=== PATIENT | male | born 1965 | race Caucasian/White ===

== ENCOUNTER 2017-05-21 11:41 | Emergency (ER) | payer OTHER, SELFPAY ==
[2017-05-21 12:03] VITALS: BP 132/86; PULSE 105; RESP 18; TEMP 37.1; O2SAT 96; BMI 33.0
--- NOTE | 2017-05-21 12:18 | XR_ITS ---
XR chest 2V HISTORY: ITS.REASON: congestion ORDERING PHYSICIAN: Ester Vazquez PATIENT AGE: 52 years COMPARISON: 08/18/2015 FINDINGS: The cardiomediastinal silhouette and pulmonary vascularity are within normal limits. The lungs are clear without infiltrates, suspicious nodules, or pleural effusions. No acute bony abnormalities. IMPRESSION: Negative chest, no acute finding
--- NOTE | 2017-05-21 12:18 | HMH.EDUTC ---
[facility] [place]ression: Influenza Disposition: Home, Self-Care Condition on Discharge: Good Instructions: Influenza, Cough, DI for Cough -- Adult Additional Instructions: ? Start Tamiflu today if you are going to take it. Discussed risk and possible benefits. ? Lots of rest ? Increase Fluids water, Gatorade, powerade, pedialyte,if /toddler/child ? Alternate Tylenol and / or ibuprofen as discussed for fever, aches, chills x 24 hours without medication for symptoms ? Follow up IMMEDIATELY for new or worsening Symptoms OR no noticeable improvement over the next 48-72 hours, 911 for difficulty or breathing ? You or your child area contagious until no fever, aches, chills for 24 hours with medication for symptoms Prescriptions: Dextromethorphan Polistirex [Delsym] 10 mg PO Q12H PRN #250 dorothy.er.12h PRN Reason: Cough Oseltamivir Phosphate [Tamiflu 75mg Capsule] 75 mg PO BID #10 cap Referrals: Alexandro Handley MD [Primary Care Provider] - Forms: Work/School Release Medical Decision Making - Medical Records Medical records reviewed: Yes: I reviewed the patient's medical records. Vital Signs: 05/21/17 12:03 Temperature 98.8 F Temperature Source Temporal Artery Scan Pulse Rate [Right Brachial] 105 H Respiratory Rate 18 Blood Pressure [Right Arm] 132/86 Blood Pressure Mean [Right Arm] 101 Blood Pressure Source [Right Arm] Automatic Cuff Blood Pressure Position [Right Arm] Sitting 02 Sat by Pulse Oximetry 96 Oxygen Delivery Method Room Air - Lab Data Lab Results 05/21/17 12:05: Influenza Type A Ag Positive A, Influenza Type B Ag Negative - Radiology Data #1 Image(s): Chest Image Reviewed: Yes I reviewed the patient's radiology image Preliminary Findings: Normal/NAD - Min Inquiry Pt receiving controlled substance: No Min was queried for this patient: No [facility] [place] - General Stated complaint: fever,vomiting,cough Mode of Arrival: Ambulatory Source of Information: Patient Limitations: No Limitations Description of Symptoms (Recalled from Triage Doc. by RN): c/o flu-like symptoms HEENT Symptoms (Recalled from RN notes): No Resp Symptoms (Recalled from RN notes): Yes (Flu-like symptoms) Skin Symptoms (Recalled from RN notes): No MS Symptoms (Recalled from RN notes): No Functional Status (Recalled from RN notes): n/a - History of Present Illness Provider Complaint: Patient state that yesterday he began to have body aches and didn't feel well State that last night he began having bad cough, sore throat and flu like symptoms States that this morning he began to run a fever and feeling worse States that he coughed so hard this morning that it made him vomit - Related Data Previous Rx's Medication Instructions Recorded Dextromethorphan Polistirex 10 mg PO Q12H PRN #250 dorothy.er.12h 05/21/17 [Delsym] Oseltamivir Phosphate [Tamiflu 75 mg PO BID #10 cap 05/21/17 75mg Capsule] Allergies Allergy/AdvReac Type Severity Reaction Status Date / Time No Known Allergies Allergy Verified 05/21/17 12:07 - Worker's Comp Is this a Worker's Comp case?: No H History I have reviewed the patient's past medical history: Yes - *Social History Smoking Status: Current every day smoker Tobacco Type: cigarettes Alcohol Intake: never - Psychiatric History Expresses thoughts of harming self/others: None Suicide Plan Description: No Plan ROS Obtained: Yes All systems reviewed & no additional complaints - Constitutional Constitutional: Reports body ache, Reports chills, Reports fever(s) - ENT Ears, Nose, Mouth, and Throat: Reports nasal congestion, Reports sore throat Physical Exam - General General appearance: alert, in no apparent distress - Expanded ENT Exam Comment: Throat red, nares red, irritated - Respiratory Respiratory exam: Present: normal lung sounds bilaterally. Absent: respiratory distress - Cardiovascular Cardiovascular exam: Pre
--- NOTE | 2017-05-21 12:21 | ED_ITS ---
[facility] – [place] Clinical Impression: Influenza Disposition: Home, Self-Care Condition on Discharge: Good Instructions: Influenza, Cough, DI for Cough -- Adult Additional Instructions: ? Start Tamiflu today if you are going to take it. Discussed risk and possible benefits. ? Lots of rest ? Increase Fluids water, Gatorade, powerade, pedialyte,if /toddler/child ? Alternate Tylenol and / or ibuprofen as discussed for fever, aches, chills x 24 hours without medication for symptoms ? Follow up IMMEDIATELY for new or worsening Symptoms OR no noticeable improvement over the next 48-72 hours, 911 for difficulty or breathing ? You or your child area contagious until no fever, aches, chills for 24 hours with medication for symptoms Prescriptions: Dextromethorphan Polistirex [Delsym] 10 mg PO Q12H PRN #250 dorothy.er.12h PRN Reason: Cough Oseltamivir Phosphate [Tamiflu 75mg Capsule] 75 mg PO BID #10 cap Referrals: Alexandro Handley MD [Primary Care Provider] - Forms: Work/School Release Medical Decision Making - Medical Records Medical records reviewed: Yes: I reviewed the patient's medical records. Vital Signs: 05/21/17 12:03 Temperature 98.8 F Temperature Source Temporal Artery Scan Pulse Rate [Right Brachial] 105 H Respiratory Rate 18 Blood Pressure [Right Arm] 132/86 Blood Pressure Mean [Right Arm] 101 Blood Pressure Source [Right Arm] Automatic Cuff Blood Pressure Position [Right Arm] Sitting 02 Sat by Pulse Oximetry 96 Oxygen Delivery Method Room Air - Lab Data Lab Results 05/21/17 12:05: Influenza Type A Ag Positive A, Influenza Type B Ag Negative - Radiology Data #1 Image(s): Chest Image Reviewed: Yes I reviewed the patient's radiology image Preliminary Findings: Normal/NAD - Min Inquiry Pt receiving controlled substance: No Min was queried for this patient: No [facility] [place] HPI - General Stated complaint: fever,vomiting,cough Mode of Arrival: Ambulatory Source of Information: Patient Limitations: No Limitations Description of Symptoms (Recalled from Triage Doc. by RN): c/o flu-like symptoms HEENT Symptoms (Recalled from RN notes): No Resp Symptoms (Recalled from RN notes): Yes (Flu-like symptoms) Skin Symptoms (Recalled from RN notes): No MS Symptoms (Recalled from RN notes): No Functional Status (Recalled from RN notes): n/a - History of Present Illness Provider Complaint: Patient state that yesterday he began to have body aches and didn't feel well State that last night he began having bad cough, sore throat and flu like symptoms States that this morning he began to run a fever and feeling worse States that he coughed so hard this morning that it made him vomit - Related Data Previous Rx's Medication Instructions Recorded Dextromethorphan Polistirex 10 mg PO Q12H PRN #250 dorothy.er.12h 05/21/17 [Delsym] Oseltamivir Phosphate [Tamiflu 75 mg PO BID #10 cap 05/21/17 75mg Capsule] Allergies Allergy/AdvReac Type Severity Reaction Status Date / Time No Known Allergies Allergy Verified 05/21/17 12:07 - Worker's Comp Is this a Worker's Comp case?: No [facility] History I have reviewed the patient's past medical history: Yes - *Social History Smoking Status: Current every day smoker Tobacco Type: cigarettes Alcohol Intake: never - Psychiatric Hist
[2017-05-21 12:24] LABS: UTC Influenza A Antigen Positive (Negative); UTC Influenza B Antigen Negative (Negative)
[2017-05-21 12:52] VITALS: BP 132/86; PULSE 105; RESP 18; TEMP 37.1; O2SAT 96
== END 2017-05-21 12:52 | disposition home or self-care (01) ==
PROVIDERS: Emergency Provider Nurse Practitioner; Family Provider Emergency Medicine; PCP Emergency Medicine
DX: J10.1 Influenza due to other identified influenza virus with other respiratory manifestations (principal)
CPT/HCPCS: 71046; 87804; 99202

== ENCOUNTER → 2017-06-12 08:40 | Outpatient (CLI) | payer OTHER, SELFPAY ==
[2017-06-12 09:05] LABS: Alanine Aminotransferase 38 U/L (12-78); Albumin Level 3.7 gm/dL (3.4-5.0); Alkaline Phosphatase 110 U/L (46-116); Aspartate Amino Transferase 14 U/L (15-37); Bilirubin,Direct 0.2 mg/dL (0.0-0.2); Bilirubin,Total 0.5 mg/dL (0.2-1.0); Chol/HDL Ratio 3.2 (1-3.5); Cholesterol 90 mg/dL (140-200); HDL Cholesterol 28 mg/dL (27-67); LDL Cholesterol 41 mg/dL (0-130); Total Protein,Serum 6.9 gm/dL (6.4-8.2); Triglycerides 107 mg/dL (30-200); VLDL Cholesterol 21 mg/dL (0-40)
== END ==
PROVIDERS: Visit Provider Internal Medicine
DX: I73.9 Peripheral vascular disease, unspecified (principal); I25.10 Atherosclerotic heart disease of native coronary artery without angina pectoris; I10 Essential (primary) hypertension; R94.31 Abnormal electrocardiogram [ECG] [EKG]; G47.33 Obstructive sleep apnea (adult) (pediatric); G62.9 Polyneuropathy, unspecified
CPT/HCPCS: 36415; 80061; 80076

== ENCOUNTER → 2017-08-22 09:00 | Outpatient (CLI) | payer OTHER, SELFPAY ==
--- NOTE | 2017-08-22 09:02 | FL_ITS ---
EXAM: Barium swallow/esophagram. INDICATION: ITS.REASON: dysphagia ORDERING PHYSICIAN: Everette Raza MD PATIENT AGE: 52 years COMPARISON: None TECHNIQUE: In the upright position the patient was observed to swallow barium in both the AP and lateral view. The cervical esophagus was examined under fluoroscopy with images obtained. The patient was then placed prone in the right anterior oblique position and was observed to swallow barium with Valsalva technique . FLUOROSCOPY TIME: 45 seconds FINDINGS: There was no evidence of aspiration. There was normal peristalsis. No filling defects or mucosal abnormalities. No masses or strictures. No evidence of esophageal diverticulum. Esophagus is midline. No hernia is apparent IMPRESSION: Negative barium swallow.
--- NOTE | 2017-08-22 09:02 | US_ITS ---
US thyroid HISTORY: ITS.REASON: enlarged thyroid ORDERING PHYSICIAN: Everette Raza MD PATIENT AGE: 52 years COMPARISON: 02/27/2015 FINDINGS: The right lobe is 4.2 x 1.4 x 2.5 cm. There is a vague area of decreased echogenicity along the medial aspect of the right lobe at 8 x 6 mm. This is poorly demonstrated and may be due to an area of heterogeneous echogenicity. Overall not significant change. Left lobe is 4.3 x 1.1 x 1.8 cm and has some heterogeneous echogenicity as well. There is a 4 x 2 mm hypoechoic nodule along the anterior right aspect of the isthmus not significant change. IMPRESSION: Mild thyroid enlargement with vague nodular area of the right lobe and a small cyst of the isthmus unchanged
== END ==
PROVIDERS: Family Provider Emergency Medicine; PCP Nurse Practitioner Family; Visit Provider Otolaryngology
DX: R13.10 Dysphagia, unspecified (principal)
CPT/HCPCS: 74220; 76536

== ENCOUNTER → 2017-08-28 15:27 | Outpatient (CLI) | payer OTHER, SELFPAY ==
[2017-08-28 17:30] LABS: Free T4 (Free Thyroxine) 0.98 ng/dl (0.76-1.46); Thyroid Stimulating Hormone 3.38 uIU/ml (0.358-3.740)
[2017-08-30 07:43] LABS: Thyroid Peroxidase Antibodies 11 IU/mL (0-34)
[2017-08-31 21:14] LABS: Thyroid Stimulating Immunoglob <0.10 IU/L (0.00-0.55)
== END ==
PROVIDERS: Family Provider Emergency Medicine; PCP Nurse Practitioner Family; Visit Provider Otolaryngology
DX: E01.0 Iodine-deficiency related diffuse (endemic) goiter (principal); E04.9 Nontoxic goiter, unspecified
CPT/HCPCS: 36415; 83520; 84439; 84443; 86376

== ENCOUNTER → 2018-01-19 07:08 | Outpatient (CLI) | payer OTHER, SELFPAY ==
--- NOTE | 2018-01-19 07:10 | CA_ITS ---
PROCEDURE: 2-D M-mode and color Doppler study INDICATIONS FOR THE TEST: Chest pain COPDX Heart Murmur Tobacco SmokingX Palpitations Fatigue Syncope Edema HypertensionXDiabetes Mellitus Rheumatic Fever SOB PADRON Obesity HyperlipidemiaX Family History HD Additional History PRE-OP EVAL,ABN EKG PATIENT INFORMATION HEIGHT: 70 WEIGHT:242 GENDER: Male B/P:126/76 2-D/M-MODE INTERPRETATION: 2-D MEASUREMENTS OBSERVED VALUES IN CMS Right Ventricular Dimension (RVDd) 2.5 Interventricular Septum (Thickness)(IVsd) .9 Left Ventricular Internal Dimensions(LVIDd) 5.5 Left Ventricular Posterior Wall (Thickness)(LVPWd) .8 Aortic Root 3.1 Aortic Cusp Separation 2.4 Left Atrial Dimensions (LAD) 3.3 2D 1. Left atrium is qualitatively mildly enlarged, left ventricle is normal size, mild qualitative concentric left ventricular hypertrophy, visually estimated ejection fraction 55% with no regional wall motion abnormality. 2. The right atrium and ventricle are normal size and contractility. 3. The aortic valve is minimally thickened and calcified leaflet continue to display good mobility. 4. The mitral and tricuspid valvular grossly normal. 5. The pulmonic valve is poorly visualized. 6. No significant pericardial effusion noted. DOPPLER INTERROGATION: Doppler interrogation of the aortic, mitral and tricuspid valvular presence of mild mitral and tricuspid regurgitation, tricuspid regurgitation jet velocity insufficient for acquisition of the right ventricular systolic pressure, grade 1 diastolic dysfunction seen without tissue Doppler evidence of raised left atrial pressure. CONCLUSION: 1. Mildly enlarged left atrium, normal left ventricular size, mild qualitative concentric left ventricular hypertrophy, visually estimated ejection fraction 55% with no regional wall motion abnormality, grade 1 diastolic dysfunction seen without tissue Doppler evidence of raised left atrial pressure. 2. Mild mitral and tricuspid regurgitation 3. No significant pericardial effusion noted.
--- NOTE | 2018-01-19 07:10 | NM_ITS ---
History and Indications: Hypertension, hyperlipidemia, tobacco use, family history and preop Procedure: Patient received 0.4 mg of intravenous Lexiscan, resting heart rate was 69 bpm resting blood pressure 130/77, with Lexiscan maximum heart rate achieved was 109 bpm which is less than 85% of the maximum predicted heart rate and a blood pressure was 105/51. With Lexiscan patient complained of shortness of breath and lightheadedness. Electrocardiogram: Resting electrocardiogram showed sinus rhythm, with Lexiscan there is less than 1.5 ST segment depression noted from the baseline EKG. The EKG portion of the Lexiscan Myoview is nondiagnostic. Cardiac stress and resting SPECT images: Cardiac stress and rest SPECT images were obtained using technetium 99 Myoview 29.3 mCi stress and 10.6 mCi at rest, gated SPECT further analysis of segmental wall motion and calculation of ejection fraction also done. Cardiac stress and rest images show reversible ischemia involving the anteroapical and inferior wall, computer derived ejection fraction 56% with no regional wall motion abnormality, right ventricle is normal size and contractility. Conclusion: 1. The EKG portion of the Lexiscan Myoview is nondiagnostic. 2. Scintigraphic evidence of reversible ischemia involving the anteroapical and inferior wall, computer derived ejection fraction is 56% with no regional wall motion abnormality, right ventricle is normal size and contractility. 3. Abnormal Lexiscan Myoview study.
--- NOTE | 2018-01-19 08:31 | HMH.ITSHM ---
Current Home Medications as stated by this patient Alexa Pennington or appeals representative. []lisinopril atorvastatin plavix asa gabapentin
== END ==
PROVIDERS: Family Provider Emergency Medicine; PCP Nurse Practitioner Family; Visit Provider Internal Medicine
DX: Z01.818 Encounter for other preprocedural examination (principal); I73.9 Peripheral vascular disease, unspecified; I25.10 Atherosclerotic heart disease of native coronary artery without angina pectoris; E78.2 Mixed hyperlipidemia; F17.200 Nicotine dependence, unspecified, uncomplicated; G47.33 Obstructive sleep apnea (adult) (pediatric); G62.89 Other specified polyneuropathies; I10 Essential (primary) hypertension; J43.9 Emphysema, unspecified
CPT/HCPCS: 78452; 93017; 93306; A9502; J2785

== ENCOUNTER → 2018-05-15 13:26 | Outpatient (CLI) | payer OTHER, SELFPAY ==
--- NOTE | 2018-05-15 13:28 | CI_ITS ---
Cerebrovascular Exam Indications: 780.4 Dizziness and giddiness. IMPRESSIONS 1. The bilateral vertebral arteries are patent with normal antegrade flow. 2. Study suggests less than 20% stenosis involving the right internal carotid artery and the left internal carotid artery. History: Risk factors: Current tobacco use. Hypertension. Hyperlipidemia. Carotid duplex study. Complete study and Doppler flow study including spectral analysis, color and nguyen scale imaging. Height: Height: 180.3cm. Height: 71in. Weight: Weight: 108kg. Weight: 237.5lb. Body mass index: BMI: 33.2kg/m^2. Body surface area: BSA: 2.36m^2. Location: Vascular laboratory. Patient status: Outpatient. Tables: Arterial flow: + +--------+--------+ Location V sys V ed + +--------+--------+ Right CCA - proximal 107cm/s 30.6cm/s + +--------+--------+ Right CCA - distal 99cm/s 26.7cm/s + +--------+--------+ Right ECA 96.6cm/s -------- + +--------+--------+ Right ICA - proximal 55cm/s 22.8cm/s + +--------+--------+ Right ICA - mid 77cm/s 31.4cm/s + +--------+--------+ Right ICA - distal 96.6cm/s 42.4cm/s + +--------+--------+ Right vertebral 36.1cm/s -------- + +--------+--------+ Left CCA - proximal 112cm/s 23.6cm/s + +--------+--------+ Left CCA - distal 89.6cm/s 28.3cm/s + +--------+--------+ Left ECA 103cm/s -------- + +--------+--------+ Left ICA - proximal 76.2cm/s 29.1cm/s + +--------+--------+ Left ICA - mid 101cm/s 34.6cm/s + +--------+--------+ Left ICA - distal 102cm/s 37.7cm/s + +--------+--------+ Left vertebral 41.6cm/s -------- + +--------+--------+ Velocity ratios: + + + + + + Right, V sys Right, V ed Left, V sys Left, V ed + + + + + + Max ICA/dist CCA 0.98 1.59 1.14 1.33 + + + + + + (Report amended ) Electronically signed by: Cy Stubbs [id number]
--- NOTE | 2018-05-15 13:31 | XR_ITS ---
XR chest 2V HISTORY: Heart disease, coronary artery disease, smoker ITS.REASON: tobacco dependence ORDERING PHYSICIAN: Dillon Maldonado MD PATIENT AGE: 53 years COMPARISON: 05/21/2017 FINDINGS: The cardiomediastinal silhouette and pulmonary vascularity are within normal limits. The lungs are clear without infiltrates, suspicious nodules, or pleural effusions. No acute bony abnormalities. IMPRESSION: Negative chest, no acute finding
== END ==
PROVIDERS: PCP Emergency Medicine; Visit Provider Internal Medicine
DX: R42 Dizziness and giddiness (principal); I73.9 Peripheral vascular disease, unspecified; I25.10 Atherosclerotic heart disease of native coronary artery without angina pectoris; E78.2 Mixed hyperlipidemia; J43.9 Emphysema, unspecified; G47.31 Primary central sleep apnea; G47.33 Obstructive sleep apnea (adult) (pediatric); I10 Essential (primary) hypertension; F17.200 Nicotine dependence, unspecified, uncomplicated; R53.82 Chronic fatigue, unspecified
CPT/HCPCS: 71046; 93880

== ENCOUNTER → 2018-07-24 10:44 | Outpatient (CLI) | payer OTHER, SELFPAY ==
--- NOTE | 2018-07-24 10:52 | XR_ITS ---
XR foot wt bearing RT 3V HISTORY: ITS.REASON: pain ORDERING PHYSICIAN: Keshia Ash DPM PATIENT AGE: 53 years COMPARISON: None FINDINGS: No fracture or dislocation. No lytic or blastic change. There is normal mineralization.. The joint spaces are well-preserved. No significant degenerative/arthritic changes. No erosive changes evident. IMPRESSION: Negative, no acute finding
--- NOTE | 2018-07-24 10:52 | XR_ITS ---
XR foot wt bearing LT 3V HISTORY: ITS.REASON: pain ORDERING PHYSICIAN: Keshia Ash DPM PATIENT AGE: 53 years COMPARISON: 01/03/2017 FINDINGS: Postsurgical changes are present with 2 screw tips within the mid cuneiform. There is mixed lucencies and cortical sclerosis of the medial and mid cuneiform as well as the base of the second metatarsal with some bony fragmentation at the dorsal aspect of the navicular. These findings are similar when compared to the previous exam. No acute bony erosive process evident. IMPRESSION: Overall no change in the postsurgical changes of the midfoot
[2018-07-24 11:31] LABS: Basophils % 0.4 % (0.1-2.0); Eosinophils # 0.2 K/mm3 (0.0-0.4); Eosinophils % 2.2 % (0.1-12.0); Hematocrit 50.6 % (42.0-52.0); Hemoglobin 17.2 g/dL (14.1-18.0); Lymphocytes % 24.1 % (10-50); Mean Corpuscular Hemoglobin 32.7 pg (27.0-31.2); Mean Corpuscular Volume 96.2 fl (80-94); Mean Platelet Volume 8.2 fl (7.4-10.4); Monocytes # 0.3 K/mm3 (0.1-1.0); Monocytes % 3.9 % (1.7-9.3); Neutrophils # 5.6 K/mm3 (1.8-7.8); Neutrophils % 69.4 % (37.0-80.0); Platelet Count 144 K/mm3 (142-424); Red Blood Count 5.26 M/mm3 (4.60-6.20); Red Cell Distribution Width 13.5 % (11.5-17.5); White Blood Count 8.1 K/mm3 (4.8-10.8)
[2018-07-24 12:11] LABS: Erythrocyte Sedimentation Rate 3 mm/hr (0-20)
[2018-07-24 13:02] LABS: Alanine Aminotransferase 54 U/L (12-78); Albumin Level 3.9 gm/dL (3.4-5.0); Albumin/Globulin Ratio 1.3 (1.1-1.8); Alkaline Phosphatase 112 U/L (46-116); Anion Gap 14.6 mEq/L (5-15); Aspartate Amino Transferase 21 U/L (15-37); Bilirubin,Total 0.5 mg/dL (0.2-1.0); Blood Urea Nitrogen 13 mg/dL (7-18); Calcium 8.8 mg/dL (8.5-10.1); Carbon Dioxide 28 mmol/L (21.0-32.0); Chloride 102 mmol/L (98-107); Creatinine,Serum 1.08 mg/dL (0.70-1.30); Estimated Glomerular Filt Rate 72 ml/min (>60); GFR (African American) 87 ML/MIN (>60); Globulin 3.1 gm/dl (1.3-3.2); Glucose 130 mg/dL (74-106); Potassium 3.6 mmoL/L (3.5-5.1); Sodium 141 mmol/L (136-145); Uric Acid 5.3 mg/dL (2.6-7.2)
[2018-07-24 13:16] LABS: C-Reactive Protein < 0.2 mg/L (0.0-0.9)
== END ==
PROVIDERS: PCP Emergency Medicine; Visit Provider Podiatrist
DX: M79.671 Pain in right foot (principal); M79.672 Pain in left foot; Z51.89 Encounter for other specified aftercare
CPT/HCPCS: 36415; 73630; 80053; 84550; 85025; 85651; 86140; 87070; 87077; 87186; 87205

== ENCOUNTER → 2018-08-27 14:07 | Outpatient (CLI) | payer OTHER, SELFPAY ==
--- NOTE | 2018-08-27 14:19 | MR_ITS ---
MR foot LT wo/w con CLINICAL INDICATION: Redness and swelling of left great toe ITS.REASON: Cellulitis of left great toe, gout tophi ORDERING PHYSICIAN: Keshia Ash DPM PATIENT AGE: 53 years Comparison: 07/24/2018 TECHNIQUE: Routine multiplanar multiecho sequences are performed of the metatarsals and allergies without and with gadolinium enhancement FINDINGS: There is slight increased T2 signal involving the mid distal aspect of the distal phalanx of the great toe with some mild enhancement at this region with associated soft tissue swelling and increased signal of the soft tissues. No abscess. Artifact is present from orthopedic hardware in the midfoot. The interphalangeal joint of the great toe has an unremarkable appearance. There is approximate 12 mm distance from the area of enhancement and edema to the interphalangeal joint. IMPRESSION: 1. Cellulitis of the great toe. 2. Increased T2 signal involves the distal aspect of the distal phalanx of the great toe with some enhancement at this region suggestive of osteomyelitis.
[2018-08-27 14:50] LABS: Basophils % 0.3 % (0.1-2.0); Eosinophils # 0.2 K/mm3 (0.0-0.4); Eosinophils % 2.3 % (0.1-12.0); Hematocrit 49.3 % (42.0-52.0); Hemoglobin 16.6 g/dL (14.1-18.0); Lymphocytes % 19.6 % (10-50); Mean Corpuscular HGB Conc 33.6 g/dL (31.8-35.4); Mean Corpuscular Hemoglobin 32.8 pg (27.0-31.2); Mean Corpuscular Volume 97.6 fl (80-94); Mean Platelet Volume 7.9 fl (7.4-10.4); Monocytes # 0.4 K/mm3 (0.1-1.0); Monocytes % 4.1 % (1.7-9.3); Neutrophils # 7.4 K/mm3 (1.8-7.8); Neutrophils % 73.6 % (37.0-80.0); Platelet Count 162 K/mm3 (142-424); Red Blood Count 5.06 M/mm3 (4.60-6.20); Red Cell Distribution Width 13.6 % (11.5-17.5)
[2018-08-27 14:57] LABS: Alanine Aminotransferase 47 U/L (12-78); Albumin Level 3.5 gm/dL (3.4-5.0); Alkaline Phosphatase 117 U/L (46-116); Anion Gap 12.6 mEq/L (5-15); Aspartate Amino Transferase 17 U/L (15-37); Bilirubin,Total 0.5 mg/dL (0.2-1.0); Blood Urea Nitrogen 7 mg/dL (7-18); Calcium 8.1 mg/dL (8.5-10.1); Carbon Dioxide 29 mmol/L (21.0-32.0); Chloride 99 mmol/L (98-107); Creatinine,Serum 0.98 mg/dL (0.70-1.30); Estimated Glomerular Filt Rate 80 ml/min (>60); GFR (African American) 97 ML/MIN (>60); Globulin 3.5 gm/dl (1.3-3.2); Glucose 156 mg/dL (74-106); Potassium 3.6 mmoL/L (3.5-5.1); Sodium 137 mmol/L (136-145)
[2018-08-27 15:00] LABS: C-Reactive Protein < 0.2 mg/L (0.0-0.9)
--- NOTE | 2018-08-27 16:01 | HMH.ITSHM ---
Current Home Medications as stated by this patient Alexa Pennington or branch customer service representative. []ASPIRIN GABAPENTIN ATORVASTATIN
[2018-08-27 16:22] LABS: Erythrocyte Sedimentation Rate 3 mm/hr (0-20)
== END ==
PROVIDERS: Visit Provider Podiatrist
DX: M79.675 Pain in left toe(s) (principal); L03.032 Cellulitis of left toe; M1A.9XX1 Chronic gout, unspecified, with tophus (tophi)
CPT/HCPCS: 36415; 73720; 80053; 85025; 85651; 86140; A9576

== ENCOUNTER → 2018-09-01 08:27 | Outpatient (CLI) | payer OTHER, SELFPAY ==
[2018-09-01 00:13] VITALS: BP 119/64; PULSE 86; RESP 18; TEMP 37; O2SAT 96
[2018-09-01 08:50] VITALS: BP 128/80; PULSE 70; RESP 16; TEMP 36.9; O2SAT 96
[2018-09-01 10:13] VITALS: BP 146/67; PULSE 83; RESP 20; TEMP 36.8; O2SAT 94
[2018-09-01 12:36] VITALS: BP 122/66; PULSE 74; RESP 18; O2SAT 98
--- NOTE | 2018-09-01 21:55 | PC.NURSE ---
PT ARRIVED TO FLOOR PER AMBULATING INDEPENDENTLY, ACCOMPANIED BY . A&OX3. VS OBTAINED, WNL. INFUSION OF VANC BEGAN AT THIS TIME. IV WAS ASSESSED PRIOR TO ADMINISTRATION OF VANC, LFA IV SITE FREE FROM S/S OF INFECTION, AND PATENT. PT DENIED AND PAIN OR DISCOMFORT AT IV SITE. CALL LIGHT PROVIDED AND INSTRUCTED TO USE FOR ANY NEEDS, PT DEMONSTRATED APPROPRIATE USE. VANC COMPLETED AT 0013. VS OBTAINED AT 0013, WNL. INSTRUCTIONS WERE GIVEN TO ARRIVE BACK FOR ANOTHER VANC DOSE ADMINISTRATION AROUND 1000 ON 09/02, PT VERBALIZED UNDERSTANDING. AMBULATED INDEPENDENTLY AND TOLERATED WELL, ACCOMPANIED BY ON LEAVING MED SURG UNIT.
== END ==
PROVIDERS: PCP Nurse Practitioner Family; Visit Provider Podiatrist
DX: L03.032 Cellulitis of left toe (principal)
CPT/HCPCS: 96365; 96366; G0463; J3370

== ENCOUNTER 2018-09-02 09:52 | Outpatient (CLI) | payer OTHER, SELFPAY ==
[2018-09-02 10:05] VITALS: BP 130/75; PULSE 72; RESP 18; O2SAT 96
[2018-09-02 21:33] VITALS: BP 129/78; PULSE 84; RESP 17; TEMP 36.7; O2SAT 95
[2018-09-02 21:35] VITALS: BMI 34.9
[2018-09-02 23:44] VITALS: BP 131/77; PULSE 82; RESP 17; TEMP 36.8; O2SAT 95
[2018-09-02 23:45] VITALS: BP 131/77; PULSE 82; RESP 17; TEMP 36.8; O2SAT 95
== END 2018-09-02 23:44 | disposition home or self-care (01) ==
LOC: INF 09:53
PROVIDERS: PCP Nurse Practitioner Family; Visit Provider Podiatrist
DX: L03.032 Cellulitis of left toe (principal)
CPT/HCPCS: 96365; 96366; G0463; J3370

== ENCOUNTER 2018-09-03 09:34 | Outpatient (CLI) | payer OTHER, SELFPAY ==
[2018-09-03 10:12] VITALS: BP 135/73; PULSE 71; RESP 18; TEMP 36.6; O2SAT 98; BMI 34.9
[2018-09-03 10:42] LABS: Anion Gap 12.4 mEq/L (5-15); Blood Urea Nitrogen 12 mg/dL (7-18); Calcium 8.6 mg/dL (8.5-10.1); Carbon Dioxide 28 mmol/L (21.0-32.0); Chloride 102 mmol/L (98-107); Creatinine Clearance Estimated 130 mL/min (50-200); Creatinine,Serum 1.04 mg/dL (0.70-1.30); Estimated Glomerular Filt Rate 75 ml/min (>60); GFR (African American) 91 ML/MIN (>60); Glucose 121 mg/dL (74-106); Potassium 4.4 mmoL/L (3.5-5.1); Sodium 138 mmol/L (136-145); Vancomycin,Random 14.1 ug/mL
[2018-09-03 13:30] VITALS: BP 141/88; PULSE 66; RESP 16; TEMP 36.6; O2SAT 97
[2018-09-03 22:10] VITALS: BP 140/73; PULSE 87; RESP 18; TEMP 36.9; O2SAT 96; BMI 34.0
[2018-09-04 00:51] VITALS: BP 130/78; PULSE 78; RESP 18; TEMP 36.6; O2SAT 95
== END 2018-09-04 00:54 | disposition home or self-care (01) ==
PROVIDERS: PCP Nurse Practitioner Family; Visit Provider Podiatrist
DX: L03.032 Cellulitis of left toe (principal)
CPT/HCPCS: 80048; 80202; 96365; 96366; J3370

== ENCOUNTER → 2018-09-04 10:00 | Outpatient (CLI) | payer OTHER, SELFPAY ==
[2018-09-04 10:11] VITALS: BMI 34.0
[2018-09-04 10:15] VITALS: BP 123/78; PULSE 80; RESP 20; TEMP 36.4; O2SAT 97
[2018-09-04 10:45] VITALS: BP 130/80; PULSE 76; RESP 18; O2SAT 95
--- NOTE | 2018-09-04 11:40 | XR_ITS ---
XR chest portable HISTORY: Evaluate PICC line placement ITS.REASON: PICC ORDERING PHYSICIAN: Keshia Ash DPM PATIENT AGE: 53 years COMPARISON: 05/15/2018 FINDINGS: Left upper extremity PICC line has been placed. The tip is in good position in the region of the superior vena cava. Unremarkable cardiovascular structures with clear lungs. IMPRESSION: Good placement of PICC line. FINDINGS called to Monet on 09/04/2018 11:56 AM.
[2018-09-04 11:45] VITALS: BP 134/72; PULSE 68; RESP 18; O2SAT 97
[2018-09-04 12:15] VITALS: BP 135/76; PULSE 70; RESP 18; O2SAT 96
[2018-09-04 13:00] VITALS: BP 117/78; PULSE 69; RESP 18; O2SAT 96
[2018-09-04 22:15] VITALS: BP 107/50; PULSE 86; RESP 20; TEMP 37; O2SAT 96
[2018-09-05 00:20] VITALS: BP 106/68; PULSE 75; RESP 20; TEMP 37; O2SAT 97
--- NOTE | 2018-09-05 00:30 | PC.NURSE ---
PT ARRIVED FOR IV OUT PT ABX. PICC SECURE IN LEFT UPPER ARM. FLUSHED WELL. MED INFUSED OVER 2HRS ORDERED. V/S TAKE BEFORE AND AFTER MED GIVEN. PT TOLERATED MED WELL. PICC LINE FLUSHED AFTER MED FINISHED. NO COMPLAINTS, THEN PT AND HIS LEFT FOR HOME.
== END ==
PROVIDERS: PCP Nurse Practitioner Family; Visit Provider Podiatrist
DX: L03.032 Cellulitis of left toe (principal)
CPT/HCPCS: 36569; 71045; 96365; 96366; C1751; J3370

== ENCOUNTER → 2018-09-05 11:00 | Outpatient (CLI) | payer OTHER, SELFPAY ==
[2018-09-05 11:20] VITALS: BP 159/89; PULSE 72; RESP 18; TEMP 36.2; O2SAT 98
[2018-09-05 12:00] VITALS: BP 122/77; PULSE 76; RESP 18; O2SAT 96
[2018-09-05 12:30] VITALS: BP 120/69; PULSE 85; RESP 20; O2SAT 96
[2018-09-05 13:40] VITALS: BP 124/68; PULSE 71; RESP 20; O2SAT 96
[2018-09-05 21:15] VITALS: BP 135/75; PULSE 101; RESP 18; TEMP 36.8; O2SAT 97
[2018-09-05 23:30] VITALS: BP 110/69; PULSE 86; RESP 18; TEMP 36.8; O2SAT 95
--- NOTE | 2018-09-06 00:55 | PC.NURSE ---
VS OBTAINED ON ARRIVAL TO UNIT, WNL. IV VANC INFUSION BEGAN AT 2128. PICC WAS ASSESSED PRIOR TO BEGINNING ADMIN OF VANC, PICC PATENT WITH BLOOD RETURN NOTED, DRESSING CDI, NO S/S OF INFECTION NOTED AT PICC LINE SITE. NO COMPLAINTS STATED. REDNESS NOTED TO LEFT FOOT. PT GIVEN CALL LIGHT AND INSTRUCTED TO USE FOR NEEDS, PT USED APPROPRIATELY. AROUND 2329 VANC INFUSION WAS COMPLETE. PICC FLUSHED WITH SL, PATENCY REMAINED. VS OBTAINED AND WNL. PT WALKING INDEPENDENTLY AND TOLERATED WELL ON LEAVING FLOOR. PT INSTRUCTED AND VERBALIZED UNDERSTANDING OF NEEDING TO ARRIVE IN THE MORNING FOR ANOTHER DOSE OF IV VANC.
== END ==
PROVIDERS: Visit Provider Podiatrist
DX: L03.032 Cellulitis of left toe (principal)
CPT/HCPCS: 96365; 96366; G0463; J3370

== ENCOUNTER 2018-09-06 09:50 | Outpatient (CLI) | payer OTHER, SELFPAY ==
[2018-09-06 10:15] VITALS: BP 118/73; PULSE 74; RESP 18; TEMP 36.2; O2SAT 94
[2018-09-06 11:00] VITALS: BP 129/77; PULSE 75; RESP 20; O2SAT 95
[2018-09-06 12:55] VITALS: BP 133/76; PULSE 75; RESP 18; O2SAT 95
[2018-09-06 21:06] VITALS: BP 131/72; PULSE 80; RESP 17; TEMP 36.7; O2SAT 97; BMI 34.9
[2018-09-06 23:16] VITALS: BP 139/82; PULSE 84; RESP 17; TEMP 36.9; O2SAT 96
== END 2018-09-06 23:05 | disposition home or self-care (01) ==
LOC: INF 09:50
PROVIDERS: PCP Nurse Practitioner Family; Visit Provider Podiatrist
DX: L03.032 Cellulitis of left toe (principal)
CPT/HCPCS: 96365; 96366; G0463; J3370

== ENCOUNTER 2018-09-07 09:00 | Outpatient (CLI) | payer OTHER, SELFPAY ==
[2018-09-07 09:00] VITALS: BP 128/72; PULSE 70; RESP 20; TEMP 36.2; O2SAT 93
[2018-09-07 09:48] VITALS: BP 120/68; BP 122/81; PULSE 100; PULSE 75; RESP 18; RESP 20; TEMP 36.1; TEMP 36.4; O2SAT 93
[2018-09-07 10:58] LABS: Anion Gap 14.8 mEq/L (5-15); Blood Urea Nitrogen 11 mg/dL (7-18); Calcium 8.5 mg/dL (8.5-10.1); Carbon Dioxide 26 mmol/L (21.0-32.0); Chloride 101 mmol/L (98-107); Creatinine,Serum 1.04 mg/dL (0.70-1.30); Estimated Glomerular Filt Rate 75 ml/min (>60); GFR (African American) 91 ML/MIN (>60); Glucose 116 mg/dL (74-106); Potassium 3.8 mmoL/L (3.5-5.1); Sodium 138 mmol/L (136-145); Vancomycin,Trough 16.6 mcg/ml (10.0-20.0)
--- NOTE | 2018-09-07 11:23 | HMH.PHACONS ---
- Pharmacy Consult Date: 09/07/18 Time: 11:24 Referring provider: DR. HODGES Reason for Consult:: VANCOMYCIN TROUGH LEVEL Allergies and ADEs:: Allergies Allergy/AdvReac Type Severity Reaction Status Date / Time No Known Allergies Allergy Verified 09/06/18 21:05 Home Medications:: Home Medications Medication Instructions Recorded Confirmed Type aspirin 81 mg tablet,delayed 81 mg PO DAILY 05/26/17 08/20/18 History release gabapentin 800 mg tablet 800 mg PO TID 05/26/17 08/20/18 History fluticasone propionate 50 1 spray INTRANASAL QDAY PRN g 02/26/18 08/20/18 History mcg/actuation nasal spray,suspension Atorvastatin Calcium [Lipitor 80mg 80 mg PO DAILY 03/12/18 08/20/18 History Tablet] Clopidogrel Bisulfate [Plavix 75mg 75 mg PO DAILY 03/12/18 08/20/18 History Tab] Lisinopril [Prinivil 10mg Tablet] 10 mg PO DAILY 03/12/18 08/20/18 History triamcinolone acetonide 0.1 % 1 applic TOPICAL BID #15 g 07/03/18 08/20/18 Rx topical cream ketoconazole 2 % topical cream 1 applic TOPICAL QDAY #30 g 07/24/18 08/20/18 Rx allopurinol 100 mg tablet 100 mg PO DAILY #30 tab 08/07/18 08/20/18 Rx Height: 1.7 m Weight: 78.9 kg Laboratory Results:: Laboratory Results - last 24 hr 09/07/18 09:20: Sodium 138, Potassium 3.8, Chloride 101, Carbon Dioxide 26, Anion Gap 14.8, BUN 11, Creatinine 1.04, Estimated GFR 75, Est GFR ( Amer) 91, Glucose 116 H, Calcium 8.5, Vancomycin Trough 16.6 Medical History: Reports:: Chronic Obstructive Pulmonary Disease (COPD), Congenital Heart Disease, Coronary Artery Disease, Hyperlipidemia, Hypertension, Peripheral Artery Disease Denies:: Diabetes Mellitus Type 1, Diabetes Mellitus Type 2, Internal Pacemaker, Lung Disease, Seizures Assessment and Plan - Assessment and plan all Dx Assessment and Plan for all problems:: BASED ON PATIENT FACTORS AND VANCOMYCIN TROUGH LEVEL, RECOMMEND CONTINUING VANCOMYCIN 2250 MG IV Q12H. PHARMACY WILL CONTINUE TO MONITOR DAILY AND ADJUST APPROPRIATE.
[2018-09-07 12:30] VITALS: BP 128/72; PULSE 70; RESP 20; TEMP 36.2; O2SAT 93
[2018-09-07 21:27] VITALS: BP 115/69; PULSE 89; RESP 16; TEMP 36.3; O2SAT 95
--- NOTE | 2018-09-07 21:34 | PC.NURSE ---
did check labs and pharmacist note concerning vancomycin
[2018-09-07 23:25] VITALS: BP 124/75; PULSE 80; RESP 18; TEMP 36.3; O2SAT 95
== END 2018-09-07 12:15 | disposition home or self-care (01) ==
LOC: INF 09:04
PROVIDERS: PCP Nurse Practitioner Family; Visit Provider Podiatrist
DX: L03.032 Cellulitis of left toe (principal)
CPT/HCPCS: 80048; 80202; 96365; 96366; G0463; J3370

== ENCOUNTER → 2018-09-08 09:06 | Outpatient (CLI) | payer OTHER, SELFPAY ==
[2018-09-08 09:06] VITALS: BP 119/70; PULSE 85; RESP 16; TEMP 36.7; O2SAT 98
[2018-09-08 10:20] VITALS: BP 119/70; PULSE 85; RESP 16; TEMP 36.7; O2SAT 98; BMI 34.9
[2018-09-08 21:05] VITALS: BP 151/82; PULSE 89; RESP 15; TEMP 36.6; O2SAT 98
[2018-09-08 23:15] VITALS: BP 162/85; PULSE 84; RESP 14; TEMP 36.6; O2SAT 97
== END ==
PROVIDERS: PCP Nurse Practitioner Family; Visit Provider Podiatrist
DX: L03.032 Cellulitis of left toe (principal)
CPT/HCPCS: 96365; 96366; G0463; J3370

== ENCOUNTER → 2018-09-09 08:56 | Outpatient (CLI) | payer OTHER, SELFPAY ==
[2018-09-09 08:59] VITALS: BP 127/72; PULSE 84; RESP 16; TEMP 36.6; O2SAT 96
[2018-09-09 11:22] VITALS: BP 120/74; PULSE 69; RESP 21; TEMP 36.8; O2SAT 93
[2018-09-09 20:30] VITALS: BP 128/72; PULSE 75; RESP 15; TEMP 36.8; O2SAT 98
[2018-09-09 22:50] VITALS: BP 131/76; PULSE 80; RESP 15; TEMP 36.7; O2SAT 97
== END ==
PROVIDERS: PCP Nurse Practitioner Family; Visit Provider Podiatrist
DX: L03.032 Cellulitis of left toe (principal)
CPT/HCPCS: 96365; 96366; G0463; J3370

== ENCOUNTER → 2018-09-10 08:50 | Outpatient (CLI) | payer OTHER, SELFPAY ==
[2018-09-10 09:18] VITALS: BP 112/70; PULSE 68; RESP 16; TEMP 36.6; O2SAT 95; BMI 34.9
[2018-09-10 10:15] VITALS: BP 120/69; PULSE 66; RESP 16; TEMP 36.7; O2SAT 96
[2018-09-10 11:40] VITALS: BP 124/74; PULSE 67; RESP 16; TEMP 36.7; O2SAT 97
[2018-09-10 20:55] VITALS: BP 142/79; PULSE 73; RESP 18; TEMP 36.7; O2SAT 98
[2018-09-10 23:05] VITALS: BP 128/80; PULSE 80; RESP 19; TEMP 37.1; O2SAT 98
== END ==
PROVIDERS: Visit Provider Podiatrist
DX: L03.032 Cellulitis of left toe (principal)
CPT/HCPCS: 96365; 96366; G0463; J3370

== ENCOUNTER 2018-09-11 08:42 | Outpatient (CLI) | payer OTHER, SELFPAY ==
[2018-09-11 09:12] VITALS: BP 121/73; PULSE 76; RESP 18; O2SAT 94
[2018-09-11 11:50] VITALS: BP 125/70; PULSE 64; RESP 18; O2SAT 94
[2018-09-11 21:06] VITALS: BMI 35.0
[2018-09-11 21:13] VITALS: BP 138/89; PULSE 81; RESP 16; TEMP 36.6; O2SAT 96
== END 2018-09-11 11:50 | disposition home or self-care (01) ==
LOC: INF 08:42
PROVIDERS: Visit Provider Podiatrist
DX: L03.032 Cellulitis of left toe (principal)
CPT/HCPCS: 96365; 96366; G0463; J3370

== ENCOUNTER 2018-09-14 08:50 | Outpatient (CLI) | payer OTHER, SELFPAY ==
[2018-09-14 08:56] VITALS: BMI 34.9
[2018-09-14 09:27] LABS: Anion Gap 14.7 mEq/L (5-15); Blood Urea Nitrogen 7 mg/dL (7-18); Calcium 8.6 mg/dL (8.5-10.1); Carbon Dioxide 26 mmol/L (21.0-32.0); Chloride 101 mmol/L (98-107); Creatinine Clearance Estimated 137 mL/min (50-200); Creatinine,Serum 0.99 mg/dL (0.70-1.30); Estimated Glomerular Filt Rate 79 ml/min (>60); GFR (African American) 96 ML/MIN (>60); Glucose 135 mg/dL (74-106); Potassium 3.7 mmoL/L (3.5-5.1); Sodium 138 mmol/L (136-145); Vancomycin,Trough 13.3 mcg/ml (10.0-20.0)
[2018-09-14 09:35] VITALS: BP 144/93; PULSE 85; RESP 18
--- NOTE | 2018-09-14 09:46 | HMH.PHACONS ---
- Pharmacy Consult Date: 09/14/18 Time: 09:46 Referring provider: DR. HODGES Reason for Consult:: VANCOMYCIN TROUGH LEVEL Allergies and ADEs:: Allergies Allergy/AdvReac Type Severity Reaction Status Date / Time No Known Allergies Allergy Verified 09/06/18 21:05 Home Medications:: Home Medications Medication Instructions Recorded Confirmed Type aspirin 81 mg tablet,delayed 81 mg PO DAILY 05/26/17 09/11/18 History release gabapentin 800 mg tablet 800 mg PO TID 05/26/17 09/11/18 History fluticasone propionate 50 1 spray INTRANASAL QDAY PRN g 02/26/18 09/11/18 History mcg/actuation nasal spray,suspension Atorvastatin Calcium [Lipitor 80mg 80 mg PO DAILY 03/12/18 09/11/18 History Tablet] Clopidogrel Bisulfate [Plavix 75mg 75 mg PO DAILY 03/12/18 09/11/18 History Tab] Lisinopril [Prinivil 10mg Tablet] 10 mg PO DAILY 03/12/18 09/11/18 History ketoconazole 2 % topical cream 1 applic TOPICAL QDAY #30 g 07/24/18 09/11/18 Rx Allopurinol [Allopurinol 100mg 100 mg PO DAILY 09/09/18 09/11/18 History tablet] Triamcinolone Acetonide [Kenalog 1 applic TOPICAL BID 09/09/18 09/11/18 History 0.1% cream 80gm tube] Height: 1.78 m Weight: 110.677 kg Laboratory Results:: Laboratory Results - last 24 hr 09/14/18 09:02: Sodium 138, Potassium 3.7, Chloride 101, Carbon Dioxide 26, Anion Gap 14.7, BUN 7, Creatinine 0.99, Estimated Creat Clear 137, Estimated GFR 79, Est GFR ( Amer) 96, Glucose 135 H, Calcium 8.6, Vancomycin Trough 13.3 Medical History: Reports:: Chronic Obstructive Pulmonary Disease (COPD), Congenital Heart Disease, Coronary Artery Disease, Hyperlipidemia, Hypertension, Peripheral Artery Disease Denies:: Diabetes Mellitus Type 1, Diabetes Mellitus Type 2, Internal Pacemaker, Lung Disease, Seizures Assessment and Plan - Assessment and plan all Dx Assessment and Plan for all problems:: BASED ON PATIENT FACTORS AND VANCOMYCIN TROUGH LEVEL, RECOMMEND CONTINUING VANCOMYCIN 2 GM IV Q12H. PHARMACY WILL CONTINUE TO MONITOR DAILY AND ADJUST APPROPRIATE.
[2018-09-14 12:15] VITALS: BP 136/87; PULSE 82; RESP 18
--- NOTE | 2018-09-14 15:53 | CT_ITS ---
CT abdomen pelvis wo con CLINICAL INDICATION: Left groin bruising from heart catheter, iliac stents placed on 09/12/2018, evaluate for hematoma, pseudoaneurysm ITS.REASON: HEMATOMA ORDERING PHYSICIAN: Boom Pastrana MD PATIENT AGE: 53 years COMPARISON: None TECHNIQUE: Axial images obtained with sagittal and coronal reformats. All CT scans at the facility use one or more dose reduction, viz: automated exposure control, ma/kV adjustment per patient size (including targeted exams where dose is matched to indication, i.e. head), or iterative reconstruction technique. PROCEDURE: Oral Contrast: None IV Contrast: None . FINDINGS: There are mild atelectatic changes in the lung bases. There is trace bilateral effusion. The liver, spleen, adrenal glands, pancreas, and kidneys have an unremarkable unenhanced appearance. The gallbladder is contracted. No intestinal obstruction or free air. There are few small periaortic lymph nodes. Unremarkable appendix. There are bilateral iliac artery stents present. There is some minimal stranding of the retroperitoneal fat adjacent to the iliac artery stents on both sides. This is more prominent on the left and extends on the left from the common iliac area to the external iliac and inguinal region. There is some stranding of the subcutaneous fat in the left inguinal area.. No acute bony findings. IMPRESSION: Status post bilateral iliac artery stent placements. There is a mild amount of stranding in the subcutaneous fat in the left groin extending anterior to the iliac artery stent on the left with some minimal stranding of the fat anterior to the right iliac artery stent consistent with some mild hemorrhage. FINDINGS called to Dr. Maldonado on 09/14/2018 4:50 PM.
[2018-09-14 21:15] VITALS: BP 127/71; PULSE 95; RESP 18; TEMP 37.2; O2SAT 94
[2018-09-14 23:10] VITALS: BP 125/72; PULSE 93; RESP 17; TEMP 37; O2SAT 94
--- NOTE | 2018-09-15 01:25 | PC.NURSE ---
PROVIDED PT WITH BAND AID R/T BROWN PURULENT DRAINAGE ON L GREAT TOE. L FOOT NOTED WITH REDNESS. PT STATES NEXT TIME I GO TO [facility] I WILL TELL HER ABOUT IT. I DIDN'T START HAVING DRAINAGE UNTIL AFTER MY STENTS WERE PLACED. TOLERATED VANC INFUSION WELL, PICC SITE ON LUE NOTED CDI WITH NO S/S OF INFECTION, PATENCY NOTED PRIOR TO AND FOLLOWING INFUSION, PICC SITE COVERED RIGHT BEFORE DISCHARGE. VSS. TOLERATED AMBULATION INDEPENDENTLY WELL. LEFT SECOND FLOOR ACCOMPANIED BY AT [id number].
== END 2018-09-14 12:15 | disposition home or self-care (01) ==
PROVIDERS: PCP Nurse Practitioner Family; Referring Provider Podiatrist; Visit Provider Internal Medicine Cardiovascular Disease
DX: L03.032 Cellulitis of left toe (principal); M79.81 Nontraumatic hematoma of soft tissue
CPT/HCPCS: 74176; 80048; 80202; 93926; 96365; G0463; J3370

== ENCOUNTER 2018-09-15 09:14 | Outpatient (CLI) | payer OTHER, SELFPAY ==
[2018-09-15 09:23] VITALS: BP 130/65; PULSE 96; RESP 18; TEMP 37.1; O2SAT 95
[2018-09-15 20:38] VITALS: BP 139/71; PULSE 91; RESP 16; TEMP 36.9; O2SAT 95
[2018-09-15 23:00] VITALS: BP 119/69; PULSE 89; RESP 18; TEMP 37.1; O2SAT 96
--- NOTE | 2018-09-16 00:12 | PC.NURSE ---
PT TOLERATED VACN ADMINISTRATION WELL. PICC SITE ON LUE CDI. NO S/S OF INFECTION NOTED. NO BLOOD RETURN NOTED ON ASSESSMENT BUT WAS TOLD PER GIL PÉREZ TO USE PICC LINE NORMAL. VSS. AMBULATED INDEPENDENTLY AND TOLERATED WELL. ACCOMPANIED BY ON LEAVING SECOND FLOOR.
== END 2018-09-15 22:48 | disposition home or self-care (01) ==
PROVIDERS: PCP Emergency Medicine; Visit Provider Podiatrist
DX: L03.032 Cellulitis of left toe (principal)
CPT/HCPCS: 96365; 96366; G0463; J3370

== ENCOUNTER 2018-09-16 09:00 | Outpatient (CLI) | payer OTHER, SELFPAY ==
[2018-09-16 09:08] VITALS: BP 121/77; PULSE 94; RESP 17; TEMP 37.1; O2SAT 94; BMI 34.8
[2018-09-16 20:35] VITALS: BP 123/70; PULSE 87; RESP 16; TEMP 37.1; O2SAT 97
[2018-09-16 22:40] VITALS: BP 124/73; PULSE 88; RESP 18; TEMP 36.9; O2SAT 96
== END 2018-09-16 22:40 | disposition home or self-care (01) ==
PROVIDERS: PCP Nurse Practitioner Family; Visit Provider Podiatrist
DX: L03.032 Cellulitis of left toe (principal)
CPT/HCPCS: 96365; 96366; J3370

== ENCOUNTER 2018-09-17 08:53 | Outpatient (CLI) | payer OTHER, SELFPAY ==
[2018-09-17 09:03] VITALS: BP 135/78; PULSE 78; RESP 18; O2SAT 94
[2018-09-17 10:40] VITALS: BP 135/83; PULSE 77; RESP 18; O2SAT 95
--- NOTE | 2018-09-17 11:45 | PC.NURSE ---
Put Cathflow in left upper arm picc line to leave in til patient comes back to hospital tonight for infusion.
[2018-09-17 11:50] VITALS: BP 125/61; PULSE 71; RESP 18; O2SAT 94
[2018-09-17 20:16] VITALS: BP 128/74; PULSE 79; RESP 17; TEMP 36.9; O2SAT 98
[2018-09-17 22:13] VITALS: BP 133/76; PULSE 88; RESP 17; TEMP 36.8; O2SAT 97
== END 2018-09-17 11:50 | disposition home or self-care (01) ==
LOC: INF 08:53
PROVIDERS: PCP Nurse Practitioner Family; Visit Provider Podiatrist
DX: L03.032 Cellulitis of left toe (principal)
CPT/HCPCS: 96365; 96366; G0463; J3370

== ENCOUNTER → 2018-09-18 08:50 | Outpatient (CLI) | payer OTHER, SELFPAY ==
[2018-09-18] VITALS (8 sets, daily range): BP systolic 117–130; BP diastolic 70–86; PULSE 62–85; RESP 16–18; TEMP 36.6–36.9; O2SAT 96–98; BMI 34.9
[2018-09-18 09:23] LABS: Anion Gap 12.8 mEq/L (5-15); Blood Urea Nitrogen 7 mg/dL (7-18); Calcium 8.4 mg/dL (8.5-10.1); Carbon Dioxide 26 mmol/L (21.0-32.0); Chloride 105 mmol/L (98-107); Creatinine Clearance Estimated 150 mL/min (50-200); Estimated Glomerular Filt Rate 89 ml/min (>60); GFR (African American) 107 ML/MIN (>60); Glucose 118 mg/dL (74-106); Potassium 3.8 mmoL/L (3.5-5.1); Sodium 140 mmol/L (136-145)
[2018-09-18 09:24] LABS: Vancomycin,Trough 11.3 mcg/ml (10.0-20.0)
--- NOTE | 2018-09-18 09:48 | HMH.PHACONS ---
- Pharmacy Consult Date: 09/18/18 Time: 09:48 Referring provider: DR. HODGES Reason for Consult:: VANCOMYCIN TROUGH LEVEL Allergies and ADEs:: Allergies Allergy/AdvReac Type Severity Reaction Status Date / Time No Known Allergies Allergy Verified 09/14/18 12:33 Home Medications:: Home Medications Medication Instructions Recorded Confirmed Type aspirin 81 mg tablet,delayed 81 mg PO DAILY 05/26/17 09/14/18 History release gabapentin 800 mg tablet 800 mg PO TID 05/26/17 09/14/18 History fluticasone propionate 50 1 spray INTRANASAL QDAY PRN g 02/26/18 09/14/18 History mcg/actuation nasal spray,suspension Atorvastatin Calcium [Lipitor 80mg 80 mg PO DAILY 03/12/18 09/14/18 History Tablet] Clopidogrel Bisulfate [Plavix 75mg 75 mg PO DAILY 03/12/18 09/14/18 History Tab] Lisinopril [Prinivil 10mg Tablet] 10 mg PO DAILY 03/12/18 09/14/18 History ketoconazole 2 % topical cream 1 applic TOPICAL QDAY #30 g 07/24/18 09/14/18 Rx Allopurinol [Allopurinol 100mg 100 mg PO DAILY 09/09/18 09/14/18 History tablet] Triamcinolone Acetonide [Kenalog 1 applic TOPICAL BID 09/09/18 09/14/18 History 0.1% cream 80gm tube] Height: 1.78 m Weight: 110.677 kg Laboratory Results:: Laboratory Results - last 24 hr 09/18/18 08:50: Vancomycin Trough 11.3 09/18/18 08:50: Sodium 140, Potassium 3.8, Chloride 105, Carbon Dioxide 26, Anion Gap 12.8, BUN 7, Creatinine 0.90, Estimated Creat Clear 150, Estimated GFR 89, Est GFR ( Amer) 107, Glucose 118 H, Calcium 8.4 L Medical History: Reports:: Chronic Obstructive Pulmonary Disease (COPD), Congenital Heart Disease, Coronary Artery Disease, Hyperlipidemia, Hypertension, Peripheral Artery Disease Denies:: Diabetes Mellitus Type 1, Diabetes Mellitus Type 2, Internal Pacemaker, Lung Disease, Seizures Assessment and Plan - Assessment and plan all Dx Assessment and Plan for all problems:: BASED ON VANCOMYCIN TROUGH LEVEL AND PATIENT FACTORS, RECOMMEND CONTINUING VANCOMYCIN 2000 MG IV Q12H. PHARMACY WILL CONTINUE TO MONITOR AND ADJUST APPROPRIATE.
== END ==
PROVIDERS: Visit Provider Podiatrist
DX: L03.032 Cellulitis of left toe (principal)
CPT/HCPCS: 80048; 80202; 96365; 96366; G0463; J3370

== ENCOUNTER 2018-09-19 08:20 | Outpatient (CLI) | payer OTHER, SELFPAY ==
[2018-09-19] VITALS (7 sets, daily range): BP systolic 114–136; BP diastolic 68–81; PULSE 69–87; RESP 16–18; TEMP 36.1–36.4; O2SAT 95–96
== END 2018-09-19 21:51 | disposition home or self-care (01) ==
PROVIDERS: PCP Podiatrist; Visit Provider Podiatrist
DX: L03.032 Cellulitis of left toe (principal)
CPT/HCPCS: 96365; 96366; J3370

== ENCOUNTER 2018-09-20 08:39 | Outpatient (CLI) | payer OTHER, SELFPAY ==
[2018-09-20] VITALS (8 sets, daily range): BP systolic 102–129; BP diastolic 56–79; PULSE 58–83; RESP 16–19; TEMP 36.6–36.8; O2SAT 95–97
== END 2018-09-20 22:07 | disposition home or self-care (01) ==
PROVIDERS: PCP Nurse Practitioner Family; Visit Provider Podiatrist
DX: L03.032 Cellulitis of left toe (principal)
CPT/HCPCS: 96365; 96366; J3370

== ENCOUNTER 2018-09-21 08:28 | Outpatient (CLI) | payer OTHER, SELFPAY ==
[2018-09-21 08:50] VITALS: BP 140/82; PULSE 72; RESP 18; TEMP 36.2; O2SAT 98
[2018-09-21 11:30] VITALS: BP 130/74; PULSE 77; RESP 18
[2018-09-21 20:50] VITALS: BP 138/79; PULSE 81; RESP 19; TEMP 36.8; O2SAT 97
[2018-09-21 22:55] VITALS: BP 131/79; PULSE 73; RESP 18; TEMP 36.6; O2SAT 96
== END 2018-09-21 11:30 | disposition home or self-care (01) ==
LOC: INF 08:28
PROVIDERS: PCP Nurse Practitioner Family; Visit Provider Podiatrist
DX: L03.032 Cellulitis of left toe (principal)
CPT/HCPCS: 96365; 96366; G0463; J3370

== ENCOUNTER → 2018-09-22 08:57 | Outpatient (CLI) | payer OTHER, SELFPAY ==
[2018-09-22 08:57] VITALS: BP 142/76; PULSE 75; RESP 17; TEMP 36.8; O2SAT 97
[2018-09-22 09:03] VITALS: BP 127/75; PULSE 75; RESP 16; TEMP 36.6; O2SAT 98; BMI 34.9
[2018-09-22 10:54] VITALS: BP 111/67; PULSE 77; RESP 17; TEMP 36.8; O2SAT 97
[2018-09-22 21:45] VITALS: BP 131/76; PULSE 100; RESP 16; TEMP 36.9; O2SAT 95
== END ==
PROVIDERS: PCP Nurse Practitioner Family; Visit Provider Podiatrist
DX: L03.032 Cellulitis of left toe (principal)
CPT/HCPCS: 96365; 96366; G0463; J3370

== ENCOUNTER 2018-09-23 09:10 | Outpatient (CLI) | payer OTHER, SELFPAY ==
[2018-09-23 09:23] VITALS: BP 128/78; PULSE 76; RESP 16; TEMP 36.6; O2SAT 95; BMI 34.9
[2018-09-23 11:50] VITALS: BP 148/77; PULSE 73; RESP 17; TEMP 36.6; O2SAT 96
[2018-09-23 20:25] VITALS: BP 118/66; PULSE 88; RESP 17; TEMP 37.1; O2SAT 96; BMI 34.9
[2018-09-23 22:45] VITALS: BP 135/80; PULSE 87; RESP 18; TEMP 36.9; O2SAT 97
== END 2018-09-23 23:00 | disposition home or self-care (01) ==
LOC: INF 09:11
PROVIDERS: PCP Nurse Practitioner Family; Visit Provider Podiatrist
DX: L03.032 Cellulitis of left toe (principal)
CPT/HCPCS: 96365; 96366; G0463; J3370

== ENCOUNTER 2018-09-24 08:34 | Outpatient (CLI) | payer OTHER, SELFPAY ==
[2018-09-24 08:37] VITALS: BMI 34.9
[2018-09-24 08:59] LABS: Anion Gap 12.6 mEq/L (5-15); Blood Urea Nitrogen 6 mg/dL (7-18); Calcium 8.1 mg/dL (8.5-10.1); Carbon Dioxide 26 mmol/L (21.0-32.0); Chloride 106 mmol/L (98-107); Creatinine Clearance Estimated 139 mL/min (50-200); Creatinine,Serum 0.97 mg/dL (0.70-1.30); Estimated Glomerular Filt Rate 81 ml/min (>60); GFR (African American) 98 ML/MIN (>60); Glucose 108 mg/dL (74-106); Potassium 3.6 mmoL/L (3.5-5.1); Sodium 141 mmol/L (136-145); Vancomycin,Trough 17.3 mcg/ml (10.0-20.0)
--- NOTE | 2018-09-24 09:24 | HMH.PHACONS ---
- Pharmacy Consult Date: 09/24/18 Time: 09:24 Referring provider: DR. HODGES Reason for Consult:: VANCOMYCIN TROUGH LEVEL Allergies and ADEs:: Allergies Allergy/AdvReac Type Severity Reaction Status Date / Time No Known Allergies Allergy Verified 09/20/18 09:07 Home Medications:: Home Medications Medication Instructions Recorded Confirmed Type aspirin 81 mg tablet,delayed 81 mg PO DAILY 05/26/17 09/19/18 History release gabapentin 800 mg tablet 800 mg PO TID 05/26/17 09/19/18 History fluticasone propionate 50 1 spray INTRANASAL QDAY PRN g 02/26/18 09/19/18 History mcg/actuation nasal spray,suspension Atorvastatin Calcium [Lipitor 80mg 80 mg PO DAILY 03/12/18 09/19/18 History Tablet] Clopidogrel Bisulfate [Plavix 75mg 75 mg PO DAILY 03/12/18 09/19/18 History Tab] Lisinopril [Prinivil 10mg Tablet] 10 mg PO DAILY 03/12/18 09/19/18 History ketoconazole 2 % topical cream 1 applic TOPICAL QDAY #30 g 07/24/18 09/19/18 Rx Allopurinol [Allopurinol 100mg 100 mg PO DAILY 09/09/18 09/19/18 History tablet] Triamcinolone Acetonide [Kenalog 1 applic TOPICAL BID 09/09/18 09/19/18 History 0.1% cream 80gm tube] Height: 1.78 m Weight: 110.677 kg Laboratory Results:: Laboratory Results - last 24 hr 09/24/18 08:35: Sodium 141, Potassium 3.6, Chloride 106, Carbon Dioxide 26, Anion Gap 12.6, BUN 6 L, Creatinine 0.97, Estimated Creat Clear 139, Estimated GFR 81, Est GFR ( Amer) 98, Glucose 108 H, Calcium 8.1 L, Vancomycin Trough 17.3 Medical History: Reports:: Chronic Obstructive Pulmonary Disease (COPD), Congenital Heart Disease, Coronary Artery Disease, Hyperlipidemia, Hypertension, Peripheral Artery Disease, Peripheral Vascular Disease Denies:: Diabetes Mellitus Type 1, Diabetes Mellitus Type 2, Internal Pacemaker, Lung Disease, Seizures Assessment and Plan - Assessment and plan all Dx Assessment and Plan for all problems:: BASED ON PATIENT FACTORS AND VANCOMYCIN TROUGH LEVEL, RECOMMEND VANCOMYCIN 2 GM IV Q12H. PHARMACY WILL CONTINUE TO MONITOR DAILY AND ADJUST APPROPRIATE.
[2018-09-24 09:43] VITALS: BP 136/74; PULSE 69; RESP 18; TEMP 36.5; O2SAT 95
[2018-09-24 11:10] VITALS: BP 124/63; PULSE 71; RESP 18; O2SAT 97
[2018-09-24 21:25] VITALS: BP 125/73; PULSE 80; RESP 18; TEMP 36.9; O2SAT 96
[2018-09-24 23:30] VITALS: BP 118/81; PULSE 81; RESP 19; TEMP 36.6; O2SAT 95
== END 2018-09-24 23:50 | disposition home or self-care (01) ==
PROVIDERS: PCP Nurse Practitioner Family; Visit Provider Podiatrist
DX: L03.032 Cellulitis of left toe (principal)
CPT/HCPCS: 80048; 80202; 96365; 96366; G0463; J3370

== ENCOUNTER 2018-09-25 08:15 | Outpatient (CLI) | payer OTHER, SELFPAY ==
[2018-09-25 08:34] VITALS: BP 123/73; PULSE 66; RESP 18; O2SAT 96
[2018-09-25 11:07] VITALS: BP 154/84; PULSE 66; RESP 18; O2SAT 97
[2018-09-25 21:10] VITALS: BP 130/65; PULSE 81; RESP 18; TEMP 36.2; O2SAT 97
[2018-09-25 21:15] VITALS: BMI 34.9
[2018-09-25 23:26] VITALS: BP 124/65; PULSE 78; RESP 17; TEMP 36.5; O2SAT 98
[2018-09-25 23:28] VITALS: BP 124/65; PULSE 78; RESP 17; TEMP 36.5; O2SAT 98
== END 2018-09-25 23:28 | disposition home or self-care (01) ==
PROVIDERS: PCP Nurse Practitioner Family; Visit Provider Podiatrist
DX: L03.032 Cellulitis of left toe (principal)
CPT/HCPCS: 96365; 96366; 96367; J3370

== ENCOUNTER → 2018-09-26 08:20 | Outpatient (CLI) | payer OTHER, SELFPAY ==
[2018-09-26 08:45] VITALS: BP 120/70; PULSE 65; RESP 18; O2SAT 96
[2018-09-26 11:10] VITALS: BP 133/86; PULSE 72; RESP 18; O2SAT 97
[2018-09-26 20:17] VITALS: BMI 44.6
[2018-09-26 20:25] VITALS: BP 118/76; PULSE 81; RESP 17; TEMP 36.6; O2SAT 96
[2018-09-26 22:25] VITALS: BP 127/72; PULSE 82; RESP 17; TEMP 37; O2SAT 96
== END ==
PROVIDERS: PCP Nurse Practitioner Family; Visit Provider Podiatrist
DX: L03.032 Cellulitis of left toe (principal)
CPT/HCPCS: 96365; 96366; G0463; J3370

== ENCOUNTER 2018-09-27 08:05 | Outpatient (CLI) | payer OTHER, SELFPAY ==
[2018-09-27 08:27] VITALS: BP 137/83; PULSE 73; RESP 18; O2SAT 94
[2018-09-27 11:10] VITALS: BP 151/91; PULSE 64; RESP 18; TEMP 36.3; O2SAT 96
--- NOTE | 2018-09-27 11:22 | XR_ITS ---
XR foot wt bearing LT 3V HISTORY: ITS.REASON: pain,osteo ORDERING PHYSICIAN: Keshia Ash DPM PATIENT AGE: 53 years COMPARISON: 07/24/2018 FINDINGS: [address] at the intermediate cuneiform region dorsally. Mixed osteosclerosis and scattered areas of lucency are present within the cuneiforms with osteoarthritic change of the metatarsal tarsal joint and the talonavicular joint. There remains good alignment. No bony destructive process evident. IMPRESSION: Overall no change from previous exam
[2018-09-27 19:15] VITALS: BP 131/77; PULSE 73; RESP 18; TEMP 36.8; O2SAT 100
[2018-09-27 22:57] VITALS: BP 138/76; PULSE 75; RESP 18; TEMP 36.7; O2SAT 96
== END 2018-09-27 21:45 | disposition home or self-care (01) ==
PROVIDERS: PCP Nurse Practitioner Family; Visit Provider Podiatrist
DX: M79.672 Pain in left foot (principal); L03.032 Cellulitis of left toe
CPT/HCPCS: 73630; 96365; 96366; J3370

== ENCOUNTER 2018-09-28 08:10 | Outpatient (CLI) | payer OTHER, SELFPAY ==
[2018-09-28 08:25] VITALS: BP 127/74; PULSE 71; RESP 20; TEMP 36.9; O2SAT 95
[2018-09-28 09:20] VITALS: BP 123/75; PULSE 68; RESP 20; TEMP 36.9; O2SAT 95
[2018-09-28 10:20] VITALS: BP 126/77; PULSE 68; RESP 20; TEMP 36.9; O2SAT 95
[2018-09-28 10:40] VITALS: BP 112/74; PULSE 68; RESP 20; TEMP 36.9; O2SAT 100
[2018-09-28 19:25] VITALS: BP 112/85; PULSE 86; RESP 16; TEMP 36.2; O2SAT 96
[2018-09-28 21:25] VITALS: BP 118/76; PULSE 78; RESP 18; TEMP 36.1; O2SAT 97
== END 2018-09-28 21:25 | disposition home or self-care (01) ==
LOC: INF 08:16
PROVIDERS: Visit Provider Podiatrist
DX: L03.032 Cellulitis of left toe (principal)
CPT/HCPCS: 96365; 96366; J3370

== ENCOUNTER 2018-09-29 08:19 | Outpatient (CLI) | payer OTHER, SELFPAY ==
[2018-09-29 08:30] VITALS: BP 118/72; PULSE 75; RESP 17; O2SAT 96
[2018-09-29 08:52] VITALS: BMI 34.8
[2018-09-29 19:08] VITALS: BP 118/67; PULSE 82; RESP 16; O2SAT 97
[2018-09-29 21:18] VITALS: BP 122/77; PULSE 70; RESP 16; TEMP 36.6; O2SAT 96
== END 2018-09-29 21:18 | disposition home or self-care (01) ==
PROVIDERS: PCP Nurse Practitioner Family; Visit Provider Podiatrist
DX: L03.032 Cellulitis of left toe (principal)
CPT/HCPCS: 96365; 96366; J3370

== ENCOUNTER → 2018-09-30 08:16 | Outpatient (CLI) | payer OTHER, SELFPAY ==
[2018-09-30 08:41] VITALS: BP 114/74; PULSE 78; RESP 16; TEMP 36.6; O2SAT 97
[2018-09-30 10:50] VITALS: BP 115/73; PULSE 61; RESP 16
[2018-09-30 20:05] VITALS: BP 111/65; PULSE 74; RESP 20; TEMP 36.6; O2SAT 98
[2018-09-30 22:05] VITALS: BP 119/81; PULSE 91; RESP 20; TEMP 36.2; O2SAT 98
== END ==
PROVIDERS: PCP Nurse Practitioner Family; Visit Provider Podiatrist
DX: L03.032 Cellulitis of left toe (principal)
CPT/HCPCS: 96365; 96366; J3370

== ENCOUNTER → 2018-10-01 08:10 | Outpatient (CLI) | payer OTHER, SELFPAY ==
[2018-10-01 08:26] VITALS: BMI 34.9
--- NOTE | 2018-10-01 08:30 | PC.NURSE ---
0830-sent bmp and vanc trough to lab;drawn from left upper arm picc
[2018-10-01 09:04] LABS: Anion Gap 13.7 mEq/L (5-15); Blood Urea Nitrogen 7 mg/dL (7-18); Calcium 8.3 mg/dL (8.5-10.1); Carbon Dioxide 26 mmol/L (21.0-32.0); Chloride 106 mmol/L (98-107); Creatinine Clearance Estimated 130 mL/min (50-200); Creatinine,Serum 1.04 mg/dL (0.70-1.30); Estimated Glomerular Filt Rate 75 ml/min (>60); GFR (African American) 91 ML/MIN (>60); Glucose 116 mg/dL (74-106); Potassium 3.7 mmoL/L (3.5-5.1); Sodium 142 mmol/L (136-145); Vancomycin,Trough 18.7 mcg/ml (10.0-20.0)
[2018-10-01 09:44] VITALS: BP 145/80; PULSE 69; RESP 18; O2SAT 95
[2018-10-01 11:40] VITALS: BP 150/74; PULSE 68; RESP 18; O2SAT 97
--- NOTE | 2018-10-01 13:19 | HMH.PHACONS ---
- Pharmacy Consult Date: 10/01/18 Time: :19 Referring provider: DR. HODGES Reason for Consult:: VANCOMYCIN TROUGH LEVEL Allergies and ADEs:: Allergies Allergy/AdvReac Type Severity Reaction Status Date / Time No Known Allergies Allergy Verified 09/20/18 09:07 Home Medications:: Home Medications Medication Instructions Recorded Confirmed Type aspirin 81 mg tablet,delayed 81 mg PO DAILY 05/26/17 10/01/18 History release gabapentin 800 mg tablet 800 mg PO TID 05/26/17 10/01/18 History fluticasone propionate 50 1 spray INTRANASAL QDAY PRN g 02/26/18 10/01/18 History mcg/actuation nasal spray,suspension Atorvastatin Calcium [Lipitor 80mg 80 mg PO DAILY 03/12/18 10/01/18 History Tablet] Clopidogrel Bisulfate [Plavix 75mg 75 mg PO DAILY 03/12/18 10/01/18 History Tab] Lisinopril [Prinivil 10mg Tablet] 10 mg PO DAILY 03/12/18 10/01/18 History ketoconazole 2 % topical cream 1 applic TOPICAL QDAY #30 g 07/24/18 09/28/18 Rx Allopurinol [Allopurinol 100mg 100 mg PO DAILY 09/09/18 10/01/18 History tablet] Triamcinolone Acetonide [Kenalog 1 applic TOPICAL BID 09/09/18 10/01/18 History 0.1% cream 80gm tube] Height: 1.78 m Weight: 110.677 kg Laboratory Results:: Laboratory Results - last 24 hr 10/01/18 08:31: Sodium 142, Potassium 3.7, Chloride 106, Carbon Dioxide 26, Anion Gap 13.7, BUN 7, Creatinine 1.04, Estimated Creat Clear 130, Estimated GFR 75, Est GFR ( Amer) 91, Glucose 116 H, Calcium 8.3 L, Vancomycin Trough 18.7 Medical History: Reports:: Chronic Obstructive Pulmonary Disease (COPD), Congenital Heart Disease, Coronary Artery Disease, Hyperlipidemia, Hypertension, Peripheral Artery Disease, Peripheral Vascular Disease Denies:: Diabetes Mellitus Type 1, Diabetes Mellitus Type 2, Internal Pacemaker, Lung Disease, Seizures Assessment and Plan - Assessment and plan all Dx Assessment and Plan for all problems:: BASED ON PATIENT'S TROUGH LEVEL OF 18.7 MCG/ML THIS AM, RECOMMEND PATIENT CONTINUE WITH CURRENT DOSE AND INTERVAL OF VANCOMYCIN 2000 MG Q12H AT THIS TIME. PHARMACY WILL FOLLOW DAILY AND ADJUST APPROPRIATE. LYNDON FAUSTIN, PHARMD
[2018-10-01 22:20] VITALS: BP 129/78; PULSE 60; RESP 19; TEMP 36.7; O2SAT 99
== END ==
PROVIDERS: Visit Provider Podiatrist
DX: L03.032 Cellulitis of left toe (principal)
CPT/HCPCS: 80048; 80202; 96365; 96366; J3370

== ENCOUNTER → 2018-10-02 08:05 | Outpatient (CLI) | payer OTHER, SELFPAY ==
[2018-10-02 08:30] VITALS: BP 129/74; PULSE 69; RESP 16; TEMP 36.4; O2SAT 95
[2018-10-02 10:55] VITALS: BP 138/73; PULSE 61; RESP 18; O2SAT 98
[2018-10-02 19:25] VITALS: BP 133/70; PULSE 70; RESP 18; TEMP 36.7; O2SAT 97
[2018-10-02 21:35] VITALS: BP 130/82; PULSE 64; RESP 18; TEMP 36.6; O2SAT 98
== END ==
PROVIDERS: PCP Family Medicine; Visit Provider Podiatrist
DX: L03.032 Cellulitis of left toe (principal)
CPT/HCPCS: 96365; 96366; J3370

== ENCOUNTER 2018-10-03 08:10 | Outpatient (CLI) | payer OTHER, SELFPAY ==
[2018-10-03 08:30] VITALS: BP 144/69; PULSE 79; RESP 18; O2SAT 94
[2018-10-03 11:00] VITALS: BP 124/71; PULSE 63; RESP 18
[2018-10-03 19:06] VITALS: BP 132/77; PULSE 82; RESP 16; O2SAT 96
[2018-10-03 21:36] VITALS: BP 144/85; PULSE 72; RESP 17; TEMP 36.7; O2SAT 98
== END 2018-10-03 21:38 | disposition home or self-care (01) ==
PROVIDERS: PCP Family Medicine; Visit Provider Podiatrist
DX: L03.032 Cellulitis of left toe (principal)
CPT/HCPCS: 96365; 96366; G0463; J3370

== ENCOUNTER 2018-10-04 08:10 | Outpatient (CLI) | payer OTHER, SELFPAY ==
[2018-10-04 08:17] VITALS: BMI 34.9
[2018-10-04 08:20] VITALS: BP 150/77; PULSE 67; RESP 18; TEMP 36.9
[2018-10-04 08:47] LABS: Basophils % 0.6 % (0.1-2.0); Eosinophils # 0.3 K/mm3 (0.0-0.4); Eosinophils % 4.1 % (0.1-12.0); Hematocrit 47.1 % (42.0-52.0); Hemoglobin 15.5 g/dL (14.1-18.0); Lymphocytes # 0.9 K/mm3 (0.7-4.5); Lymphocytes % 14.4 % (10-50); Mean Corpuscular HGB Conc 32.8 g/dL (31.8-35.4); Mean Corpuscular Hemoglobin 32.4 pg (27.0-31.2); Mean Corpuscular Volume 98.7 fl (80-94); Mean Platelet Volume 7.9 fl (7.4-10.4); Monocytes # 0.4 K/mm3 (0.1-1.0); Monocytes % 5.5 % (1.7-9.3); Neutrophils # 4.9 K/mm3 (1.8-7.8); Neutrophils % 75.3 % (37.0-80.0); Platelet Count 144 K/mm3 (142-424); Red Blood Count 4.77 M/mm3 (4.60-6.20); Red Cell Distribution Width 13.9 % (11.5-17.5); White Blood Count 6.5 K/mm3 (4.8-10.8)
[2018-10-04 08:48] LABS: Alanine Aminotransferase 47 U/L (12-78); Albumin Level 3.5 gm/dL (3.4-5.0); Albumin/Globulin Ratio 1.1 (1.1-1.8); Alkaline Phosphatase 112 U/L (46-116); Anion Gap 14.8 mEq/L (5-15); Aspartate Amino Transferase 23 U/L (15-37); Bilirubin,Total 0.8 mg/dL (0.2-1.0); Blood Urea Nitrogen 10 mg/dL (7-18); Calcium 8.4 mg/dL (8.5-10.1); Carbon Dioxide 26 mmol/L (21.0-32.0); Chloride 102 mmol/L (98-107); Creatinine Clearance Estimated 120 mL/min (50-200); Creatinine,Serum 1.13 mg/dL (0.70-1.30); Estimated Glomerular Filt Rate 68 ml/min (>60); GFR (African American) 82 ML/MIN (>60); Globulin 3.2 gm/dl (1.3-3.2); Glucose 118 mg/dL (74-106); Potassium 3.8 mmoL/L (3.5-5.1); Sodium 139 mmol/L (136-145); Total Protein,Serum 6.7 gm/dL (6.4-8.2)
[2018-10-04 09:11] LABS: Vancomycin,Trough 19.1 mcg/ml (10.0-20.0)
--- NOTE | 2018-10-04 09:20 | HMH.PHACONS ---
- Pharmacy Consult Date: 10/04/18 Time: 09:20 Referring provider: DR. HODGES Reason for Consult:: VANCOMYCIN TROUGH LEVEL Allergies and ADEs:: Allergies Allergy/AdvReac Type Severity Reaction Status Date / Time No Known Allergies Allergy Verified 09/20/18 09:07 Home Medications:: Home Medications Medication Instructions Recorded Confirmed Type aspirin 81 mg tablet,delayed 81 mg PO DAILY 05/26/17 10/02/18 History release gabapentin 800 mg tablet 800 mg PO TID 05/26/17 10/02/18 History fluticasone propionate 50 1 spray INTRANASAL QDAY PRN g 02/26/18 10/02/18 History mcg/actuation nasal spray,suspension Atorvastatin Calcium [Lipitor 80mg 80 mg PO DAILY 03/12/18 10/02/18 History Tablet] Clopidogrel Bisulfate [Plavix 75mg 75 mg PO DAILY 03/12/18 10/02/18 History Tab] Lisinopril [Prinivil 10mg Tablet] 10 mg PO DAILY 03/12/18 10/02/18 History ketoconazole 2 % topical cream 1 applic TOPICAL QDAY #30 g 07/24/18 10/02/18 Rx Allopurinol [Allopurinol 100mg 100 mg PO DAILY 09/09/18 10/02/18 History tablet] Triamcinolone Acetonide [Kenalog 1 applic TOPICAL BID 09/09/18 10/02/18 History 0.1% cream 80gm tube] Height: 1.78 m Weight: 110.677 kg Laboratory Results:: Laboratory Results - last 24 hr 10/04/18 08:20: WBC 6.5, RBC 4.77, Hgb 15.5, Hct 47.1, MCV 98.7 H, MCH 32.4 H, MCHC 32.8, RDW 13.9, Plt Count 144, MPV 7.9, Neut % (Auto) 75.3, Lymph % (Auto) 14.4, [place] % (Auto) 5.5, Eos % (Auto) 4.1, Baso % (Auto) 0.6, Neut # (Auto) 4.9, Lymph # (Auto) 0.9, [place] # (Auto) 0.4, Eos # (Auto) 0.3, Baso # (Auto) 0.0 10/04/18 08:20: Sodium 139, Potassium 3.8, Chloride 102, Carbon Dioxide 26, Anion Gap 14.8, BUN 10 D, Creatinine 1.13, Estimated Creat Clear 120, Estimated GFR 68, Est GFR ( Amer) 82, Glucose 118 H, Calcium 8.4 L, Total Bilirubin 0.8, AST 23, ALT 47, Alkaline Phosphatase 112, Total Protein 6.7, Albumin 3.5, Globulin 3.2, Albumin/Globulin Ratio 1.1 10/04/18 08:20: Vancomycin Trough 19.1 Medical History: Reports:: Chronic Obstructive Pulmonary Disease (COPD), Congenital Heart Disease, Coronary Artery Disease, Hyperlipidemia, Hypertension, Peripheral Artery Disease, Peripheral Vascular Disease Denies:: Diabetes Mellitus Type 1, Diabetes Mellitus Type 2, Internal Pacemaker, Lung Disease, Seizures Assessment and Plan - Assessment and plan all Dx Assessment and Plan for all problems:: BASED ON PATIENT FACTORS AND VANCOMYCIN TROUGH LEVEL, RECOMMEND DECREASING DOSE SLIGHTLY TO VANCOMYCIN 1750 MG IV Q12H TO KEEP TROUGH LEVEL < 20 MCG/ML. PHARMACY WILL CONTINUE TO MONITOR DAILY AND ADJUST APPROPRIATE.
[2018-10-04 09:21] LABS: C-Reactive Protein 0.2 mg/L (0.0-0.9)
[2018-10-04 09:23] LABS: Erythrocyte Sedimentation Rate 13 mm/hr (0-20)
[2018-10-04 09:36] VITALS: BP 115/72; PULSE 70; RESP 18; O2SAT 96
[2018-10-04 12:10] VITALS: BP 120/70; PULSE 63; RESP 18; O2SAT 97
[2018-10-04 14:55] LABS: Uric Acid 5.1 mg/dL (2.6-7.2)
[2018-10-04 19:34] VITALS: BP 113/72; PULSE 90; RESP 18; TEMP 36.3; O2SAT 96
[2018-10-04 21:51] VITALS: BP 121/70; PULSE 76; RESP 18; TEMP 36.9; O2SAT 95
== END 2018-10-04 21:53 | disposition home or self-care (01) ==
PROVIDERS: PCP Nurse Practitioner Family; Visit Provider Podiatrist
DX: L03.032 Cellulitis of left toe (principal)
CPT/HCPCS: 80053; 80202; 84550; 85025; 85651; 86140; 96365; 96366; J3370

== ENCOUNTER → 2018-10-05 08:14 | Outpatient (CLI) | payer OTHER, SELFPAY ==
[2018-10-05] VITALS (7 sets, daily range): BP systolic 112–143; BP diastolic 68–82; PULSE 66–72; RESP 16–18; TEMP 36.6–37; O2SAT 96–97; BMI 34.4
== END ==
PROVIDERS: PCP Nurse Practitioner Family; Visit Provider Podiatrist
DX: M86.172 Other acute osteomyelitis, left ankle and foot (principal); L03.032 Cellulitis of left toe
CPT/HCPCS: 96365; 96366; G0463; J3370

== ENCOUNTER → 2018-10-06 07:57 | Outpatient (CLI) | payer OTHER, SELFPAY ==
[2018-10-06 08:26] VITALS: BP 115/68; PULSE 66; RESP 16; TEMP 36.7; O2SAT 95
[2018-10-06 11:15] VITALS: BP 126/70; PULSE 97; RESP 18; TEMP 37; O2SAT 98
[2018-10-06 19:29] VITALS: BP 142/78; PULSE 88; RESP 17; TEMP 37.1
[2018-10-06 19:30] VITALS: BP 142/78; PULSE 88; RESP 17; TEMP 37.1; O2SAT 95
[2018-10-06 21:34] VITALS: BP 118/73; PULSE 76; RESP 16; TEMP 36.8; O2SAT 95
[2018-10-06 21:40] VITALS: BP 118/73; PULSE 76; RESP 16; TEMP 36.8; O2SAT 95
== END ==
PROVIDERS: PCP Nurse Practitioner Family; Visit Provider Podiatrist
DX: M86.172 Other acute osteomyelitis, left ankle and foot (principal); L03.032 Cellulitis of left toe
CPT/HCPCS: 96365; 96366; J3370

== ENCOUNTER → 2018-10-07 08:03 | Outpatient (CLI) | payer OTHER, SELFPAY ==
[2018-10-07 08:03] VITALS: BP 123/67; PULSE 60; RESP 17; TEMP 36.6; O2SAT 98
[2018-10-07 11:07] VITALS: BP 119/76; PULSE 62; RESP 16; TEMP 37; O2SAT 97
[2018-10-07 19:00] VITALS: BP 128/81; PULSE 77; RESP 15; TEMP 36.7; O2SAT 97
[2018-10-07 21:00] VITALS: BP 135/74; PULSE 66; RESP 16; TEMP 36.7; O2SAT 98
== END ==
PROVIDERS: PCP Nurse Practitioner Family; Visit Provider Podiatrist
DX: M86.172 Other acute osteomyelitis, left ankle and foot (principal); L03.032 Cellulitis of left toe
CPT/HCPCS: 96365; 96366; J3370

== ENCOUNTER 2018-10-08 08:00 | Outpatient (CLI) | payer OTHER, SELFPAY ==
[2018-10-08 09:06] VITALS: BP 111/70; PULSE 59; RESP 18; O2SAT 96
[2018-10-08 11:35] VITALS: BP 120/70; PULSE 63; RESP 18; O2SAT 97
== END 2018-10-08 11:35 | disposition home or self-care (01) ==
LOC: INF 08:20
PROVIDERS: Visit Provider Podiatrist
DX: M86.172 Other acute osteomyelitis, left ankle and foot (principal); L03.032 Cellulitis of left toe
CPT/HCPCS: 96365; 96366; J3370

== ENCOUNTER → 2019-03-18 15:53 | Outpatient (CLI) | payer MEDICARE, OTHER, SELFPAY ==
[2019-03-18 19:14] LABS: Albumin Level 3.7 gm/dL (3.4-5.0); Blood Urea Nitrogen 13 mg/dL (7-18)
[2019-03-18 19:25] LABS: Alanine Aminotransferase 34 U/L (12-78); Albumin/Globulin Ratio 1.2 (1.1-1.8); Alkaline Phosphatase 112 U/L (46-116); Anion Gap 15.7 mEq/L (5-15); Aspartate Amino Transferase 18 U/L (15-37); Bilirubin,Total 0.4 mg/dL (0.2-1.0); Calcium 8.3 mg/dL (8.5-10.1); Carbon Dioxide 27 mmol/L (21.0-32.0); Chloride 102 mmol/L (98-107); Creatinine,Serum 1.12 mg/dL (0.70-1.30); Estimated Glomerular Filt Rate 69 ml/min (>60); GFR (African American) 83 ML/MIN (>60); Glucose 171 mg/dL (74-106); Potassium 3.7 mmoL/L (3.5-5.1); Sodium 141 mmol/L (136-145); Total Protein,Serum 6.7 gm/dL (6.4-8.2); Uric Acid 4.9 mg/dL (2.6-7.2)
== END ==
PROVIDERS: Visit Provider Podiatrist
DX: M79.672 Pain in left foot (principal)
CPT/HCPCS: 36415; 80053; 84550

== ENCOUNTER → 2019-11-27 11:34 | Outpatient (CLI) | payer MEDICARE, SELFPAY ==
--- NOTE | 2019-11-27 11:56 | ECG_ITS ---
APPROVED REPORT Exam: Resting ECG HR:64 bpm ECG Measurements Heart Rate 64 AXES NJ 148 P 40 QRSd 104 QRS 86 QT 418 T 62 QTc 431 <Conclusion> Normal sinus rhythm Normal ECG Electronically signed by : Phoenix Sky, 11/27/2019 17:31:38
[2019-11-27 11:59] LABS: Basophils # 0.1 K/mm3 (0-0.2); Basophils % 0.9 % (0.1-2.0); Eosinophils # 0.2 K/mm3 (0.0-0.4); Hematocrit 52.4 % (42.0-52.0); Hemoglobin 17.8 g/dL (14.1-18.0); Mean Corpuscular HGB Conc 33.8 g/dL (31.8-35.4); Mean Corpuscular Hemoglobin 34.1 pg (27.0-31.2); Mean Corpuscular Volume 100.7 fl (80-94); Mean Platelet Volume 8.7 fl (7.4-10.4); Monocytes # 0.3 K/mm3 (0.1-1.0); Monocytes % 4.1 % (1.7-9.3); Neutrophils # 5.3 K/mm3 (1.8-7.8); Platelet Count 142 K/mm3 (142-424); Red Blood Count 5.21 M/mm3 (4.60-6.20); Red Cell Distribution Width 13.6 % (11.5-17.5); White Blood Count 7.9 K/mm3 (4.8-10.8)
[2019-11-27 14:15] LABS: Coronavirus 19 IgG Antibody Negative (Negative); Coronavirus 19 IgM Antibody Negative (Negative)
== END ==
PROVIDERS: Visit Provider Otolaryngology
DX: Z01.818 Encounter for other preprocedural examination (principal); L98.9 Disorder of the skin and subcutaneous tissue, unspecified; H93.90 Unspecified disorder of ear, unspecified ear
CPT/HCPCS: 36415; 85025; 86328; 93005

== ENCOUNTER 2019-11-28 06:42 | Day surgery (SDC) | payer MEDICARE, SELFPAY ==
[2019-11-26 15:36] VITALS: BMI 34.4
[2019-11-28 07:17] VITALS: BP 127/76; PULSE 64; RESP 18; TEMP 36.1; O2SAT 97
[2019-11-28 09:20] VITALS: BP 112/55; PULSE 69; RESP 18; TEMP 36.1; O2SAT 96
[2019-11-28 09:35] VITALS: BP 114/58; PULSE 67; RESP 18; O2SAT 96
--- NOTE | 2019-11-28 09:48 | P.OP_ITS ---
Date of procedure: 11/28/19 Pre-op Diagnosis:: 1. Neoplasm left ear 3 cm 2. Neoplasm left upper neck 2.5 cm 3. 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 Excision of neoplasm left ear 3 cm with tissue rearrangement geometric plastic repair 2. Excision of lesion left upper neck 2.5 cm with simple repair 3. Excision of lesion left occipital scalp 1.5 cm with simple repair Surgeon:: Everette Raza MD [employer] ASSEMBLER:: Troy Xavier Anesthesia: MAC Estimated blood loss (mL): 10 Operative findings:: same Operative note:: The left ear left neck and left scalp were all prepped and draped. Patient was given 900 mg of clindamycin and 12 mg of Decadron at the start of the procedure. The perilesional areas were infiltrated with a total of 6 cc of 2% lidocaine containing epinephrine. The lesion on the left posterior ear was marked out it measured 3 cm. The rochelle out was excised to the level of the cartlidge of the left ear. Inferior and anterior anterior incisions were made and a tissue rearrangement geometric plastic repair was done with interrupted 4-0 nylon sutures. The lesion on the left upper neck was marked out it measured 2.5 cm. The rochelle out was incised and the lesion was excised. Bleeding was stopped with bipolar cautery and a simple repair was done with interrupted 4-0 nylon sutures. The lesion on the left scalp was marked out it measured 1.5 cm. The rochelle out was incised and the lesion was excised. Bleeding was stopped with bipolar cautery blood loss for all the procedure was 10 cc. A simple repair was done with interrupted 4-0 nylon sutures. Dermabond dressings were applied to all of the 3 operative sites. The patient was sent to recovery in good general condition. Condition: stable Disposition: PACU Complications:: none
[2019-11-28 09:50] VITALS: BP 111/70; PULSE 66; RESP 18; O2SAT 97
--- NOTE | 2019-11-28 11:38 | HMH.ANESCL ---
[facility] Anesthesia Checklist - Patient Identification Patient Identification: Arm Band - Structural Data Admitted From: Home Planned Operative Procedure/s: excision lesions left ear, left neck, left posterior scalp Consent for Planned Operative Procedure(s) Verified: Yes Verified Documents: Surgical Consent, History and Physical - NPO Status Verified Time NPO: 00:00 - Additional verifications Anesthesia Reactions: No Hx Blood Transfusions: No Blood Transfusion Reaction: No - Airway Assessment C-Spine Mobility Assessed: Yes (mp2) TMJ Mobility Assessed: Yes Dentition: Good Dentition - Neurological Assessment Level of Consciousness: Awake, Alert - Anesthesia Plan Anesthesia Risk discussed: Yes Anesthesia Plan: Verified ASA Class: III Anesthesia Type: MAC [facility] History I have reviewed the patient's past medical history: Yes Medical History: Reports:: Chronic Obstructive Pulmonary Disease (COPD), Congenital Heart Disease, Coronary Artery Disease, Hyperlipidemia, Hypertension, Peripheral Artery Disease, Peripheral Vascular Disease Denies:: Cancer, Diabetes Mellitus Type 1, Diabetes Mellitus Type 2, Internal Pacemaker, Lung Disease, MRSA, Seizures *Have you ever received a pneumonia vaccine?: Yes *Have you received a flu vaccine this season?: No Other Medical History: Reports: Other. Denies: Blood Transfusion Reaction Anesthesia experience/problems:: nac Laterality Cases: Bilateral: Other Other Surgeries: Yes: Angiogram, Cardiac Catheterization, Colonoscopy, Coronary Stent, Hernia Repair, Other (12 stents in left leg; one stent in right leg ). No: Pacemaker Amputation: No Fractures: No - *Social History Last grade of school completed: High school graduate Smoking Status: Current every day smoker Tobacco Type: cigarettes # Packs/Day (cigarettes): 1 Alcohol Intake: never Alcohol Intake Frequency:: other Substance Use Type: denies use *Occupational Status:: disabled Housing: house Household Members: spouse *Travel in the last 8 weeks: None Family Hx:: Coronary Artery Disease, Diabetes
== END 2019-11-28 09:50 | disposition home or self-care (01) ==
LOC: OR 06:44
PROVIDERS: PCP Nurse Practitioner Family; Visit Provider Otolaryngology
DX: L57.0 Actinic keratosis (principal); D23.4 Other benign neoplasm of skin of scalp and neck; Z79.82 Long term (current) use of aspirin; Z79.899 Other long term (current) drug therapy; J44.9 Chronic obstructive pulmonary disease, unspecified; I25.10 Atherosclerotic heart disease of native coronary artery without angina pectoris; I10 Essential (primary) hypertension; I73.9 Peripheral vascular disease, unspecified; Z72.0 Tobacco use; Z83.3 Family history of diabetes mellitus; L72.8 Other follicular cysts of the skin and subcutaneous tissue
CPT/HCPCS: 11106; 11107; 14060; 88304; 88305; 88312; 88342; 96374; 96375

== ENCOUNTER 2020-06-18 15:55 | Emergency (ER) | payer MEDICARE, SELFPAY ==
[2020-06-18 16:29] VITALS: BP 129/82; PULSE 76; RESP 14; TEMP 36.8; O2SAT 96; BMI 32.1
[2020-06-18 16:34] LABS: Apearance,Urine Clear (Clear); Color,Urine Yellow (Yellow); PH,Urine 5.5 (5.0-8.5); Specific Gravity, Urine 1.025 (1.005-1.030)
[2020-06-18 16:35] LABS: Bilirubin,Urine Negative (Negative); Blood, Urine 2+ (Negative); Glucose,Urine (UA) 4+ (Negative); Ketones,Urine Negative (Negative); Protein,Urine Negative (Negative); UTC Leukocyte Esterase,Urine Negative (Negative); UTC Nitrate,Urine Negative (Negative); Urobilinogen,Urine 1 EU/dl (0.2)
--- NOTE | 2020-06-18 16:59 | HMH.EDUTC ---
[facility] Disposition Clinical Impression: Rash Sinusitis Qualifiers: Sinusitis location: unspecified location Chronicity: unspecified Qualified Code(s): J32.9 - Chronic sinusitis, unspecified Disposition: Home, Self-Care Condition on Discharge: Good Instructions: Sinusitis, DI for Sinusitis, DI for Rash, Hydrocortisone Topical, Amoxicillin and Clavulanic Acid Additional Instructions: *Monitor Temp, Over the counter Motrin or Tylenol as directed/as needed Tylenol every 4 hours and Motrin every 6 hours (as long as your family doctor has told you that you can take it) for fever or pain. and straight to ER if unable to lower temp less than 101.0 after medication given *Warm salt water gargles may help to soothe the throat *Throat Lozenges *Warm fluids like tea with honey may help to soothe the throat *Sleep elevated *Humidifier/Vaporizer *Make sure to keep your appointment with your Family Doctor as scheduled Return if needed Follow up IMMEDIATELY for new or worsening symptoms or no Noticeable improvement over the next 48-72 hours. 911 for difficulty breathing or swallowing You were tested for today for COVID19 your test result should be back in the next 24-48 hours, you may call to the [facility] to see if your test results are back in the next 48 hours [phone] [facility] hours are 9am-9pm You was given a handout with instructions for Self Quarantine and Self isolation for while you wait on test results and what to do if they are positive If you are positive the Health Dept will be contacting you also Prescriptions: Amoxicillin/Potassium Clav [Augmentin 875-125 Tablet] 1 tab PO Q12H 7 Days #14 tab Transmission Status: Received by [id number] Hydrocortisone [Hydrocortisone 1% Cream 30gm Tube] 1 applicatio TP BID #1 tube Transmission Status: Received by [facility] Referrals: Francisco Javier Watkins APRN [Primary Care Provider] - As needed Time of Disposition: 17:16 Medical Decision Making - Min Inquiry Pt receiving controlled substance: No Min was queried for this patient: No Vital Signs: 06/18/20 16:29 06/18/20 17:26 Temperature 98.2 F 98 F Temperature Source Oral Pulse Rate 87 Pulse Rate [Right] 76 Respiratory Rate 14 14 Blood Pressure 123/79 Blood Pressure [Right Arm] 129/82 Blood Pressure Mean [Right Arm] 97 Blood Pressure Source [Right Arm] Automatic Cuff Blood Pressure Position [Right Arm] Sitting 02 Sat by Pulse Oximetry 96 Oxygen Delivery Method Room Air - Lab Data Lab results reviewed: Yes: I reviewed the patient's lab results. Lab Results 06/18/20 16:32: Urine Color Yellow, Urine Appearance Clear, Urine pH 5.5, Ur Specific [place] 1.025, Urine Protein Negative, Urine Glucose (UA) 4+, Urine Ketones Negative, Urine Blood 2+, Urine Nitrate Negative, Urine Bilirubin Negative, Urine Urobilinogen 1, Ur Leukocyte Esterase Negative Orders (Tests/Meds): ORDERS Category Date Time Status Covid-19 Nasal PCR ([facility]) Routine Lab 06/18/20 16:15 Received Medical Decision Narrative: Discussed with patient due to having blood in urine and glucose and recommended further testing and evaluation and patient states that he has appointment with his PCP and not a known diabetic advised patient to make sure to keep appointment with his PCP for further evaluation if he did not want any further testing in here or transferred to the ED and he agreed that he would follow up with his PCP for further testing and evaluation Patient advised that he has used topical hydrocortisone and taken augmentin in the past without complications or reactions [facility] HPI - General Stated complaint: rash Time Seen by Provider: 06/18/20 16:59 Mode of Arrival: Ambulatory Source of Information: Patient Limitations: No Limitations Description of Symptoms (Recalled from Triage Doc. by RN): PT HAS A RASH BILATERALLY FROM HIS ELBOWS UP TO HER SHOULDER. ITS RED SPECKLES THAT ARE FLAT. PT ALSO COMPLAINS OF FLANK PAIN WI
[2020-06-18 17:26] VITALS: BP 123/79; PULSE 87; RESP 14; TEMP 36.6
== END 2020-06-18 17:26 | disposition home or self-care (01) ==
PROVIDERS: Emergency Provider Nurse Practitioner; PCP Nurse Practitioner Family
DX: Z20.822 Contact with and (suspected) exposure to COVID-19 (principal); J32.9 Chronic sinusitis, unspecified; I10 Essential (primary) hypertension; E78.5 Hyperlipidemia, unspecified; J44.9 Chronic obstructive pulmonary disease, unspecified; F17.210 Nicotine dependence, cigarettes, uncomplicated
CPT/HCPCS: G0463; 81003; 81025; 99202; U0003

== ENCOUNTER → 2020-06-24 15:45 | Outpatient (CLI) | payer MEDICARE, SELFPAY ==
[2020-06-24 18:09] LABS: Basophils % 0.3 % (0.1-2.0); Eosinophils # 0.4 K/mm3 (0.0-0.4); Eosinophils % 4.7 % (0.1-12.0); Hemoglobin 17.3 g/dL (14.1-18.0); Lymphocytes # 1.3 K/mm3 (0.7-4.5); Lymphocytes % 17.2 % (10-50); Mean Corpuscular HGB Conc 33.2 g/dL (31.8-35.4); Mean Corpuscular Hemoglobin 32.9 pg (27.0-31.2); Mean Platelet Volume 9.7 fl (7.4-10.4); Monocytes # 0.4 K/mm3 (0.1-1.0); Monocytes % 5.4 % (1.7-9.3); Neutrophils # 5.5 K/mm3 (1.8-7.8); Neutrophils % 72.3 % (37.0-80.0); Platelet Count 146 K/mm3 (142-424); Red Blood Count 5.26 M/mm3 (4.60-6.20); White Blood Count 7.7 K/mm3 (4.8-10.8)
[2020-06-24 18:29] LABS: Alanine Aminotransferase 36 U/L (12-78); Albumin Level 4.3 g/dl (3.5-5.0); Albumin/Globulin Ratio 1.6 (1.1-1.8); Alkaline Phosphatase 96 U/L (38-126); Anion Gap 12.2 mEq/L (5-15); Aspartate Amino Transferase 30 U/L (17-59); Bilirubin,Total 0.7 mg/dl (0.2-1.3); Blood Urea Nitrogen 8 mg/dl (9-20); Calcium 9.1 mg/dl (8.4-10.2); Carbon Dioxide 24 mmol/L (22.0-30.0); Chloride 106 mmol/L (98-107); Chol/HDL Ratio 3.9 (1-3.5); Cholesterol 97 mg/dl (140-200); Estimated Glomerular Filt Rate 101 ml/min (>60); GFR (African American) 122 ML/MIN (>60); Globulin 2.7 g/dL (1.3-3.2); Glucose 112 mg/dl (74-100); HDL Cholesterol 25 mg/dl (40-60); Potassium 4.2 mmoL/L (3.5-5.1); Sodium 138 mmol/L (136-145); Triglycerides 118 mg/dl (30-150); VLDL Cholesterol 24 mg/dL (0-40)
[2020-06-24 18:50] LABS: T4 (Thyroxine) 10.7 ug/dl (5.53-11.0)
[2020-06-24 18:51] LABS: 25-OH Vitamin D, Total < 12.8 ng/mL (30-100)
[2020-06-24 19:03] LABS: Thyroid Stimulating Hormone 2.92 uIU/mL (0.465-4.68)
== END ==
PROVIDERS: PCP Nurse Practitioner Family; Visit Provider Nurse Practitioner Family
DX: E78.5 Hyperlipidemia, unspecified (principal); I10 Essential (primary) hypertension; J44.9 Chronic obstructive pulmonary disease, unspecified; R53.83 Other fatigue; J32.9 Chronic sinusitis, unspecified; R06.00 Dyspnea, unspecified; R73.09 Other abnormal glucose; E55.9 Vitamin D deficiency, unspecified; Z20.822 Contact with and (suspected) exposure to COVID-19; F17.210 Nicotine dependence, cigarettes, uncomplicated
CPT/HCPCS: 80053; 80061; 82306; 83036; 84436; 84443; 85025; U0003

== ENCOUNTER → 2020-07-02 13:58 | Outpatient (CLI) | payer MEDICARE, SELFPAY ==
[2020-07-02 14:26] LABS: Creatinine,Urine Random 225 mg/dL (Not Estab.)
[2020-07-02 17:38] LABS: Microalbumin/Creatinine Ratio 26.7
== END ==
PROVIDERS: Visit Provider Nurse Practitioner Family
DX: E11.9 Type 2 diabetes mellitus without complications (principal); Z79.84 Long term (current) use of oral hypoglycemic drugs
CPT/HCPCS: 82043; 82570

== ENCOUNTER → 2020-09-01 13:04 | Outpatient (CLI) | payer MEDICARE, SELFPAY ==
--- NOTE | 2020-09-01 13:11 | XR_ITS ---
PROCEDURE: XR CHEST 2V CLINICAL HISTORY: tobacco use COMPARISON: CR CXR CHEST(2 VIEWS-NOT PORTABLE) from 05/16/2013 CR CXR CHEST(2 VIEWS-NOT PORTABLE) from 12/26/2014 CR CXR CHEST(2 VIEWS-NOT PORTABLE) from 08/18/2015 CR CXR2V XR chest 2V from 05/21/2017 CR CXR2V XR chest 2V from 05/15/2018 FINDINGS: The cardiomediastinal silhouette and pulmonary vascularity are within normal limits. No lobar consolidation or collapse is evident. In the right apex medially there is a small nodular opacity not readily apparent on previous studies measuring approximately 8 mm. This may only be due to an area of rib overlap or sclerosis. A lucency overlies the right 2nd rib anteriorly at 8 mm. No acute bony findings. No acute bony abnormalities. IMPRESSION: Lucency over the right 2nd rib. This could be due to a lucent lesion in the lung or the overlying 2nd rib. New nodular opacity is present in the right apex medially and could be related to some bony sclerosis. Chest CT may provide further evaluation. Dictated by: Cy Stubbs MD 09/01/2020 14:34 Cy Stubbs MD in [place] 09/01/2020 14:34
== END ==
PROVIDERS: PCP Nurse Practitioner Family; Visit Provider Internal Medicine
DX: F17.200 Nicotine dependence, unspecified, uncomplicated (principal)
CPT/HCPCS: 71046

== ENCOUNTER → 2020-09-24 13:44 | Outpatient (CLI) | payer MEDICARE, SELFPAY ==
[2020-09-24 15:33] LABS: Blood Urea Nitrogen 12 mg/dl (9-20); Estimated Glomerular Filt Rate 88 ml/min (>60); GFR (African American) 106 ML/MIN (>60)
== END ==
PROVIDERS: Nurse Practitioner Family; Visit Provider Internal Medicine
DX: E78.5 Hyperlipidemia, unspecified (principal); F17.200 Nicotine dependence, unspecified, uncomplicated; G47.31 Primary central sleep apnea; G47.33 Obstructive sleep apnea (adult) (pediatric); I10 Essential (primary) hypertension; I25.10 Atherosclerotic heart disease of native coronary artery without angina pectoris; I73.9 Peripheral vascular disease, unspecified; J44.9 Chronic obstructive pulmonary disease, unspecified; R53.83 Other fatigue
CPT/HCPCS: 36415; 82565; 84520

== ENCOUNTER → 2020-09-28 13:13 | Outpatient (CLI) | payer MEDICARE, SELFPAY ==
--- NOTE | 2020-09-28 13:13 | CT_ITS ---
PROCEDURE: CT CHEST W CON CLINCAL INDICATION: lung nodule and rib lesion COMPARISON: CR XR CHEST 2V from 09/01/2020 TECHNIQUE: IV Contrast: 75ml Isovue 370 Axial images obtained with sagittal and coronal reformats. All CT scans at the facility use one or more dose reduction, viz: automated exposure control, ma/kV adjustment per patient size (including targeted exams where dose is matched to indication, i.e. head), or iterative reconstruction technique. FINDINGS: HEART AND MEDIASTINAL STRUCTURES: Unremarkable. Small focus of calcification within the aortic valve is present. LUNGS AND PLEURAL SPACES: Paraseptal emphysematous changes in the lung apices. Old granulomatous disease. No suspicious nodule apparent. No effusions or infiltrates BONY STRUCTURES: There is a well-circumscribed cystic lesion the right 2nd rib anteriorly measuring 13 mm. This accounts for the radiographic abnormality. No bony expansion apparent. In the right 2nd rib anterior medially there is an additional lucent lesion with sclerotic margin at 1.2 cm. UPPER ABDOMEN: Unremarkable. ADDITIONAL FINDINGS: No other significant abnormalities. IMPRESSION: No suspicious pulmonary nodule apparent. There are 2 lucent foci within the right 2nd rib with sclerotic margins. Suggest 6 month follow-up to confirm stability of the lucent lesions. This can be performed without contrast. Dictated by: Cy Stubbs MD 09/28/2020 13:59 Cy Stubbs MD in [place] 09/28/2020 13:59
== END ==
PROVIDERS: PCP Nurse Practitioner Family; Visit Provider Nurse Practitioner Family
DX: M89.9 Disorder of bone, unspecified (principal); R91.1 Solitary pulmonary nodule
CPT/HCPCS: 71260; Q9967

== ENCOUNTER → 2020-12-25 17:58 | Outpatient (CLI) | payer MEDICARE, SELFPAY ==
[2020-12-25 18:28] LABS: Basophils % 0.3 % (0.1-2.0); Eosinophils # 0.2 K/mm3 (0.0-0.4); Eosinophils % 2.8 % (0.1-12.0); Hematocrit 52.5 % (42.0-52.0); Hemoglobin 17.7 g/dL (14.1-18.0); Lymphocytes # 1.7 K/mm3 (0.7-4.5); Lymphocytes % 22.7 % (10-50); Mean Corpuscular HGB Conc 33.8 g/dL (31.8-35.4); Mean Corpuscular Hemoglobin 33.6 pg (27.0-31.2); Mean Corpuscular Volume 99.4 fl (80-94); Mean Platelet Volume 9.8 fl (7.4-10.4); Monocytes # 0.2 K/mm3 (0.1-1.0); Monocytes % 3.2 % (1.7-9.3); Neutrophils # 5.4 K/mm3 (1.8-7.8); Platelet Count 141 K/mm3 (142-424); Red Blood Count 5.28 M/mm3 (4.60-6.20); Red Cell Distribution Width 13.1 % (11.5-17.5); White Blood Count 7.6 K/mm3 (4.8-10.8)
[2020-12-25 18:50] LABS: Alanine Aminotransferase 39 U/L (12-78); Albumin Level 3.9 g/dl (3.5-5.0); Albumin/Globulin Ratio 1.5 (1.1-1.8); Alkaline Phosphatase 120 U/L (38-126); Aspartate Amino Transferase 30 U/L (17-59); Bilirubin,Total 0.5 mg/dl (0.2-1.3); Blood Urea Nitrogen 10 mg/dl (9-20); Calcium 8.8 mg/dl (8.4-10.2); Carbon Dioxide 25 mmol/L (22.0-30.0); Chloride 103 mmol/L (98-107); Chol/HDL Ratio 3.3 (1-3.5); Cholesterol 90 mg/dl (140-200); Estimated Glomerular Filt Rate 101 ml/min (>60); GFR (African American) 122 ML/MIN (>60); Globulin 2.6 g/dL (1.3-3.2); Glucose 171 mg/dl (74-100); HDL Cholesterol 27 mg/dl (40-60); Sodium 139 mmol/L (136-145); Total Protein,Serum 6.5 g/dl (6.3-8.2); Triglycerides 133 mg/dl (30-150); VLDL Cholesterol 27 mg/dL (0-40)
[2020-12-25 19:01] LABS: Direct LDL Cholesterol 46.61 mg/dL (100-129)
[2020-12-25 19:06] LABS: 25-OH Vitamin D, Total 48.7 ng/mL (30-100)
== END ==
PROVIDERS: Visit Provider Nurse Practitioner Family
DX: E11.9 Type 2 diabetes mellitus without complications (principal); E55.9 Vitamin D deficiency, unspecified; E66.9 Obesity, unspecified; E78.5 Hyperlipidemia, unspecified; I10 Essential (primary) hypertension; I25.10 Atherosclerotic heart disease of native coronary artery without angina pectoris; J44.9 Chronic obstructive pulmonary disease, unspecified; R06.02 Shortness of breath; Z20.822 Contact with and (suspected) exposure to COVID-19; Z68.31 Body mass index [BMI] 31.0-31.9, adult; Z79.84 Long term (current) use of oral hypoglycemic drugs
CPT/HCPCS: 80053; 80061; 82306; 84436; 84443; 85025; C9803; U0003; U0005

== ENCOUNTER → 2021-03-09 14:19 | Outpatient (CLI) | payer MEDICARE, SELFPAY ==
[2021-03-09 15:41] LABS: Blood Urea Nitrogen 12 mg/dl (9-20); Estimated Glomerular Filt Rate 88 ml/min (>60); GFR (African American) 106 ML/MIN (>60)
== END ==
PROVIDERS: Visit Provider Internal Medicine
DX: Z01.812 Encounter for preprocedural laboratory examination (principal)
CPT/HCPCS: 36415; 82565; 84520

== ENCOUNTER → 2021-03-12 12:33 | Outpatient (CLI) | payer MEDICARE, SELFPAY ==
--- NOTE | 2021-03-12 12:33 | CA_ITS ---
APPROVED REPORT EXAM: Comprehensive 2D, Doppler, and color-flow Echocardiogram Extension Service Advisor: Jade Deleon RT(R) Ht: 5 ft 11 in Wt: 224lbs BSA: 2.21 BP: 146/75 mmHg Indications: smoker, HTN, hyperlipidemia, CAD, PADRON, DALTON, emphysema 2D Dimensions LVOT 2.29 cm (M/F) 1.5-2.5 LA Volume 19.20 mL LA Volume Index 8.68 mL/m2 (M/F) 16-34 M-Mode Dimensions RVDd 3.04 cm (0.9-2.6) LA Diam 3.43 cm (1.9-4.0) LVDd 4.56 cm (3.5-5.7) Ao Diam 2.78 cm (2.0-3.7) LVDs 3.53 cm (3.5-5.7) IVSd 1.06 cm (0.6-1.1) PWd 0.91 cm (0.6-1.1) EF (Teich) 45.60% FS 22.60% EDV (Teich) 95.40 mL ESV (Teich) 51.90 mL LV Diastology E Decel Time 150.00 (160-240 msec) E/A Ratio 0.9 MED E' 9.50 (< 7 cm/sec) E'/MED E' Ratio 7.26 (>14) LAT E' 13.40 (<10 cm/sec) E/LAT E' Ratio 5.15 (>14) Mitral Valve MV E Max Max. 69.00 (40-130 cm/s) MV A Velocity 81.00 (40-130 cm/s) E/A Ratio 0.85 MV Decel. Time 150.00 (160-240 ms) MV PHT 44.00 ms Left Ventricle Left atrium is normal size, left ventricle is normal size, there is no concentric left ventricle hypertrophy, visually estimated ejection fraction 55% with no regional wall motion abnormality, diastolic parameters are within normal range. Right Ventricle Right atrium and right ventricle are normal size and contractility. Aortic Valve Aortic valve is minimally thickened and fibrosed, there is no aortic stenosis or aortic insufficiency. Mitral Valve Mitral valve grossly normal, there is trace mitral regurgitation. Tricuspid Valve Tricuspid valve grossly normal, there is trace tricuspid regurgitation, tricuspid regurgitation jet velocity is inadequate for calculation of the right ventricular systolic pressure. Pulmonic Valve Pulmonic valve is poorly visualized. Great Vessels Aortic root is normal size. Inferior vena cava normal size with normal inspiratory collapse. Pericardium No significant pericardial effusion noted. Conclusion 1. Normal left ventricular size, preserved left ventricular systolic function, visually estimated ejection fraction 55% with no regional wall motion abnormality, diastolic parameters are within normal range. 2. Thickened and calcified aortic valve consistent with aortic sclerosis there is no aortic stenosis or aortic insufficiency. 3. Trace mitral and tricuspid regurgitation. 4. No significant pericardial effusion noted. Electronically signed by : Boom Pastrana MD 03/12/2021 15:48:47
--- NOTE | 2021-03-12 13:19 | CT_ITS ---
PROCEDURE INFORMATION: Exam: CT Chest With Contrast; Diagnostic Exam date and time: 03/12/2021 1:19 PM Age: 56 years old Clinical indication: Abnormal findings; Lung mass or nodule; Multiple nodules; Additional info: Lung nodules TECHNIQUE: Imaging protocol: Diagnostic computed tomography of the chest with contrast. Radiation optimization: All CT scans at this facility use at least one of these dose optimization techniques: automated exposure control; mA and/or kV adjustment per patient size (includes targeted exams where dose is matched to clinical indication); or iterative reconstruction. Contrast material: ISOVUE; Contrast volume: 75 ml; Contrast route: IV; COMPARISON: CT CHEST W CON 09/28/2020 1:25 PM FINDINGS: Lungs: Cluster of tiny calcified granulomas in the anterior left upper lobe series 3, images 20 2-24, unchanged. No suspicious pulmonary nodules requiring follow-up. Peripheral interstitial scarring and emphysematous changes, greatest at the right apex. Dependent atelectasis in the posterior lower lobes. No consolidation. No rounded ground-glass lesions. Pleural spaces: Fatty pleural thickening. No pleural effusion. No pneumothorax. Heart: The heart is not enlarged. No significant pericardial effusion. Aorta: There is no aortic aneurysm. Lymph nodes: No significantly enlarged lymph nodes by short axis criteria. Adrenal glands: Asymmetric nodular thickening of the left adrenal gland is unchanged series 3, image 75; no discrete nodule of greater than 1 cm. Bones/joints: There are chronic anterior right 2nd rib lesions with thin sclerotic margins and central radiolucency which are unchanged compared with 09/28/2020, suggesting nonaggressive etiology, largest of these is approximately 1.3-1.4 cm series 3, image 18. Similar 8 mm lesion in the posterolateral left 7th rib series 3, image 43 is also unchanged. There is no evidence of acute fracture. Mild chronic anterior wedge deformity of the T11 vertebral body, and multilevel chronic endplate depressions/erosions. There are spinal degenerative changes, with multilevel disc narrrowing and spondylosis. Soft tissues: There are no soft tissue masses or fluid collections. IMPRESSION: 1. No acute findings. 2. No suspicious pulmonary nodules requiring follow-up. 3. Chronic granulomatous changes in the anterior left upper lobe. 4. Emphysematous changes and interstitial scarring in the lungs. 5. Chronic bilateral rib lesions with thin sclerotic margins which are unchanged compared with 09/28/2020, suggesting most likely nonaggressive etiology. 6. Additional nonemergency and chronic findings as above.
== END ==
PROVIDERS: PCP Nurse Practitioner Family; Visit Provider Internal Medicine
DX: E78.2 Mixed hyperlipidemia (principal); F17.200 Nicotine dependence, unspecified, uncomplicated; G47.31 Primary central sleep apnea; G47.33 Obstructive sleep apnea (adult) (pediatric); I10 Essential (primary) hypertension; I25.10 Atherosclerotic heart disease of native coronary artery without angina pectoris; I73.9 Peripheral vascular disease, unspecified; J43.9 Emphysema, unspecified; R53.82 Chronic fatigue, unspecified; R91.8 Other nonspecific abnormal finding of lung field
CPT/HCPCS: 71260; 93306; Q9967

== ENCOUNTER → 2021-05-19 09:50 | Outpatient (CLI) | payer MEDICARE, SELFPAY ==
[2021-05-19 10:50] VITALS: PULSE 74; PULSE 77
== END ==
PROVIDERS: PCP Nurse Practitioner Family; Visit Provider Internal Medicine Pulmonary Disease
DX: R06.00 Dyspnea, unspecified (principal)
CPT/HCPCS: 94060; 94618; 94640; 94727; 94729

== ENCOUNTER → 2021-06-21 16:33 | Outpatient (CLI) | payer MEDICARE, SELFPAY ==
[2021-06-21 19:33] LABS: Basophils # 0.1 K/mm3 (0-0.2); Basophils % 0.8 % (0.1-2.0); Eosinophils # 0.1 K/mm3 (0.0-0.4); Eosinophils % 1.7 % (0.1-12.0); Hematocrit 54.5 % (42.0-52.0); Lymphocytes # 1.8 K/mm3 (0.7-4.5); Lymphocytes % 25.4 % (10-50); Mean Corpuscular HGB Conc 33.1 g/dL (31.8-35.4); Mean Corpuscular Hemoglobin 33.5 pg (27.0-31.2); Mean Corpuscular Volume 101.2 fl (80-94); Mean Platelet Volume 10.9 fl (7.4-10.4); Monocytes # 0.4 K/mm3 (0.1-1.0); Neutrophils # 4.8 K/mm3 (1.8-7.8); Neutrophils % 67.1 % (37.0-80.0); Platelet Count 148 K/mm3 (142-424); Red Blood Count 5.38 M/mm3 (4.60-6.20); Red Cell Distribution Width 13.8 % (11.5-17.5); White Blood Count 7.1 K/mm3 (4.8-10.8)
[2021-06-21 20:25] LABS: 25-OH Vitamin D, Total 48.8 ng/mL (30-100)
[2021-06-21 20:59] LABS: Alanine Aminotransferase 34 U/L (12-78); Albumin Level 4.3 g/dl (3.5-5.0); Albumin/Globulin Ratio 1.8 (1.1-1.8); Alkaline Phosphatase 112 U/L (38-126); Anion Gap 12.9 mEq/L (5-15); Aspartate Amino Transferase 29 U/L (17-59); Bilirubin,Total 0.6 mg/dl (0.2-1.3); Blood Urea Nitrogen 8 mg/dl (9-20); Calcium 8.6 mg/dl (8.4-10.2); Carbon Dioxide 25 mmol/L (22.0-30.0); Chloride 106 mmol/L (98-107); Chol/HDL Ratio 2.9 (1-3.5); Cholesterol 93 mg/dl (140-200); Estimated Glomerular Filt Rate 117 ml/min (>60); GFR (African American) 142 ML/MIN (>60); Globulin 2.4 g/dL (1.3-3.2); Glucose 95 mg/dl (74-100); HDL Cholesterol 32 mg/dl (40-60); Potassium 3.9 mmoL/L (3.5-5.1); Sodium 140 mmol/L (136-145); Total Protein,Serum 6.7 g/dl (6.3-8.2); Triglycerides 83 mg/dl (30-150); VLDL Cholesterol 17 mg/dL (0-40)
[2021-06-21 21:10] LABS: Direct LDL Cholesterol 45.82 mg/dL (100-129)
[2021-06-21 21:11] LABS: Hemoglobin A1C 5.5 % (4.0-6.0)
[2021-06-21 21:16] LABS: T4 (Thyroxine) 9.1 ug/dl (5.53-11.0)
[2021-06-21 21:29] LABS: Thyroid Stimulating Hormone 2.21 uIU/mL (0.465-4.68)
== END ==
PROVIDERS: Visit Provider Nurse Practitioner Family
DX: R53.83 Other fatigue; Z79.84 Long term (current) use of oral hypoglycemic drugs; E66.9 Obesity, unspecified; Z68.31 Body mass index [BMI] 31.0-31.9, adult; E11.9 Type 2 diabetes mellitus without complications
CPT/HCPCS: 80053; 80061; 82043; 82306; 83036; 84436; 84443; 84681; 85025

== ENCOUNTER → 2022-01-24 16:37 | Outpatient (CLI) | payer MEDICARE, SELFPAY | LOC: RT 16:42 | PROVIDERS: PCP Nurse Practitioner Family; Visit Provider Specialist | DX: G47.30 Sleep apnea, unspecified (principal); R06.83 Snoring | CPT/HCPCS: G0399 ==

== ENCOUNTER → 2022-02-14 13:59 | Outpatient (CLI) | payer MEDICARE, SELFPAY ==
[2022-02-14 14:46] LABS: Basophils # 0.1 K/mm3 (0-0.2); Basophils % 0.7 % (0.1-2.0); Eosinophils # 0.2 K/mm3 (0.0-0.4); Eosinophils % 2.5 % (0.1-12.0); Hematocrit 52.8 % (42.0-52.0); Hemoglobin 17.1 g/dL (14.1-18.0); Lymphocytes # 2.2 K/mm3 (0.7-4.5); Lymphocytes % 24.3 % (10-50); Mean Corpuscular HGB Conc 32.3 g/dL (31.8-35.4); Mean Corpuscular Hemoglobin 32.5 pg (27.0-31.2); Mean Corpuscular Volume 100.6 fl (80-94); Mean Platelet Volume 8.6 fl (7.4-10.4); Monocytes # 0.4 K/mm3 (0.1-1.0); Monocytes % 4.2 % (1.7-9.3); Neutrophils # 6.2 K/mm3 (1.8-7.8); Neutrophils % 68.4 % (37.0-80.0); Platelet Count 151 K/mm3 (142-424); Red Blood Count 5.25 M/mm3 (4.60-6.20); Red Cell Distribution Width 13.7 % (11.5-17.5); White Blood Count 9.1 K/mm3 (4.8-10.8)
[2022-02-14 16:14] LABS: Vitamin B12 311 pg/mL (239-931)
[2022-02-14 16:16] LABS: Folate 5.39 ng/mL
== END ==
PROVIDERS: PCP Nurse Practitioner Family; Visit Provider Internal Medicine Medical Oncology
DX: D64.9 Anemia, unspecified (principal); D51.9 Vitamin B12 deficiency anemia, unspecified
CPT/HCPCS: 36415; 82607; 82746; 85025

== ENCOUNTER → 2022-03-28 15:29 | Outpatient (CLI) | payer MEDICARE, SELFPAY ==
--- NOTE | 2022-03-28 15:29 | CT_ITS ---
FINAL REPORT CLINICAL HISTORY: lung cancer screening COMPARISON: March 12, 2021 FINDINGS: Low-Dose Chest CT Axial images were obtained from the lung apex to the mid abdomen by computed tomography. Low-dose protocol was utilized. CTDI vol (mGy): 2.90 DLP (mGy-cm): 100.55 There is no axillary adenopathy. There is no hilar or mediastinal adenopathy. The heart is proper size. There is no pericardial or pleural effusion. Lung window images demonstrate no suspicious infiltrate or nodule. There are mild changes of emphysema with mild pulmonary scarring. There are calcified granulomas in the left upper lobe. No new mass or nodule is identified. Limited images of the upper abdomen are unremarkable. IMPRESSION: Lung RADS category 1. Recommend 12 month follow-up low-dose chest CT. Reviewed, Interpreted and Dictated by Preet Dolan III, MD Transcribed by Bessy Cuba Authenticated and [facility]
== END ==
PROVIDERS: PCP Nurse Practitioner Family; Visit Provider Internal Medicine Pulmonary Disease
DX: Z87.891 Personal history of nicotine dependence (principal); Z12.2 Encounter for screening for malignant neoplasm of respiratory organs
CPT/HCPCS: 71271

== ENCOUNTER → 2022-05-02 15:47 | Outpatient (CLI) | payer MEDICARE, SELFPAY ==
--- NOTE | 2022-05-02 15:56 | XR_ITS ---
FINAL REPORT CLINICAL HISTORY: PAIN FINDINGS: Internal rotation, scapular Y and external rotation views of the right shoulder were obtained. There is no prior exam for comparison. There is no fracture or dislocation. There is degenerative joint disease. Soft tissues are normal. IMPRESSION: No acute osseous abnormality of the right shoulder. Reviewed, Interpreted and Dictated by Vicky Patel MD Transcribed by Fred Fernández Authenticated and [facility]
== END ==
LOC: RAD 15:49
PROVIDERS: PCP Nurse Practitioner Family; Visit Provider Nurse Practitioner Family
DX: M25.511 Pain in right shoulder (principal)
CPT/HCPCS: 73030

== ENCOUNTER 2022-05-08 19:29 | Emergency (ER) | payer MEDICARE, SELFPAY ==
[2022-05-08 19:30] VITALS: BP 146/83; PULSE 91; RESP 21; TEMP 36.6; O2SAT 98; BMI 31.1
[2022-05-08 19:34] VITALS: BP 146/83; PULSE 88; O2SAT 97
--- NOTE | 2022-05-08 19:47 | XR_ITS ---
PROCEDURE INFORMATION: Exam: XR Chest Exam date and time: 05/08/2022 7:52 PM Age: 57 years old Clinical indication: Patient HX: Congestion, smoker. ; Additional info: Chest congestion TECHNIQUE: Imaging protocol: Radiologic exam of the chest. Views: 2 views. COMPARISON: CT LUNG SCREENING 03/28/2022 3:57 PM FINDINGS: Lungs: Normal pulmonary expansion. Pulmonary vasculature grossly normal. No gross pulmonary infiltrates or edema pattern. Pleural spaces: No pleural effusion. No pneumothorax. Heart/Mediastinum: Heart size normal. No tracheal/mediastinal shift. Bones/joints: No acute osseous abnormalities are identified. Mild thoracic spondylosis. IMPRESSION: No acute thoracic process.
--- NOTE | 2022-05-08 19:47 | XR_ITS ---
PROCEDURE INFORMATION: Exam: XR Cervical Spine Exam date and time: 05/08/2022 7:55 PM Age: 57 years old Clinical indication: Patient HX: Posterior neck pain, no known injury. intermediate manager pain, started in left shoulder. TECHNIQUE: Imaging protocol: Radiologic exam of the cervical spine. Views: 4 or 5 views. COMPARISON: CR XR CHEST 2V 05/08/2022 7:52 PM FINDINGS: Bones/joints: 2 mm anterolisthesis C4-C5 which increases mildly to 4 mm with the swimmer's view, suggesting mild degenerative positional subluxation at this level. Slight 1-2 mm anterolisthesis at C3-C4 does not significantly change. Nonemergent flexion/extension views may be helpful. The odontoid is intact. Facets are well aligned. Facet osteoarthritic changes in the mid and upper cervical spine, most pronounced on the left at C4-C5 where there is moderate-severe facet hypertrophy. No fractures are evident radiographically. No blastic or lytic lesions. Moderate-severe disc space narrowing with moderate marginal spurring C5-C6 and C6-C7. There is right foraminal stenosis which is moderate at C5-C6 and mild at C6-C7. Suspected mild-moderate left foraminal stenoses C4-C5 through C6-C7 although limited visualization of the left foramina was achieved due to shallow obliquity. Soft tissues: Prevertebral soft tissues are normal. Lungs: Visualized pulmonary apices are clear. IMPRESSION: 1. No fractures are identified. 2. Osteoarthritic changes with foraminal stenoses detailed above. 3. Slight anterolisthesis C3-C4 and C4-C5 with suspected mild positional subluxation at C4-C5, consider nonemergent flexion-extension views for further characterization as clinically indicated.
[2022-05-08 20:02] LABS: Microscopic, Urine URINE MICROSCOPIC (MICROSCOPIC)
[2022-05-08 20:05] LABS: Appearance,Urine CLEAR (Clear); Bilirubin,Urine Negative (Negative); Blood, Urine TRACE-I (Negative); Color,Urine YELLOW (Yellow); Glucose,Urine (UA) TRACE (Negative); Ketones,Urine Negative (Negative); Leukocyte Esterase,Urine Negative (Negative); Nitrate,Urine Negative (Negative); PH,Urine 5.5 (5.0-8.5); Protein,Urine Negative (Negative); Specific Gravity, Urine 1.025 (1.005-1.030)
[2022-05-08 20:08] LABS: Basophils # 0.1 K/mm3 (0-0.2); Basophils % 1.4 % (0.1-2.0); Eosinophils # 0.3 K/mm3 (0.0-0.4); Eosinophils % 2.5 % (0.1-12.0); Hematocrit 53.1 % (42.0-52.0); Hemoglobin 17.8 g/dL (14.1-18.0); Lymphocytes # 2.2 K/mm3 (0.7-4.5); Mean Corpuscular HGB Conc 33.5 g/dL (31.8-35.4); Mean Corpuscular Volume 98.7 fl (80-94); Mean Platelet Volume 8.5 fl (7.4-10.4); Monocytes # 0.4 K/mm3 (0.1-1.0); Monocytes % 3.8 % (1.7-9.3); Neutrophils # 6.9 K/mm3 (1.8-7.8); Neutrophils % 70.3 % (37.0-80.0); Platelet Count 160 K/mm3 (142-424); Red Blood Count 5.38 M/mm3 (4.60-6.20); Red Cell Distribution Width 13.7 % (11.5-17.5); White Blood Count 9.8 K/mm3 (4.8-10.8)
[2022-05-08 20:17] LABS: Alanine Aminotransferase 33 U/L (12-78); Albumin Level 4.5 g/dl (3.5-5.0); Albumin/Globulin Ratio 1.6 (1.1-1.8); Alkaline Phosphatase 112 U/L (38-126); Anion Gap 12.6 mEq/L (5-15); Aspartate Amino Transferase 29 U/L (17-59); Bilirubin,Total 0.4 mg/dl (0.2-1.3); Blood Urea Nitrogen 10 mg/dl (9-20); Calcium 8.5 mg/dl (8.4-10.2); Carbon Dioxide 29 mmol/L (22.0-30.0); Chloride 102 mmol/L (98-107); Creatinine Clearance Estimated 128 mL/min (50-200); Estimated Glomerular Filt Rate 87 ml/min (>60); GFR (African American) 106 ML/MIN (>60); Globulin 2.9 g/dL (1.3-3.2); Glucose 118 mg/dl (74-100); Magnesium 1.9 mg/dl (1.6-2.3); Potassium 3.6 mmoL/L (3.5-5.1); Sodium 140 mmol/L (136-145); Total Protein,Serum 7.4 g/dl (6.3-8.2)
[2022-05-08 20:23] LABS: C-Reactive Protein 0.3 mg/L (0-4); Squamous Epithelial Cell,Urine Occasional #/hpf (0-5)
[2022-05-08 20:29] LABS: NT Pro Brain Natriuretic Pep. 18.7 pg/mL (0-125)
[2022-05-08 20:36] LABS: Procalcitonin 0.047 ng/mL (0.0-2.0)
[2022-05-08 20:44] LABS: Troponin I < 0.01 ng/ml (0.00-0.034)
--- NOTE | 2022-05-08 20:45 | XR_ITS ---
PROCEDURE INFORMATION: Exam: XR Cervical Spine Exam date and time: 05/08/2022 8:50 PM Age: 57 years old Clinical indication: Neck pain; Additional info: Abn cervical xray TECHNIQUE: Imaging protocol: Radiologic exam of the cervical spine. Views: 4 or 5 views. COMPARISON: CR XR CERVICAL SPINE 5V 05/08/2022 7:55 PM FINDINGS: Bones/joints: Extension views demonstrate near anatomic alignment. Flexion views demonstrate 3.5 mm anterolisthesis at C4-C5 and 2 mm anterolisthesis at C3-C4, felt to represent degenerative positional subluxation. Consider follow-up spine surgical referral/assessment. Moderate disc space narrowing and marginal spurring C5-C6 and C6-C7. No fractures. Chronic appearing ossification in the nuchal ligament. No acute soft tissue abnormalities. Prevertebral soft tissues are normal. Soft tissues: See Bones/joints finding. IMPRESSION: 1. Approximately 3.5 mm positional subluxation demonstrated at C4-C5 between flexion and extension, and 2 mm positional subluxation at C3-C4, felt to be degenerative/osteoarthritic positional subluxation. Consider follow-up spine surgical referral/assessment. 2. Moderate osteoarthritic disc disease C5-C6 and C6-C7. 3. No fracture.
[2022-05-08 20:50] LABS: Erythrocyte Sedimentation Rate 5 mm/hr (0-20)
--- NOTE | 2022-05-08 21:27 | HMH.EDGENADL ---
Discharge Plan Disposition Patient Disposition: Home, Self-Care Chief Complaint: PAIN Prescriptions Prescriptions: No Action gabapentin 800 mg tablet 800 mg PO TID Qty: 90 5RF ergocalciferol (vitamin D2) 50 mcg (2,000 unit) capsule 50 mcg PO DAILY aspirin 81 mg tablet,delayed release (DR/EC) 81 mg PO DAILY atorvastatin 80 mg tablet See Rx Instructions .ROUTE .COMPLEX Rx Instructions: TAKE 1 TABLET BY MOUTH ONCE DAILY FOR CHOLESTEROL (DME) blood-glucose meter [Accu-Chek Odilia Plus Meter] Misc See Rx Instructions MISCELLANEOUS Rx Instructions: As directed (DME) Accu-Chek Odilia Plus test strp Strip See Rx Instructions MISCELLANEOUS Rx Instructions: As directed-test twice a day (DME) lancets [Accu-Chek Softclix Lancets] Misc See Rx Instructions .ROUTE .COMPLEX Rx Instructions: USE 1 TO CHECK GLUCOSE TWICE DAILY DIRECTED lisinopril 10 mg tablet See Rx Instructions .ROUTE .COMPLEX Rx Instructions: Take 1 tablet by mouth once daily for blood pressure metformin 500 mg tablet extended release 24 hr See Rx Instructions .ROUTE .COMPLEX Rx Instructions: Take 1 tablet by mouth once daily Xarelto 2.5 mg tablet See Rx Instructions .ROUTE .COMPLEX Rx Instructions: Take 1 tablet by mouth twice daily Referrals Follow up/Referrals: Francisco Javier Watkins APRN [Primary Care Provider] - See instructions Clinical Impressions Clinical Impression: Cervical radicular pain Instructions Patient Instructions: DI for Cervical Radiculopathy Discharge ED Provider: Ender (ED)Alexandro General Adult HPI General Chief complaint: PAIN Stated complaint: neck pain, back pain, no accident Time Seen by Provider: 05/08/22 21:15 Mode of Arrival: Family Vehicle Source of Information: Patient, Spouse and Medical Record Limitations: No Limitations Description of Symptoms (Recalled from ER Triage Doc. by RN): Pt c/o productive cough, chest congestion, posterior neck pain that worsenes when he inhales deeply. He did see his PCP on 04/19 regarding R shoulder and neck pain and was given steriods. Pt states this did not help and he had R shuolder XR on 05/02 which relvealed DJPérez, he is referred to Dr. Begum for this. Pt states he just feels I might pneumonia or maybe dehydrated because I am not sleeping . Pt would like to make sure everything is alright . Denies fever, chills, or n/v/d. He is smoker and take xarelto. History of Present Illness HPI narrative: over the last weeks has rt sided neck pain rad to rt shoulder w/o fever /rash or trauma - no resp to steroids - no def resp sx - on xarelto Onset (ago): week(s) Location: neck Severity: moderate Associated symptoms: denies other symptoms Treatments prior to arrival: none Related Data Home Medications Medication Instructions Recorded Confirmed aspirin 81 mg tablet,delayed 81 mg PO DAILY heart health 05/26/17 05/08/22 release ergocalciferol (vitamin D2) 50 mcg 50 mcg PO DAILY Supplement 01/24/22 05/08/22 (2,000 unit) capsule atorvastatin 80 mg tablet See Rx Instructions .Route 05/08/22 05/08/22 .COMPLEX High cholesterol blood sugar diagnostic (Accu-Chek 05/08/22 05/08/22 Odilia Plus test strips) blood-glucose meter (Accu-Chek 05/08/22 05/08/22 Odilia Plus Meter) lancets (Accu-Chek Softclix 05/08/22 05/08/22 Lancets) lisinopril 10 mg tablet See Rx Instructions .Route 05/08/22 05/08/22 .COMPLEX High blood pressure metformin 500 mg tablet,extended See Rx Instructions .Route 05/08/22 05/08/22 release 24 hr .COMPLEX Diabetes rivaroxaban 2.5 mg tablet (Xarelto) See Rx Instructions .Route 05/08/22 05/08/22 .COMPLEX stents Previous Rx's Medication Instructions Recorded gabapentin 800 mg tablet 800 mg PO TID Pain #90 tabs 03/02/22 Allergies Allergy/AdvReac Type Severity Reaction Status Date / Time No Known Allergies Allergy Verified 03/15/22 15:35
[2022-05-08 22:03] VITALS: BP 136/82; PULSE 78; RESP 18; TEMP 36.7; O2SAT 95
== END 2022-05-08 22:03 | disposition home or self-care (01) ==
PROVIDERS: Emergency Provider Emergency Medicine; PCP Nurse Practitioner Family
DX: M54.12 Radiculopathy, cervical region (principal); I25.10 Atherosclerotic heart disease of native coronary artery without angina pectoris; J44.9 Chronic obstructive pulmonary disease, unspecified; E78.5 Hyperlipidemia, unspecified; I10 Essential (primary) hypertension; F17.210 Nicotine dependence, cigarettes, uncomplicated; Z83.3 Family history of diabetes mellitus; Z82.49 Family history of ischemic heart disease and other diseases of the circulatory system
CPT/HCPCS: 71046; 72050; 72052; 80053; 81001; 83735; 83880; 84145; 84484; 85025; 85651; 86140; 96360; 99285

== ENCOUNTER → 2022-05-24 14:40 | Outpatient (CLI) | payer MEDICARE, SELFPAY ==
--- NOTE | 2022-05-24 14:45 | MR_ITS ---
FINAL REPORT TECHNIQUE: Multiplanar and multisequence imaging of the cervical spine was obtained. CLINICAL HISTORY: ABNORMAL FINDINGS neck pain x 1.5 months right arm tingling FINDINGS: There is a very mild anterolisthesis of C4 on C5 which is likely degenerative. There is straightening of the normal cervical curvature which could be due to positioning or muscle spasm. Vertebral body height is preserved. At the level of C6-7, there is abnormal signal intensity within the central cord, slightly asymmetric to the left. Remaining cord signal intensity is normal. Bone marrow signal intensity is normal. Paraspinal soft tissues are within normal limits. C2/3: There is no focal disc herniation, central stenosis or neural foraminal narrowing. C3/4: There is no focal disc herniation. There is mild left facet osteoarthropathy causes mild left neural foraminal narrowing. C4/5: An annular disc bulge is present with degenerative endplate changes and facet osteoarthropathy. There is no central canal stenosis. There is severe left neural foraminal narrowing. C5/6: An annular disc bulge is present with degenerative endplate changes and facet osteoarthropathy. There is no central canal stenosis. There is moderate central canal stenosis and severe bilateral neural foraminal narrowing. C6/7: An annular disc bulge is present with degenerative endplate changes and facet osteoarthropathy. There is no central canal stenosis. There is moderate to severe central canal stenosis and severe bilateral neural foraminal narrowing. C7/T1: There is no focal disc herniation, central stenosis or neural foraminal narrowing. IMPRESSION: 1. Straightening of the normal cervical curvature which could be due to positioning or muscle spasm. 2. Multilevel degenerative disease most pronounced at C5-6 and C6-7. 3. Abnormal signal intensity within the central cord at C6-7, etiology unclear. This could be result of trauma, ischemia or demyelination. Recommend short-term follow-up exam without and with contrast. Reviewed, Interpreted and Dictated by Vicky Patel MD Transcribed by Bessy Cuba Authenticated and [facility]
== END ==
LOC: RAD 14:40
PROVIDERS: PCP Nurse Practitioner Family; Visit Provider Nurse Practitioner Family
DX: R93.89 Abnormal findings on diagnostic imaging of other specified body structures (principal)
CPT/HCPCS: 72141; 76376

== ENCOUNTER → 2022-08-31 12:12 | Outpatient (CLI) | payer MEDICARE, SELFPAY ==
--- NOTE | 2022-08-31 12:30 | XR_ITS ---
FINAL REPORT CLINICAL HISTORY: angina COMPARISON: May 08, 2022 FINDINGS: Two views of the chest were obtained. The heart size and pulmonary vascularity are within normal limits. The mediastinum is normal. No acute pulmonary abnormality is identified. There is no pneumothorax. The bony thorax is intact. IMPRESSION: No active cardiopulmonary disease. Reviewed, Interpreted and Dictated by Preet Dolan III, MD Transcribed by Fred Fernández Authenticated and [facility]
[2022-08-31 13:04] LABS: Basophils % 0.4 % (0.1-2.0); Eosinophils # 0.1 K/mm3 (0.0-0.4); Eosinophils % 1.6 % (0.1-12.0); Hematocrit 54.1 % (42.0-52.0); Hemoglobin 17.4 g/dL (14.1-18.0); Lymphocytes # 1.9 K/mm3 (0.7-4.5); Lymphocytes % 23.7 % (10-50); Mean Corpuscular HGB Conc 32.2 g/dL (31.8-35.4); Mean Corpuscular Hemoglobin 32.2 pg (27.0-31.2); Mean Platelet Volume 8.4 fl (7.4-10.4); Monocytes # 0.4 K/mm3 (0.1-1.0); Monocytes % 4.4 % (1.7-9.3); Neutrophils # 5.6 K/mm3 (1.8-7.8); Neutrophils % 69.9 % (37.0-80.0); Platelet Count 175 K/mm3 (142-424); Red Blood Count 5.41 M/mm3 (4.60-6.20); Red Cell Distribution Width 13.5 % (11.5-17.5)
[2022-08-31 14:24] LABS: Alanine Aminotransferase 33 U/L (12-78); Albumin Level 4.3 g/dl (3.5-5.0); Alkaline Phosphatase 128 U/L (38-126); Anion Gap 18.4 mEq/L (5-15); Aspartate Amino Transferase 30 U/L (17-59); Bilirubin,Indirect 0.8 mg/dL (0.0-0.9); Bilirubin,Total 0.8 mg/dl (0.2-1.3); Bilirubin,Unconjugated 0.8 mg/dL (0.0-1.1); Blood Urea Nitrogen 11 mg/dl (9-20); Calcium 8.9 mg/dl (8.4-10.2); Carbon Dioxide 28 mmol/L (22.0-30.0); Chloride 94 mmol/L (98-107); Chol/HDL Ratio 3.2 (1-3.5); Cholesterol 92 mg/dl (140-200); Estimated Glomerular Filt Rate 87 ml/min (>60); GFR (African American) 106 ML/MIN (>60); Glucose 114 mg/dl (74-100); HDL Cholesterol 29 mg/dl (40-60); Magnesium 1.9 mg/dl (1.6-2.3); Potassium 4.4 mmoL/L (3.5-5.1); Sodium 136 mmol/L (136-145); Total Protein,Serum 6.8 g/dl (6.3-8.2); Triglycerides 129 mg/dl (30-150); VLDL Cholesterol 26 mg/dL (0-40)
[2022-08-31 14:34] LABS: Direct LDL Cholesterol 49.66 mg/dL (100-129)
[2022-08-31 14:40] LABS: Free T4 (Free Thyroxine) 1.22 ng/dl (0.78-2.19)
[2022-08-31 14:54] LABS: Thyroid Stimulating Hormone 2.23 uIU/mL (0.465-4.68)
== END ==
LOC: LAB 12:14
PROVIDERS: PCP Nurse Practitioner Family; Visit Provider Internal Medicine
DX: I10 Essential (primary) hypertension; I20.8 Other forms of angina pectoris; Z79.899 Other long term (current) drug therapy
CPT/HCPCS: 36415; 71046; 80048; 80061; 80076; 83735; 84439; 84443; 85025

== ENCOUNTER → 2022-09-06 12:40 | Outpatient (CLI) | payer MEDICARE, SELFPAY ==
--- NOTE | 2022-09-06 | CA_ITS ---
APPROVED REPORT Exam: Pharmacologic Technologist: Pia Perera, Ht: 5 ft 10 in Wt: 213 lbs BSA: 2.14 m2 HR: 63 bpm BP: 125/80 mmHg Rhythm: NSR, RIGHTWARD AXIS, CANNOT R/O OLD ANTERIOR LA Medical History Medical History: HTN, Hyperlipidemia, Diabetic Medications: Aspirin,,,,, Gabapentin,,,,, Atorvastatin,,,,, Albuterol,,,,, Vit D2,,,,, LisnINOPRIL,,,,, Allergies: No known drug allergies Cardiac Risk Factors: HTN, Hyperlipidemia, Diabetes , FHX of CAD, Smoking Stress Test Details Test: LEXISCAN HR Resting HR: 67 bpm Max Heart Rate (APMHR): 164 bpm Max HR Achieved: 90 bpm Target HR (85% APMHR): 139 bpm % of APMHR: 55 Recovery HR: 80 bpm BP Resting BP: 125/80 mmHg Max BP: 125/80 mmHg Recovery BP: 119.0/70.0 mmHg ECG Resting ECG: NSR, RIGHTWARD AXIS, DELAYED R/S TRANSITION Clinical Exercise duration: 04:00 min Highest Stage Achieved: Stress ECG Conclusion PT HAD MILD SOA. NO CP. NO SIGNIFICANT ECG CHANGES WITH STRESS TESTING UNREMARKABLE LEXISCAN STRESS MYOVIEW IMAGES REPORTED SEPARATELY Test Summary REST 03:21 . . 67 . 125/ 80 . . Stage 1 01:00 . . 80 . . . . Stage 2 01:00 . . 88 . 110/ 61 . . Stage 3 01:00 . . 86 . 106/ 64 . . Stage 4 01:00 . . 84 . 116/ 70 . Stop exercise at 04:00 RECOVERY 01:00 . . 85 . . . . RECOVERY 02:00 . . 82 . 115/ 67 . . RECOVERY 03:00 . . 79 . 119/ 70 . . RECOVERY 03:20 . . 79 . 119/ 70 . . Electronically signed by : Mishel Cabrera, 09/07/2022 22:24:34
--- NOTE | 2022-09-06 12:41 | NM_ITS ---
APPROVED REPORT Exam: Nuclear Stress Test Indication: Chest pain..fatigue Patient Location: Outpatient Stress Tech: Pia Perera [place] Tech:Madelaine Barr KENNY RT (R)(N)(M) Ht: 5 ft 11 in Wt: 214 lbs HR: 63 bpm BP: 125/80 mmHg BSA: 2.17 m2 TID: 1.10 BMI: 29.8 History: chest pain..fatigue Procedure: Patient received 0.4 mg of intravenous Lexiscan, resting heart rate 63 bpm, resting blood pressure 125/80 mmHg, with Lexiscan maximum heart rate achieved was 88 bpm which is 85 % of the maximum predicted heart rate and blood pressure was 110/61 mmHg. With Lexiscan, patient denied any complaint of chest pain. Cardiac Stress and Resting SPECT Images: Cardiac Stress and Resting SPECT images were obtained using technetium 99m Myoview 31.7 mCi stress and 10.57 mCi at rest. Resting and supine stress imaging demonstrate a medium-sized, moderate, fixed perfusion defect in the inferior LV wall. This is no longer visualized with prone stress imaging. Findings are suggestive of diaphragmatic attenuation. Gated imaging demonstrate mildly reduced LV global systolic function. LVEF is calculated at 44% Conclusion: Medium-sized, moderate, fixed perfusion defect in the inferior LV wall. This is no longer visualized with prone stress imaging. Findings are suggestive of diaphragmatic attenuation. Gated imaging demonstrate mildly reduced LV global systolic function. LVEF is calculated at 44% Electronically signed by : Mishel Cabrera, 09/07/2022 22:31:30
== END ==
PROVIDERS: PCP Nurse Practitioner Family; Visit Provider Internal Medicine
DX: I20.8 Other forms of angina pectoris (principal)
CPT/HCPCS: 78452; 93017

== ENCOUNTER → 2022-09-15 12:47 | Outpatient (CLI) | payer MEDICARE, SELFPAY | PROVIDERS: PCP Nurse Practitioner Family; Visit Provider Internal Medicine | DX: I20.8 Other forms of angina pectoris | CPT/HCPCS: 93306 ==

== ENCOUNTER 2022-09-30 08:23 | Day surgery (SDC) | payer MEDICARE, SELFPAY ==
[2022-09-30] VITALS (12 sets, daily range): BP systolic 97–133; BP diastolic 40–89; PULSE 72–84; RESP 16–18; TEMP 36.9; O2SAT 93–96; BMI 30.2
--- NOTE | 2022-09-30 | IR_ITS ---
APPROVED REPORT Patient Location: Outpatient Belt Press Operator: KENNY Olson RT (R) PROCEDURES Right heart catheterization Left heart catheterization Left ventriculogram Selective coronary angiogram INDICATION Accelerated angina pectoris, Worsening dyspnea suspect pulmonary hypertension, Probably vascular disease Informed consent was obtained prior to the procedure. COMPLICATIONS None Estimated Blood Loss: Less than 10 mls TECHNIQUE One percent lidocaine was used to anesthetize the right anterior aspect of the right wrist. The right radial artery was accessed via the Seldinger technique and a 6 Faroese hydrophilic sheath was placed in the right radial artery. Following this one percent lidocaine was used to anesthetize the right anterior aspect of the right neck. The right internal jugular vein was accessed via the Seldinger technique and a 7 Faroese sheath was placed in the right internal jugular vein. Following this an arterial cocktail was administered using 5000U heparin, 2.5 mg verapamil, 1mg Lidocaine and 800mcg nitroglycerin into the right radial sheath. A papa catheter and JL3 catheter were used to perform left heart catheterization left ventriculogram and selective coronary angiography while a [place] catheter was used to perform right heart catheterization. Saturations were obtained in the pulmonary artery and right atrium. At the end of the procedure the arterial sheath was removed good hemostasis was achieved using Traclet band. Patient was transferred to the postop holding area in stable condition for venous sheath removal. ANGIOGRAPHIC RESULTS The left main artery Normal The left anterior descending artery Has mild proximal and mid vessel 20 to 30% stenoses. LINDA II flow was present down the entire LAD The circumflex artery Nondominant and normal The right coronary artery Large and dominant with diffuse 10% luminal regularities The BURGOS ventriculogram reveals Slightly reduced at 45% The left ventricular end-diastolic pressure Less than 10 mmHg Right atrial pressure 6 mmHg Pulmonary artery 20/10 mmHg Pulmonary occlusion pressure 8 mmHg Hemoglobin 15.9 Aortic saturation 98% Right atrial saturation 78% Pulmonary artery saturation 78% Cardiac output 6.5 Cardiac index 3 IMPRESSION Mild nonflow limiting coronary artery disease Low flow down the LAD consistent with advanced endothelial dysfunction likely secondary to ongoing tobacco usage Unexplained cardiomyopathy Normal intracardiac pulmonary filling pressures PLAN 1. Avoidance of tobacco products 2. Referred to Dr. Wadsworth for COPD which is the etiology for dyspnea 3. Addition of long-acting nitrates and possibly Ranexa for angina pectoris related to endothelial dysfunction 4. Risk factor modification Electronically signed by : Dillon Maldonado MD 09/30/2022 12:39:03
[2022-09-30 09:02] LABS: Basophils # 0.1 K/mm3 (0-0.2); Basophils % 0.5 % (0.1-2.0); Eosinophils # 0.2 K/mm3 (0.0-0.4); Eosinophils % 2.7 % (0.1-12.0); Hematocrit 46.5 % (42.0-52.0); Hemoglobin 15.9 g/dL (14.1-18.0); Lymphocytes # 1.7 K/mm3 (0.7-4.5); Lymphocytes % 18.3 % (10-50); Mean Corpuscular HGB Conc 34.1 g/dL (31.8-35.4); Mean Corpuscular Hemoglobin 31.9 pg (27.0-31.2); Mean Corpuscular Volume 93.5 fl (80-94); Mean Platelet Volume 8.3 fl (7.4-10.4); Monocytes # 0.5 K/mm3 (0.1-1.0); Monocytes % 5.6 % (1.7-9.3); Neutrophils # 6.6 K/mm3 (1.8-7.8); Neutrophils % 72.9 % (37.0-80.0); Platelet Count 177 K/mm3 (142-424); Red Blood Count 4.98 M/mm3 (4.60-6.20); Red Cell Distribution Width 13.5 % (11.5-17.5)
[2022-09-30 09:05] LABS: Chloride 100 mmol/L (98-107); Sodium 137 mmol/L (136-145)
[2022-09-30 09:08] LABS: Blood Urea Nitrogen 15 mg/dl (9-20); Creatinine Clearance Estimated 124 mL/min (50-200); Estimated Glomerular Filt Rate 87 ml/min (>60); GFR (African American) 106 ML/MIN (>60)
[2022-09-30 09:09] LABS: Calcium 8.3 mg/dl (8.4-10.2); Carbon Dioxide 29 mmol/L (22.0-30.0); Glucose 117 mg/dl (74-100)
[2022-09-30 14:53] LABS: CATHL Arterial O2 SAT 77.7 % (90-100); CATHL Venous O2 SAT 78.7 % (75-80)
== END 2022-09-30 15:33 | disposition home or self-care (01) ==
PROVIDERS: PCP Nurse Practitioner Family; Visit Provider Internal Medicine
DX: I25.118 Atherosclerotic heart disease of native coronary artery with other forms of angina pectoris (principal); E78.2 Mixed hyperlipidemia; I73.9 Peripheral vascular disease, unspecified; G47.33 Obstructive sleep apnea (adult) (pediatric)
CPT/HCPCS: 80048; 82810; 85025; 93458; 99152; C1725; C1769; C1894; J1644; Q9967

== ENCOUNTER 2022-10-04 08:27 | Emergency (ER) | payer MEDICARE, SELFPAY ==
[2022-10-04 08:28] VITALS: BP 118/67; PULSE 86; RESP 16; TEMP 36.9; O2SAT 94; BMI 30.4
[2022-10-04 08:32] VITALS: BP 118/67; PULSE 86; O2SAT 96
--- NOTE | 2022-10-04 08:48 | HMH.EDGENADL ---
Discharge Plan Disposition Patient Disposition: Home, Self-Care Condition: Fair Prescriptions Prescriptions: New doxycycline monohydrate 100 mg capsule 100 mg PO BID 10 Days Qty: 20 0RF No Action albuterol sulfate 90 mcg/actuation HFA aerosol inhaler 2 inh inhalation QID PRN (Reason: shortness of breath or wheezing) 90 Days Qty: 8.5 2RF ergocalciferol (vitamin D2) 50 mcg (2,000 unit) capsule 50 mcg PO DAILY bisoprolol fumarate 10 mg tablet 10 mg PO DAILY Qty: 90 3RF aspirin 81 mg tablet,delayed release (DR/EC) 81 mg PO DAILY lisinopril 10 mg tablet 10 mg PO DAILY Qty: 90 3RF gabapentin 800 mg tablet 800 mg PO TID Qty: 90 5RF atorvastatin 80 mg tablet See Rx Instructions .ROUTE .COMPLEX Rx Instructions: TAKE 1 TABLET BY MOUTH ONCE DAILY FOR CHOLESTEROL (DME) blood-glucose meter [Accu-Chek Odilia Plus Meter] Misc See Rx Instructions MISCELLANEOUS Rx Instructions: As directed (DME) Accu-Chek Odilia Plus test strp Strip See Rx Instructions MISCELLANEOUS Rx Instructions: As directed-test twice a day (DME) lancets [Accu-Chek Softclix Lancets] Misc See Rx Instructions .ROUTE .COMPLEX Rx Instructions: USE 1 TO CHECK GLUCOSE TWICE DAILY DIRECTED metformin 500 mg tablet extended release 24 hr See Rx Instructions .ROUTE .COMPLEX Hold Instructions: Resume on 10/03/22. Rx Instructions: Take 1 tablet by mouth once daily Xarelto 2.5 mg tablet See Rx Instructions .ROUTE .COMPLEX Rx Instructions: Take 1 tablet by mouth twice daily Referrals Follow up/Referrals: Francisco Javier Watkins APRN [Primary Care Provider] - 3 days Clinical Impressions Clinical Impression: Pneumonia Instructions Patient Instructions: Pneumonia-Adult Print Language Print Language: Korean Discharge ED Provider: Abrahan Timmons Adult HPI General Chief complaint: Upper Respiratory Infection Stated complaint: Heartcath 09/30 chest congestion, blood in mucus Time Seen by Provider: 10/04/22 08:46 Mode of Arrival: Ambulatory Source of Information: Patient and Spouse Limitations: No Limitations Description of Symptoms (Recalled from ER Triage Doc. by RN): 57 yo M presents to ED with c/o hemoptysis that began monday. pt had heart cath with dr tong on monday09/30/22. pt has access sites at right wrist and right neck. sites well appearing. blood is bright red. pt is smoker. pt also reports chest congestion. History of Present Illness HPI narrative: The patient reports that he has had hemoptysis x3 days. Patient showed pictures and it appears to be blood-streaked sputum. The patient reports chest pressure but advises that this is no different than reported prior to his heart cath. Patient's heart cath did not show any blockages. MD complaint: Hemoptysis Onset (ago): day(s) (3) Severity: moderate Quality: dull Related Data Home Medications Medication Instructions Recorded Confirmed aspirin 81 mg tablet,delayed 81 mg PO DAILY heart health 05/26/17 09/20/22 release ergocalciferol (vitamin D2) 50 mcg 50 mcg PO DAILY Supplement 01/24/22 09/20/22 (2,000 unit) capsule atorvastatin 80 mg tablet See Rx Instructions .Route 05/08/22 09/20/22 .COMPLEX High cholesterol blood sugar diagnostic (Accu-Chek 05/08/22 09/20/22 Odilia Plus test strips) blood-glucose meter (Accu-Chek 05/08/22 09/20/22 Odilia Plus Meter) lancets (Accu-Chek Softclix 05/08/22 09/20/22 Lancets) metformin 500 mg tablet,extended See Rx Instructions .Route 05/08/22 09/20/22 release 24 hr .COMPLEX Diabetes rivaroxaban 2.5 mg tablet (Xarelto) See Rx Instructions .Route 05/08/22 09/20/22 .COMPLEX stents Previous Rx's Medication Instructions Recorded albuterol sulfate 90 mcg/actuation 2 inh inhalation QID PRN shortness 06/02/22 aerosol inhaler of breath or wheezing 90 days #8.5 grams lisinopril 10 mg tablet 10 mg PO DAILY [facility]
--- NOTE | 2022-10-04 08:50 | PC.NURSE ---
dr bunch at bedside
--- NOTE | 2022-10-04 08:58 | XR_ITS ---
FINAL REPORT CLINICAL HISTORY: hemoptysis COMPARISON: 08/31/2022 FINDINGS: TWO VIEW CHEST The heart size is normal. The mediastinum is normal. There are worsening right base opacities, which are consistent with worsening atelectasis or pneumonia. There is no pneumothorax. IMPRESSION: Worsening right base opacities, which are consistent with worsening atelectasis or pneumonia. Reviewed, Interpreted and Dictated by Preet Dolan III, MD Transcribed by Ana Foster Authenticated and [facility]
[2022-10-04 09:00] VITALS: BP 105/64; PULSE 82; O2SAT 94
--- NOTE | 2022-10-04 09:05 | PC.NURSE ---
PT TO XR
--- NOTE | 2022-10-04 09:08 | PC.NURSE ---
PT RETURNED FROM XR
[2022-10-04 09:30] VITALS: BP 105/66; PULSE 78; O2SAT 94
[2022-10-04 10:00] VITALS: BP 107/68; PULSE 72; RESP 18; O2SAT 94
--- NOTE | 2022-10-04 10:21 | PC.NURSE ---
CONTACTED RADIOLOGY FOR XR RESULTS
[2022-10-04 10:55] VITALS: BP 107/68; PULSE 72; RESP 18; TEMP 36.8; O2SAT 95
== END 2022-10-04 11:00 | disposition home or self-care (01) ==
PROVIDERS: Emergency Provider Emergency Medicine; PCP Nurse Practitioner Family
DX: J18.9 Pneumonia, unspecified organism (principal); F17.210 Nicotine dependence, cigarettes, uncomplicated; J44.9 Chronic obstructive pulmonary disease, unspecified; I25.10 Atherosclerotic heart disease of native coronary artery without angina pectoris; I11.9 Hypertensive heart disease without heart failure; E11.9 Type 2 diabetes mellitus without complications; E78.5 Hyperlipidemia, unspecified; Z79.84 Long term (current) use of oral hypoglycemic drugs
CPT/HCPCS: 71046; 99283; 99284

== ENCOUNTER 2022-10-14 14:46 | Emergency (ER) | payer MEDICARE, SELFPAY ==
[2022-10-14 14:48] VITALS: BP 112/65; PULSE 81; RESP 18; TEMP 37.1; O2SAT 95; BMI 30.1
--- NOTE | 2022-10-14 15:12 | XR_ITS ---
FINAL REPORT CLINICAL HISTORY: coughing up blood COMPARISON: 10/04/2022 FINDINGS: TWO VIEW CHEST The heart size is normal. The mediastinum is normal. There is worsening right lung base atelectasis or pneumonia. There is a small right pleural effusion. There is no pneumothorax. IMPRESSION: Worsening right lung base atelectasis or pneumonia. Small right pleural effusion. Reviewed, Interpreted and Dictated by Preet Dolan III, MD Transcribed by Ana Foster Authenticated and [facility]
--- NOTE | 2022-10-14 15:23 | PC.NURSE ---
notified Dr. Wadsworth that pt is here in the ER, states have ER MD contact him after work up is finished.
--- NOTE | 2022-10-14 15:25 | PC.NURSE ---
pt to radiology
[2022-10-14 15:30] VITALS: PULSE 77; O2SAT 96
[2022-10-14 15:46] LABS: Basophils % 0.4 % (0.1-2.0); Eosinophils # 0.2 K/mm3 (0.0-0.4); Eosinophils % 2.3 % (0.1-12.0); Hematocrit 43.7 % (42.0-52.0); Hemoglobin 14.3 g/dL (14.1-18.0); Lymphocytes # 1.9 K/mm3 (0.7-4.5); Mean Corpuscular HGB Conc 32.7 g/dL (31.8-35.4); Mean Corpuscular Hemoglobin 31.4 pg (27.0-31.2); Mean Corpuscular Volume 95.8 fl (80-94); Mean Platelet Volume 7.6 fl (7.4-10.4); Monocytes # 0.5 K/mm3 (0.1-1.0); Monocytes % 6.8 % (1.7-9.3); Neutrophils # 4.9 K/mm3 (1.8-7.8); Neutrophils % 65.5 % (37.0-80.0); Platelet Count 234 K/mm3 (142-424); Red Blood Count 4.57 M/mm3 (4.60-6.20); Red Cell Distribution Width 13.7 % (11.5-17.5); White Blood Count 7.4 K/mm3 (4.8-10.8)
[2022-10-14 15:51] LABS: Chloride 100 mmol/L (98-107); Sodium 136 mmol/L (136-145)
[2022-10-14 15:54] LABS: Alanine Aminotransferase 41 U/L (12-78); Albumin Level 3.7 g/dl (3.5-5.0); Albumin/Globulin Ratio 1.2 (1.1-1.8); Alkaline Phosphatase 120 U/L (38-126); Aspartate Amino Transferase 34 U/L (17-59); Bilirubin,Total 0.6 mg/dl (0.2-1.3); Blood Urea Nitrogen 16 mg/dl (9-20); Carbon Dioxide 29 mmol/L (22.0-30.0); Creatinine Clearance Estimated 123 mL/min (50-200); Estimated Glomerular Filt Rate 87 ml/min (>60); GFR (African American) 106 ML/MIN (>60); Globulin 3.2 g/dL (1.3-3.2); Total Protein,Serum 6.9 g/dl (6.3-8.2)
[2022-10-14 15:55] LABS: Calcium 8.4 mg/dl (8.4-10.2); Glucose 95 mg/dl (74-100)
[2022-10-14 15:56] LABS: INR 1.07 (0.9-1.1); Prothrombin Time 11.5 seconds (10.1-12.5)
--- NOTE | 2022-10-14 16:13 | CT_ITS ---
FINAL REPORT TECHNIQUE: Axial CT images were performed from the lung apices through the upper abdomen. Coronal reformats were submitted. This study was performed with techniques to keep radiation doses as low as reasonably achievable (ALARA). Individualized dose reduction techniques using automated exposure control or adjustment of mA and/or kV according to the patient's size were employed. CLINICAL HISTORY: Right hilar density COMPARISON: 03/28/2022 FINDINGS: There is new right mediastinal mass or adenopathy measuring 3.6 cm worrisome for neoplasm. Multiple other small mediastinal nodes are identified. Heart size is normal. There is no pericardial effusion. Limited images of the upper abdomen reveal mild bilateral adrenal gland enlargement which is similar to previous, favor hyperplasia or adenomas. There is medial right upper lobe and right middle lobe consolidation. Small right effusion is identified. There is mild right base atelectasis. IMPRESSION: New mediastinal mass worrisome for neoplasm. Medial right upper lobe and right middle lobe areas of consolidation. Reviewed, Interpreted and Dictated by Preet Dolan III, MD Transcribed by April Guy Authenticated and . [facility]
--- NOTE | 2022-10-14 16:14 | HMH.EDSOB ---
Discharge Plan Disposition Patient Disposition: Home, Self-Care Prescriptions Prescriptions: New cefdinir 300 mg capsule 300 mg PO BID 10 Days Qty: 20 0RF No Action albuterol sulfate 90 mcg/actuation HFA aerosol inhaler 2 inh inhalation QID PRN (Reason: shortness of breath or wheezing) 90 Days Qty: 8.5 2RF ergocalciferol (vitamin D2) 50 mcg (2,000 unit) capsule 50 mcg PO DAILY aspirin 81 mg tablet,delayed release (DR/EC) 81 mg PO DAILY lisinopril 10 mg tablet 10 mg PO DAILY Qty: 90 3RF gabapentin 800 mg tablet 800 mg PO TID Qty: 90 5RF atorvastatin 80 mg tablet 80 mg PO DAILY Rx Instructions: TAKE 1 TABLET BY MOUTH ONCE DAILY FOR CHOLESTEROL metformin 500 mg tablet extended release 24 hr 500 mg PO DAILY Hold Instructions: Resume on 10/03/22. Rx Instructions: Take 1 tablet by mouth once daily Xarelto 2.5 mg tablet 2.5 mg PO DAILY Rx Instructions: Take 1 tablet by mouth twice daily bisoprolol fumarate 10 mg tablet 10 mg PO DAILY Referrals Follow up/Referrals: Francisco Javier Watkins APRN [Primary Care Provider] - See instructions Clinical Impressions Clinical Impression: Pneumonia Discharge ED Provider: Alphonso Woo Resp/SOB HPI General Chief Complaint: Shortness of Breath/Dyspnea Stated Complaint: coughing up blood Time Seen by Provider: 10/14/22 16:01 Mode of Arrival: Ambulatory Source of Information: Patient Limitations: No Limitations Description of Symptoms (Recalled from ER Triage Doc. by RN): Pt sent to ER for evaluation from PCP office r/t coughing up blood. Pt reports seen in ER on 10/04 r/t coughing up blood, started on dicyclomine x10 days for pneumonia. Pt reports no symptom improvement. Pt reports intermittent PADRON, skin is pale in color. No distress noted. History of Present Illness 57-year-old white male presents with hemoptysis worse if he lays down. He does take a blood thinner and he smokes as well. He is not complaining of shortness of breath and reports no known drug allergies. He has a history of COPD pulmonary arterial hypertension in addition to diabetes. Related Data Home Medications Medication Instructions Recorded Confirmed aspirin 81 mg tablet,delayed 81 mg PO DAILY [facility] 05/26/17 10/14/22 release ergocalciferol (vitamin D2) 50 mcg 50 mcg PO DAILY Supplement 01/24/22 10/14/22 (2,000 unit) capsule atorvastatin 80 mg tablet 80 mg PO DAILY High cholesterol 05/08/22 10/14/22 metformin 500 mg tablet,extended 500 mg PO DAILY Diabetes 05/08/22 10/14/22 release 24 hr rivaroxaban 2.5 mg tablet (Xarelto) 2.5 mg PO DAILY stents 05/08/22 10/14/22 bisoprolol fumarate 10 mg tablet 10 mg PO DAILY per cardiology 10/14/22 10/14/22 Previous Rx's Medication Instructions Recorded albuterol sulfate 90 mcg/actuation 2 inh inhalation QID PRN shortness 06/02/22 aerosol inhaler of breath or wheezing 90 days #8.5 grams lisinopril 10 mg tablet 10 mg PO DAILY High blood pressure 06/09/22 #90 tabs gabapentin 800 mg tablet 800 mg PO TID Pain #90 tabs 06/10/22 cefdinir 300 mg capsule 300 mg PO BID 10 days #20 caps 10/14/22 Allergies Allergy/AdvReac Type Severity Reaction Status Date / Time No Known Allergies Allergy Verified 09/20/22 11:25 [facility] Disclaimer: The information contained in this section may have been updated after the patient was seen, as this information can be updated by other users. Medical History Abnormal computerized axial tomography of chest CAD (coronary artery disease) COPD (chronic obstructive pulmonary disease) Diabetes Dyspnea on exertion Edema Encounter for screening for malignant neoplasm of lung in current smoker with 30 pack year history or greater History of seasonal allergies HLD (hyperlipidemia) HTN (hypertension) DALTON (obstructive sleep apnea) Pulmonary arterial hypertension Pulmonary emphysema S
--- NOTE | 2022-10-14 17:21 | PC.NURSE ---
shirring machine operator automatic paging dr. galvan
[2022-10-14 17:39] VITALS: BP 117/55; PULSE 70; RESP 20; TEMP 37.1; O2SAT 99
== END 2022-10-14 17:40 | disposition home or self-care (01) ==
PROVIDERS: Emergency Provider Emergency Medicine; PCP Nurse Practitioner Family
DX: J18.9 Pneumonia, unspecified organism (principal); J44.9 Chronic obstructive pulmonary disease, unspecified; I25.119 Atherosclerotic heart disease of native coronary artery with unspecified angina pectoris; E11.9 Type 2 diabetes mellitus without complications; E78.5 Hyperlipidemia, unspecified; I10 Essential (primary) hypertension; F17.210 Nicotine dependence, cigarettes, uncomplicated; Z79.01 Long term (current) use of anticoagulants
CPT/HCPCS: 71046; 71250; 80053; 85025; 85610; 96374; 99284; 99285; J0696

== ENCOUNTER 2022-10-17 20:11 | Emergency (ER) | payer MEDICARE, SELFPAY ==
[2022-10-17 20:11] VITALS: BP 114/76; PULSE 85; RESP 17; TEMP 36.9; O2SAT 97; BMI 30.4
[2022-10-17 20:30] VITALS: BP 106/71; PULSE 83; O2SAT 95
--- NOTE | 2022-10-17 20:39 | PC.NURSE ---
staking press operator paging dr. tong per MELODIE NAJERA request
--- NOTE | 2022-10-17 20:41 | HMH.EDGENADL ---
Discharge Plan Disposition Patient Disposition: Xfer Short-Term Hosp Prescriptions Prescriptions: No Action albuterol sulfate 90 mcg/actuation HFA aerosol inhaler 2 inh inhalation QID PRN (Reason: shortness of breath or wheezing) 90 Days Qty: 8.5 2RF ergocalciferol (vitamin D2) 50 mcg (2,000 unit) capsule 50 mcg PO DAILY aspirin 81 mg tablet,delayed release (DR/EC) 81 mg PO DAILY lisinopril 10 mg tablet 10 mg PO DAILY Qty: 90 3RF gabapentin 800 mg tablet 800 mg PO TID Qty: 90 5RF atorvastatin 80 mg tablet 80 mg PO DAILY Rx Instructions: TAKE 1 TABLET BY MOUTH ONCE DAILY FOR CHOLESTEROL metformin 500 mg tablet extended release 24 hr 500 mg PO DAILY Hold Instructions: Resume on 10/03/22. Rx Instructions: Take 1 tablet by mouth once daily Xarelto 2.5 mg tablet 2.5 mg PO DAILY Rx Instructions: Take 1 tablet by mouth twice daily bisoprolol fumarate 10 mg tablet 10 mg PO DAILY cefdinir 300 mg capsule 300 mg PO BID 10 Days Qty: 20 0RF Referrals Follow up/Referrals: Francisco Javier Watkins APRN [Primary Care Provider] - See instructions Clinical Impressions Clinical Impression: Neck swelling, Superior vena cava compression syndrome, Mass of right lung Stand Alone Forms Stand Alone Forms: Transfer Record - ED Discharge ED Provider: Ender (ED)Alexandro General Adult HPI <David Moyer MD - Last Filed: 10/17/22 20:57> General Chief complaint: Skin/Abscess/Foreign Body Stated complaint: possible fluid on neck Time Seen by Provider: 10/17/22 20:15 Mode of Arrival: Ambulatory Source of Information: Patient Limitations: No Limitations Description of Symptoms (Recalled from ER Triage Doc. by RN): pt states has been having problems with rt side neck swelling since the and has been on several different antibodics History of Present Illness HPI narrative: 57-year-old male with history of coronary disease COPD recent heart cath presents with right side of face swelling. He says that his face has been swelling especially when he wakes up at night on the right side and he has pain and swelling to the right side of his neck as well. He says that he had intravascular cath placed a few weeks ago by Dr. Maldonado. No fever chills nausea vomiting chest pain abdominal pain shortness of air Related Data Home Medications Medication Instructions Recorded Confirmed aspirin 81 mg tablet,delayed 81 mg PO DAILY heart health 05/26/17 10/14/22 release ergocalciferol (vitamin D2) 50 mcg 50 mcg PO DAILY Supplement 01/24/22 10/14/22 (2,000 unit) capsule atorvastatin 80 mg tablet 80 mg PO DAILY High cholesterol 05/08/22 10/14/22 metformin 500 mg tablet,extended 500 mg PO DAILY Diabetes 05/08/22 10/14/22 release 24 hr rivaroxaban 2.5 mg tablet (Xarelto) 2.5 mg PO DAILY stents 05/08/22 10/14/22 bisoprolol fumarate 10 mg tablet 10 mg PO DAILY per cardiology 10/14/22 10/14/22 Previous Rx's Medication Instructions Recorded albuterol sulfate 90 mcg/actuation 2 inh inhalation QID PRN shortness 06/02/22 aerosol inhaler of breath or wheezing 90 days #8.5 grams lisinopril 10 mg tablet 10 mg PO DAILY High blood pressure 06/09/22 #90 tabs gabapentin 800 mg tablet 800 mg PO TID Pain #90 tabs 06/10/22 cefdinir 300 mg capsule 300 mg PO BID 10 days #20 caps 10/14/22 Allergies Allergy/AdvReac Type Severity Reaction Status Date / Time No Known Allergies Allergy Verified 09/20/22 11:25 [facility] <David Moyer MD - Last Filed: 10/17/22 20:57> [facility] Disclaimer: The information contained in this section may have been updated after the patient was seen, as this information can be updated by other users. Medical History Abnormal computerized axial tomography of chest CAD (coronary artery disease) COPD (chronic obstructive pulmonary disease) Diabetes Dyspnea on exertion Edema Encounter for screening for
--- NOTE | 2022-10-17 20:42 | PC.NURSE ---
MELODIE NAJERA speaking with Dr. Maldonado
--- NOTE | 2022-10-17 20:44 | CT_ITS ---
PROCEDURE INFORMATION: Exam: CT Chest With Contrast; Diagnostic Exam date and time: 10/17/2022 9:18 PM Age: 57 years old Clinical indication: Cough and shortness of breath; Patient HX: Cough, hemoptysis. Assess for svc syndrome per er doctor. ; Additional info: Venous phase assess for svc syndrome TECHNIQUE: Imaging protocol: Diagnostic computed tomography of the chest with contrast. Radiation optimization: All CT scans at this facility use at least one of these dose optimization techniques: automated exposure control; mA and/or kV adjustment per patient size (includes targeted exams where dose is matched to clinical indication); or iterative reconstruction. Contrast material: ISOVUE; Contrast volume: 75 ml; Contrast route: IV; REPORTING DATA: Count of CT and Cardiac NM exams in prior 12 months: This patient has received 2 known CTs and 0 known cardiac nuclear medicine studies in the 12 months prior to the current study. COMPARISON: CT CHEST WO CON 10/14/2022 4:20 PM FINDINGS: Lungs: Considerable postobstructive opacity is noted in the right upper lobe, and minor atelectasis is noted in the right middle lobe. Lungs are notable for paraseptal emphysema. There are features of chronic bronchitis with bronchial wall thickening and mild luminal narrowing. Pleural spaces: Trace non loculated right pleural effusion. No pneumothorax on either side. Heart: Normal heart size. No significant pericardial fluid. Coronary arteries: No significant coronary artery calcification. Mediastinal space: There is a poorly defined right hilar mass measuring 6.2 x 3.9 x 7.4 cm, situated just anterior to the right hilus and involving the upper and middle lobes. The right hilar mass also narrows the inter lobar artery. Lymph nodes: Non pathologically enlarged mediastinal lymph nodes are noted, but presumably the right hilar mass has a ratna component. Vasculature: Tumor surrounds the superior vena cava circumferentially, causing severe stenosis at the level of the gale. Diaphragm: Small sliding hiatal hernia. Adrenal glands: 2.7 x 1.7 cm left adrenal nodule. Normal right adrenal. Bones/joints: There is an indeterminate mixed sclerotic and lucent lesion involving the right 2nd rib with fairly well-defined borders. Patent spinal canal. Soft tissues: Unremarkable. IMPRESSION: 1. 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 2. Locally advanced right hilar tumor is described above with postobstructive atelectasis in the right upper and middle lobes. 3. 2.7 cm left adrenal nodule is suspicious for metastatic focus. Equivocal right 2nd rib lesion. FDG PET scanning suggested for more definitive staging. COMMENTS: In the absence of a history or active diagnosis of lung cancer, it is recommended that this patient with emphysema be evaluated for enrollment in a low dose CT lung cancer screening program.
--- NOTE | 2022-10-17 20:45 | XR_ITS ---
PROCEDURE INFORMATION: Exam: XR Chest Exam date and time: 10/17/2022 8:50 PM Age: 57 years old Clinical indication: Cough and shortness of breath; Patient HX: Cough, hemoptysis. ; Additional info: SOA TECHNIQUE: Imaging protocol: Radiologic exam of the chest. Views: 1 view. COMPARISON: CT CHEST WO CON 10/14/2022 4:20 PM FINDINGS: Lungs: Clear left lung. Pleural spaces: Small right pleural effusion. Heart/Mediastinum: Cardiac silhouette is normal in size for technique. Diaphragm: Elevated right hemidiaphragm. Bones/joints: Age appropriate. Soft tissues: Soft tissue fullness and bronchovascular crowding noted surrounding the right hilus. IMPRESSION: Volume loss in the right lung noted with elevated right hemidiaphragm and small pleural effusion. Known right hilar mass is not well seen.
--- NOTE | 2022-10-17 20:51 | CT_ITS ---
PROCEDURE INFORMATION: Exam: CT Neck With Contrast Exam date and time: 10/17/2022 9:12 PM Age: 57 years old Clinical indication: Other: Assess for svc syndrome; Additional info: Venous phase, time for svc syndrome TECHNIQUE: Imaging protocol: Computed tomography of the neck with contrast. Radiation optimization: All CT scans at this facility use at least one of these dose optimization techniques: automated exposure control; mA and/or kV adjustment per patient size (includes targeted exams where dose is matched to clinical indication); or iterative reconstruction. Contrast material: ISOVUE; Contrast volume: 75 ml; Contrast route: IV; REPORTING DATA: Count of CT and Cardiac NM exams in prior 12 months: This patient has received 2 known CTs and 0 known cardiac nuclear medicine studies in the 12 months prior to the current study. COMPARISON: MR CERVICAL SPINE WO CON 05/24/2022 3:18 PM FINDINGS: Pharynx: Unremarkable. No significant tonsillar enlargement. Larynx: Unremarkable. Epiglottis is normal. Prevertebral and retropharyngeal spaces: Unremarkable. Salivary glands: Normal. Glands are normal in size. Thyroid: Normal. No enlarged or calcified nodules. Lymph nodes: Unremarkable. No lymphadenopathy. Trachea: Visualized trachea is unremarkable. Lungs: Unremarkable as visualized. Bones/joints: Significant degenerative disc disease is noted at C5-C6 and C6-C7. There is diffuse facet arthropathy predominantly moderate in nature however, it is severe on the left at the C4-C5 level. There is significant bony foraminal stenosis bilaterally at the C5-C6 and C6-C7 levels. No acute fracture. Vasculature: There is no venous compression noted. The brachiocephalic veins are non-compressed. The superior vena cava is not included on this study. Soft tissues: Unremarkable. No significant soft tissue swelling. IMPRESSION: 1. Unremarkable cervical vasculature. There is no venous compression evident on this exam. The SVC is not included on this study. 2. Spondylitic changes of the cervical spine as detailed.
--- NOTE | 2022-10-17 21:00 | ECG_ITS ---
APPROVED REPORT Exam: Resting ECG HR:78 bpm ECG Measurements Heart Rate 78 AXES AL 151 P 72 QRSd 105 QRS 117 QT 385 T 62 QTc 418 Conclusion SINUS RHYTHM Left atrial abnormality INCOMPLETE RIGHT BUNDLE BRANCH BLOCK [90+ ms QRS DURATION, TERMINAL R IN V1/V2, 40+ ms S IN I/aVL/V4/V5/V6] POSSIBLE RIGHT VENTRICULAR HYPERTROPHY ABNORMAL ECG UNCONFIRMED REPORT Electronically signed by : Phoenix Sky MD 10/18/2022 07:54:31
[2022-10-17 21:04] LABS: Basophils % 0.3 % (0.1-2.0); Eosinophils # 0.2 K/mm3 (0.0-0.4); Eosinophils % 1.8 % (0.1-12.0); Hematocrit 44.1 % (42.0-52.0); Hemoglobin 13.9 g/dL (14.1-18.0); Lymphocytes # 1.6 K/mm3 (0.7-4.5); Lymphocytes % 19.1 % (10-50); Mean Corpuscular HGB Conc 31.6 g/dL (31.8-35.4); Mean Corpuscular Hemoglobin 30.3 pg (27.0-31.2); Mean Platelet Volume 7.9 fl (7.4-10.4); Monocytes # 0.5 K/mm3 (0.1-1.0); Monocytes % 5.6 % (1.7-9.3); Neutrophils # 6.1 K/mm3 (1.8-7.8); Neutrophils % 73.2 % (37.0-80.0); Platelet Count 218 K/mm3 (142-424); Red Blood Count 4.59 M/mm3 (4.60-6.20); Red Cell Distribution Width 13.5 % (11.5-17.5); White Blood Count 8.3 K/mm3 (4.8-10.8)
[2022-10-17 21:06] LABS: Chloride 99 mmol/L (98-107); Sodium 135 mmol/L (136-145)
[2022-10-17 21:09] LABS: Alanine Aminotransferase 39 U/L (12-78); Albumin Level 3.6 g/dl (3.5-5.0); Albumin/Globulin Ratio 1.1 (1.1-1.8); Alkaline Phosphatase 114 U/L (38-126); Aspartate Amino Transferase 33 U/L (17-59); Bilirubin,Total 0.6 mg/dl (0.2-1.3); Blood Urea Nitrogen 12 mg/dl (9-20); Calcium 8.5 mg/dl (8.4-10.2); Carbon Dioxide 31 mmol/L (22.0-30.0); Creatinine Clearance Estimated 125 mL/min (50-200); Estimated Glomerular Filt Rate 87 ml/min (>60); GFR (African American) 106 ML/MIN (>60); Globulin 3.2 g/dL (1.3-3.2); Glucose 118 mg/dl (74-100); Total Protein,Serum 6.8 g/dl (6.3-8.2)
[2022-10-17 21:24] LABS: Troponin I < 0.01 ng/ml (0.00-0.034)
[2022-10-17 21:31] VITALS: BP 137/88; PULSE 82; O2SAT 98
[2022-10-17 22:00] VITALS: BP 122/81; PULSE 78; O2SAT 98
[2022-10-17 22:30] VITALS: BP 109/77; PULSE 80; RESP 18; O2SAT 98
--- NOTE | 2022-10-17 22:45 | PC.NURSE ---
Dr. Handley s/w Dr. Maldonado
--- NOTE | 2022-10-17 22:50 | PC.NURSE ---
Paged at this time.
--- NOTE | 2022-10-17 22:55 | PC.NURSE ---
contacted radiology to power share images to [facility]
--- NOTE | 2022-10-17 22:57 | PC.NURSE ---
Dr. Handley speaking with Dr. Roberts at [facility]
--- NOTE | 2022-10-17 23:00 | PC.NURSE ---
Pt accepted by Dr. Roberts
--- NOTE | 2022-10-17 23:20 | PC.NURSE ---
[facility] notified pt ready for transport to
--- NOTE | 2022-10-17 23:34 | PC.NURSE ---
[facility] arrived to transport pt
[2022-10-17 23:51] VITALS: BP 114/72; PULSE 79; RESP 17; TEMP 36.9; O2SAT 98
== END 2022-10-17 23:53 | disposition short-term general hospital (02) ==
PROVIDERS: Emergency Medicine; Emergency Provider Emergency Medicine; PCP Nurse Practitioner Family
DX: I87.1 Compression of vein (principal); R22.1 Localized swelling, mass and lump, neck; R91.8 Other nonspecific abnormal finding of lung field; I25.118 Atherosclerotic heart disease of native coronary artery with other forms of angina pectoris; J44.9 Chronic obstructive pulmonary disease, unspecified; E11.9 Type 2 diabetes mellitus without complications; E78.5 Hyperlipidemia, unspecified; I10 Essential (primary) hypertension; F17.210 Nicotine dependence, cigarettes, uncomplicated
CPT/HCPCS: 70491; 71045; 71260; 80053; 84484; 85025; 87070; 87205; 93005; 99285; Q9967

== ENCOUNTER 2022-11-18 08:13 | Outpatient (CLI) | payer MEDICARE, SELFPAY ==
[2022-11-18] VITALS (7 sets, daily range): BP systolic 97–120; BP diastolic 53–62; PULSE 62–71; RESP 16–18; TEMP 36.3; O2SAT 100; BMI 29.4
[2022-11-18 08:52] LABS: Basophils % 0.2 % (0.1-2.0); Eosinophils # 0.1 K/mm3 (0.0-0.4); Eosinophils % 0.7 % (0.1-12.0); Hematocrit 34.2 % (42.0-52.0); Hemoglobin 11.2 g/dL (14.1-18.0); Lymphocytes # 0.8 K/mm3 (0.7-4.5); Lymphocytes % 12.6 % (10-50); Mean Corpuscular HGB Conc 32.6 g/dL (31.8-35.4); Mean Corpuscular Hemoglobin 30.4 pg (27.0-31.2); Mean Corpuscular Volume 93.2 fl (80-94); Mean Platelet Volume 8.5 fl (7.4-10.4); Monocytes # 0.5 K/mm3 (0.1-1.0); Monocytes % 8.1 % (1.7-9.3); Neutrophils # 4.8 K/mm3 (1.8-7.8); Neutrophils % 78.3 % (37.0-80.0); Platelet Count 327 K/mm3 (142-424); Red Blood Count 3.67 M/mm3 (4.60-6.20); Red Cell Distribution Width 16.7 % (11.5-17.5); White Blood Count 6.2 K/mm3 (4.8-10.8)
[2022-11-18 08:57] LABS: Chloride 101 mmol/L (98-107)
[2022-11-18 08:58] LABS: Potassium 4.1 mmoL/L (3.5-5.1); Sodium 136 mmol/L (136-145)
[2022-11-18 09:00] LABS: Alanine Aminotransferase 56 U/L (12-78); Alkaline Phosphatase 148 U/L (38-126); Aspartate Amino Transferase 32 U/L (17-59); Bilirubin,Total 0.5 mg/dl (0.2-1.3); Blood Urea Nitrogen 12 mg/dl (9-20); Creatinine Clearance Estimated 155 mL/min (50-200); Estimated Glomerular Filt Rate 117 ml/min (>60); GFR (African American) 141 ML/MIN (>60)
[2022-11-18 09:01] LABS: Albumin Level 3.4 g/dl (3.5-5.0); Anion Gap 11.1 mEq/L (5-15); Calcium 9.5 mg/dl (8.4-10.2); Carbon Dioxide 28 mmol/L (22.0-30.0); Globulin 3.4 g/dL (1.3-3.2); Glucose 168 mg/dl (74-100); Total Protein,Serum 6.8 g/dl (6.3-8.2)
== END 2022-11-18 11:45 | disposition home or self-care (01) ==
LOC: INF 08:16
PROVIDERS: PCP Nurse Practitioner Family; Visit Provider Internal Medicine Medical Oncology
DX: C34.91 Malignant neoplasm of unspecified part of right bronchus or lung (principal); Z51.11 Encounter for antineoplastic chemotherapy; Z72.0 Tobacco use
CPT/HCPCS: 80053; 85025; 94762; 96411; 96413; 96417; J2469; J8501; J9045; J9271; J9305

== ENCOUNTER 2022-12-08 08:45 | Outpatient (CLI) | payer MEDICARE, SELFPAY ==
[2022-12-08] VITALS (9 sets, daily range): BP systolic 88–108; BP diastolic 52–62; PULSE 59–64; RESP 18; TEMP 36.6; O2SAT 98–100; BMI 30.1
[2022-12-08 09:23] LABS: Basophils % 0.4 % (0.1-2.0); Eosinophils % 0.7 % (0.1-12.0); Hematocrit 29.7 % (42.0-52.0); Hemoglobin 9.9 g/dL (14.1-18.0); Lymphocytes # 0.5 K/mm3 (0.7-4.5); Lymphocytes % 21.8 % (10-50); Mean Corpuscular HGB Conc 33.4 g/dL (31.8-35.4); Mean Corpuscular Hemoglobin 32.3 pg (27.0-31.2); Mean Corpuscular Volume 96.5 fl (80-94); Mean Platelet Volume 8.8 fl (7.4-10.4); Monocytes # 0.2 K/mm3 (0.1-1.0); Neutrophils # 1.8 K/mm3 (1.8-7.8); Neutrophils % 71.1 % (37.0-80.0); Platelet Count 209 K/mm3 (142-424); Red Blood Count 3.08 M/mm3 (4.60-6.20); Red Cell Distribution Width 20.8 % (11.5-17.5); White Blood Count 2.5 K/mm3 (4.8-10.8)
[2022-12-08 09:26] LABS: Alanine Aminotransferase 43 U/L (12-78); Albumin Level 3.7 g/dl (3.5-5.0); Albumin/Globulin Ratio 1.1 (1.1-1.8); Alkaline Phosphatase 159 U/L (38-126); Anion Gap 13.9 mEq/L (5-15); Aspartate Amino Transferase 35 U/L (17-59); Bilirubin,Total 0.6 mg/dl (0.2-1.3); Blood Urea Nitrogen 12 mg/dl (9-20); Calcium 8.6 mg/dl (8.4-10.2); Carbon Dioxide 23 mmol/L (22.0-30.0); Chloride 105 mmol/L (98-107); Creatinine Clearance Estimated 139 mL/min (50-200); Estimated Glomerular Filt Rate 100 ml/min (>60); GFR (African American) 121 ML/MIN (>60); Globulin 3.3 g/dL (1.3-3.2); Glucose 171 mg/dl (74-100); Potassium 3.9 mmoL/L (3.5-5.1); Sodium 138 mmol/L (136-145)
[2022-12-08 10:01] LABS: Thyroid Stimulating Hormone 0.55 uIU/mL (0.465-4.68)
[2022-12-09 14:12] LABS: Adrenocorticotropic Hormone 2.2 pg/mL (7.2-63.3)
== END 2022-12-08 12:50 | disposition home or self-care (01) ==
PROVIDERS: PCP Nurse Practitioner Family; Visit Provider Internal Medicine Medical Oncology
DX: Z79.899 Other long term (current) drug therapy; Z51.11 Encounter for antineoplastic chemotherapy; C34.91 Malignant neoplasm of unspecified part of right bronchus or lung
CPT/HCPCS: 80053; 82024; 82533; 84443; 85025; 96411; 96413; 96417; J2469; J8501; J9045; J9271; J9305

== ENCOUNTER → 2022-12-22 15:16 | Outpatient (CLI) | payer MEDICARE, SELFPAY ==
[2022-12-22 15:57] LABS: Basophils % 0.2 % (0.1-2.0); Eosinophils % 6.5 % (0.1-12.0); Lymphocytes # 0.4 K/mm3 (0.7-4.5); Lymphocytes % 51.7 % (10-50); Mean Corpuscular HGB Conc 33.5 g/dL (31.8-35.4); Mean Corpuscular Hemoglobin 31.9 pg (27.0-31.2); Mean Corpuscular Volume 95.1 fl (80-94); Mean Platelet Volume 10.7 fl (7.4-10.4); Monocytes # 0.1 K/mm3 (0.1-1.0); Monocytes % 8.3 % (1.7-9.3); Neutrophils # 0.2 K/mm3 (1.8-7.8); Neutrophils % 33.2 % (37.0-80.0); Red Blood Count 2.13 M/mm3 (4.60-6.20); Red Cell Distribution Width 20.4 % (11.5-17.5)
[2022-12-22 17:34] LABS: Hematocrit 20.3 % (42.0-52.0); Hemoglobin 6.8 g/dL (14.1-18.0); Platelet Count 20 K/mm3 (142-424); White Blood Count 0.7 K/mm3 (4.8-10.8)
[2022-12-22 17:36] LABS: MANUAL DIFFERENTIAL MANUAL DIFFERENTIAL (MANUAL DIFF)
[2022-12-22 17:38] LABS: Eosinophils % 4 % (0-3); Lymphocytes % 56 % (10-50); Neutrophils % 32 % (42-76); RBC Morphology Normal; Total Cells Counted 25
[2022-12-22 17:39] LABS: Anisocytosis 1+; Platelet Estimate Marked Dec
--- NOTE | 2022-12-22 18:17 | PC.NURSE ---
1744 This RN was contacted by Dr Maldonado in regards to patient labs. Per Dr Maldonado pt needs to be advised to be seen in the ER as soon as possible. 1753 Attempted to contact pt via phone x3 Message was left on voicemail that identified lead refinery supervisor of phone by name. attempted to contact pt daughter (on contact list as person to notify) x 2. 1759 call returned by pt. advised that lab work results were noted to be abnormal. Dr Maldonado advised he be seen in ER, pt states he will come to the ER now. 1801 Dr Maldonado notified that pt was contacted and is agreeable to come in and be seen in the ER
== END ==
PROVIDERS: PCP Nurse Practitioner Family; Visit Provider Physician Assistant
DX: I10 Essential (primary) hypertension (principal); R23.3 Spontaneous ecchymoses
CPT/HCPCS: 36415; 85007; 85025

== ENCOUNTER 2022-12-22 18:31 | Inpatient (IN) | payer MEDICARE, SELFPAY ==
[2022-12-22] VITALS (9 sets, daily range): BP systolic 107–134; BP diastolic 71–82; PULSE 95–109; RESP 17–21; TEMP 36.6–37.2; O2SAT 97–100; BMI 30.2; BMI 30.1
--- NOTE | 2022-12-22 18:40 | ECG_ITS ---
APPROVED REPORT Exam: Resting ECG HR:103 bpm ECG Measurements Heart Rate 103 AXES OR 136 P 73 QRSd 95 QRS 101 QT 364 T 68 QTc 423 Conclusion SINUS TACHYCARDIA RIGHT AXIS DEVIATION [QRS AXIS > 100] INCOMPLETE RIGHT BUNDLE BRANCH BLOCK [90+ ms QRS DURATION, TERMINAL R IN V1/V2, 40+ ms S IN I/aVL/V4/V5/V6] ABNORMAL ECG UNCONFIRMED REPORT Electronically signed by : Phoenix Sky MD 12/23/2022 15:57:39
--- NOTE | 2022-12-22 19:08 | XR_ITS ---
PROCEDURE INFORMATION: Exam: XR Chest Exam date and time: 12/22/2022 7:34 PM Age: 57 years old Clinical indication: Shortness of breath; Additional info: SOA TECHNIQUE: Imaging protocol: Radiologic exam of the chest. Views: 1 view. COMPARISON: CT CHEST W CON 10/17/2022 9:18 PM FINDINGS: Lungs: Right upper lobe and right middle lobe medial consolidation. Elevated right hemidiaphragm. Clear left lung. Pleural spaces: Unremarkable. No pleural effusion. No pneumothorax. Heart/Mediastinum: Unremarkable. No cardiomegaly. Vasculature: Interval placement of a stent in the SVC. Bones/joints: Unremarkable. IMPRESSION: 1. Interval placement of a stent in the SVC. 2. Medial right lung consolidation is again seen consistent with known malignancy and either postobstructive atelectasis or pneumonia. 3. No new findings.
[2022-12-22 19:22] LABS: Eosinophils # 0.1 K/mm3 (0.0-0.4); Lymphocytes # 0.5 K/mm3 (0.7-4.5); Lymphocytes % 52.1 % (10-50); Mean Corpuscular HGB Conc 32.9 g/dL (31.8-35.4); Mean Corpuscular Hemoglobin 32.1 pg (27.0-31.2); Mean Corpuscular Volume 97.3 fl (80-94); Monocytes # 0.1 K/mm3 (0.1-1.0); Monocytes % 11.3 % (1.7-9.3); Neutrophils # 0.3 K/mm3 (1.8-7.8); Neutrophils % 30.6 % (37.0-80.0); Red Blood Count 2.13 M/mm3 (4.60-6.20); Red Cell Distribution Width 20.4 % (11.5-17.5)
[2022-12-22 19:23] LABS: Chloride 105 mmol/L (98-107); Potassium 3.5 mmoL/L (3.5-5.1); Sodium 139 mmol/L (136-145)
[2022-12-22 19:26] LABS: Alanine Aminotransferase 39 U/L (12-78); Albumin Level 3.2 g/dl (3.5-5.0); Albumin/Globulin Ratio 1.1 (1.1-1.8); Alkaline Phosphatase 136 U/L (38-126); Anion Gap 10.5 mEq/L (5-15); Aspartate Amino Transferase 39 U/L (17-59); Bilirubin,Total 0.5 mg/dl (0.2-1.3); Blood Urea Nitrogen 8 mg/dl (9-20); Calcium 8.5 mg/dl (8.4-10.2); Carbon Dioxide 27 mmol/L (22.0-30.0); Creatinine Clearance Estimated 140 mL/min (50-200); Estimated Glomerular Filt Rate 100 ml/min (>60); GFR (African American) 121 ML/MIN (>60); Globulin 2.9 g/dL (1.3-3.2); Glucose 93 mg/dl (74-100); Total Protein,Serum 6.1 g/dl (6.3-8.2)
[2022-12-22 19:27] LABS: Hemoglobin 6.8 g/dL (14.1-18.0); White Blood Count 0.9 K/mm3 (4.8-10.8)
[2022-12-22 19:28] LABS: Hematocrit 20.7 % (42.0-52.0); Platelet Count 22 K/mm3 (142-424)
--- NOTE | 2022-12-22 19:29 | PC.NURSE ---
Leandra from the lab called in Critical lab values. White Cell Count- 0.9. Hemoglobin- 6.8. Hematocrit- 20.7. Platelet- 22. CR
[2022-12-22 19:32] LABS: Microscopic, Urine URINE MICROSCOPIC (MICROSCOPIC)
[2022-12-22 19:36] LABS: Appearance,Urine CLEAR (Clear); Bilirubin,Urine Negative (Negative); Blood, Urine TRACE-I (Negative); Color,Urine YELLOW (Yellow); Glucose,Urine (UA) Negative (Negative); Ketones,Urine Negative (Negative); Leukocyte Esterase,Urine Negative (Negative); Nitrate,Urine Negative (Negative); PH,Urine 6.5 (5.0-8.5); Protein,Urine Negative (Negative); Urobilinogen,Urine 0.2 EU/dl (0.2)
--- NOTE | 2022-12-22 19:38 | HMH.EDGENADL ---
Discharge Plan Disposition Patient Disposition: Admitted Clinical Impressions Clinical Impression: Pancytopenia Discharge ED Provider: Shadia Tyson General Adult HPI General Chief complaint: Recheck/Abnormal Lab/Rx Stated complaint: elev labs Per Dr Tong Time Seen by Provider: 12/22/22 18:40 Mode of Arrival: Ambulatory Source of Information: Patient Limitations: No Limitations Description of Symptoms (Recalled from ER Triage Doc. by RN): 57 yo M presents to ED with advisment form dr tong for abnormal labs. pt had labs drawn today per kassi ríos. pt was called back this evening and told him to come to er. pt reports bloody bm last monday. bloody urine approx 1 week ago. pt is on xarelto History of Present Illness HPI narrative: This patient is a 57-year-old male with a history of lung adenocarcinoma who is status post radiation and had last chemo treatment on 12/08/2022 at [facility] presenting to the emergency department for evaluation with concern for pancytopenia on outpatient labs. Patient also has a history of hypertension, hyperlipidemia, CAD, diabetes, DALTON, COPD, PAD status post stenting, SVC syndrome, prior clot on Xarelto. Patient reports that since his last chemo treatment, he had initially been doing well, until 12/16 he noted that he had a large bloody bowel movement 1 time. He states it was bright red. After this, he had no blood in his stools or melena. He states that he has noted very easy bruising and scattered petechiae on his upper extremities since then. He also has had swelling of his right leg. Given these things, he saw cardiology clinic today for evaluation. There, he was found to be pancytopenic, so he was sent to the emergency department for further evaluation and management. On review of systems, the patient also admits to dyspnea on exertion and fatigue. Patient denies any recent fevers, cough, congestion, chest pain, abdominal pain, nausea, vomiting, changes in bowel movements, or other concerns. Related Data Home Medications Medication Instructions Recorded Confirmed atorvastatin 80 mg tablet 80 mg PO HS High Cholesterol 12/22/22 12/22/22 bisoprolol fumarate 10 mg tablet 10 mg PO DAILY Heart Rhythm 12/22/22 12/22/22 gabapentin 800 mg tablet 800 mg PO TID Neuropathy 12/22/22 12/22/22 lisinopril 10 mg tablet 10 mg PO DAILY High Blood Pressure 12/22/22 12/22/22 metformin 500 mg tablet,extended 500 mg PO DAILY Diabetes 12/22/22 12/22/22 release 24 hr oxycodone 10 mg tablet 10 mg PO Q6HP PRN Pain, Moderate 12/22/22 12/22/22 rivaroxaban 20 mg tablet (Xarelto) 20 mg PO DAILY Antiplatelet 12/22/22 12/22/22 Allergies Allergy/AdvReac Type Severity Reaction Status Date / Time No Known Allergies Allergy Verified 12/22/22 14:29 [facility] Disclaimer: The information contained in this section may have been updated after the patient was seen, as this information can be updated by other users. Medical History Abnormal computerized axial tomography of chest CAD (coronary artery disease) COPD (chronic obstructive pulmonary disease) Coughing up blood Diabetes Dyspnea on exertion Edema Edema Encounter for screening for malignant neoplasm of lung in current smoker with 30 pack year history or greater History of seasonal allergies HLD (hyperlipidemia) HTN (hypertension) Non-small cell lung cancer (NSCLC) DALTON (obstructive sleep apnea) Pulmonary arterial hypertension Pulmonary emphysema Smoking greater than 30 pack years SOB (shortness of breath) on exertion SVC syndrome Tobacco abuse counseling Tobacco abuse disorder Tobacco dependence Typical angina Surgical History History of cardiac cath History of colonoscopy History of foot surgery History of umbilical hernia repair Family History Other Coronary artery disease
[2022-12-22 19:43] LABS: T4 (Thyroxine) 8.7 ug/dl (5.53-11.0)
[2022-12-22 19:55] LABS: Lactate Dehydrogenase 374 U/L (313-618)
[2022-12-22 19:59] LABS: Lactic Acid 1.2 mmol/L (0.7-2.1)
[2022-12-22 20:03] LABS: Activated Partial Thrombo Time 35.5 seconds (22.8-30.6); Fibrinogen 371 mg/dL (229.9-363.5); INR 1.24 (0.9-1.1); Prothrombin Time 13.2 seconds (10.1-12.5)
[2022-12-22 20:04] LABS: D-Dimer 1.41 ug/mL (0.0-0.5)
[2022-12-22 20:06] LABS: VBG Base Excess -0.9 mmol/L (-2.4-2.3); VBG HCO3 23.3 mmol/L (23-30); VBG PCO2 35.4 mmol/L (35-51); VBG PH 7.44 mmol/L (7.31-7.41); VBG PO2 76.2 mmol/L (28-40); VBG Total CO2 24.4 mmol/L (23-27)
--- NOTE | 2022-12-22 20:09 | CT_ITS ---
PROCEDURE INFORMATION: Exam: CTA Chest With Contrast Exam date and time: 12/22/2022 8:32 PM Age: 57 years old Clinical indication: Abnormal findings; Abnormal diagnostic tests; Elevated d-dimer; Additional info: SOA, elevated d-dimer TECHNIQUE: Imaging protocol: Computed tomographic angiography of the chest with contrast. Exam focused on the arteries. 3D rendering (Not supervised by radiologist): MIP and/or 3D reconstructed images were created by the technologist. Radiation optimization: All CT scans at this facility use at least one of these dose optimization techniques: automated exposure control; mA and/or kV adjustment per patient size (includes targeted exams where dose is matched to clinical indication); or iterative reconstruction. Contrast material: ISOVUE; Contrast volume: 70 ml; Contrast route: INTRAVENOUS (IV); REPORTING DATA: Count of CT and Cardiac NM exams in prior 12 months: This patient has received 4 known CTs and 0 known cardiac nuclear medicine studies in the 12 months prior to the current study. COMPARISON: CT CHEST W CON 10/17/2022 9:18 PM FINDINGS: Limitations: Motion artifact in the lingula and left lower lobe could obscure segmental or subsegmental emboli. Pulmonary arteries: Normal caliber main pulmonary arteries. The right upper lobe pulmonary artery is encased by tumor. Aorta: Unremarkable. No aortic aneurysm. No aortic dissection. Veins: SVC stent is in good position and widely patent. Lungs: Unchanged right suprahilar/right mediastinal confluent mass measuring 7.5 x 6.7 x 3.0 cm. Decreasing medial right upper lobe and medial right middle lobe consolidation with small foci of residual nodular consolidation. No new lung opacities. Mild emphysema. Anterior left upper lobe calcified granuloma. Pleural spaces: Unremarkable. No pneumothorax. No pleural effusion. Heart: Unremarkable. No cardiomegaly. No pericardial effusion. Coronary arteries: Mild coronary artery calcifications. Mediastinal space: See lung findings. Lymph nodes: Calcified left mediastinal and left hilar lymph nodes. No enlarged lymph nodes. Liver: Calcified granuloma in the liver. Gallbladder and bile ducts: Minimal cholelithiasis. Adrenal glands: Enlarging left adrenal nodule measuring 3.4 x 1.7 cm (previously 2.7 x 1.7 cm). Bones/joints: Unchanged lucent lesions with sclerotic margins in the right anterior 2nd rib. Soft tissues: Unremarkable. IMPRESSION: 1. Motion artifact in the lingula and left lower lobe could obscure segmental or subsegmental emboli to these areas. 2. Otherwise, no evidence of pulmonary embolism. 3. Right suprahilar/right mediastinal confluent mass is unchanged. 4. Decreased medial right upper lobe and right middle lobe consolidation. 5. Enlarging left adrenal nodule consistent with metastatic disease.
[2022-12-22 20:17] LABS: RBC,Urine Occasional #/hpf (0-3); WBC,Urine Occasional #/hpf (0-3)
[2022-12-22 20:27] LABS: Thyroid Stimulating Hormone 2.12 uIU/mL (0.465-4.68)
--- NOTE | 2022-12-22 21:05 | PC.NURSE ---
MD @ bedside performing ultrasound
--- NOTE | 2022-12-22 21:32 | PC.NURSE ---
OBSERVATION ADMISSION TO 215 TO SERVICE OF HOSPITALIST WITH DX OF PANCYTOPENIA.
--- NOTE | 2022-12-22 21:55 | EXP.HP ---
History of Present Illness *Admission Date: 12/22/22 *Reason for visit:: bruises *History of present illness: This is a 57-year-old male with PMHx of hypertension, hyperlipidemia, CAD, diabetes, DALTON, COPD, PAD status post stenting, SVC syndrome, prior clot on Xarelto and lung adenocarcinoma who s/p radiation and had last chemo treatment on 12/08/2022 at [facility] presenting to the emergency department for evaluation with concern for pancytopenia on outpatient labs. Patient reported that since his last chemo treatment, he had initially been doing well, until 12/16 he noted that he had a large bloody bowel movement 1 time. He states it was bright red. After this, he had no blood in his stools or melena. He also noted very easy bruising and scattered petechiae on his upper extremities since then. He also has had swelling of his right leg. Given these things, he saw cardiology clinic today for evaluation. There, he was found to be pancytopenic, so he was sent to the emergency department for further evaluation and management. [facility] Disclaimer: The information contained in this section may have been updated after the patient was seen, as this information can be updated by other users. Medical History Abnormal computerized axial tomography of chest CAD (coronary artery disease) COPD (chronic obstructive pulmonary disease) Coughing up blood Diabetes Dyspnea on exertion Edema Edema Encounter for screening for malignant neoplasm of lung in current smoker with 30 pack year history or greater History of seasonal allergies HLD (hyperlipidemia) HTN (hypertension) Non-small cell lung cancer (NSCLC) DALTON (obstructive sleep apnea) Pulmonary arterial hypertension Pulmonary emphysema Smoking greater than 30 pack years SOB (shortness of breath) on exertion SVC syndrome Tobacco abuse counseling Tobacco abuse disorder Tobacco dependence Typical angina Surgical History History of cardiac cath History of colonoscopy History of foot surgery History of umbilical hernia repair Family History Other Coronary artery disease Diabetes Hypertension Social History (Updated 12/22/22 @ 22:28 by Toña Dobbins RN) Smoking Status: Current every day smoker tobacco type: cigarettes packs per day: 1 second hand exposure: Yes alcohol intake: never substance use type: denies use current occupational status: other Travel in the last 8 weeks: None household members: spouse housing: house current occupational exposures/hazards: No caffeine: Yes Review of Systems Review of Systems Review of systems:: pertinent systems reviewed and negative unless documented below Meds Home Medications and Allergies Home Medications Medication Instructions Recorded Confirmed Type atorvastatin 80 mg tablet 80 mg PO HS High Cholesterol 12/22/22 12/22/22 History bisoprolol fumarate 10 mg tablet 10 mg PO DAILY Heart Rhythm 12/22/22 12/22/22 History gabapentin 800 mg tablet 800 mg PO TID Neuropathy 12/22/22 12/22/22 History lisinopril 10 mg tablet 10 mg PO DAILY High Blood Pressure 12/22/22 12/22/22 History metformin 500 mg tablet,extended 500 mg PO DAILY Diabetes 12/22/22 12/22/22 History release 24 hr rivaroxaban 20 mg tablet (Xarelto) 20 mg PO QPMWITHMEAL Blood Thinner 12/22/22 12/23/22 History New Prescriptions to Start Prescriptions: Allergies Allergy/AdvReac Type Severity Reaction Status Date / Time No Known Allergies Allergy Verified 12/22/22 14:29 Exam Data for Last 24 hours Vital signs and Labs for Last 24 Hours: Temp Pulse Resp BP Pulse Ox 97.9 F 105 H 20 134/82 100 12/22/22 18:47 12/22/22 21:00 12/22/22 21:00 12/22/22 21:00 12/22/22 21:00 Laboratory Results - last 24 hr 12/22/22 18:42: WBC 0.9 L* D, RBC 2.13 L, Hgb 6.8 L*
--- NOTE | 2022-12-22 22:14 | PC.NURSE ---
pt arrived to the floor via wheelchair at 22:08.
[2022-12-23] VITALS (25 sets, daily range): BP systolic 115–146; BP diastolic 63–93; PULSE 95–116; RESP 18; TEMP 36.6–37.2; O2SAT 95–100; BMI 30.1
--- NOTE | 2022-12-23 05:29 | PC.NURSE ---
Patient has had a good night. Did not get to rest much due to giving 2 units of blood. Has not complained of pain or anything else. No other issues noted
[2022-12-23 09:09] LABS: Basophils % 0.6 % (0.1-2.0); Eosinophils # 0.1 K/mm3 (0.0-0.4); Eosinophils % 10.5 % (0.1-12.0); Lymphocytes # 0.3 K/mm3 (0.7-4.5); Lymphocytes % 43.8 % (10-50); Mean Corpuscular Hemoglobin 31.4 pg (27.0-31.2); Mean Corpuscular Volume 95.2 fl (80-94); Mean Platelet Volume 9.8 fl (7.4-10.4); Monocytes # 0.1 K/mm3 (0.1-1.0); Monocytes % 11.6 % (1.7-9.3); Neutrophils # 0.2 K/mm3 (1.8-7.8); Neutrophils % 33.5 % (37.0-80.0); Red Blood Count 2.84 M/mm3 (4.60-6.20); Red Cell Distribution Width 18.4 % (11.5-17.5)
[2022-12-23 09:16] LABS: Platelet Count 25 K/mm3 (142-424); White Blood Count 0.6 K/mm3 (4.8-10.8)
[2022-12-23 09:17] LABS: Hemoglobin 8.9 g/dL (14.1-18.0); MANUAL DIFFERENTIAL MANUAL DIFFERENTIAL (MANUAL DIFF)
[2022-12-23 09:22] LABS: Alanine Aminotransferase 38 U/L (12-78); Albumin/Globulin Ratio 1.1 (1.1-1.8); Alkaline Phosphatase 113 U/L (38-126); Anion Gap 10.4 mEq/L (5-15); Aspartate Amino Transferase 35 U/L (17-59); Bilirubin,Total 0.4 mg/dl (0.2-1.3); Blood Urea Nitrogen 4 mg/dl (9-20); Calcium 7.8 mg/dl (8.4-10.2); Carbon Dioxide 27 mmol/L (22.0-30.0); Chloride 106 mmol/L (98-107); Creatinine Clearance Estimated 124 mL/min (50-200); Estimated Glomerular Filt Rate 87 ml/min (>60); GFR (African American) 106 ML/MIN (>60); Globulin 2.8 g/dL (1.3-3.2); Glucose 116 mg/dl (74-100); Magnesium 1.8 mg/dl (1.6-2.3); Phosphorous 3.1 mg/dl (2.5-4.5); Potassium 3.4 mmoL/L (3.5-5.1); Sodium 140 mmol/L (136-145); Total Protein,Serum 5.8 g/dl (6.3-8.2)
[2022-12-23 09:39] LABS: Eosinophils % 10 % (0-3); Lymphocytes % 40 % (10-50); Monocytes % 10 % (2-9); Neutrophils % 40 % (42-76); Total Cells Counted 10
[2022-12-23 09:40] LABS: Anisocytosis 1+; Macrocytosis 1+; Ovalocytes 1+; Platelet Estimate Marked Decrease
--- NOTE | 2022-12-23 11:32 | DIET.NUTRFU ---
Spoke to patient, he is currently on cardiac, diabetic diet. He is non complaint with any diet at home, he would rather take additional medication then be restricted. Willing to continue current diet during stay if can have regular soda. He takes metformin at home, and tests his BS and normally less then 130. RD took his lunch selection and dietary will follow-up with dinner. Feels his appetite is good, wt has fluctuated with fluid and CA tx. Quite smoking in October and has been snacking a lot more causing possible weight gains.
--- NOTE | 2022-12-23 15:05 | PC.NURSE ---
PT IS RESTING IN BED. TOLERATED SITTING UP IN THE CHAIR FOR SEVERAL HOURS THIS SHIFT. PT HAS AMBULATED TO THE BATHROOM. EATING AND DRINKING WELL. ALERT AND ORIENTED X4. 2+ EDEMA NOTED TO RLE. WILL CONTINUE TO MONITOR.
--- NOTE | 2022-12-23 15:31 | EXP.PN ---
Subjective *Date: 12/23/22 *Time: 15:31 Interval history: Patient is seen and examined today. His is at bedside. I am accompanied by nursing staff. He reports that he is feeling better. Nursing staff report that he remains afebrile with improved heart rates and stable blood pressures. He is saturating appropriately on room air. His morning labs have been reviewed, discussed and personally interpreted identifying a CBC with a white blood cell count of 600, hemoglobin 8.9 after 2 units of red blood cells yesterday, platelet count 25,000. INR 1.24, D-dimer 1.4, fibrinogen level was 371. His electrolytes identify potassium deficiency with normal BUN and creatinine. His lactic acid is normal as well as his uric acid. His LFTs are normal. His magnesium is 1.8 and his LDH is 374. He reports ongoing care with his oncologist and recently received cycle 3 of his chemotherapy carbo/Alimta/Keytruda. Exam Data for Last 24 hours Vital signs and Labs for Last 24 Hours: Temp Pulse Resp BP Pulse Ox O2 Del Method 97.9 F 96 H 18 146/92 H 100 Room Air 12/23/22 11:48 12/23/22 11:48 12/23/22 11:48 12/23/22 11:48 12/23/22 11:48 12/23/22 14:40 Laboratory Results - last 24 hr 12/22/22 18:42: WBC 0.9 L* D, RBC 2.13 L, Hgb 6.8 L*, Hct 20.7 L*, MCV 97.3 H, MCH 32.1 H, MCHC 32.9, RDW 20.4 H, Plt Count 22 L*, MPV 11.0 H, Neut % (Auto) 30.6 L, Lymph % (Auto) 52.1 H, Floyd % (Auto) 11.3 H, Eos % (Auto) 6.0, Baso % (Auto) 0.0 L, Neut # (Auto) 0.3 L*, Lymph # (Auto) 0.5 L, Floyd # (Auto) 0.1, Eos # (Auto) 0.1, Baso # (Auto) 0.0, Sodium 139, Potassium 3.5, Chloride 105, Carbon Dioxide 27, Anion Gap 10.5, BUN 8 L, Creatinine 0.80, Estimated Creat Clear 140, Estimated GFR 100, Est GFR ( Amer) 121, Glucose 93, Uric Acid 4.0, Calcium 8.5, Total Bilirubin 0.5, AST 39, ALT 39, Alkaline Phosphatase 136 H, Lactate Dehydrogenase 374, Total Protein 6.1 L, Albumin 3.2 L, Globulin 2.9, Albumin/Globulin Ratio 1.1, TSH 2.12, Thyroxine (T4) 8.7, Blood Type Confirm O Positive 12/22/22 19:10: VBG pH 7.44 H, VBG pCO2 35.4, VBG pO2 76.2 H, VBG HCO3 23.3, VBG Total CO2 24.4, VBG O2 Saturation 95.0 H, VBG Base Excess -0.9 12/22/22 19:28: Urine Color Yellow, Urine Appearance Clear, Urine pH 6.5, Ur Specific [place] 1.010, Urine Protein Negative, Urine Glucose (UA) Negative, Urine Ketones Negative, Urine Blood Trace-i, Urine Nitrate Negative, Urine Bilirubin Negative, Urine Urobilinogen 0.2, Ur Leukocyte Esterase Negative, Urine RBC Occasional, Urine WBC Occasional, Ur Squamous Epith Cells None, Urine Bacteria None 12/22/22 19:35: PT 13.2 H, INR 1.24 H, APTT 35.5 H, Fibrinogen 371 H, D-Dimer 1.41 H, Lactate 1.2, Blood Type O Positive, Antibody Screen Negative, Crossmatch (AHG) See Detail 12/23/22 08:26: WBC 0.6 L* D, RBC 2.84 L D, Hgb 8.9 L D 12/23/22 08:26: Hgb Cancelled, Hct 27.0 L 12/23/22 08:26: Hct Cancelled, MCV 95.2 H, MCH 31.4 H, MCHC 33.0, RDW 18.4 H, Plt Count 25 L*, MPV 9.8, Neut % (Auto) 33.5 L, Lymph % (Auto) 43.8, Floyd % (Auto) 11.6 H, Eos % (Auto) 10.5, Baso % (Auto) 0.6, Neut # (Auto) 0.2 L*, Lymph # (Auto) 0.3 L, Floyd # (Auto) 0.1, Eos # (Auto) 0.1, Baso # (Auto) 0.0, Total Counted 10, Neutrophils % (Manual) 40 L, Lymphocytes % (Manual) 40, Monocytes % (Manual) 10 H, Eosinophils % (Manual) 10 H, Platelet Estimate Marked decrease, RBC Morphology Not Reportable, Anisocytosis 1+, Macrocytosis 1+, Ovalocytes 1+, Sodium 140, Potassium 3.4 L, Chloride 106, Carbon Dioxide 27, Anion Gap 10.4, BUN 4 L D, Creatinine 0.90, Estimated Creat Clear 124, Estimated GFR 87, Est GFR ( Amer) 106, Glucose 116 H D, Calcium 7.8 L, Phosphorus 3.1, Magnesium 1.8, Total Bilirubin 0.4, AST 35, ALT 38, Alkaline Phosphatase 113, Total Protein 5.8 L, Albumin 3.0 L, Globulin 2.8, Albumin/Globulin Ratio 1.1 I & O for Last 24 hours: Intake & Output 12/20/22 12/21/22 12/22/22 12/23/22 23:59 23:59 23:59 23:59 Intake Total 1300 / 1300 Output Total 1200 / 1200 Balance 100 / 100
[2022-12-24] VITALS: BP 119/82; PULSE 104; RESP 18; TEMP 37.2; O2SAT 99
[2022-12-24 04:00] VITALS: BP 138/76; PULSE 102; RESP 18; TEMP 37.1; O2SAT 97; BMI 30.2
--- NOTE | 2022-12-24 06:42 | PC.NURSE ---
PATIENT HAS HAD A QUIET NIGHT. DENIES PAIN/DISCOMFORT. VSS/AFEBRILE. SPOUSE AT BEDSIDE. REMAINS IN NEUTROPENIC PRECAUTIONS.
[2022-12-24 07:53] VITALS: BP 143/85; PULSE 98; RESP 16; TEMP 36.8; O2SAT 100
[2022-12-24 08:29] LABS: Anion Gap 9.1 mEq/L (5-15); Blood Urea Nitrogen 5 mg/dl (9-20); Calcium 8.1 mg/dl (8.4-10.2); Carbon Dioxide 28 mmol/L (22.0-30.0); Chloride 107 mmol/L (98-107); Creatinine Clearance Estimated 124 mL/min (50-200); Estimated Glomerular Filt Rate 87 ml/min (>60); GFR (African American) 106 ML/MIN (>60); Glucose 99 mg/dl (74-100); Potassium 4.1 mmoL/L (3.5-5.1); Sodium 140 mmol/L (136-145)
[2022-12-24 08:32] LABS: Basophils % 0.5 % (0.1-2.0); Eosinophils # 0.1 K/mm3 (0.0-0.4); Eosinophils % 7.5 % (0.1-12.0); Hematocrit 27.8 % (42.0-52.0); Hemoglobin 9.2 g/dL (14.1-18.0); Lymphocytes # 0.4 K/mm3 (0.7-4.5); Lymphocytes % 39.3 % (10-50); Mean Corpuscular HGB Conc 33.1 g/dL (31.8-35.4); Mean Corpuscular Hemoglobin 31.4 pg (27.0-31.2); Mean Platelet Volume 10.4 fl (7.4-10.4); Monocytes # 0.2 K/mm3 (0.1-1.0); Neutrophils # 0.4 K/mm3 (1.8-7.8); Neutrophils % 37.6 % (37.0-80.0); Red Blood Count 2.93 M/mm3 (4.60-6.20); Red Cell Distribution Width 19.1 % (11.5-17.5)
[2022-12-24 08:46] LABS: Procalcitonin 0.117 ng/mL (0.0-2.0)
[2022-12-24 09:23] LABS: Platelet Count 38 K/mm3 (142-424)
[2022-12-24 09:25] LABS: MANUAL DIFFERENTIAL MANUAL DIFFERENTIAL (MANUAL DIFF)
[2022-12-24 11:40] VITALS: BP 126/76; PULSE 90; RESP 17; TEMP 36.9; O2SAT 98
--- NOTE | 2022-12-24 13:43 | EXP.PN ---
Subjective *Date: 12/24/22 *Time: 13:43 Interval history: Patient is seen and examined. His is at bedside. I am accompanied by nursing staff. Nursing staff report that he remains afebrile with stable vital signs and saturating appropriately on room air. His morning CBC identifies a white blood cell count of 5000 with hemoglobin 9.2 and platelets 38,000. His electrolytes are normal and his creatinine 0.9. His procalcitonin is negative. His set of blood cultures is identifying 1 set with coag negative staph concerning for Staphylococcus lugdunensis. Pharmacy has been consulted for vancomycin start. We have discussed his port, proceeding with repeat echo and awaiting definitive results of his cultures and sensitivities. Exam Data for Last 24 hours Vital signs and Labs for Last 24 Hours: Temp Pulse Resp BP Pulse Ox O2 Del Method 98.5 F 90 17 126/76 98 Room Air 12/24/22 11:40 12/24/22 11:40 12/24/22 11:40 12/24/22 11:40 12/24/22 11:40 12/24/22 11:40 Laboratory Results - last 24 hr 12/22/22 19:28: Urine Color Yellow, Urine Appearance Clear, Urine pH 6.5, Ur Specific [place] 1.010, Urine Protein Negative, Urine Glucose (UA) Negative, Urine Ketones Negative, Urine Blood Trace-i, Urine Nitrate Negative, Urine Bilirubin Negative, Urine Urobilinogen 0.2, Ur Leukocyte Esterase Negative, Urine RBC Occasional, Urine WBC Occasional, Ur Squamous Epith Cells None, Urine Bacteria None 12/24/22 07:39: WBC 1.0 L* D, RBC 2.93 L, Hgb 9.2 L, Hct 27.8 L, MCV 95.0 H, MCH 31.4 H, MCHC 33.1, RDW 19.1 H, Plt Count 38 L* D, MPV 10.4, Neut % (Auto) 37.6, Lymph % (Auto) 39.3, [place] % (Auto) 15.0 H, Eos % (Auto) 7.5, Baso % (Auto) 0.5, Neut # (Auto) 0.4 L*, Lymph # (Auto) 0.4 L, [place] # (Auto) 0.2, Eos # (Auto) 0.1, Baso # (Auto) 0.0, Sodium 140, Potassium 4.1 D, Chloride 107, Carbon Dioxide 28, Anion Gap 9.1, BUN 5 L, Creatinine 0.90, Estimated Creat Clear 124, Estimated GFR 87, Est GFR ( Amer) 106, Glucose 99, Calcium 8.1 L, Procalcitonin 0.117 I & O for Last 24 hours: Intake & Output 12/21/22 12/22/22 12/23/22 12/24/22 23:59 23:59 23:59 23:59 Intake Total 1540 / 1540 1358 / 1358 Output Total 1201 / 1251 1700 / 1700 Balance 339 / 289 -342 / -342 Weight 95.39 kg 95.39 kg 95.85 kg Microbiology Reports for the Last 24 Hours: Microbiology 12/22/22 19:35 Blood Blood Culture - Preliminary Gram Positive Cocci Constitutional Constitutional: no acute distress, obese and cooperative *Routine HEENT Exam Head: Present normocephalic Eye: Present EOMI and PERRL ENT: Present mucous membranes moist *Routine Neck Exam Neck: Present supple, full ROM and trachea midline *Routine Respiratory Exam Respiratory: Present rhonchi, normal respiratory effort, able to speak in complete sentences and symmetric chest movement *Routine Cardiovascular Exam Cardiovascular: Present RRR, Normal S1 and Normal S2 *Routine Abdominal Exam Abdominal: Present soft and normoactive bowel sounds; Absent tenderness *Routine Extremities Exam Extremities: Present full ROM, pulses intact and normal capillary refill; Absent edema *Routine Skin Exam Skin: Present petechiae and warm; Absent rash *Routine Neurological Exam Neurological: Present alert, oriented X3, moving all extremities, vision grossly intact, hearing grossly intact and normal speech; Absent sensory deficit or motor deficit Routine Psychiatric Exam Psychiatric: Present normal affect, normal thought process, cooperative, good insight and good judgment Assessment and Plan *Assessment and plan (1) Pancytopenia: Status: Acute Category: Medical Code(s): D61.818 - Other pancytopenia (2) Abnormal bruising: Status: Acute Category: Medical Code(s): R23.3 - Spontaneous ecchymoses (3) Adenocarcinoma of lung: Status: Acute Qualifiers: Laterality: unspecified laterality Qualified Code(s): C34.90 - Alicia
--- NOTE | 2022-12-24 14:23 | EXP.PHA.CONS ---
Pharmacy Consult Date: 12/24/22 Time: 14:23 Referring provider: DR. FABIAN Reason for Consult:: VANCOMYCIN DOSING Allergies Allergy/AdvReac Type Severity Reaction Status Date / Time No Known Allergies Allergy Verified 12/22/22 14:29 Home Medications Medication Instructions Recorded Confirmed Type atorvastatin 80 mg tablet 80 mg PO HS High Cholesterol 12/22/22 12/22/22 History bisoprolol fumarate 10 mg tablet 10 mg PO DAILY Heart Rhythm 12/22/22 12/22/22 History gabapentin 800 mg tablet 800 mg PO TID Neuropathy 12/22/22 12/22/22 History lisinopril 10 mg tablet 10 mg PO DAILY High Blood Pressure 12/22/22 12/22/22 History metformin 500 mg tablet,extended 500 mg PO DAILY Diabetes 12/22/22 12/22/22 History release 24 hr rivaroxaban 20 mg tablet (Xarelto) 20 mg PO QPMWITHMEAL Blood Thinner 12/22/22 12/23/22 History New Prescriptions to Start Prescriptions: Height: 1.78 m Weight: 95.85 kg Laboratory Results:: Laboratory Results - last 24 hr 12/22/22 19:28: Urine Color Yellow, Urine Appearance Clear, Urine pH 6.5, Ur Specific [place] 1.010, Urine Protein Negative, Urine Glucose (UA) Negative, Urine Ketones Negative, Urine Blood Trace-i, Urine Nitrate Negative, Urine Bilirubin Negative, Urine Urobilinogen 0.2, Ur Leukocyte Esterase Negative, Urine RBC Occasional, Urine WBC Occasional, Ur Squamous Epith Cells None, Urine Bacteria None 12/24/22 07:39: WBC 1.0 L* D, RBC 2.93 L, Hgb 9.2 L, Hct 27.8 L, MCV 95.0 H, MCH 31.4 H, MCHC 33.1, RDW 19.1 H, Plt Count 38 L* D, MPV 10.4, Neut % (Auto) 37.6, Lymph % (Auto) 39.3, [place] % (Auto) 15.0 H, Eos % (Auto) 7.5, Baso % (Auto) 0.5, Neut # (Auto) 0.4 L*, Lymph # (Auto) 0.4 L, [place] # (Auto) 0.2, Eos # (Auto) 0.1, Baso # (Auto) 0.0, Sodium 140, Potassium 4.1 D, Chloride 107, Carbon Dioxide 28, Anion Gap 9.1, BUN 5 L, Creatinine 0.90, Estimated Creat Clear 124, Estimated GFR 87, Est GFR ( Amer) 106, Glucose 99, Calcium 8.1 L, Procalcitonin 0.117 Medical History: Medical History (Updated 12/23/22 @ 04:09 by Donell Pozo APRN) Abnormal computerized axial tomography of chest CAD (coronary artery disease) COPD (chronic obstructive pulmonary disease) Coughing up blood Diabetes Dyspnea on exertion Edema Edema Encounter for screening for malignant neoplasm of lung in current smoker with 30 pack year history or greater History of seasonal allergies HLD (hyperlipidemia) HTN (hypertension) Non-small cell lung cancer (NSCLC) DALTON (obstructive sleep apnea) Pulmonary arterial hypertension Pulmonary emphysema Smoking greater than 30 pack years SOB (shortness of breath) on exertion SVC syndrome Tobacco abuse counseling Tobacco abuse disorder Tobacco dependence Typical angina Assessment and Plan Assessment and plan all Dx Assessment and Plan for all problems:: Pharmacokinetic dosing service Objective: Patient: Floor: Age: 57 yo Serum creatinine: 0.9 mg/dL Height: 70.1 Inches Weight (kg): 96 Assessment: IBW (kg): 73.23 Dosing wt(kg): 96 Estimated Creatinine clearance (ml/min): 94.9 CRCL method: Cockcroft and Gault using ibw(default). Drug selected: Vancomycin Loading dose (mg): 0 Vd (liters): 76.8 (factor used: 0.8 L/kg) Boyd (hr-1): 0.083 Half life (hrs): 8.35 Recommended dose: 1750 mg Interval: 12 hrs Infusion time (hrs): 2.0 Predicted peak (mcg/mL): 33.3 Predicted trough (mcg/mL): 14.52 Total body weight is being used for vancomycin dosing. Recommendations: Give Vancomycin 1750 mg q 12 hrs with an expected Cpeak of 33.3 mcg/ml and an expected Ctrough of 14.52 mcg/ml ----Vanco only - ignore for aminoglycosides----- CLvanco= 6.37 L/hr AUC 0-24 /PETRA Data: PETRA 0.5 mcg/mL: AUC/PETRA: 1098.9 PETRA 1.0 mcg/mL: AUC/PETRA: 549.5 --------- PETRA 1.5 mcg/mL: AUC/PETRA: 36
[2022-12-24 15:28] VITALS: BP 132/72; PULSE 96; RESP 17; TEMP 36.7; O2SAT 100
[2022-12-24 15:45] LABS: Anisocytosis 1+; Lymphocytes % 44 % (10-50); Macrocytosis 1+; Monocytes % 8 % (2-9); Neutrophils % 48 % (42-76); Total Cells Counted 25
[2022-12-24 15:46] LABS: Platelet Estimate Marked Decrease
[2022-12-24 20:00] VITALS: BP 133/72; PULSE 103; RESP 18; TEMP 37; O2SAT 100
[2022-12-25] VITALS: BP 122/70; PULSE 108; RESP 18; TEMP 36.7; O2SAT 99
[2022-12-25 04:00] VITALS: BP 113/83; PULSE 107; RESP 18; TEMP 37.4; O2SAT 98; BMI 30.7
--- NOTE | 2022-12-25 04:58 | PC.NURSE ---
PATIENT VOICED THAT HE HAS BEEN GETTING H/As THAT ARE RELATED TO HIS NUPOGEN INJECTIONS. AT 2211 PATIENT RECEIVED OXYCODONE 5 MG PO WHICH RELIEVED HIS H/A. SPOUSE AT BEDSIDE. REMAINS IN NEUTROPENIC PRECAUTIONS.
[2022-12-25 07:31] LABS: Basophils % 0.7 % (0.1-2.0); Eosinophils # 0.1 K/mm3 (0.0-0.4); Eosinophils % 5.9 % (0.1-12.0); Hematocrit 27.4 % (42.0-52.0); Hemoglobin 9.1 g/dL (14.1-18.0); Lymphocytes # 0.3 K/mm3 (0.7-4.5); Mean Corpuscular HGB Conc 33.1 g/dL (31.8-35.4); Mean Corpuscular Hemoglobin 31.2 pg (27.0-31.2); Mean Corpuscular Volume 94.1 fl (80-94); Mean Platelet Volume 10.4 fl (7.4-10.4); Monocytes # 0.2 K/mm3 (0.1-1.0); Monocytes % 12.7 % (1.7-9.3); Neutrophils # 0.7 K/mm3 (1.8-7.8); Neutrophils % 55.7 % (37.0-80.0); Red Blood Count 2.92 M/mm3 (4.60-6.20); Red Cell Distribution Width 19.3 % (11.5-17.5); White Blood Count 1.3 K/mm3 (4.8-10.8)
[2022-12-25 07:32] VITALS: BP 121/81; PULSE 98; RESP 18; TEMP 37.2; O2SAT 95
[2022-12-25 07:36] LABS: Platelet Count 47 K/mm3 (142-424)
[2022-12-25 11:18] VITALS: BP 135/82; PULSE 107; RESP 20; TEMP 37.1; O2SAT 99
--- NOTE | 2022-12-25 12:42 | EXP.PN ---
Subjective *Date: 12/25/22 *Time: 12:42 Interval history: Patient is seen and examined today. His is at bedside. He reports no acute symptomatology and is inquiring about discharge home. Nursing staff report that he remains afebrile with stable vital signs and saturating appropriately on room air. His morning labs have been reviewed, I personally discussed and interpreted as follows: CBC with an improved white blood cell count of 1.3, hemoglobin stable at 9.1, platelets stable at 47. His electrolytes and creatinine are normal. He is tolerating his IV vancomycin for his positive blood culture. Sensitivities are reviewed. Exam Data for Last 24 hours Vital signs and Labs for Last 24 Hours: Temp Pulse Resp BP Pulse Ox O2 Del Method 98.7 F 107 H 20 135/82 99 Room Air 12/25/22 11:18 12/25/22 11:18 12/25/22 11:18 12/25/22 11:18 12/25/22 11:18 12/25/22 11:18 Laboratory Results - last 24 hr 12/24/22 07:39: Total Counted 25, Neutrophils % (Manual) 48, Lymphocytes % (Manual) 44, Monocytes % (Manual) 8, Platelet Estimate Marked decrease, Anisocytosis 1+, Macrocytosis 1+ 12/25/22 07:05: WBC 1.3 L* D, RBC 2.92 L, Hgb 9.1 L, Hct 27.4 L, MCV 94.1 H, MCH 31.2, MCHC 33.1, RDW 19.3 H, Plt Count 47 L*, MPV 10.4, Neut % (Auto) 55.7, Lymph % (Auto) 25.0, [place] % (Auto) 12.7 H, Eos % (Auto) 5.9, Baso % (Auto) 0.7, Neut # (Auto) 0.7 L*, Lymph # (Auto) 0.3 L, [place] # (Auto) 0.2, Eos # (Auto) 0.1, Baso # (Auto) 0.0 I & O for Last 24 hours: Intake & Output 12/22/22 12/23/22 12/24/22 12/25/22 23:59 23:59 23:59 23:59 Intake Total 1540 / 1540 2518 / 2868 830 / 830 Output Total 1201 / 1251 4400 / 4800 2500 / 2500 Balance 339 / 289 -1882 / -1932 -1670 / -1670 Weight 95.39 kg 95.39 kg 95.85 kg 97.25 kg Microbiology Reports for the Last 24 Hours: Microbiology 12/22/22 19:35 Blood Blood Culture - Final Streptococcus parasanguinis 12/22/22 19:49 Blood Blood Culture - Preliminary NO GROWTH AFTER 48 HOURS Constitutional Constitutional: no acute distress, obese and cooperative *Routine HEENT Exam Head: Present normocephalic Eye: Present EOMI and PERRL ENT: Present mucous membranes moist *Routine Neck Exam Neck: Present supple, full ROM and trachea midline *Routine Respiratory Exam Respiratory: Present rhonchi, normal respiratory effort, able to speak in complete sentences and symmetric chest movement *Routine Cardiovascular Exam Cardiovascular: Present RRR, Normal S1 and Normal S2 *Routine Abdominal Exam Abdominal: Present soft and normoactive bowel sounds; Absent tenderness *Routine Extremities Exam Extremities: Present full ROM, pulses intact and normal capillary refill; Absent edema *Routine Skin Exam Skin: Present petechiae and warm; Absent rash *Routine Neurological Exam Neurological: Present alert, oriented X3, moving all extremities, vision grossly intact, hearing grossly intact and normal speech; Absent sensory deficit or motor deficit Routine Psychiatric Exam Psychiatric: Present normal affect, normal thought process, cooperative, good insight and good judgment Assessment and Plan *Assessment and plan (1) Pancytopenia: Status: Acute Category: Medical Code(s): D61.818 - Other pancytopenia (2) Abnormal bruising: Status: Acute Category: Medical Code(s): R23.3 - Spontaneous ecchymoses (3) Adenocarcinoma of lung: Status: Acute Qualifiers: Laterality: unspecified laterality Qualified Code(s): C34.90 - Malignant neoplasm of unspecified part of unspecified bronchus or lung Category: Medical Code(s): C34.90 - Malignant neoplasm of unspecified part of unspecified bronchus or lung (4) COPD (chronic obstructive pulmonary disease): Status: Chronic Qualifiers: COPD type: unspecified COPD Qualified Code(s): J44.9 - Chronic obstructive pulmonary disease, unspecified
[2022-12-25 16:00] VITALS: BP 130/77; PULSE 108; RESP 18; TEMP 36.7; O2SAT 95
[2022-12-25 20:00] VITALS: BP 118/66; PULSE 111; RESP 18; TEMP 37.3; O2SAT 99
[2022-12-25 22:39] LABS: Vancomycin,Trough 16.9 ug/mL (5.0-10.0)
--- NOTE | 2022-12-25 22:51 | PC.NURSE ---
Spoke with Diomedes at [facility] to report vanc trough, Diomedes states it is okay to give medication at 23:00.
[2022-12-26] VITALS: BP 123/68; PULSE 112; RESP 18; TEMP 37.3; O2SAT 97
[2022-12-26 03:26] LABS: Vancomycin,Peak 31.6 ug/ml (11-39)
[2022-12-26 04:00] VITALS: BP 127/75; PULSE 109; RESP 18; TEMP 37.1; O2SAT 97; BMI 30.9
--- NOTE | 2022-12-26 05:36 | PC.NURSE ---
Patient has slept at intervals through shift. Patient remains on RA with o2 sats 97-99%. Patient reported headache x1 this shift, administered medication per MAR with effectiveness. has remained at bedside.
[2022-12-26 06:51] LABS: Basophils % 0.6 % (0.1-2.0); Eosinophils # 0.1 K/mm3 (0.0-0.4); Eosinophils % 3.6 % (0.1-12.0); Hematocrit 27.2 % (42.0-52.0); Lymphocytes # 0.6 K/mm3 (0.7-4.5); Lymphocytes % 17.7 % (10-50); Mean Corpuscular HGB Conc 33.1 g/dL (31.8-35.4); Mean Corpuscular Hemoglobin 31.6 pg (27.0-31.2); Mean Corpuscular Volume 95.4 fl (80-94); Mean Platelet Volume 10.1 fl (7.4-10.4); Monocytes # 0.4 K/mm3 (0.1-1.0); Monocytes % 11.2 % (1.7-9.3); Neutrophils # 2.2 K/mm3 (1.8-7.8); Neutrophils % 66.8 % (37.0-80.0); Platelet Count 71 K/mm3 (142-424); Red Blood Count 2.85 M/mm3 (4.60-6.20); White Blood Count 3.2 K/mm3 (4.8-10.8)
[2022-12-26 08:00] VITALS: BP 112/77; PULSE 115; RESP 20; TEMP 36.6; O2SAT 99
--- NOTE | 2022-12-26 08:24 | P.CONPHA_ITS ---
Pharmacy Consult Date: 12/26/22 Time: 08:24 Referring provider: DR. FABIAN Reason for Consult:: VANCOMYCIN TROUGH AND PEAK LEVELS Allergies Allergy/AdvReac Type Severity Reaction Status Date / Time No Known Allergies Allergy Verified 12/22/22 14:29 Home Medications Medication Instructions Recorded Confirmed Type atorvastatin 80 mg tablet 80 mg PO HS High Cholesterol 12/22/22 12/22/22 History bisoprolol fumarate 10 mg tablet 10 mg PO DAILY Heart Rhythm 12/22/22 12/22/22 History gabapentin 800 mg tablet 800 mg PO TID Neuropathy 12/22/22 12/22/22 History lisinopril 10 mg tablet 10 mg PO DAILY High Blood Pressure 12/22/22 12/22/22 History metformin 500 mg tablet,extended 500 mg PO DAILY Diabetes 12/22/22 12/22/22 History release 24 hr rivaroxaban 20 mg tablet (Xarelto) 20 mg PO QPMWITHMEAL Blood Thinner 12/22/22 12/23/22 History New Prescriptions to Start Prescriptions: Height: 1.78 m Weight: 98.157 kg Laboratory Results:: Laboratory Results - last 24 hr 12/25/22 22:04: Vancomycin Trough 16.9 H 12/26/22 03:00: Vancomycin Peak 31.6 12/26/22 05:40: WBC 3.2 L D, RBC 2.85 L, Hgb 9.0 L, Hct 27.2 L, MCV 95.4 H, MCH 31.6 H, MCHC 33.1, RDW 20.0 H, Plt Count 71 L D, MPV 10.1, Neut % (Auto) 66.8, Lymph % (Auto) 17.7, [place] % (Auto) 11.2 H, Eos % (Auto) 3.6, Baso % (Auto) 0.6, Neut # (Auto) 2.2, Lymph # (Auto) 0.6 L, [place] # (Auto) 0.4, Eos # (Auto) 0.1, Baso # (Auto) 0.0 Medical History: Medical History (Updated 12/23/22 @ 04:09 by Donell Pozo APRN) Abnormal computerized axial tomography of chest CAD (coronary artery disease) COPD (chronic obstructive pulmonary disease) Coughing up blood Diabetes Dyspnea on exertion Edema Edema Encounter for screening for malignant neoplasm of lung in current smoker with 30 pack year history or greater History of seasonal allergies HLD (hyperlipidemia) HTN (hypertension) Non-small cell lung cancer (NSCLC) DALTON (obstructive sleep apnea) Pulmonary arterial hypertension Pulmonary emphysema Smoking greater than 30 pack years SOB (shortness of breath) on exertion SVC syndrome Tobacco abuse counseling Tobacco abuse disorder Tobacco dependence Typical angina Assessment and Plan Assessment and plan all Dx Assessment and Plan for all problems:: VANCOMYCIN TROUGH LEVEL IS 16.9 AND PEAK LEVEL IS 31.6. RECOMMEND [id number] VANCOMYCIN AT CURRENT DOSE OF 1,750MG IV EVERY 12 HOURS. PHARMACY WILL CONTINUE TO MONITOR. -ROBIN SAMUEL, BOGDAND
--- NOTE | 2022-12-26 11:30 | EXP.DC.SUM ---
General Admission date:: 12/22/22 Discharge date: 12/26/22 HPI HPI HPI: This is a 57-year-old male with PMHx of hypertension, hyperlipidemia, CAD, diabetes, DALTON, COPD, PAD status post stenting, SVC syndrome, prior clot on Xarelto and lung adenocarcinoma who s/p radiation and had last chemo treatment on 12/08/2022 at [facility] presenting to the emergency department for evaluation with concern for pancytopenia on outpatient labs. Patient reported that since his last chemo treatment, he had initially been doing well, until 12/16 he noted that he had a large bloody bowel movement 1 time. He states it was bright red. After this, he had no blood in his stools or melena. He also noted very easy bruising and scattered petechiae on his upper extremities since then. He also has had swelling of his right leg. Given these things, he saw cardiology clinic today for evaluation. There, he was found to be pancytopenic, so he was sent to the emergency department for further evaluation and management. Hospital Course Hospital Course Hospital Course: 57 year-old male with PMHx of hypertension, hyperlipidemia, CAD, diabetes, DALTON, COPD, PAD status post stenting, SVC syndrome, prior clot on Xarelto and lung adenocarcinoma who s/p radiation and had last chemo treatment on 12/08/2022 (Dr. Morley oncology) presenting to the emergency department for evaluation with concern for pancytopenia on outpatient labs. On review of systems, the patient also admits to dyspnea on exertion and fatigue. Patient denies any recent fevers, cough, congestion, chest pain, abdominal pain, nausea, vomiting, changes in bowel movements, or other concerns. ER labs showed Hb of 6.8. WBC 0.9 Plt 22. Blood transfusion ordered. Admitted for transfusion, treatment with filgrastim, and monitoring for improvement. Responded well with improvement in cell lines. Stable for discharge home. Problems addressed during admission as follows: Chemotherapy induced pancytopenia Immunocompromised state Non-small cell lung cancer stage IV CT the chest obtained on admission. Tumor burden noted with no PEs. Bilateral venous Doppler with no DVT noted. Was monitored during hospitalization with neutropenic precautions. Received 2 units packed red blood cells on 12/22 with good response. Held anticoagulation while platelets improved above 50,000. Received Neupogen x3 with adequate response. WBC improved to 3.2, Hgb stable and 9, platelets improved to 71. Coag negative Staphylococcus bacteremia Trending labs and inflammatory markers. Patient had single aerobic bottle positive for strep para sanguinous. Atypical pathogen. Suspect commensal organism and not true infection. Was treated empirically with IV antibiotics for 48 hours pending culture results. Antibiotics discontinued at discharge given clinical stability. Chronic hypoxic respiratory failure Not in exacerbation. Tobacco use history with last tobacco use reported October 17, 2022. Respiratory status improved to room air. Discharged on room air. Continued inhaler therapy during admission. SVC syndrome Tumor burden noted on imaging, Status post stent placement at [facility], initially avoided anticoagulation therapy with presenting hemoglobin and platelet count. After resolution, resumed anticoagulation at discharge. Coronary artery disease Left heart cath 09/30/2022 with no identified obstructive disease. Avoiding antiplatelet therapy with diminished platelet count. Continue statin therapy, beta-lalito, PINKY inhibitor. Stable for discharge home. Has follow-up with oncology this coming . Spent 35 minutes in discharge counseling, documentation, chart review, and direct care with patient. Exam Data for Last 24 hours Vital signs and Labs for Last 24 Hours: Temp Pulse Resp BP Pulse Ox O2 Del Method 97.9 F 115 H 20 112/77 99 Room Air 12/26/22 08:00 12/26/22 08:00 12/26/22 08:00 12/26/22 08:00 12/26/22 08:00 12/26/22 08:00
--- NOTE | 2022-12-26 12:24 | HMH.PHAINT1 ---
Pharmacy Intervention Comments: DISCHARGE MEDICATION COUNSELING PROVIDED. DISCUSSED STARTING PANTOPRAZOLE (FOR STOMACH ACID/REFLUX, DAILY, TAKE 30-60 MINUTES BEFORE FIRST MEAL OF THE DAY, MAY CAUSE HEADACHE). NO QUESTIONS AT THIS TIME.
--- NOTE | 2022-12-27 15:37 | CARE MANAGER ---
Spoke with patient for post-discharge phone interview, no issues noted.
== END 2022-12-26 13:03 | disposition home or self-care (01) | DRG 809 ==
LOC: ER 21:24 → 2ND 21:46
PROVIDERS: Nurse Practitioner Family; Admitting Provider Family Medicine; Emergency Provider Emergency Medicine; PCP Nurse Practitioner Family; Visit Provider Family Medicine
DX: D61.811 Other drug-induced pancytopenia (principal); C34.90 Malignant neoplasm of unspecified part of unspecified bronchus or lung; R78.81 Bacteremia; D84.9 Immunodeficiency, unspecified; T45.1X5A Adverse effect of antineoplastic and immunosuppressive drugs, initial encounter; R23.3 Spontaneous ecchymoses; J44.9 Chronic obstructive pulmonary disease, unspecified; I25.10 Atherosclerotic heart disease of native coronary artery without angina pectoris; E11.59 Type 2 diabetes mellitus with other circulatory complications; E78.2 Mixed hyperlipidemia; I27.20 Pulmonary hypertension, unspecified; E11.51 Type 2 diabetes mellitus with diabetic peripheral angiopathy without gangrene; Z87.891 Personal history of nicotine dependence
CPT/HCPCS: 36415; 71045; 71275; 80048; 80053; 80202; 81001; 82803; 83605; 83615; 83735; 84100; 84145; 84436; 84443; 84550; 85007; 85025; 85378; 85384; 85610; 85730; 86850; 87040; 87077; 87186; 93005; 94640; 99291; J1442; P9016; Q9967

== ENCOUNTER 2022-12-29 09:47 | Outpatient (CLI) | payer MEDICARE, SELFPAY ==
--- NOTE | 2022-12-29 09:50 | PC.NURSE ---
0950-started left forearm 22g iv;obtained blood return;collected labs;flushed with ns;pt to oncology appointment; pt to return for treatment per md order
[2022-12-29 09:59] VITALS: BMI 30.2
[2022-12-29 10:14] LABS: Basophils % 0.3 % (0.1-2.0); Eosinophils % 0.5 % (0.1-12.0); Hematocrit 30.3 % (42.0-52.0); Hemoglobin 9.8 g/dL (14.1-18.0); Lymphocytes # 1.2 K/mm3 (0.7-4.5); Lymphocytes % 17.7 % (10-50); Mean Corpuscular HGB Conc 32.3 g/dL (31.8-35.4); Mean Corpuscular Hemoglobin 31.2 pg (27.0-31.2); Mean Corpuscular Volume 96.6 fl (80-94); Mean Platelet Volume 10.8 fl (7.4-10.4); Monocytes # 0.7 K/mm3 (0.1-1.0); Monocytes % 10.3 % (1.7-9.3); Neutrophils # 4.9 K/mm3 (1.8-7.8); Neutrophils % 71.2 % (37.0-80.0); Platelet Count 100 K/mm3 (142-424); Red Blood Count 3.13 M/mm3 (4.60-6.20); Red Cell Distribution Width 20.5 % (11.5-17.5); White Blood Count 6.9 K/mm3 (4.8-10.8)
[2022-12-29 10:19] LABS: Chloride 109 mmol/L (98-107); Potassium 3.8 mmoL/L (3.5-5.1); Sodium 144 mmol/L (136-145)
[2022-12-29 10:22] LABS: Alanine Aminotransferase 50 U/L (12-78); Albumin Level 3.6 g/dl (3.5-5.0); Albumin/Globulin Ratio 1.2 (1.1-1.8); Alkaline Phosphatase 111 U/L (38-126); Anion Gap 12.8 mEq/L (5-15); Aspartate Amino Transferase 45 U/L (17-59); Bilirubin,Total 0.5 mg/dl (0.2-1.3); Blood Urea Nitrogen 11 mg/dl (9-20); Carbon Dioxide 26 mmol/L (22.0-30.0); Creatinine Clearance Estimated 140 mL/min (50-200); Estimated Glomerular Filt Rate 100 ml/min (>60); GFR (African American) 121 ML/MIN (>60); Globulin 3.1 g/dL (1.3-3.2); Total Protein,Serum 6.7 g/dl (6.3-8.2)
[2022-12-29 10:23] LABS: Calcium 8.3 mg/dl (8.4-10.2); Glucose 130 mg/dl (74-100)
[2022-12-29 10:54] LABS: Thyroid Stimulating Hormone 1.45 uIU/mL (0.465-4.68)
--- NOTE | 2022-12-29 11:00 | PC.NURSE ---
1100-per dex patterson with dr. frandy jones does not want pt to have treatment this week; pt to return next week; dex patterson removed iv in office. pt to d/c home
== END 2022-12-29 11:00 | disposition home or self-care (01) ==
LOC: INF 09:47
PROVIDERS: PCP Nurse Practitioner Family; Visit Provider Internal Medicine Medical Oncology
DX: R91.8 Other nonspecific abnormal finding of lung field (principal); Z79.899 Other long term (current) drug therapy; C34.91 Malignant neoplasm of unspecified part of right bronchus or lung
CPT/HCPCS: 36415; 80053; 82024; 82533; 84443; 85025

== ENCOUNTER 2023-01-05 08:18 | Outpatient (CLI) | payer MEDICARE, SELFPAY ==
[2023-01-05] VITALS (8 sets, daily range): BP systolic 104–122; BP diastolic 60–68; PULSE 72–79; RESP 16–17; TEMP 36.2; O2SAT 99; BMI 29.7
[2023-01-05 08:46] LABS: Basophils % 0.1 % (0.1-2.0); Eosinophils % 0.2 % (0.1-12.0); Hematocrit 31.6 % (42.0-52.0); Hemoglobin 10.1 g/dL (14.1-18.0); Lymphocytes # 0.6 K/mm3 (0.7-4.5); Lymphocytes % 11.8 % (10-50); Mean Corpuscular HGB Conc 32.1 g/dL (31.8-35.4); Mean Corpuscular Hemoglobin 32.2 pg (27.0-31.2); Mean Corpuscular Volume 100.4 fl (80-94); Mean Platelet Volume 9.4 fl (7.4-10.4); Monocytes # 0.1 K/mm3 (0.1-1.0); Monocytes % 2.9 % (1.7-9.3); Neutrophils # 4.2 K/mm3 (1.8-7.8); Neutrophils % 84.9 % (37.0-80.0); Platelet Count 154 K/mm3 (142-424); Red Blood Count 3.15 M/mm3 (4.60-6.20); Red Cell Distribution Width 23.3 % (11.5-17.5)
[2023-01-05 09:02] LABS: Chloride 108 mmol/L (98-107); Potassium 4.1 mmoL/L (3.5-5.1); Sodium 139 mmol/L (136-145)
[2023-01-05 09:05] LABS: Alanine Aminotransferase 41 U/L (12-78); Albumin Level 3.7 g/dl (3.5-5.0); Albumin/Globulin Ratio 1.1 (1.1-1.8); Alkaline Phosphatase 135 U/L (38-126); Anion Gap 10.1 mEq/L (5-15); Aspartate Amino Transferase 39 U/L (17-59); Bilirubin,Total 0.5 mg/dl (0.2-1.3); Blood Urea Nitrogen 12 mg/dl (9-20); Calcium 8.1 mg/dl (8.4-10.2); Carbon Dioxide 25 mmol/L (22.0-30.0); Creatinine Clearance Estimated 122 mL/min (50-200); Estimated Glomerular Filt Rate 87 ml/min (>60); GFR (African American) 106 ML/MIN (>60); Globulin 3.3 g/dL (1.3-3.2); Glucose 149 mg/dl (74-100)
[2023-01-05 09:36] LABS: Thyroid Stimulating Hormone 0.98 uIU/mL (0.465-4.68)
--- NOTE | 2023-01-05 14:05 | PC.NURSE ---
1225 - APPLIED NEULASTA 6MG ONPRO TO LEFT UPPER ARM AFTER CLEANING WITH ALCOHOL. INSTUCTED ON HOW IT WORKS AND GAVE NUMBER TO CALL FOR ANY ISSUES. UNDERSTANDING VERBALIZED.
[2023-01-06 15:04] LABS: Adrenocorticotropic Hormone 2.4 pg/mL (7.2-63.3)
== END 2023-01-05 12:35 | disposition home or self-care (01) ==
LOC: INF 08:18
PROVIDERS: PCP Nurse Practitioner Family; Visit Provider Internal Medicine Medical Oncology
DX: Z79.899 Other long term (current) drug therapy; Z51.11 Encounter for antineoplastic chemotherapy; C34.91 Malignant neoplasm of unspecified part of right bronchus or lung; D61.818 Other pancytopenia
CPT/HCPCS: 80053; 82024; 82533; 84443; 85025; 96377; 96411; 96413; 96417; J2469; J2505; J8501; J9045; J9271; J9305

== ENCOUNTER 2023-01-10 19:26 | Observation (INO) | payer MEDICARE, SELFPAY ==
[2023-01-10 19:27] VITALS: BP 99/56; PULSE 100; RESP 18; TEMP 37.7; O2SAT 98; BMI 30.5
[2023-01-10 19:43] VITALS: BP 102/56; PULSE 99; RESP 17; O2SAT 99
[2023-01-10 19:58] VITALS: BP 96/60; PULSE 101; RESP 18; O2SAT 98
[2023-01-10 20:00] VITALS: BP 89/55; PULSE 100; RESP 18; O2SAT 98
[2023-01-10 20:04] VITALS: BP 84/49; PULSE 98; RESP 16; O2SAT 97
--- NOTE | 2023-01-10 20:06 | PC.NURSE ---
Rounded on pt. no new complaints at this time. pts BP is 84/[address] Crowell. pt is going to get a bolus of LR
[2023-01-10 20:19] LABS: Basophils % 0.2 % (0.1-2.0); Eosinophils # 0.1 K/mm3 (0.0-0.4); Eosinophils % 1.3 % (0.1-12.0); Hematocrit 34.4 % (42.0-52.0); Hemoglobin 10.9 g/dL (14.1-18.0); Lymphocytes # 0.7 K/mm3 (0.7-4.5); Lymphocytes % 14.1 % (10-50); Mean Corpuscular HGB Conc 31.6 g/dL (31.8-35.4); Mean Corpuscular Volume 104.3 fl (80-94); Mean Platelet Volume 8.6 fl (7.4-10.4); Monocytes # 0.1 K/mm3 (0.1-1.0); Monocytes % 2.7 % (1.7-9.3); Neutrophils # 3.9 K/mm3 (1.8-7.8); Neutrophils % 81.6 % (37.0-80.0); Platelet Count 92 K/mm3 (142-424); White Blood Count 4.8 K/mm3 (4.8-10.8)
[2023-01-10 20:29] LABS: Alanine Aminotransferase 29 U/L (12-78); Albumin Level 3.9 g/dl (3.5-5.0); Albumin/Globulin Ratio 1.3 (1.1-1.8); Alkaline Phosphatase 141 U/L (38-126); Anion Gap 12.8 mEq/L (5-15); Aspartate Amino Transferase 26 U/L (17-59); Bilirubin,Total 0.7 mg/dl (0.2-1.3); Blood Urea Nitrogen 31 mg/dl (9-20); Calcium 8.4 mg/dl (8.4-10.2); Carbon Dioxide 28 mmol/L (22.0-30.0); Chloride 99 mmol/L (98-107); Creatinine Clearance Estimated 102 mL/min (50-200); Estimated Glomerular Filt Rate 69 ml/min (>60); GFR (African American) 84 ML/MIN (>60); Globulin 2.9 g/dL (1.3-3.2); Glucose 180 mg/dl (74-100); Potassium 3.8 mmoL/L (3.5-5.1); Sodium 136 mmol/L (136-145); Total Protein,Serum 6.8 g/dl (6.3-8.2)
[2023-01-10 20:39] LABS: Fibrinogen 232 mg/dL (229.9-363.5)
--- NOTE | 2023-01-10 23:01 | CT_ITS ---
PROCEDURE INFORMATION: Exam: CTA Abdomen and Pelvis With Contrast Exam date and time: 01/10/2023 11:16 PM Age: 57 years old Clinical indication: Other: Bloody stools; Patient HX: States he received chemo for lung cancer; Additional info: Lgib TECHNIQUE: Imaging protocol: Computed tomographic angiography of the abdomen and pelvis with contrast. Exam focused on the arteries. 3D rendering (Not supervised by radiologist): MIP and/or 3D reconstructed images were created by the technologist. Radiation optimization: All CT scans at this facility use at least one of these dose optimization techniques: automated exposure control; mA and/or kV adjustment per patient size (includes targeted exams where dose is matched to clinical indication); or iterative reconstruction. Contrast material: ISOVUE; Contrast volume: 100 ml; Contrast route: INTRAVENOUS (IV); REPORTING DATA: Count of CT and Cardiac NM exams in prior 12 months: This patient has received 5 known CTs and 0 known cardiac nuclear medicine studies in the 12 months prior to the current study. COMPARISON: [facility] abdomen pelvis wo con 10/13/2018 15:58 FINDINGS: Mediastinal space: Partially imaged right-sided mediastinal mass. Aorta: No aortic aneurysm. No aortic dissection. Celiac trunk and mesenteric arteries: No occlusion or significant stenosis. Renal arteries: No occlusion or significant stenosis. Accessory left renal artery. Right iliac arteries: Right common iliac arterial stent appears patent. Left iliac arteries: The left common iliac arterial stent is occluded. Reconstitution occurs distally near the proximal common femoral artery. Other arteries: The arteries demonstrate severe atherosclerotic disease. Veins: SVC stent is noted and is patent. Liver: No mass. Gallbladder and bile ducts: Contracted gallbladder. Pancreas: Unremarkable. No mass. No ductal dilation. Spleen: Unremarkable. No splenomegaly. Adrenal glands: Left adrenal nodules measure up to 3.2 cm. These are new compared to 2019 suggesting that these could represent metastatic disease. Kidneys and ureters: Low attenuation renal lesions measuring up to 2.2 cm in diameter are incompletely characterized, but are likely cysts. No followup imaging is warranted. Stomach and bowel: There is a 2.4 cm peripherally enhancing mass along the superior margin of the sigmoid colon on image 166 series 5. Appendix: Unremarkable appendix. Intraperitoneal space: Unremarkable. No free air. No significant fluid collection. Lymph nodes: Unremarkable. No enlarged lymph nodes. Urinary bladder: Unremarkable. No mass. Reproductive: Unremarkable as visualized. Bones/joints: No acute fracture. Soft tissues: Tiny fat containing umbilical hernia. Other findings: Stigmata of old granulomatous disease. IMPRESSION: 1. There is no extravasated contrast in the lumen of bowel to identify the source of GI bleed. 2. There is a 2.4 cm peripherally enhancing mass along the superior margin of the sigmoid colon on image 166 series 5. This is more likely to represent malignancy versus metastatic disease than diverticulitis/abscess. 3. Partially imaged right-sided mediastinal mass. This is likely related to known lung cancer. 4. The left common iliac arterial stent is occluded. Reconstitution occurs distally near the proximal common femoral artery. 5. Left adrenal nodules measure up to 3.2 cm. These are new compared to 2019 suggesting that these could represent metastatic disease.
--- NOTE | 2023-01-10 23:29 | HMH.EDGENADL ---
Discharge Plan Disposition Chief Complaint: GI Bleed Prescriptions Prescriptions: No Action folic acid 1 mg tablet 1 mg PO DAILY Patient Comments: TAKE 1 TABLET BY MOUTH ONCE DAILY oxycodone-acetaminophen [Percocet] 10-325 mg tablet 1 tab PO TID PRN (Reason: pain) Qty: 90 0RF gabapentin 800 mg tablet 800 mg PO TID Qty: 90 5RF pantoprazole 40 mg tablet,delayed release (DR/EC) 40 mg PO DAILY Xarelto 20 mg tablet 20 mg PO DAILY Patient Comments: TAKE 1 TABLET BY MOUTH WITH DINNER. START AFTER YOU COMPLETE 21 DAYS OF 15MG DOSING atorvastatin 80 mg tablet 80 mg PO HS Patient Comments: TAKE 1 TABLET BY MOUTH ONCE DAILY FOR CHOLESTEROL bisoprolol fumarate 10 mg tablet 5 mg PO DAILY Patient Comments: TAKE 1 TABLET BY MOUTH ONCE DAILY lisinopril 10 mg tablet 10 mg PO DAILY metformin 500 mg tablet extended release 24 hr 500 mg PO DAILY Referrals Follow up/Referrals: Francisco Javier Watkins APRN [Primary Care Provider] - See instructions Instructions Patient Instructions: DI for Gastrointestinal Bleeding Discharge ED Provider: Jamal Crowell Adult HPI General Chief complaint: GI Bleed Stated complaint: passing blood in stool, chemo 02/03 Time Seen by Provider: 01/10/23 19:32 Mode of Arrival: Ambulatory Source of Information: Patient Limitations: No Limitations Description of Symptoms (Recalled from ER Triage Doc. by RN): Presents to Ed with c/o bloody stool that occured 20 min. 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 Patient reports recieving chemo on for lung cancer. Patient is pale upon initial assessment. Denies abd pain or vomiting. Patient did report having hx of GI bleeds. History of Present Illness HPI narrative: Patient presents for evaluation of 1 episode of bright red blood per rectum, starting shortly prior to arrival, in the absence of any abdominal pain or pain with bowel movements, has had similar symptoms before in the setting of pancytopenia secondary to chemotherapy for lung cancer, no previous therapies, has associated weakness and lightheadedness, no chest pain or palpitations or shortness of breath. Denies any melanic stools. Of note is on anticoagulation for history of DVT Related Data Home Medications Medication Instructions Recorded Confirmed atorvastatin 80 mg tablet 80 mg PO HS High Cholesterol 12/22/22 01/10/23 bisoprolol fumarate 10 mg tablet 5 mg PO DAILY Heart Rhythm 12/22/22 01/10/23 lisinopril 10 mg tablet 10 mg PO DAILY High Blood Pressure 12/22/22 01/10/23 metformin 500 mg tablet,extended 500 mg PO DAILY Diabetes 12/22/22 01/10/23 release 24 hr folic acid 1 mg tablet 1 mg PO DAILY Supplement 01/05/23 01/10/23 pantoprazole 40 mg tablet,delayed 40 mg PO DAILY GERD 01/05/23 01/10/23 release rivaroxaban 20 mg tablet (Xarelto) 20 mg PO DAILY 01/10/23 01/10/23 Previous Rx's Medication Instructions Recorded gabapentin 800 mg tablet 800 mg PO TID Neuropathy #90 tabs 12/29/22 oxycodone-acetaminophen 10 mg-325 1 tab PO TID PRN pain #90 tabs 12/29/22 mg tablet (Percocet) Allergies Allergy/AdvReac Type Severity Reaction Status Date / Time No Known Allergies Allergy Verified 01/05/23 09:04 [facility] Disclaimer: The information contained in this section may have been updated after the patient was seen, as this information can be updated by other users. Medical History Abnormal computerized axial tomography of chest CAD (coronary artery disease) COPD (chronic obstructive pulmonary disease) Coughing up blood Diabetes Dyspnea on exertion Edema Edema Encounter for screening for malignant neoplasm of lung in current smoker with 30 pack year history or greater History of seasonal allergies HLD (hyperlipidemia) HTN (hypertension) Non-small cell lung cancer (NSCLC) DALTON (obstructive sleep apnea) Pulmonary arterial hypertension Pulmonary emphysema Smoking greater than 30 p
--- NOTE | 2023-01-10 23:40 | PC.NURSE ---
Dr. Crowell is speaking with Umang FISCHER about admitting the pt to the floor.
--- NOTE | 2023-01-10 23:44 | PC.NURSE ---
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
[2023-01-10 23:54] VITALS: BP 102/48; PULSE 106; RESP 18; TEMP 36.7; O2SAT 98
[2023-01-10 23:56] LABS: INR 1.17 (0.9-1.1); Prothrombin Time 12.5 seconds (10.1-12.5)
[2023-01-11] VITALS: BP 108/55; PULSE 107; RESP 18; TEMP 37.2; O2SAT 98
--- NOTE | 2023-01-11 00:10 | PC.NURSE ---
Patient arrived to floor via wheelchair at 00:05.
--- NOTE | 2023-01-11 00:16 | EXP.HP ---
History of Present Illness *Admission Date: 01/11/23 *Reason for visit:: GI bleeding/ pancytopenia *History of present illness: 57 year old patient presents to ED for evaluation of 1 episode of bright red blood per rectum, starting shortly prior to arrival. PMHX of pancytopenia, adenocarcinoma of lung, COPD, HLD, CAD, DM, HTN, and PAD. HE was recently admitted to [facility] on 12/22/22 for same scenario. This admission his hgb is 10.9, WBC 4.8, and plt count of 92. Prior pancytopenia admission was from plt count of 22 and WBC 0.9. He was established with Dr. Morley here at [facility] and last seen her in office on 01/05/23 with no c/o bleeding or bruising. He was restarted on xarelto after improvement in pancytopenia. He is hypotensive in the ED and responsive to fluid boluses. He has not had anymore bloody BM. The ED physician consulted the hospitalist team for further medical management and to obtain consult for general surgery. [facility] Disclaimer: The information contained in this section may have been updated after the patient was seen, as this information can be updated by other users. Medical History (Updated 01/11/23 @ 07:34 by Enmanuel Reina MD) Abnormal computerized axial tomography of chest CAD (coronary artery disease) COPD (chronic obstructive pulmonary disease) Coughing up blood Diabetes DVT (deep venous thrombosis) Dyspnea on exertion Edema Edema Encounter for screening for malignant neoplasm of lung in current smoker with 30 pack year history or greater History of seasonal allergies HLD (hyperlipidemia) HTN (hypertension) Non-small cell lung cancer (NSCLC) DALTON (obstructive sleep apnea) PAD (peripheral artery disease) Pulmonary arterial hypertension Pulmonary emphysema Smoking greater than 30 pack years SOB (shortness of breath) on exertion Stenosis of artery of left lower extremity Stenosis of artery of right lower extremity Superior vena cava compression syndrome SVC syndrome Tobacco abuse counseling Tobacco abuse disorder Tobacco dependence Typical angina Surgical History History of cardiac cath History of colonoscopy History of foot surgery History of umbilical hernia repair Family History Other Coronary artery disease Diabetes Hypertension Social History Smoking Status: Never smoker second hand exposure: Yes alcohol intake: never substance use type: denies use current occupational status: other Travel in the last 8 weeks: None household members: spouse housing: house current occupational exposures/hazards: No caffeine: Yes Review of Systems *Cardiovascular Cardiovascular: Reports system reviewed and no additional complaints, except as documented *Respiratory Respiratory: Reports system reviewed and no additional complaints, except as documented *Gastrointestinal Gastrointestinal: Reports hematochezia *Genitourinary Genitourinary: Reports system reviewed and no additional complaints, except as documented *Musculoskeletal Musculoskeletal: Reports system reviewed and no additional complaints, except as documented *Neurologic Neurologic: Reports system reviewed and no additional complaints, except as documented Meds Home Medications and Allergies Home Medications Medication Instructions Recorded Confirmed Type atorvastatin 80 mg tablet 80 mg PO HS Cholesterol 12/22/22 01/10/23 History bisoprolol fumarate 10 mg tablet 5 mg PO DAILY Heart Rhythm 12/22/22 01/11/23 History metformin 500 mg tablet,extended 500 mg PO DAILY Diabetes 12/22/22 01/11/23 History release 24 hr gabapentin 800 mg tablet 800 mg PO TID Neuropathy #90 tabs 12/29/22 01/11/23 Rx oxycodone-acetaminophen 10 mg-325 1 tab PO TID PRN pain #90 tabs 12/29/22 01/11/23 Rx mg tablet (Percocet) folic acid 1 mg tablet 1 mg PO DAILY Supplement 01/05/23 01/11/23 Hist
[2023-01-11 00:21] VITALS: BP 108/55; PULSE 107; RESP 18; TEMP 37.2; O2SAT 98; BMI 31.4
[2023-01-11 00:29] VITALS: BMI 31.4
[2023-01-11 04:00] VITALS: BP 104/56; PULSE 95; RESP 19; TEMP 37.1; O2SAT 98
[2023-01-11 04:36] LABS: Hemoglobin A1C 5.5 % (4.0-6.0)
--- NOTE | 2023-01-11 05:44 | PC.NURSE ---
pt admitted for lower gi bleed. awaiting gen sx consult and oncology consult. npo after mn
[2023-01-11 06:26] LABS: Chloride 103 mmol/L (98-107); Potassium 3.7 mmoL/L (3.5-5.1); Sodium 137 mmol/L (136-145)
[2023-01-11 06:29] LABS: Anion Gap 8.7 mEq/L (5-15); Blood Urea Nitrogen 24 mg/dl (9-20); Calcium 7.7 mg/dl (8.4-10.2); Carbon Dioxide 29 mmol/L (22.0-30.0); Creatinine Clearance Estimated 145 mL/min (50-200); Estimated Glomerular Filt Rate 100 ml/min (>60); GFR (African American) 121 ML/MIN (>60); Glucose 124 mg/dl (74-100)
[2023-01-11 06:48] LABS: Basophils % 0.5 % (0.1-2.0); Eosinophils # 0.1 K/mm3 (0.0-0.4); Eosinophils % 1.9 % (0.1-12.0); Lymphocytes # 0.7 K/mm3 (0.7-4.5); Mean Corpuscular HGB Conc 31.9 g/dL (31.8-35.4); Mean Corpuscular Hemoglobin 32.5 pg (27.0-31.2); Mean Corpuscular Volume 101.9 fl (80-94); Mean Platelet Volume 9.6 fl (7.4-10.4); Monocytes # 0.2 K/mm3 (0.1-1.0); Monocytes % 5.4 % (1.7-9.3); Neutrophils # 2.9 K/mm3 (1.8-7.8); Neutrophils % 74.3 % (37.0-80.0); Platelet Count 73 K/mm3 (142-424); Red Blood Count 2.85 M/mm3 (4.60-6.20); White Blood Count 3.8 K/mm3 (4.8-10.8)
[2023-01-11 07:03] LABS: Hemoglobin 9.3 g/dL (14.1-18.0)
[2023-01-11 07:14] VITALS: BP 95/72; PULSE 86; RESP 18; TEMP 36.7; O2SAT 98
--- NOTE | 2023-01-11 07:30 | EXP.SURG.CON ---
History of Present Illness *Admission Date: 01/11/23 *Reason for visit:: Prep red blood per rectum *History of present illness: This is a 57-year-old gentleman seen in consultation from the hospitalist service for evaluation regarding bright red blood per rectum. Please see HPI forwarded from admission H&P below. He is currently without symptoms...claiming to feel better now . He is hopeful that he will be discharged home with outpatient follow-up. Forwarded from admission H&P: 57 year old patient presents to ED for evaluation of 1 episode of bright red blood per rectum, starting shortly prior to arrival. PMHX of pancytopenia, adenocarcinoma of lung, COPD, HLD, CAD, DM, HTN, and PAD. HE was recently admitted to [facility] on 12/22/22 for same scenario. This admission his hgb is 10.9, WBC 4.8, and plt count of 92. Prior pancytopenia admission was from plt count of 22 and WBC 0.9. He was established with Dr. Morley here at [facility] and last seen her in office on 01/05/23 with no c/o bleeding or bruising. He was restarted on xarelto after improvement in pancytopenia. He is hypotensive in the ED and responsive to fluid boluses. He has not had anymore bloody BM. The ED physician consulted the hospitalist team for further medical management and to obtain consult for general surgery. Forwarded from Dr. Morley's recent outpatient evaluation: Patient is a 57 year old new patient who is presenting on this date with lung cancer to establish care. 57 yo wm referred from [facility] for new dx of adenocarcinoma of lung. pt was initally found to have right hilar [place] [address] scan but did not get bx at the time. on 09/30/2022 he underwent RHC and began having hemoptysis. he had 10/14/2022 demonstrating right hilar mass. on 10/17/2022 he presented with increase facial swelling, BESS, and hemoptysis. ct scan showing severe stenosis of the SVC with extrinsic compression from hilar tumor as well as left adrenal nodule suspicious for metastatic focus. mri of brain was pradeep. pt was admitted to . imaging there per reports showed lower mesenteric nodule and thrombi present in svc and complete occlusio nof left common iliac common/external iliac arter stent. he was eval by rad/on and recommended upfront chemotherapy. he underwent svc stent plct on 10/28/2022 with relief. he was started on chemo with carbo/alimta cycle 1 while hospitalized at . he is getting radiation and has 6 more treatments. he has tolerated treatment well. he reports rash. not itching currently. on his chest wall. no hemoptysis. he would like to continue treatment at [facility]. due for cycle 2 of hcemo on 11/18/2022 recall: pt admitted after cycle 3 due to pancytopenia; bruising bleeding while on xarelto and plts 22K and +blood cx ?contimanant. today plts are 100K. he is back on xarelto. hgb and wbc improved. due for cycle 4 carbo/alimta/ keytruda (keytruda added with c2). eating well. pt returns today for f/up. counts improved and plts normal. feels well. no new complaints. [facility] Disclaimer: The information contained in this section may have been updated after the patient was seen, as this information can be updated by other users. Medical History (Updated 01/11/23 @ 07:34 by Enmanuel Reina MD) Abnormal computerized axial tomography of chest CAD (coronary artery disease) COPD (chronic obstructive pulmonary disease) Coughing up blood Diabetes DVT (deep venous thrombosis) Dyspnea on exertion Edema Edema Encounter for screening for malignant neoplasm of lung in current smoker with 30 pack year history or greater History of seasonal allergies HLD (hyperlipidemia) HTN (hypertension) Non-small cell lung cancer (NSCLC) DALTON (obstructive sleep apnea) PAD (peripheral artery disease) Pulmonary arterial hypertension Pulmonary emphysema Smoking greater than 30 pack years SOB (shortness of breath) on exertion Stenosis of artery of left lower extremity Stenosis of artery of right lower extremity
--- NOTE | 2023-01-11 07:35 | HMH.PHAINT1 ---
Pharmacy Intervention Comments: MEDICATION RECONCILIATION COMPLETED ON PATIENT USING EXTERNAL FILL HISTORY FROM PHARMACY AND LIST FROM ONCOLOGY. -ROBIN SAMUEL, BOGDAND
--- NOTE | 2023-01-11 10:41 | EXP.DC.SUM ---
General Admission date:: 01/11/23 Discharge date: 01/11/23 HPI HPI HPI: This is a 57-year-old gentleman seen in consultation from the hospitalist service for evaluation regarding bright red blood per rectum. Please see HPI forwarded from admission H&P below. He is currently without symptoms...claiming to feel better now . He is hopeful that he will be discharged home with outpatient follow-up. Forwarded from admission H&P: 57 year old patient presents to ED for evaluation of 1 episode of bright red blood per rectum, starting shortly prior to arrival. PMHX of pancytopenia, adenocarcinoma of lung, COPD, HLD, CAD, DM, HTN, and PAD. HE was recently admitted to [facility] on 12/22/22 for same scenario. This admission his hgb is 10.9, WBC 4.8, and plt count of 92. Prior pancytopenia admission was from plt count of 22 and WBC 0.9. He was established with Dr. Morley here at [facility] and last seen her in office on 01/05/23 with no c/o bleeding or bruising. He was restarted on xarelto after improvement in pancytopenia. He is hypotensive in the ED and responsive to fluid boluses. He has not had anymore bloody BM. The ED physician consulted the hospitalist team for further medical management and to obtain consult for general surgery. Forwarded from Dr. Morley's recent outpatient evaluation: Patient is a 57 year old new patient who is presenting on this date with lung cancer to establish care. 57 yo wm referred from [facility] for new dx of adenocarcinoma of lung. pt was initally found to have right hilar [place] [address] scan but did not get bx at the time. on 09/30/2022 he underwent RHC and began having hemoptysis. he had 10/14/2022 demonstrating right hilar mass. on 10/17/2022 he presented with increase facial swelling, BESS, and hemoptysis. ct scan showing severe stenosis of the SVC with extrinsic compression from hilar tumor as well as left adrenal nodule suspicious for metastatic focus. mri of brain was pradeep. pt was admitted to . imaging there per reports showed lower mesenteric nodule and thrombi present in svc and complete occlusio nof left common iliac common/external iliac arter stent. he was eval by rad/on and recommended upfront chemotherapy. he underwent svc stent plct on 10/28/2022 with relief. he was started on chemo with carbo/alimta cycle 1 while hospitalized at . he is getting radiation and has 6 more treatments. he has tolerated treatment well. he reports rash. not itching currently. on his chest wall. no hemoptysis. he would like to continue treatment at [facility]. due for cycle 2 of hcemo on 11/18/2022 recall: pt admitted after cycle 3 due to pancytopenia; bruising bleeding while on xarelto and plts 22K and +blood cx ?contimanant. today plts are 100K. he is back on xarelto. hgb and wbc improved. due for cycle 4 carbo/alimta/ keytruda (keytruda added with c2). eating well. pt returns today for f/up. counts improved and plts normal. feels well. no new complaints. Hospital Course Hospital Course Hospital Course: 57 year old patient presents to ED for evaluation of 1 episode of bright red blood per rectum, starting shortly prior to arrival. PMHX of pancytopenia, adenocarcinoma of lung, COPD, HLD, CAD, DM, HTN, and PAD. HE was recently admitted to [facility] on 12/22/22 for same scenario. This admission his hgb is 10.9, WBC 4.8, and plt count of 92. Prior pancytopenia admission was from plt count of 22 and WBC 0.9. He was established with Dr. Morley here at [facility] and last seen her in office on 01/05/23 with no c/o bleeding or bruising. He was restarted on xarelto after improvement in pancytopenia. He is hypotensive in the ED and responsive to fluid boluses. He has not had anymore bloody BM. The ED physician consulted the hospitalist team for further medical management and to obtain consult for general surgery. CT reviewed and reveals 2.4 cm mass in the superior margin of sigmoid colon. Patient's hemoglobin remained stable. Surgery consulted, patient does not w
== END 2023-01-11 11:28 | disposition home or self-care (01) ==
LOC: ER 19:35 → 2ND 01-11 00:03
PROVIDERS: Nurse Practitioner Critical Care Medicine; Admitting Provider Internal Medicine Adolescent Medicine; Emergency Provider Emergency Medicine; PCP Nurse Practitioner Family; Visit Provider Internal Medicine Adolescent Medicine
DX: K92.2 Gastrointestinal hemorrhage, unspecified (principal); I95.9 Hypotension, unspecified; D61.818 Other pancytopenia; C34.90 Malignant neoplasm of unspecified part of unspecified bronchus or lung; E11.59 Type 2 diabetes mellitus with other circulatory complications; I73.9 Peripheral vascular disease, unspecified; I10 Essential (primary) hypertension; G47.33 Obstructive sleep apnea (adult) (pediatric); I25.10 Atherosclerotic heart disease of native coronary artery without angina pectoris; E78.2 Mixed hyperlipidemia; J44.9 Chronic obstructive pulmonary disease, unspecified; Z79.899 Other long term (current) drug therapy; Z79.01 Long term (current) use of anticoagulants
CPT/HCPCS: 36415; 74174; 80048; 80053; 83036; 85025; 85384; 85610; 86850; 99285; G0378; Q9967

== ENCOUNTER 2023-01-12 12:25 | Outpatient (CLI) | payer MEDICARE, SELFPAY ==
[2023-01-12 12:35] VITALS: BMI 31.4
[2023-01-12 13:10] LABS: Basophils % 0.3 % (0.1-2.0); Eosinophils # 0.1 K/mm3 (0.0-0.4); Hematocrit 29.6 % (42.0-52.0); Hemoglobin 9.6 g/dL (14.1-18.0); Lymphocytes # 0.6 K/mm3 (0.7-4.5); Lymphocytes % 15.5 % (10-50); Mean Corpuscular HGB Conc 32.3 g/dL (31.8-35.4); Mean Corpuscular Hemoglobin 32.8 pg (27.0-31.2); Mean Corpuscular Volume 101.7 fl (80-94); Mean Platelet Volume 9.4 fl (7.4-10.4); Monocytes # 0.2 K/mm3 (0.1-1.0); Monocytes % 6.2 % (1.7-9.3); Neutrophils # 2.9 K/mm3 (1.8-7.8); Platelet Count 58 K/mm3 (142-424); Red Blood Count 2.91 M/mm3 (4.60-6.20); Red Cell Distribution Width 22.8 % (11.5-17.5); White Blood Count 3.8 K/mm3 (4.8-10.8)
--- NOTE | 2023-01-12 14:15 | PC.NURSE ---
1302 - BLOOD DRAWN FROM LEFT AC USING BUTTERFLY NEEDLE TO CHECK CBC PER DR CARBAJAL.
== END 2023-01-12 15:00 | disposition home or self-care (01) ==
PROVIDERS: PCP Nurse Practitioner Family; Visit Provider Internal Medicine Medical Oncology
DX: C34.90 Malignant neoplasm of unspecified part of unspecified bronchus or lung (principal)
CPT/HCPCS: 36415; 85025

== ENCOUNTER 2023-01-23 12:18 | Outpatient (CLI) | payer MEDICARE, SELFPAY ==
--- NOTE | 2023-01-23 12:25 | PC.NURSE ---
1225-collected labs via venipuncture stick in left ac with butterfly needle; pt d/c home.
[2023-01-23 12:26] VITALS: BMI 30.5
[2023-01-23 12:40] LABS: Eosinophils # 0.1 K/mm3 (0.0-0.4); Eosinophils % 1.5 % (0.1-12.0); Hematocrit 32.2 % (42.0-52.0); Hemoglobin 10.7 g/dL (14.1-18.0); Lymphocytes # 0.9 K/mm3 (0.7-4.5); Mean Corpuscular HGB Conc 33.3 g/dL (31.8-35.4); Mean Corpuscular Hemoglobin 36.4 pg (27.0-31.2); Mean Corpuscular Volume 109.4 fl (80-94); Mean Platelet Volume 9.6 fl (7.4-10.4); Monocytes # 0.4 K/mm3 (0.1-1.0); Monocytes % 7.6 % (1.7-9.3); Neutrophils # 3.4 K/mm3 (1.8-7.8); Neutrophils % 71.9 % (37.0-80.0); Platelet Count 130 K/mm3 (142-424); Red Blood Count 2.94 M/mm3 (4.60-6.20); Red Cell Distribution Width 23.6 % (11.5-17.5); White Blood Count 4.7 K/mm3 (4.8-10.8)
== END 2023-01-23 12:30 | disposition home or self-care (01) ==
LOC: LAB 12:19
PROVIDERS: PCP Nurse Practitioner Family; Visit Provider Internal Medicine Medical Oncology
DX: C34.90 Malignant neoplasm of unspecified part of unspecified bronchus or lung (principal)
CPT/HCPCS: 36415; 85025

== ENCOUNTER 2023-01-27 08:20 | Outpatient (CLI) | payer MEDICARE, SELFPAY ==
[2023-01-27 08:24] VITALS: BMI 30.2
[2023-01-27 08:47] LABS: Chloride 105 mmol/L (98-107); Sodium 140 mmol/L (136-145)
[2023-01-27 08:48] LABS: Potassium 3.8 mmoL/L (3.5-5.1)
[2023-01-27 08:50] LABS: Alanine Aminotransferase 76 U/L (12-78); Albumin Level 4.1 g/dl (3.5-5.0); Alkaline Phosphatase 112 U/L (38-126); Aspartate Amino Transferase 58 U/L (17-59); Bilirubin,Total 0.6 mg/dl (0.2-1.3); Blood Urea Nitrogen 10 mg/dl (9-20); Creatinine Clearance Estimated 124 mL/min (50-200); Estimated Glomerular Filt Rate 87 ml/min (>60); GFR (African American) 106 ML/MIN (>60)
[2023-01-27 08:51] LABS: Albumin/Globulin Ratio 1.4 (1.1-1.8); Anion Gap 10.8 mEq/L (5-15); Calcium 8.5 mg/dl (8.4-10.2); Carbon Dioxide 28 mmol/L (22.0-30.0); Glucose 113 mg/dl (74-100); Total Protein,Serum 7.1 g/dl (6.3-8.2)
[2023-01-27 09:21] LABS: Thyroid Stimulating Hormone 3.64 uIU/mL (0.465-4.68)
[2023-01-27 09:43] LABS: Basophils % 0.3 % (0.1-2.0); Eosinophils # 0.1 K/mm3 (0.0-0.4); Eosinophils % 2.1 % (0.1-12.0); Hematocrit 33.2 % (42.0-52.0); Hemoglobin 11.2 g/dL (14.1-18.0); Lymphocytes % 18.5 % (10-50); Mean Corpuscular HGB Conc 33.8 g/dL (31.8-35.4); Mean Corpuscular Hemoglobin 37.1 pg (27.0-31.2); Mean Corpuscular Volume 109.8 fl (80-94); Mean Platelet Volume 8.7 fl (7.4-10.4); Monocytes # 0.6 K/mm3 (0.1-1.0); Monocytes % 10.2 % (1.7-9.3); Neutrophils # 3.8 K/mm3 (1.8-7.8); Neutrophils % 68.9 % (37.0-80.0); Platelet Count 172 K/mm3 (142-424); Red Blood Count 3.02 M/mm3 (4.60-6.20); White Blood Count 5.5 K/mm3 (4.8-10.8)
--- NOTE | 2023-01-27 09:50 | PC.NURSE ---
0950-pt to return next monday01/31/23 for treatment.
[2023-01-28 13:09] LABS: Adrenocorticotropic Hormone 12.4 pg/mL (7.2-63.3)
== END 2023-01-27 09:50 | disposition home or self-care (01) ==
LOC: INF 08:21
PROVIDERS: PCP Nurse Practitioner Family; Visit Provider Internal Medicine Medical Oncology
DX: R91.8 Other nonspecific abnormal finding of lung field (principal); I10 Essential (primary) hypertension; C34.91 Malignant neoplasm of unspecified part of right bronchus or lung
CPT/HCPCS: 36415; 80053; 82024; 82533; 84443; 85025

== ENCOUNTER 2023-02-01 09:15 | Outpatient (CLI) | payer MEDICARE, SELFPAY ==
[2023-02-01 10:20] VITALS: BP 109/69; PULSE 69; RESP 17; TEMP 36.4; O2SAT 96
[2023-02-01 10:35] VITALS: BP 106/59; PULSE 68; RESP 16
[2023-02-01 10:50] VITALS: BP 107/59; PULSE 66; RESP 16
[2023-02-01 11:05] VITALS: BP 107/60; PULSE 66; RESP 17
[2023-02-01 11:20] VITALS: BP 107/60; PULSE 66; RESP 17
[2023-02-01 11:25] VITALS: BP 108/66; PULSE 68; RESP 17
--- NOTE | 2023-02-01 12:28 | PC.NURSE ---
1135 - NEULASTA 6MG INSTILLED INTO ON-BODY INJECTOR DEVICE AND APPLIED TO BACK OF LEFT UPPER ARM AT THIS TIME. REVIEWED INSTRUCTIONS WITH PT/. UNDERSTANDING VERBALIZED.
== END 2023-02-01 11:45 | disposition home or self-care (01) ==
LOC: INF 09:16
PROVIDERS: PCP Nurse Practitioner Family; Visit Provider Internal Medicine Medical Oncology
DX: Z51.11 Encounter for antineoplastic chemotherapy (principal); C34.91 Malignant neoplasm of unspecified part of right bronchus or lung
CPT/HCPCS: 96377; 96411; 96413; J2469; J2505; J8501; J9271; J9305; Q0166

== ENCOUNTER 2023-02-02 13:59 | Outpatient (CLI) | payer MEDICARE, SELFPAY ==
[2023-02-02 14:08] VITALS: BP 103/65; PULSE 65; RESP 18; O2SAT 97
== END 2023-02-02 14:09 | disposition home or self-care (01) ==
LOC: INF 14:00
PROVIDERS: PCP Nurse Practitioner Family; Visit Provider Internal Medicine Medical Oncology
DX: C34.91 Malignant neoplasm of unspecified part of right bronchus or lung (principal)
CPT/HCPCS: 96372; J2505

== ENCOUNTER 2023-02-08 12:49 | Outpatient (CLI) | payer MEDICARE, SELFPAY ==
--- NOTE | 2023-02-08 12:58 | PC.NURSE ---
1256-collected labs via venipuncture stick with butterfly needle in left ac; pt to d/c home
[2023-02-08 12:59] VITALS: BMI 30.9
[2023-02-08 13:19] LABS: Eosinophils # 0.1 K/mm3 (0.0-0.4); Eosinophils % 0.4 % (0.1-12.0); Hematocrit 36.8 % (42.0-52.0); Hemoglobin 12.5 g/dL (14.1-18.0); Lymphocytes # 0.9 K/mm3 (0.7-4.5); Lymphocytes % 4.5 % (10-50); Mean Corpuscular HGB Conc 33.9 g/dL (31.8-35.4); Mean Corpuscular Hemoglobin 36.9 pg (27.0-31.2); Mean Corpuscular Volume 108.8 fl (80-94); Mean Platelet Volume 9.1 fl (7.4-10.4); Monocytes # 0.7 K/mm3 (0.1-1.0); Monocytes % 3.5 % (1.7-9.3); Neutrophils # 17.8 K/mm3 (1.8-7.8); Neutrophils % 91.5 % (37.0-80.0); Platelet Count 59 K/mm3 (142-424); Red Blood Count 3.38 M/mm3 (4.60-6.20); Red Cell Distribution Width 20.1 % (11.5-17.5); White Blood Count 19.5 K/mm3 (4.8-10.8)
[2023-02-08 13:27] LABS: MANUAL DIFFERENTIAL MANUAL DIFFERENTIAL (MANUAL DIFF)
[2023-02-08 13:50] LABS: Lymphocytes % 6 % (10-50); Monocytes % 6 % (2-9); Neutrophils % 88 % (42-76); Platelet Estimate Moderate Decrease; Total Cells Counted 100
[2023-02-08 13:51] LABS: Hypochromasia 1+; Macrocytosis 1+; Tear Drop Cells 1+
== END 2023-02-08 12:58 | disposition home or self-care (01) ==
LOC: INF 12:50
PROVIDERS: Internal Medicine Medical Oncology; PCP Nurse Practitioner Family; Visit Provider Internal Medicine Medical Oncology
DX: C34.91 Malignant neoplasm of unspecified part of right bronchus or lung (principal)
CPT/HCPCS: 36415; 85007; 85025

== ENCOUNTER 2023-02-15 13:02 | Outpatient (CLI) | payer MEDICARE, SELFPAY ==
[2023-02-15 13:06] VITALS: BMI 30.9
[2023-02-15 13:20] LABS: Basophils % 0.1 % (0.1-2.0); Eosinophils # 0.2 K/mm3 (0.0-0.4); Eosinophils % 3.6 % (0.1-12.0); Hematocrit 33.7 % (42.0-52.0); Hemoglobin 11.6 g/dL (14.1-18.0); Lymphocytes # 0.7 K/mm3 (0.7-4.5); Lymphocytes % 11.9 % (10-50); Mean Corpuscular HGB Conc 34.4 g/dL (31.8-35.4); Mean Corpuscular Hemoglobin 37.8 pg (27.0-31.2); Mean Corpuscular Volume 109.9 fl (80-94); Mean Platelet Volume 9.9 fl (7.4-10.4); Monocytes # 0.3 K/mm3 (0.1-1.0); Monocytes % 4.6 % (1.7-9.3); Neutrophils # 4.8 K/mm3 (1.8-7.8); Neutrophils % 79.9 % (37.0-80.0); Platelet Count 71 K/mm3 (142-424); Red Blood Count 3.07 M/mm3 (4.60-6.20); Red Cell Distribution Width 19.4 % (11.5-17.5)
--- NOTE | 2023-02-15 13:23 | PC.NURSE ---
pt presented to clinic today with for weekly cbc. pt c/o increased shooting and stabbing pains down both legs, reports he's been taking gabapentin as prescribed. Pt also complained of increased SOA on exertion. reported that he had trouble catching his breath after walking short distances and occasionally felt out of breath even when sitting still. Pt has appt with Dr. Rucker next monday, RN told pt and to be sure to let him know of these symptoms and if he has worsening SOA or trouble breathing to go to the ER. This RN will report to MD if CBC is abnormal.
== END 2023-02-15 13:30 | disposition home or self-care (01) ==
LOC: INF 13:02
PROVIDERS: PCP Nurse Practitioner Family; Visit Provider Internal Medicine Medical Oncology
DX: R91.8 Other nonspecific abnormal finding of lung field (principal)
CPT/HCPCS: 36415; 85025

== ENCOUNTER 2023-02-22 08:22 | Outpatient (CLI) | payer MEDICARE, SELFPAY ==
[2023-02-22 08:28] VITALS: BMI 30.9
[2023-02-22 08:44] LABS: Basophils % 0.1 % (0.1-2.0); Eosinophils # 0.1 K/mm3 (0.0-0.4); Eosinophils % 0.8 % (0.1-12.0); Hematocrit 35.3 % (42.0-52.0); Hemoglobin 11.9 g/dL (14.1-18.0); Lymphocytes # 0.9 K/mm3 (0.7-4.5); Lymphocytes % 7.3 % (10-50); Mean Corpuscular HGB Conc 33.7 g/dL (31.8-35.4); Mean Corpuscular Hemoglobin 37.3 pg (27.0-31.2); Mean Corpuscular Volume 110.7 fl (80-94); Mean Platelet Volume 8.6 fl (7.4-10.4); Monocytes # 0.4 K/mm3 (0.1-1.0); Monocytes % 3.6 % (1.7-9.3); Neutrophils # 10.4 K/mm3 (1.8-7.8); Neutrophils % 88.1 % (37.0-80.0); Platelet Count 167 K/mm3 (142-424); Red Blood Count 3.18 M/mm3 (4.60-6.20); Red Cell Distribution Width 18.1 % (11.5-17.5); White Blood Count 11.8 K/mm3 (4.8-10.8)
[2023-02-22 08:45] LABS: MANUAL DIFFERENTIAL MANUAL DIFFERENTIAL (MANUAL DIFF)
[2023-02-22 08:53] LABS: Alanine Aminotransferase 72 U/L (12-78); Albumin Level 4.1 g/dl (3.5-5.0); Albumin/Globulin Ratio 1.2 (1.1-1.8); Alkaline Phosphatase 161 U/L (38-126); Anion Gap 16.3 mEq/L (5-15); Aspartate Amino Transferase 44 U/L (17-59); Bilirubin,Total 0.6 mg/dl (0.2-1.3); Blood Urea Nitrogen 13 mg/dl (9-20); Calcium 8.7 mg/dl (8.4-10.2); Carbon Dioxide 26 mmol/L (22.0-30.0); Chloride 100 mmol/L (98-107); Creatinine Clearance Estimated 127 mL/min (50-200); Estimated Glomerular Filt Rate 87 ml/min (>60); GFR (African American) 106 ML/MIN (>60); Globulin 3.4 g/dL (1.3-3.2); Glucose 170 mg/dl (74-100); Potassium 4.3 mmoL/L (3.5-5.1); Sodium 138 mmol/L (136-145); Total Protein,Serum 7.5 g/dl (6.3-8.2)
[2023-02-22 08:55] LABS: Lymphocytes % 6 % (10-50); Macrocytosis 1+; Monocytes % 5 % (2-9); Neutrophils % 89 % (42-76); Platelet Estimate Normal; Total Cells Counted 100
[2023-02-22 10:50] VITALS: BP 126/66; PULSE 63; RESP 18; TEMP 36.6; O2SAT 97
[2023-02-22 11:25] VITALS: BP 123/64; PULSE 64; RESP 18; TEMP 36.6; O2SAT 97
[2023-02-22 11:35] VITALS: BP 113/64; PULSE 59; RESP 18
[2023-02-22 11:50] VITALS: BP 123/66; PULSE 64
== END 2023-02-22 12:15 | disposition home or self-care (01) ==
LOC: INF 08:23
PROVIDERS: PCP Nurse Practitioner Family; Visit Provider Internal Medicine Medical Oncology
DX: R91.8 Other nonspecific abnormal finding of lung field (principal); C34.91 Malignant neoplasm of unspecified part of right bronchus or lung
CPT/HCPCS: 80053; 85007; 85025; 96411; 96413; J2469; J8501; J9271; J9305; Q0166

== ENCOUNTER 2023-02-23 12:35 | Outpatient (CLI) | payer MEDICARE, SELFPAY ==
[2023-02-23 13:13] VITALS: BP 104/62; PULSE 74; RESP 18; TEMP 36.4; O2SAT 97
== END 2023-02-23 13:18 | disposition home or self-care (01) ==
LOC: INF 12:36
PROVIDERS: PCP Nurse Practitioner Family; Visit Provider Internal Medicine Medical Oncology
DX: Z51.11 Encounter for antineoplastic chemotherapy (principal); C34.91 Malignant neoplasm of unspecified part of right bronchus or lung
CPT/HCPCS: 96372; J2505

== ENCOUNTER 2023-03-15 08:52 | Outpatient (CLI) | payer MEDICARE, SELFPAY ==
[2023-03-15 08:59] VITALS: BMI 31.2
[2023-03-15 09:23] LABS: Basophils % 0.1 % (0.1-2.0); Eosinophils # 0.1 K/mm3 (0.0-0.4); Eosinophils % 0.4 % (0.1-12.0); Hematocrit 35.1 % (42.0-52.0); Hemoglobin 11.7 g/dL (14.1-18.0); Lymphocytes % 6.5 % (10-50); Mean Corpuscular HGB Conc 33.2 g/dL (31.8-35.4); Mean Corpuscular Hemoglobin 37.2 pg (27.0-31.2); Mean Corpuscular Volume 112.1 fl (80-94); Mean Platelet Volume 8.8 fl (7.4-10.4); Monocytes # 0.5 K/mm3 (0.1-1.0); Monocytes % 3.4 % (1.7-9.3); Neutrophils # 13.5 K/mm3 (1.8-7.8); Neutrophils % 89.6 % (37.0-80.0); Platelet Count 179 K/mm3 (142-424); Red Blood Count 3.13 M/mm3 (4.60-6.20); Red Cell Distribution Width 17.5 % (11.5-17.5)
[2023-03-15 09:24] LABS: MANUAL DIFFERENTIAL MANUAL DIFFERENTIAL (MANUAL DIFF)
[2023-03-15 09:31] LABS: Chloride 103 mmol/L (98-107); Potassium 3.9 mmoL/L (3.5-5.1); Sodium 139 mmol/L (136-145)
[2023-03-15 09:33] LABS: Alanine Aminotransferase 77 U/L (12-78); Aspartate Amino Transferase 48 U/L (17-59); Blood Urea Nitrogen 13 mg/dl (9-20); Creatinine Clearance Estimated 127 mL/min (50-200); Estimated Glomerular Filt Rate 87 ml/min (>60); GFR (African American) 105 ML/MIN (>60)
[2023-03-15 09:34] LABS: Albumin Level 4.3 g/dl (3.5-5.0); Albumin/Globulin Ratio 1.3 (1.1-1.8); Alkaline Phosphatase 140 U/L (38-126); Anion Gap 12.9 mEq/L (5-15); Bilirubin,Total 0.5 mg/dl (0.2-1.3); Carbon Dioxide 27 mmol/L (22.0-30.0); Globulin 3.2 g/dL (1.3-3.2); Total Protein,Serum 7.5 g/dl (6.3-8.2)
[2023-03-15 09:35] LABS: Glucose 138 mg/dl (74-100)
[2023-03-15 09:54] LABS: Lymphocytes % 6 % (10-50); Macrocytosis 2+; Neutrophils % 94 % (42-76); Platelet Estimate Normal; Total Cells Counted 100
[2023-03-15 11:30] VITALS: BP 116/66; PULSE 71; RESP 17; TEMP 37.2; O2SAT 98
[2023-03-15 11:45] VITALS: BP 127/78; PULSE 72
[2023-03-15 12:00] VITALS: BP 108/61; PULSE 69; RESP 17
[2023-03-15 12:15] VITALS: BP 105/57; PULSE 70; RESP 17
[2023-03-15 12:25] VITALS: BP 106/63; PULSE 69; RESP 18
[2023-03-16 15:10] LABS: Adrenocorticotropic Hormone 2.1 pg/mL (7.2-63.3)
== END 2023-03-15 12:35 | disposition home or self-care (01) ==
LOC: INF 08:53
PROVIDERS: PCP Nurse Practitioner Family; Visit Provider Internal Medicine Medical Oncology
DX: R91.8 Other nonspecific abnormal finding of lung field (principal); Z79.899 Other long term (current) drug therapy; Z51.11 Encounter for antineoplastic chemotherapy; C34.91 Malignant neoplasm of unspecified part of right bronchus or lung
CPT/HCPCS: 80053; 82024; 82533; 84443; 85007; 85025; 96411; 96413; J9271; J9305

== ENCOUNTER 2023-04-13 08:20 | Outpatient (CLI) | payer MEDICARE, SELFPAY ==
[2023-04-13 08:27] VITALS: BMI 31.1
[2023-04-13 08:39] LABS: Basophils % 0.1 % (0.1-2.0); Eosinophils % 0.3 % (0.1-12.0); Hematocrit 44.6 % (42.0-52.0); Hemoglobin 14.4 g/dL (14.1-18.0); Lymphocytes # 0.8 K/mm3 (0.7-4.5); Mean Corpuscular HGB Conc 32.4 g/dL (31.8-35.4); Mean Corpuscular Hemoglobin 36.6 pg (27.0-31.2); Mean Corpuscular Volume 113.1 fl (80-94); Mean Platelet Volume 8.4 fl (7.4-10.4); Monocytes # 0.6 K/mm3 (0.1-1.0); Monocytes % 4.6 % (1.7-9.3); Neutrophils # 10.6 K/mm3 (1.8-7.8); Platelet Count 156 K/mm3 (142-424); Red Blood Count 3.95 M/mm3 (4.60-6.20); Red Cell Distribution Width 15.6 % (11.5-17.5)
[2023-04-13 08:42] LABS: MANUAL DIFFERENTIAL MANUAL DIFFERENTIAL (MANUAL DIFF)
[2023-04-13 08:54] LABS: Alanine Aminotransferase 48 U/L (12-78); Albumin Level 4.5 g/dl (3.5-5.0); Albumin/Globulin Ratio 1.4 (1.1-1.8); Alkaline Phosphatase 107 U/L (38-126); Aspartate Amino Transferase 34 U/L (17-59); Bilirubin,Total 0.6 mg/dl (0.2-1.3); Blood Urea Nitrogen 15 mg/dl (9-20); Calcium 9.2 mg/dl (8.4-10.2); Carbon Dioxide 30 mmol/L (22.0-30.0); Chloride 98 mmol/L (98-107); Creatinine Clearance Estimated 113 mL/min (50-200); Estimated Glomerular Filt Rate 77 ml/min (>60); GFR (African American) 93 ML/MIN (>60); Globulin 3.2 g/dL (1.3-3.2); Glucose 167 mg/dl (74-100); Sodium 137 mmol/L (136-145); Total Protein,Serum 7.7 g/dl (6.3-8.2)
[2023-04-13 09:05] LABS: Lymphocytes % 12 % (10-50); Macrocytosis 2+; Monocytes % 4 % (2-9); Neutrophils % 84 % (42-76); Total Cells Counted 100
[2023-04-13 09:07] LABS: Platelet Estimate Normal
[2023-04-13] MEDS: VITAMIN B-12 1,000 MCG 1ML VIAL 1000 MCG (09:40)
[2023-04-13 09:45] VITALS: BP 130/84; PULSE 76; RESP 18; O2SAT 97
== END 2023-04-13 23:59 ==
LOC: INF 08:21
PROVIDERS: PCP Nurse Practitioner Family; Visit Provider Internal Medicine Medical Oncology
DX: C34.90 Malignant neoplasm of unspecified part of unspecified bronchus or lung (principal)
CPT/HCPCS: 36415; 80053; 85007; 85025; 96372

== ENCOUNTER 2023-04-18 11:05 | Outpatient (CLI) | payer MEDICARE, SELFPAY ==
--- NOTE | 2023-04-18 11:11 | MR_ITS ---
FINAL REPORT CLINICAL HISTORY: LUNG CANCER COMPARISON: None FINDINGS: Multiplanar MR imaging of the brain was performed without and with contrast. There is mild age-appropriate atrophy. Scattered foci of increased T2 signal are seen in the cerebral white matter that have a nonspecific appearance but likely represent mild chronic ischemic/gliotic changes. There is no evidence of intracranial hemorrhage or mass. No abnormal ventricular dilatation is identified. There is no evidence of shift of the midline structures. No abnormal extra-axial fluid collection is seen. No area of abnormal restricted diffusion is identified. The posterior fossa and brainstem have an unremarkable appearance. No abnormal contrast enhancement is seen. Normal major vessel vascular flow voids are seen. IMPRESSION: Mild atrophy and chronic ischemic/gliotic changes. No acute intracranial abnormality. Reviewed, Interpreted and Dictated by Preet Dolan III, MD Transcribed by Malissa Ward Authenticated and [facility]
[2023-04-18] MEDS: SODIUM CHLORIDE 0.9% 10ML SYR (RAD ONLY) 10 ML IV (12:00)
[2023-04-18] MEDS: GADOTERIDOL INJ 17ML SYRINGE 20 ML IV (12:01)
== END 2023-04-18 23:59 ==
LOC: RAD 11:06
PROVIDERS: PCP Nurse Practitioner Family; Visit Provider Internal Medicine Medical Oncology
DX: C34.90 Malignant neoplasm of unspecified part of unspecified bronchus or lung (principal)
CPT/HCPCS: 70553; A9576

== ENCOUNTER 2023-04-19 08:48 | Outpatient (CLI) | payer MEDICARE, SELFPAY ==
--- NOTE | 2023-04-19 08:57 | NM_ITS ---
FINAL REPORT CLINICAL HISTORY: LUNG CANCER, RT SHOULDER PAIN, HX OF RADIATION AND CHEMO 9:05AM 25.6 MCI TC MDP COMPARISON: CT chest 2022 FINDINGS: WHOLE BODY BONE SCAN PROCEDURE: The patient was injected with 25.6 mCi of technetium 99M MDP. Images were obtained after a three-hour delay. There is mildly increased tracer activity in the bilateral shoulders favored to be degenerative change. There is increased tracer activity in the left ankle which is also likely degenerative. No other abnormal radiotracer activity identified. IMPRESSION: No focal abnormality seen to suggest bony metastatic disease. Reviewed, Interpreted and Dictated by Preet Dolan III, MD Transcribed by Catalina Rosas Authenticated and [facility]
[2023-04-19] MEDS: ISOTOPE MDP (BONE);1 DOSE VIAL IV (09:16)
[2023-04-19] MEDS: SODIUM CHLORIDE 0.9% 10ML SYR (RAD ONLY) 10 ML IV (09:16)
== END 2023-04-19 23:59 ==
LOC: RAD 08:49
PROVIDERS: PCP Nurse Practitioner Family; Visit Provider Internal Medicine Medical Oncology
DX: C34.90 Malignant neoplasm of unspecified part of unspecified bronchus or lung (principal)
CPT/HCPCS: 78306; A9503

== ENCOUNTER 2023-04-26 09:10 | Outpatient (CLI) | payer MEDICARE, SELFPAY ==
--- NOTE | 2023-04-26 09:14 | CT_ITS ---
FINAL REPORT CLINICAL HISTORY: LUNG CANCER COMPARISON: 01/10/2023 FINDINGS: CT OF THE ABDOMEN AND PELVIS WITH CONTRAST Axial CT images of the abdomen and pelvis were obtained after the administration of oral and iv contrast. Coronal and sagittal reformatted images were also obtained and reviewed.This study was performed with techniques to keep radiation doses as low as reasonably achievable (ALARA). Individualized dose reduction techniques using automated exposure control or adjustment of mA and/or kV according to the patient's size were employed. Abdomen: The liver has an unremarkable appearance, without evidence of mass or biliary ductal dilatation. The spleen is unremarkable. There is a new 2.3 cm right adrenal nodule present. The left adrenal nodular mass measures 4.3 cm in diameter on today's examination, was 3.2 cm in January. These are likely metastases in a patient with known lung cancer. The pancreas has an unremarkable appearance. There is a small cyst again noted in the lower pole of the right kidney. Mild vascular calcifications are present. The aorta is normal in caliber. There is no free fluid or adenopathy. No mass or abnormal fluid collection is seen. Pelvis: The appendix is normal in appearance. The urinary bladder is unremarkable. No inflammatory process is seen. There is a mass superior to the sigmoid colon, which measures 2.4 cm in size, stable since the prior exam, likely metastasis. There is no evidence of bowel obstruction. The left iliac vascular arterial stent remains occluded, unchanged since the prior exam, with distal reconstitution. IMPRESSION: New 2.3 cm right adrenal nodule, likely a metastasis. The left adrenal nodule noted on the prior exam has increased in size from 4.3 cm to 3.2 cm in size. There is a mass superior to the sigmoid colon, it measures 2.4 cm in size, stable since the prior exam. This most likely also represents a metastasis. Reviewed, Interpreted and Dictated by Preet Dolan III, MD Transcribed by Malissa Ward Authenticated and [facility]
--- NOTE | 2023-04-26 09:14 | CT_ITS ---
FINAL REPORT CLINICAL HISTORY: LUNG CANCER COMPARISON: 10/18/2022 FINDINGS: Axial CT images of the chest were obtained with contrast. Coronal and sagittal reformatted images were also obtained. This study was performed with techniques to keep radiation doses as low as reasonably achievable, (ALARA). Individualized dose reduction techniques using automated exposure control or adjustment of mA and/or KV according to the patient's size were employed. There has been interval improvement in the mass involving the medial right upper thorax extending into the mediastinum since the prior exam of October. The mass measures on today's examination 5.6 x 2.6 cm in size, was previously 6.7 x 3.3 cm. A superior vena caval stent is once again identified, patent. The anterior medial right upper lobe nodule noted on the prior exam is slightly smaller, measuring 2.6 x 1.9 cm in size, was 2.8 x 1.9 cm. There is calcified granuloma present in the left upper lobe. There is bronchial wall thickening noted diffusely, most prominently in the right upper lobe. There is diffuse esophageal wall thickening identified, that may be inflammatory or possibly secondary to radiation therapy. IMPRESSION: There is been interval improvement in the mass involving the medial right upper thorax extending into the mediastinum. A superior vena caval stent remains present, and is patent. There is minimal decrease in size of the anterior medial right upper lobe nodular opacity when compared to the prior exam. Diffuse esophageal wall thickening that may be inflammatory or secondary to radiation therapy. Reviewed, Interpreted and Dictated by Preet Dolan III, MD Transcribed by Malissa Ward Authenticated and [facility]
[2023-04-26] MEDS: SODIUM CHLORIDE 0.9% 10ML SYR (RAD ONLY) 10 ML IV (10:05)
[2023-04-26] MEDS: IOPAMIDOL-370 (76%);100ML BOTTLE 75 ML IV (10:05)
== END 2023-04-26 23:59 ==
LOC: RAD 09:11
PROVIDERS: PCP Nurse Practitioner Family; Visit Provider Internal Medicine Medical Oncology
DX: C34.91 Malignant neoplasm of unspecified part of right bronchus or lung (principal)
CPT/HCPCS: 71260; 74177; Q9967

== ENCOUNTER 2023-05-17 10:18 | Outpatient (CLI) | payer MEDICARE, SELFPAY ==
[2023-05-17 10:21] VITALS: BMI 32.4
[2023-05-17 10:38] LABS: Basophils % 0.3 % (0.1-2.0); Eosinophils # 0.1 K/mm3 (0.0-0.4); Eosinophils % 1.7 % (0.1-12.0); Hematocrit 42.4 % (42.0-52.0); Lymphocytes # 0.7 K/mm3 (0.7-4.5); Lymphocytes % 12.2 % (10-50); Mean Corpuscular HGB Conc 33.1 g/dL (31.8-35.4); Mean Corpuscular Hemoglobin 35.7 pg (27.0-31.2); Mean Corpuscular Volume 107.9 fl (80-94); Mean Platelet Volume 8.2 fl (7.4-10.4); Monocytes # 0.3 K/mm3 (0.1-1.0); Monocytes % 4.5 % (1.7-9.3); Neutrophils # 4.7 K/mm3 (1.8-7.8); Neutrophils % 81.3 % (37.0-80.0); Platelet Count 110 K/mm3 (142-424); Red Blood Count 3.93 M/mm3 (4.60-6.20); Red Cell Distribution Width 14.6 % (11.5-17.5); White Blood Count 5.8 K/mm3 (4.8-10.8)
[2023-05-17 10:52] LABS: Alanine Aminotransferase 31 U/L (12-78); Albumin Level 3.9 g/dl (3.5-5.0); Albumin/Globulin Ratio 1.4 (1.1-1.8); Alkaline Phosphatase 111 U/L (38-126); Anion Gap 10.6 mEq/L (5-15); Aspartate Amino Transferase 27 U/L (17-59); Bilirubin,Total 0.5 mg/dl (0.2-1.3); Blood Urea Nitrogen 13 mg/dl (9-20); Calcium 8.6 mg/dl (8.4-10.2); Carbon Dioxide 28 mmol/L (22.0-30.0); Chloride 104 mmol/L (98-107); Creatinine Clearance Estimated 118 mL/min (50-200); Estimated Glomerular Filt Rate 77 ml/min (>60); GFR (African American) 93 ML/MIN (>60); Globulin 2.7 g/dL (1.3-3.2); Glucose 213 mg/dl (74-100); Potassium 3.6 mmoL/L (3.5-5.1); Sodium 139 mmol/L (136-145); Total Protein,Serum 6.6 g/dl (6.3-8.2)
[2023-05-17] MEDS: DEXAMETHASONE 4MG TABLET 12 MG (11:00)
[2023-05-17] MEDS: 0.9 % SODIUM CHLORIDE 50 ML 25 ML IV (11:00)
[2023-05-17 11:01] VITALS: BP 116/73; PULSE 77; RESP 18; TEMP 36.5; O2SAT 98
[2023-05-17] MEDS: LORATADINE 10MG TABLET 10 MG PO (11:01)
[2023-05-17 11:27] VITALS: BP 118/86; PULSE 73; RESP 18; O2SAT 98
[2023-05-17] MEDS: DOCETAXEL IV (11:27)
[2023-05-17] MEDS: WATER IV (11:27)
[2023-05-17] MEDS: DEXTROSE 5% IV (11:27)
[2023-05-17 11:57] VITALS: BP 121/81; PULSE 75; RESP 18; O2SAT 98
[2023-05-17 12:27] VITALS: BP 121/74; PULSE 69; RESP 18; O2SAT 99
[2023-05-17 12:46] VITALS: BP 104/74; PULSE 69; RESP 18; O2SAT 99
[2023-05-17] MEDS: SODIUM CHLORIDE 0.9% 10ML FLUSH SYRINGE 10 ML IV (12:52)
== END 2023-05-17 12:50 | disposition home or self-care (01) ==
LOC: INF 10:19
PROVIDERS: PCP Nurse Practitioner Family; Visit Provider Internal Medicine Medical Oncology
DX: C34.90 Malignant neoplasm of unspecified part of unspecified bronchus or lung (principal)
CPT/HCPCS: 80053; 85025; 96413; J7060; J9171

== ENCOUNTER 2023-05-31 09:56 | Outpatient (CLI) | payer MEDICARE, SELFPAY ==
[2023-05-31 10:00] VITALS: BMI 32.4
[2023-05-31 10:18] LABS: Basophils % 0.2 % (0.1-2.0); Eosinophils % 0.3 % (0.1-12.0); Hematocrit 38.9 % (42.0-52.0); Hemoglobin 12.7 g/dL (14.1-18.0); Lymphocytes # 1.1 K/mm3 (0.7-4.5); Lymphocytes % 30.1 % (10-50); Mean Corpuscular HGB Conc 32.6 g/dL (31.8-35.4); Mean Corpuscular Hemoglobin 35.4 pg (27.0-31.2); Mean Corpuscular Volume 108.5 fl (80-94); Mean Platelet Volume 7.8 fl (7.4-10.4); Monocytes # 0.3 K/mm3 (0.1-1.0); Monocytes % 9.2 % (1.7-9.3); Neutrophils # 2.2 K/mm3 (1.8-7.8); Neutrophils % 60.1 % (37.0-80.0); Platelet Count 151 K/mm3 (142-424); Red Blood Count 3.58 M/mm3 (4.60-6.20); Red Cell Distribution Width 15.2 % (11.5-17.5); White Blood Count 3.7 K/mm3 (4.8-10.8)
[2023-05-31 10:40] LABS: Chloride 106 mmol/L (98-107); Sodium 140 mmol/L (136-145)
[2023-05-31 10:43] LABS: Alanine Aminotransferase 31 U/L (12-78); Albumin Level 3.5 g/dl (3.5-5.0); Albumin/Globulin Ratio 1.3 (1.1-1.8); Alkaline Phosphatase 100 U/L (38-126); Aspartate Amino Transferase 30 U/L (17-59); Bilirubin,Total 0.6 mg/dl (0.2-1.3); Blood Urea Nitrogen 8 mg/dl (9-20); Carbon Dioxide 34 mmol/L (22.0-30.0); Creatinine Clearance Estimated 131 mL/min (50-200); Estimated Glomerular Filt Rate 87 ml/min (>60); GFR (African American) 105 ML/MIN (>60); Globulin 2.8 g/dL (1.3-3.2); Total Protein,Serum 6.3 g/dl (6.3-8.2)
[2023-05-31 10:44] LABS: Calcium 8.8 mg/dl (8.4-10.2); Glucose 117 mg/dl (74-100)
--- NOTE | 2023-05-31 11:40 | PC.NURSE ---
pt chemo rescheduled for 06/07/23. IV to be removed in specialty clinic per GIL Fierro.
== END 2023-05-31 10:30 | disposition home or self-care (01) ==
LOC: INF 09:57
PROVIDERS: PCP Nurse Practitioner Family; Visit Provider Internal Medicine Medical Oncology
DX: C34.90 Malignant neoplasm of unspecified part of unspecified bronchus or lung (principal); Z79.899 Other long term (current) drug therapy
CPT/HCPCS: 36415; 80053; 85025

== ENCOUNTER 2023-06-07 09:03 | Outpatient (CLI) | payer MEDICARE, SELFPAY ==
[2023-06-07 09:12] VITALS: BMI 32.7
[2023-06-07 09:30] LABS: Basophils % 0.3 % (0.1-2.0); Eosinophils # 0.1 K/mm3 (0.0-0.4); Hematocrit 38.1 % (42.0-52.0); Hemoglobin 12.3 g/dL (14.1-18.0); Lymphocytes # 1.4 K/mm3 (0.7-4.5); Lymphocytes % 17.5 % (10-50); Mean Corpuscular HGB Conc 32.4 g/dL (31.8-35.4); Mean Corpuscular Hemoglobin 34.4 pg (27.0-31.2); Mean Platelet Volume 8.7 fl (7.4-10.4); Monocytes # 0.5 K/mm3 (0.1-1.0); Monocytes % 6.3 % (1.7-9.3); Neutrophils # 5.8 K/mm3 (1.8-7.8); Platelet Count 208 K/mm3 (142-424); Red Blood Count 3.59 M/mm3 (4.60-6.20); Red Cell Distribution Width 15.8 % (11.5-17.5); White Blood Count 7.8 K/mm3 (4.8-10.8)
[2023-06-07 09:39] LABS: Alanine Aminotransferase 31 U/L (12-78); Albumin Level 3.8 g/dl (3.5-5.0); Albumin/Globulin Ratio 1.4 (1.1-1.8); Alkaline Phosphatase 103 U/L (38-126); Anion Gap 9.8 mEq/L (5-15); Aspartate Amino Transferase 30 U/L (17-59); Bilirubin,Total 0.7 mg/dl (0.2-1.3); Blood Urea Nitrogen 10 mg/dl (9-20); Calcium 8.9 mg/dl (8.4-10.2); Carbon Dioxide 28 mmol/L (22.0-30.0); Chloride 104 mmol/L (98-107); Creatinine Clearance Estimated 119 mL/min (50-200); Estimated Glomerular Filt Rate 77 ml/min (>60); GFR (African American) 93 ML/MIN (>60); Globulin 2.8 g/dL (1.3-3.2); Glucose 116 mg/dl (74-100); Potassium 3.8 mmoL/L (3.5-5.1); Sodium 138 mmol/L (136-145); Total Protein,Serum 6.6 g/dl (6.3-8.2)
[2023-06-07] MEDS: 0.9 % SODIUM CHLORIDE 50 ML IV (09:45)
[2023-06-07] MEDS: LORATADINE 10MG TABLET 10 MG PO (09:49)
[2023-06-07] MEDS: DEXTROSE 5% IV (10:23)
[2023-06-07] MEDS: WATER IV (10:23)
[2023-06-07] MEDS: DOCETAXEL IV (10:23)
[2023-06-07 10:25] VITALS: BP 103/59; PULSE 85; RESP 18; TEMP 36.7; O2SAT 97
[2023-06-07 10:55] VITALS: BP 109/68; PULSE 74; RESP 18; O2SAT 97
[2023-06-07 11:35] VITALS: BP 125/67; PULSE 77; RESP 18; TEMP 36.7; O2SAT 97
== END 2023-06-07 11:35 | disposition home or self-care (01) ==
LOC: INF 09:04
PROVIDERS: PCP Nurse Practitioner Family; Visit Provider Internal Medicine Medical Oncology
DX: C34.90 Malignant neoplasm of unspecified part of unspecified bronchus or lung (principal); Z79.899 Other long term (current) drug therapy
CPT/HCPCS: 80053; 85025; 96413; J7060; J9171

== ENCOUNTER 2023-06-21 08:08 | Outpatient (CLI) | payer MEDICARE, SELFPAY ==
[2023-06-21 08:14] VITALS: BMI 32.7
--- NOTE | 2023-06-21 08:23 | PC.NURSE ---
0825-BLOOD DRAWN FROM LEFT AC USING BUTTERFLY NEEDLE TO CHECK LABS PER DR DO.
[2023-06-21 10:00] LABS: Basophils % 0.5 % (0.1-2.0); Eosinophils % 0.3 % (0.1-12.0); Hemoglobin 11.2 g/dL (14.1-18.0); Lymphocytes # 1.3 K/mm3 (0.7-4.5); Lymphocytes % 37.1 % (10-50); Mean Corpuscular Hemoglobin 35.1 pg (27.0-31.2); Mean Corpuscular Volume 109.5 fl (80-94); Mean Platelet Volume 8.6 fl (7.4-10.4); Monocytes # 0.5 K/mm3 (0.1-1.0); Monocytes % 13.7 % (1.7-9.3); Neutrophils # 1.7 K/mm3 (1.8-7.8); Neutrophils % 48.3 % (37.0-80.0); Platelet Count 151 K/mm3 (142-424); White Blood Count 3.6 K/mm3 (4.8-10.8)
[2023-06-21 10:08] LABS: INR 1.22 (0.9-1.1)
[2023-06-22 15:10] LABS: Adrenocorticotropic Hormone 7.8 pg/mL (7.2-63.3)
== END 2023-06-21 08:28 | disposition home or self-care (01) ==
LOC: INF 08:09
PROVIDERS: Internal Medicine Medical Oncology; PCP Nurse Practitioner Family; Visit Provider Internal Medicine Endocrinology, Diabetes & Metabolism
DX: C34.90 Malignant neoplasm of unspecified part of unspecified bronchus or lung; D64.9 Anemia, unspecified; R04.0 Epistaxis
CPT/HCPCS: 36415; 82024; 82533; 85025; 85610; 85730

== ENCOUNTER 2023-06-28 09:50 | Outpatient (CLI) | payer MEDICARE, SELFPAY ==
[2023-06-28 09:54] VITALS: BMI 32.7
[2023-06-28 10:29] LABS: Chloride 105 mmol/L (98-107); Potassium 3.4 mmoL/L (3.5-5.1); Sodium 138 mmol/L (136-145)
[2023-06-28 10:31] LABS: Alanine Aminotransferase 29 U/L (12-78); Aspartate Amino Transferase 33 U/L (17-59); Blood Urea Nitrogen 11 mg/dl (9-20); Creatinine Clearance Estimated 132 mL/min (50-200); Estimated Glomerular Filt Rate 87 ml/min (>60); GFR (African American) 105 ML/MIN (>60)
[2023-06-28 10:32] LABS: Albumin Level 3.4 g/dl (3.5-5.0); Albumin/Globulin Ratio 1.3 (1.1-1.8); Alkaline Phosphatase 90 U/L (38-126); Anion Gap 6.4 mEq/L (5-15); Bilirubin,Total 0.7 mg/dl (0.2-1.3); Calcium 8.6 mg/dl (8.4-10.2); Carbon Dioxide 30 mmol/L (22.0-30.0); Globulin 2.7 g/dL (1.3-3.2); Glucose 151 mg/dl (74-100); Total Protein,Serum 6.1 g/dl (6.3-8.2)
[2023-06-28] MEDS: LORATADINE 10MG TABLET 10 MG PO (11:06)
[2023-06-28] MEDS: DEXAMETHASONE 4MG TABLET 12 MG (11:06)
[2023-06-28] MEDS: SODIUM CHLORIDE 0.9% 50ML BAG 50 ML IV (11:15)
[2023-06-28] MEDS: WATER IV (11:38)
[2023-06-28] MEDS: DOCETAXEL IV (11:38)
[2023-06-28] MEDS: DEXTROSE 5% IV (11:38)
[2023-06-28 11:45] VITALS: BP 116/69; PULSE 76; RESP 18; TEMP 36.6; O2SAT 96
[2023-06-28 12:00] VITALS: BP 107/74; PULSE 75
[2023-06-28 12:15] VITALS: BP 115/68; PULSE 72
[2023-06-28 12:30] VITALS: BP 113/71; PULSE 76
[2023-06-28 12:45] VITALS: BP 121/70; PULSE 73
== END 2023-06-28 12:52 | disposition home or self-care (01) ==
LOC: INF 09:51
PROVIDERS: PCP Nurse Practitioner Family; Visit Provider Internal Medicine Medical Oncology
DX: C34.90 Malignant neoplasm of unspecified part of unspecified bronchus or lung (principal); C34.91 Malignant neoplasm of unspecified part of right bronchus or lung; Z79.899 Other long term (current) drug therapy
CPT/HCPCS: 80053; 96413; J7060; J9171

== ENCOUNTER 2023-07-09 14:38 | Emergency (ER) | payer MEDICARE, SELFPAY ==
[2023-07-09] VITALS (9 sets, daily range): BP systolic 99–123; BP diastolic 62–105; PULSE 89–113; RESP 15–20; TEMP 36.9; O2SAT 96–98; BMI 33.1
--- NOTE | 2023-07-09 14:58 | HMH.EDGENADL ---
Discharge Plan Disposition Chief Complaint: Epistaxis Prescriptions Prescriptions: No Action gabapentin 800 mg tablet 800 mg PO TID Qty: 90 3RF hydrocortisone 10 mg tablet PO folic acid 1 mg tablet 1 mg PO DAILY Patient Comments: TAKE 1 TABLET BY MOUTH ONCE DAILY oxycodone-acetaminophen [Percocet] 10-325 mg tablet 1 tab PO TID PRN (Reason: pain) Qty: 90 0RF lisinopril 10 mg tablet 10 mg PO DAILY Qty: 90 3RF Xarelto 20 mg tablet 20 mg PO QPMWITHMEAL Patient Comments: TAKE 1 TABLET BY MOUTH WITH DINNER. START AFTER YOU COMPLETE 21 DAYS OF 15MG DOSING atorvastatin 80 mg tablet 80 mg PO HS Patient Comments: TAKE 1 TABLET BY MOUTH ONCE DAILY FOR CHOLESTEROL bisoprolol fumarate 10 mg tablet 5 mg PO DAILY metformin 500 mg tablet extended release 24 hr 500 mg PO DAILY Rx Instructions: pt states he has not taken for a couple of months Referrals Follow up/Referrals: Francisco Javier Watkins APRN [Primary Care Provider] - See instructions Instructions Patient Instructions: DI for Nosebleed Discharge ED Provider: Jamal Crowell General Adult HPI General Chief complaint: Epistaxis Stated complaint: congestion, bloody nose Time Seen by Provider: 07/09/23 14:58 Mode of Arrival: Ambulatory Source of Information: Patient Limitations: No Limitations Description of Symptoms (Recalled from ER Triage Doc. by RN): pt presents to ED with c/o blood when blowing nose, shortness of breath at times. pt does have stage 4 lung cancer and is receiving chemotherapy. History of Present Illness HPI narrative: Patient is a 58-year-old male with history of prescription cell carcinoma of lung, on chemotherapy, history of thrombocytopenia, pancytopenia, presents today for evaluation of 3 to 4 days of epistaxis, noticed principally in the mornings. No identifiable aggravating or alleviating factors with the exception of patient using hot air at night for comfort. Denies any syncope or presyncope. at bedside notices the patient has had more noisy breathing and reported wheezing recently. This is typically positional in nature. Patient denies any sore throat, earache, difficulty swallowing, voice changes, hoarseness. No bleeding elsewhere. Related Data Home Medications Medication Instructions Recorded Confirmed atorvastatin 80 mg tablet 80 mg PO HS Cholesterol 12/22/22 06/28/23 bisoprolol fumarate 10 mg tablet 5 mg PO DAILY Heart Rhythm 12/22/22 06/28/23 metformin 500 mg tablet,extended 500 mg PO DAILY Diabetes 12/22/22 06/28/23 release 24 hr folic acid 1 mg tablet 1 mg PO DAILY Supplement 01/05/23 06/28/23 rivaroxaban 20 mg tablet (Xarelto) 20 mg PO QPMWITHMEAL Blood 01/10/23 06/28/23 Thinner/Afib hydrocortisone 10 mg tablet mg PO 05/31/23 06/28/23 Previous Rx's Medication Instructions Recorded gabapentin 800 mg tablet 800 mg PO TID Neuropathy #90 tabs 06/14/23 oxycodone-acetaminophen 10 mg-325 1 tab PO TID PRN pain #90 tabs 06/28/23 mg tablet (Percocet) lisinopril 10 mg tablet 10 mg PO DAILY #90 tabs 07/07/23 Allergies Allergy/AdvReac Type Severity Reaction Status Date / Time No Known Allergies Allergy Verified 06/28/23 10:46 [facility] Disclaimer: The information contained in this section may have been updated after the patient was seen, as this information can be updated by other users. Medical History DVT (deep venous thrombosis) Stenosis of artery of right lower extremity Stenosis of artery of left lower extremity PAD (peripheral artery disease) Pancytopenia SVC syndrome Edema Non-small cell lung cancer (NSCLC) Coughing up blood SOB (shortness of breath) on exertion Superior vena cava compression syndrome Pulmonary arterial hypertension Typical angina Encounter for screening for malignant neoplasm of lung in current smoker with 30 pack year history or greater Tobacco abuse disorder Tobacco abuse counseling COPD (chronic obstructive pulmonary disease) Abnormal computerized axial tomography of chest Smoking greater than 30 pack years Pulmonary emphysema Dyspnea on exertion History of seasonal allergies Diabetes Edema DALTON (obstructive sleep apnea) Tobacco dependence HLD (hyperlipidemia) HTN (hypertension) CAD (coronary artery disease) Surgical History History of foot surgery History of colonoscopy History of cardiac cath History of umbilical hernia repair Family History Other Coronary artery disease Diabetes Hypertension Social History Smoking Status: Former smoker tobacco type: cigarettes packs per day: 1 second hand exposure: Yes alcohol intake: never substance use type: denies use current occupational status: other Travel in the last 8 weeks: None household members: spouse housing: house current occupational exposures/hazards: No caffeine: Yes ROS Obtained: Yes Systems reviewed as appropriate & no additional complaints except as documented As per HPI Physical Exam General General appearance: alert and in no apparent distress Head Head exam: atraumatic and normocephalic Eye Eye exam: Present normal appearance ENT ENT exam: Present normal oropharynx and other (Small punctate ulcerative hemostatic lesions at bilateral anterior nasal plexus. Mild amount of swelling, most pronounced on left side of throat, family unsure if acute versus chronic) Neck Neck exam: Present normal inspection Chest Chest inspection: Present normal inspection and symmetric chest wall rise Respiratory Respiratory exam: Present normal lung sounds bilaterally; Absent respiratory distress Cardiovascular Cardiovascular exam: Present regular rate and normal rhythm Abdominal Exam Abdominal exam: Present soft Neurological Exam Neurological exam: Present alert and oriented X3 Psychiatric Psychiatric exam: Present normal affect and normal mood Skin Skin exam: Present warm and dry Medical Decision Making Medical Records Medical records reviewed: Yes I reviewed the patient's medical records. Min Inquiry Pt receiving controlled substance: No Vital Signs: 07/09/23 14:39 07/09/23 14:47 07/09/23 15:01 Temperature 98.5 F Temperature Source Oral Pulse Rate 113 H 108 H Pulse Rate [Left Radial] 111 H Respiratory Rate 15 Blood Pressure 123/105 H Blood Pressure [Right Arm] 109/71 L Blood Pressure Mean Blood Pressure Mean [Right Arm] 83 02 Sat by Pulse Oximetry 97 97 97 Oxygen Delivery Method Room Air Room Air 07/09/23 15:30 Temperature Temperature Source Pulse Rate 97 H Pulse Rate [Left Radial] Respiratory Rate 20 Blood Pressure 99/69 L Blood Pressure [Right Arm] Blood Pressure Mean 79 Blood Pressure Mean [Right Arm] 02 Sat by Pulse Oximetry 96 Oxygen Delivery Method Orders (Tests/Meds): ORDERS Category Date Time Status CT soft tissue neck w con Stat Cat Scan 07/09/23 14:59 Ordered CTA Chest [CT angio chest PE protocol] Stat Cat Scan 07/09/23 15:09 Ordered CBC w/Auto Diff [Complete Blood Count Auto Diff] Stat Lab 07/09/23 14:59 Ordered CMP [Comprehensive Metabolic Panel] Stat Lab 07/09/23 14:59 Ordered Fibrinogen Stat Lab 07/09/23 14:59 Ordered PT INR [Prothrombin Time INR] Stat Lab 07/09/23 14:59 Ordered PTT [Activated Partial Thrombo Time] Stat Lab 07/09/23 14:59 Ordered Medical Decision Narrative: Patient with history and exam per above presenting for evaluation of epistaxis, wheezing SVC syndrome, DIC, Diagnoses considered include acute anemia, pulmonary embolism, deep space infection, among others ED workup and treatment included: CBC, CMP, PT, INR, PTT, fibrinogen, CT soft tissue neck, CTA chest Labs and imaging pending at this time. Care was transferred to incoming physician. Critical Care Critical Care Time Critical Care Time: No
--- NOTE | 2023-07-09 14:59 | CT_ITS ---
PROCEDURE INFORMATION: Exam: CT Neck With Contrast Exam date and time: 07/09/2023 4:28 PM Age: 58 years old Clinical indication: Other: Wheezing; Additional info: Neck swelling, wheezing TECHNIQUE: Imaging protocol: Computed tomography of the neck with contrast. Radiation optimization: All CT scans at this facility use at least one of these dose optimization techniques: automated exposure control; mA and/or kV adjustment per patient size (includes targeted exams where dose is matched to clinical indication); or iterative reconstruction. Contrast material: ISOVUE; Contrast volume: 75 ml; Contrast route: IV; COMPARISON: CT SOFT TISSUE NECK W CON 10/17/2022 9:[address] chest 07/09/2023 and 04/26/2023 and 10/17/2022 FINDINGS: Pharynx: Unremarkable. No significant tonsillar enlargement. Larynx: Unremarkable. Epiglottis is normal. Prevertebral and retropharyngeal spaces: Unremarkable. Salivary glands: Normal. Glands are normal in size. Thyroid: Normal. No enlarged or calcified nodules. Lymph nodes: Unremarkable. No lymphadenopathy. Trachea: Visualized trachea is unremarkable. Lungs: A masslike opacity in the anteromedial right upper lobe with surrounding adjacent strandy densities and associated volume loss compatible with changes of treated neoplasm are partially included in the field of view and similar to the prior CT chest of 04/26/2023. Bones/joints: Bony structures intact. No suspicious lytic or blastic lesions seen. Vasculature: Stent graft in the superior vena cava partially included in the field of view redemonstrated. Soft tissues: Unremarkable. No significant soft tissue swelling. IMPRESSION: 1. No acute abnormality. 2. Changes compatible with treated neoplasm in the right upper lobe region redemonstrated.
--- NOTE | 2023-07-09 15:09 | CT_ITS ---
PROCEDURE INFORMATION: Exam: CTA Chest With Contrast Exam date and time: 07/09/2023 4:43 PM Age: 58 years old Clinical indication: Shortness of breath; Additional info: Tachycardia, SOA TECHNIQUE: Imaging protocol: Computed tomographic angiography of the chest with contrast. Exam focused on the arteries. 3D rendering (Not supervised by radiologist): MIP and/or 3D reconstructed images were created by the technologist. Radiation optimization: All CT scans at this facility use at least one of these dose optimization techniques: automated exposure control; mA and/or kV adjustment per patient size (includes targeted exams where dose is matched to clinical indication); or iterative reconstruction. Contrast material: ISOVUE; Contrast volume: 75 ml; Contrast route: INTRAVENOUS (IV); COMPARISON: CT ANGIO CHEST PE PROTOCOL 12/22/2022 8:32 PM FINDINGS: Limitations: Contrast bolus tracking is suboptimal for pulmonary embolus assessment of subsegmental level attributed to transient interruption of contrast. Pulmonary arteries: No evidence of proximal filling defects to suggest central pulmonary emboli. Aorta: Unremarkable. No aortic aneurysm. No aortic dissection. Lungs: There is redemonstration of locally invasive right upper lobe lesion. The lesion measures approximately 4.6 x 1.6 cm, previously 6.3 x 3.1 cm by today's measurements. Locoregional mass effect partially encases and narrows the right hilar structures. Nodular interlobular septal thickening in the upper lobe with residual opacities noted. Pleural spaces: New small right pleural effusion. Heart: Unremarkable. No cardiomegaly. No pericardial effusion. Heart RV/LV ratio: The RV/LV ratio is less than 1. Lymph nodes: Unremarkable. No enlarged lymph nodes. Adrenal glands: No enhancing right adrenal nodule measuring 2.6 cm. Bones/joints: No definitive osseous lesions. No acute fracture. Soft tissues: Unremarkable. IMPRESSION: 1. No evidence of proximal filling defects to suggest central pulmonary emboli. 2. Interval decrease in size of known right upper lobe pulmonary neoplasm. Nodular interlobular septal thickening is concerning for lymphangitic spread. 3. New, enhancing 2.6 cm right adrenal nodule.
[2023-07-09 16:16] LABS: Basophils % 2.1 % (0.1-2.0); Eosinophils % 0.7 % (0.1-12.0); Hematocrit 30.7 % (42.0-52.0); Lymphocytes # 0.5 K/mm3 (0.7-4.5); Lymphocytes % 46.5 % (10-50); Mean Corpuscular HGB Conc 32.5 g/dL (31.8-35.4); Mean Corpuscular Hemoglobin 35.2 pg (27.0-31.2); Mean Corpuscular Volume 108.3 fl (80-94); Mean Platelet Volume 9.3 fl (7.4-10.4); Monocytes # 0.2 K/mm3 (0.1-1.0); Monocytes % 21.3 % (1.7-9.3); Neutrophils # 0.3 K/mm3 (1.8-7.8); Neutrophils % 29.4 % (37.0-80.0); Platelet Count 161 K/mm3 (142-424); Red Blood Count 2.83 M/mm3 (4.60-6.20); Red Cell Distribution Width 18.1 % (11.5-17.5)
[2023-07-09 16:20] LABS: Chloride 104 mmol/L (98-107); Sodium 137 mmol/L (136-145)
[2023-07-09 16:23] LABS: Alanine Aminotransferase 30 U/L (12-78); Alkaline Phosphatase 87 U/L (38-126); Aspartate Amino Transferase 33 U/L (17-59); Bilirubin,Total 0.7 mg/dl (0.2-1.3); Blood Urea Nitrogen 10 mg/dl (9-20); Creatinine Clearance Estimated 110 mL/min (50-200); Estimated Glomerular Filt Rate 69 ml/min (>60); GFR (African American) 83 ML/MIN (>60)
[2023-07-09 16:24] LABS: Albumin/Globulin Ratio 1.2 (1.1-1.8); Calcium 8.3 mg/dl (8.4-10.2); Carbon Dioxide 32 mmol/L (22.0-30.0); Globulin 2.5 g/dL (1.3-3.2); Glucose 175 mg/dl (74-100); Total Protein,Serum 5.5 g/dl (6.3-8.2)
[2023-07-09 16:27] LABS: MANUAL DIFFERENTIAL MANUAL DIFFERENTIAL (MANUAL DIFF)
[2023-07-09 16:29] LABS: Activated Partial Thrombo Time 38.1 seconds (22.8-30.6); Fibrinogen 386 mg/dL (229.9-363.5); INR 1.31 (0.9-1.1); Prothrombin Time 13.9 seconds (10.1-12.5)
--- NOTE | 2023-07-09 16:31 | PC.NURSE ---
patient gone to CT at this time.
[2023-07-09] MEDS: IOPAMIDOL-370 (76%);100ML BOTTLE 150 ML IV (16:45)
[2023-07-09] MEDS: 0.9 % SODIUM CHLORIDE 50 ML VIAL 40 ML IV (16:45)
[2023-07-09] MEDS: SODIUM CHLORIDE 0.9% 10ML SYR (RAD ONLY) 10 ML IV (16:45)
[2023-07-09 16:47] LABS: Eosinophils % 2 % (0-3); Lymphocytes % 46 % (10-50); Macrocytosis 2+; Monocytes % 14 % (2-9); Neutrophils % 38 % (42-76); Platelet Estimate Normal; Total Cells Counted 50
--- NOTE | 2023-07-09 16:47 | PC.NURSE ---
pt back to room from ct
== END 2023-07-09 18:35 | disposition home or self-care (01) ==
PROVIDERS: Emergency Medicine; Emergency Provider Emergency Medicine; PCP Nurse Practitioner Family
DX: R04.0 Epistaxis (principal); R06.2 Wheezing; D72.819 Decreased white blood cell count, unspecified; C34.91 Malignant neoplasm of unspecified part of right bronchus or lung; E27.8 Other specified disorders of adrenal gland; R53.83 Other fatigue; Z87.891 Personal history of nicotine dependence
CPT/HCPCS: 70491; 71275; 80053; 85007; 85025; 85384; 85610; 85730; 99285; Q9967

== ENCOUNTER 2023-07-17 09:54 | Outpatient (CLI) | payer MEDICARE, SELFPAY ==
--- NOTE | 2023-07-17 09:59 | CT_ITS ---
FINAL REPORT CLINICAL HISTORY: LUNG CANCER COMPARISON: 07/09/2023 FINDINGS: Axial CT images of the chest were obtained with contrast. Coronal and sagittal reformatted images were also obtained. This study was performed with techniques to keep radiation doses as low as reasonably achievable, (ALARA). Individualized dose reduction techniques using automated exposure control or adjustment of mA and/or KV according to the patient's size were employed. A superior vena cava stent is once again present, and appears patent. There is soft tissue density in the mediastinum primarily on the right side, that measures 4 x 2 cm in size, was previously 4.6 x 2.3 cm in size, partially improved. There is a nodule in the medial right upper lobe, measuring 24 mm, was previously 25, stable. There is a moderate sized right pleural effusion, which is larger than noted on the prior exam. There is wall thickening of the thoracic esophagus, which is more severe than noted on the prior exam, likely inflammatory. No axillary mass or adenopathy is identified. IMPRESSION: Soft tissue density in the mediastinum on the right side is slightly improved since the prior exam, on today's examination measuring 4 x 2 cm in size. The medial right upper lobe nodular mass remained stable. There is enlargement in the moderate size right pleural effusion since the prior CT. There is worsening of the wall thickening of the thoracic esophagus, likely inflammatory. Reviewed, Interpreted and Dictated by Preet Dolan III, MD Transcribed by Malissa Ward Authenticated and [facility]
--- NOTE | 2023-07-17 10:00 | CT_ITS ---
FINAL REPORT CLINICAL HISTORY: LUNG CANCER COMPARISON: 04/26/2023 FINDINGS: CT OF THE ABDOMEN AND PELVIS WITH CONTRAST Axial CT images of the abdomen and pelvis were obtained after the administration of IV contrast. Coronal and sagittal reformatted images were also obtained and reviewed. This study was performed with techniques to keep radiation doses as low as reasonably achievable (ALARA). Individualized dose reduction techniques using automated exposure control or adjustment of mA and/or kV according to the patient's size were employed. Abdomen: . The heart is normal in size. The liver has an unremarkable appearance, without evidence of mass or biliary ductal dilatation. The spleen is unremarkable. There is a significant enlargement in the right adrenal mass noted on the prior CT, was previously 2.3 cm and on today's examination measures 4.3 cm. There has been interval enlargement of the left adrenal mass as well, on today's exam measuring 5 cm, was 4.3 cm. The pancreas has an unremarkable appearance. Cysts are present in the lower pole of the right kidney, stable. Moderate vascular calcifications are once again noted. There is no free fluid or adenopathy. No mass or abnormal fluid collection is seen. Pelvis: The appendix is normal in appearance. There is a mesenteric mass superior to the sigmoid colon, measures 2.8 cm, was previously 2.4 cm. There are at least 2 other mesenteric masses, both larger than when compared with the previous exam. Bilateral iliac artery stents are difficult to evaluate, and the left appears occluded. There is mild nonspecific bladder wall thickening present, as well as bilateral inguinal hernias containing fat. There is no evidence of bowel obstruction. There is a stable small mass in the medial aspect of the right iliac bone. No new abnormal densities in the bones are seen. IMPRESSION: Enlargement of the bilateral adrenal masses, particularly the right, since the prior CT examination of April 26, consistent with enlarging metastases. There is enlargement of the mesenteric mass adjacent to the sigmoid colon, when compared to the prior CT, as well as at least 2 other mesenteric masses, which are also larger than seen on the prior CT. Reviewed, Interpreted and Dictated by Preet Dolan III, MD Transcribed by Malissa Ward Authenticated and [facility]
[2023-07-17] MEDS: IOPAMIDOL-370 (76%);100ML BOTTLE 75 ML IV (10:42)
[2023-07-17] MEDS: SODIUM CHLORIDE 0.9% 10ML SYR (RAD ONLY) 10 ML IV (10:42)
== END 2023-07-17 23:59 ==
LOC: RAD 09:55
PROVIDERS: PCP Nurse Practitioner Family; Visit Provider Internal Medicine Medical Oncology
DX: C34.30 Malignant neoplasm of lower lobe, unspecified bronchus or lung (principal)
CPT/HCPCS: 71260; 74177; Q9967

== ENCOUNTER 2023-07-19 09:28 | Outpatient (CLI) | payer MEDICARE, SELFPAY ==
[2023-07-19 09:33] VITALS: BMI 34.0
[2023-07-19 09:47] LABS: Basophils % 0.4 % (0.1-2.0); Eosinophils # 0.1 K/mm3 (0.0-0.4); Eosinophils % 1.1 % (0.1-12.0); Hematocrit 36.6 % (42.0-52.0); Hemoglobin 11.4 g/dL (14.1-18.0); Lymphocytes # 1.1 K/mm3 (0.7-4.5); Lymphocytes % 14.7 % (10-50); Mean Corpuscular Hemoglobin 34.8 pg (27.0-31.2); Mean Corpuscular Volume 112.2 fl (80-94); Mean Platelet Volume 8.5 fl (7.4-10.4); Monocytes # 0.5 K/mm3 (0.1-1.0); Monocytes % 6.3 % (1.7-9.3); Neutrophils # 5.8 K/mm3 (1.8-7.8); Neutrophils % 77.5 % (37.0-80.0); Platelet Count 184 K/mm3 (142-424); Red Blood Count 3.27 M/mm3 (4.60-6.20); Red Cell Distribution Width 18.9 % (11.5-17.5); White Blood Count 7.5 K/mm3 (4.8-10.8)
[2023-07-19 09:53] LABS: Chloride 104 mmol/L (98-107); Sodium 136 mmol/L (136-145)
[2023-07-19 09:54] LABS: Potassium 3.8 mmoL/L (3.5-5.1)
[2023-07-19 09:56] LABS: Alanine Aminotransferase 28 U/L (12-78); Albumin Level 3.3 g/dl (3.5-5.0); Albumin/Globulin Ratio 1.2 (1.1-1.8); Alkaline Phosphatase 94 U/L (38-126); Anion Gap 6.8 mEq/L (5-15); Aspartate Amino Transferase 31 U/L (17-59); Bilirubin,Total 0.8 mg/dl (0.2-1.3); Blood Urea Nitrogen 11 mg/dl (9-20); Carbon Dioxide 29 mmol/L (22.0-30.0); Creatinine Clearance Estimated 138 mL/min (50-200); Estimated Glomerular Filt Rate 87 ml/min (>60); GFR (African American) 105 ML/MIN (>60); Globulin 2.7 g/dL (1.3-3.2)
[2023-07-19 09:57] LABS: Calcium 8.5 mg/dl (8.4-10.2); Glucose 119 mg/dl (74-100)
--- NOTE | 2023-07-19 11:00 | PC.NURSE ---
1100-pt return to have iv d/c; no treatment today per md order;pt d/c home
== END 2023-07-19 11:05 | disposition home or self-care (01) ==
LOC: INF 09:29
PROVIDERS: PCP Nurse Practitioner Family; Visit Provider Internal Medicine Medical Oncology
DX: C34.90 Malignant neoplasm of unspecified part of unspecified bronchus or lung (principal)
CPT/HCPCS: 36415; 80053; 85025

== ENCOUNTER 2023-07-27 10:02 | Outpatient (CLI) | payer MEDICARE, SELFPAY ==
[2023-07-27 10:10] VITALS: BMI 33.4
[2023-07-27 10:34] VITALS: BP 126/70; PULSE 59; RESP 20; TEMP 36.6; O2SAT 97
[2023-07-27] MEDS: DEXAMETHASONE 4MG TABLET 12 MG (10:34)
[2023-07-27] MEDS: SODIUM CHLORIDE 0.9% 50ML BAG 50 ML IV (10:51)
[2023-07-27] MEDS: SODIUM CHLORIDE 0.9% 10ML FLUSH SYRINGE 10 ML IV (10:52)
[2023-07-27 11:04] VITALS: BP 136/70; PULSE 71; RESP 20; O2SAT 97
[2023-07-27] MEDS: SODIUM CHLORIDE 0.9% IV (11:04)
[2023-07-27] MEDS: GEMCITABINE HCL IV (11:04)
[2023-07-27 11:48] VITALS: BP 131/78; PULSE 73; RESP 20; O2SAT 97
== END 2023-07-27 11:55 | disposition home or self-care (01) ==
LOC: INF 10:03
PROVIDERS: PCP Nurse Practitioner Family; Visit Provider Internal Medicine Medical Oncology
DX: C34.91 Malignant neoplasm of unspecified part of right bronchus or lung (principal)
CPT/HCPCS: 96413; J9201

== ENCOUNTER 2023-08-03 09:42 | Outpatient (CLI) | payer MEDICARE, SELFPAY ==
[2023-08-03 09:47] VITALS: BMI 33.4
[2023-08-03 10:17] LABS: Basophils % 0.5 % (0.1-2.0); Eosinophils # 0.2 K/mm3 (0.0-0.4); Hematocrit 36.8 % (42.0-52.0); Hemoglobin 11.9 g/dL (14.1-18.0); Lymphocytes # 0.9 K/mm3 (0.7-4.5); Lymphocytes % 18.9 % (10-50); Mean Corpuscular HGB Conc 32.4 g/dL (31.8-35.4); Mean Corpuscular Hemoglobin 35.4 pg (27.0-31.2); Mean Corpuscular Volume 109.1 fl (80-94); Mean Platelet Volume 9.1 fl (7.4-10.4); Monocytes # 0.4 K/mm3 (0.1-1.0); Monocytes % 7.6 % (1.7-9.3); Neutrophils # 3.3 K/mm3 (1.8-7.8); Neutrophils % 69.1 % (37.0-80.0); Platelet Count 87 K/mm3 (142-424); Red Blood Count 3.37 M/mm3 (4.60-6.20); White Blood Count 4.8 K/mm3 (4.8-10.8)
[2023-08-03 10:18] LABS: Alanine Aminotransferase 54 U/L (12-78); Albumin Level 3.5 g/dl (3.5-5.0); Albumin/Globulin Ratio 1.2 (1.1-1.8); Alkaline Phosphatase 93 U/L (38-126); Anion Gap 8.5 mEq/L (5-15); Aspartate Amino Transferase 41 U/L (17-59); Bilirubin,Total 0.8 mg/dl (0.2-1.3); Blood Urea Nitrogen 12 mg/dl (9-20); Calcium 8.9 mg/dl (8.4-10.2); Carbon Dioxide 28 mmol/L (22.0-30.0); Chloride 106 mmol/L (98-107); Creatinine Clearance Estimated 135 mL/min (50-200); Estimated Glomerular Filt Rate 87 ml/min (>60); GFR (African American) 105 ML/MIN (>60); Glucose 118 mg/dl (74-100); Potassium 3.5 mmoL/L (3.5-5.1); Sodium 139 mmol/L (136-145); Total Protein,Serum 6.5 g/dl (6.3-8.2)
== END 2023-08-03 11:18 | disposition home or self-care (01) ==
LOC: INF 09:43
PROVIDERS: PCP Nurse Practitioner Family; Visit Provider Internal Medicine Medical Oncology
DX: C34.90 Malignant neoplasm of unspecified part of unspecified bronchus or lung (principal)
CPT/HCPCS: 36415; 80053; 85025

== ENCOUNTER 2023-08-10 10:02 | Outpatient (CLI) | payer MEDICARE, SELFPAY ==
[2023-08-10 10:07] VITALS: BMI 33.4
[2023-08-10 10:33] LABS: Basophils % 0.6 % (0.1-2.0); Chloride 104 mmol/L (98-107); Eosinophils # 0.2 K/mm3 (0.0-0.4); Eosinophils % 3.7 % (0.1-12.0); Hematocrit 36.6 % (42.0-52.0); Hemoglobin 11.8 g/dL (14.1-18.0); Lymphocytes # 0.9 K/mm3 (0.7-4.5); Lymphocytes % 15.8 % (10-50); Mean Corpuscular HGB Conc 32.3 g/dL (31.8-35.4); Mean Corpuscular Hemoglobin 35.1 pg (27.0-31.2); Mean Corpuscular Volume 108.8 fl (80-94); Mean Platelet Volume 9.1 fl (7.4-10.4); Monocytes # 0.4 K/mm3 (0.1-1.0); Monocytes % 6.5 % (1.7-9.3); Neutrophils # 4.4 K/mm3 (1.8-7.8); Neutrophils % 73.4 % (37.0-80.0); Platelet Count 154 K/mm3 (142-424); Red Blood Count 3.36 M/mm3 (4.60-6.20); Red Cell Distribution Width 17.8 % (11.5-17.5); Sodium 138 mmol/L (136-145); White Blood Count 5.9 K/mm3 (4.8-10.8)
[2023-08-10 10:34] LABS: Potassium 3.8 mmoL/L (3.5-5.1)
[2023-08-10 10:36] LABS: Alanine Aminotransferase 36 U/L (12-78); Alkaline Phosphatase 103 U/L (38-126); Aspartate Amino Transferase 29 U/L (17-59); Bilirubin,Total 0.7 mg/dl (0.2-1.3); Blood Urea Nitrogen 9 mg/dl (9-20); Creatinine Clearance Estimated 122 mL/min (50-200); Estimated Glomerular Filt Rate 77 ml/min (>60); GFR (African American) 93 ML/MIN (>60)
[2023-08-10 10:37] LABS: Albumin Level 3.4 g/dl (3.5-5.0); Albumin/Globulin Ratio 1.2 (1.1-1.8); Anion Gap 6.8 mEq/L (5-15); Calcium 8.7 mg/dl (8.4-10.2); Carbon Dioxide 31 mmol/L (22.0-30.0); Globulin 2.9 g/dL (1.3-3.2); Glucose 122 mg/dl (74-100); Total Protein,Serum 6.3 g/dl (6.3-8.2)
[2023-08-10 10:49] VITALS: BP 113/70; PULSE 83; RESP 18; TEMP 36.6; O2SAT 98
[2023-08-10] MEDS: DEXAMETHASONE 4MG TABLET 12 MG (10:49)
[2023-08-10] MEDS: 0.9 % SODIUM CHLORIDE 50 ML IV (10:49)
[2023-08-10 11:15] VITALS: BP 111/68; PULSE 80; RESP 18; O2SAT 98
[2023-08-10] MEDS: SODIUM CHLORIDE 0.9% IV (11:15)
[2023-08-10] MEDS: GEMCITABINE HCL IV (11:15)
[2023-08-10 12:00] VITALS: BP 117/62; PULSE 81; RESP 18; O2SAT 98
[2023-08-10] MEDS: SODIUM CHLORIDE 0.9% 10ML FLUSH SYRINGE 10 ML IV (15:01)
== END 2023-08-10 12:00 | disposition home or self-care (01) ==
LOC: INF 10:03
PROVIDERS: PCP Nurse Practitioner Family; Visit Provider Internal Medicine Medical Oncology
DX: C34.90 Malignant neoplasm of unspecified part of unspecified bronchus or lung (principal)
CPT/HCPCS: 80053; 85025; 96413; J9201

== ENCOUNTER 2023-08-17 09:59 | Outpatient (CLI) | payer MEDICARE, SELFPAY ==
[2023-08-17 10:02] VITALS: BMI 33.4
[2023-08-17 10:38] LABS: Basophils % 0.5 % (0.1-2.0); Eosinophils % 1.3 % (0.1-12.0); Hemoglobin 11.2 g/dL (14.1-18.0); Lymphocytes # 0.6 K/mm3 (0.7-4.5); Lymphocytes % 19.5 % (10-50); Mean Corpuscular Hemoglobin 35.7 pg (27.0-31.2); Mean Corpuscular Volume 108.3 fl (80-94); Mean Platelet Volume 8.9 fl (7.4-10.4); Monocytes # 0.3 K/mm3 (0.1-1.0); Monocytes % 10.6 % (1.7-9.3); Neutrophils % 68.1 % (37.0-80.0); Platelet Count 100 K/mm3 (142-424); Red Blood Count 3.14 M/mm3 (4.60-6.20); Red Cell Distribution Width 17.8 % (11.5-17.5)
[2023-08-17 11:00] VITALS: BP 104/67; PULSE 80; RESP 18; TEMP 36.4; O2SAT 97
[2023-08-17] MEDS: SODIUM CHLORIDE 0.9% 10ML FLUSH SYRINGE 10 ML IV (11:00)
[2023-08-17] MEDS: DEXAMETHASONE 4MG TABLET 12 MG PO (11:00)
[2023-08-17] MEDS: SODIUM CHLORIDE 0.9% 50ML BAG 50 ML IV (11:00)
[2023-08-17 11:26] LABS: Chloride 105 mmol/L (98-107)
[2023-08-17 11:27] LABS: Potassium 3.5 mmoL/L (3.5-5.1); Sodium 137 mmol/L (136-145)
[2023-08-17 11:29] LABS: Alanine Aminotransferase 36 U/L (12-78); Alkaline Phosphatase 118 U/L (38-126); Anion Gap 10.5 mEq/L (5-15); Aspartate Amino Transferase 32 U/L (17-59); Bilirubin,Total 0.7 mg/dl (0.2-1.3); Blood Urea Nitrogen 9 mg/dl (9-20); Carbon Dioxide 25 mmol/L (22.0-30.0); Creatinine Clearance Estimated 152 mL/min (50-200); Estimated Glomerular Filt Rate 100 ml/min (>60); GFR (African American) 121 ML/MIN (>60)
[2023-08-17 11:30] LABS: Albumin Level 3.2 g/dl (3.5-5.0); Albumin/Globulin Ratio 1.1 (1.1-1.8); Calcium 8.1 mg/dl (8.4-10.2); Globulin 2.9 g/dL (1.3-3.2); Glucose 174 mg/dl (74-100); Total Protein,Serum 6.1 g/dl (6.3-8.2)
[2023-08-17 12:15] VITALS: BP 113/77; PULSE 73; RESP 18; O2SAT 98
[2023-08-17] MEDS: SODIUM CHLORIDE 0.9% IV (12:15)
[2023-08-17] MEDS: GEMCITABINE HCL IV (12:15)
[2023-08-17 12:50] VITALS: BP 123/70; PULSE 77; RESP 18; O2SAT 97
== END 2023-08-17 12:55 | disposition home or self-care (01) ==
LOC: INF 10:00
PROVIDERS: PCP Nurse Practitioner Family; Visit Provider Internal Medicine Medical Oncology
DX: C34.90 Malignant neoplasm of unspecified part of unspecified bronchus or lung (principal); C34.91 Malignant neoplasm of unspecified part of right bronchus or lung
CPT/HCPCS: 80053; 85025; 96413; J9201

== ENCOUNTER 2023-09-01 08:26 | Outpatient (CLI) | payer MEDICARE, SELFPAY ==
[2023-09-01 08:30] VITALS: BMI 33.5
[2023-09-01 08:41] LABS: Basophils % 0.4 % (0.1-2.0); Eosinophils # 0.1 K/mm3 (0.0-0.4); Eosinophils % 2.1 % (0.1-12.0); Hematocrit 35.6 % (42.0-52.0); Hemoglobin 11.2 g/dL (14.1-18.0); Lymphocytes # 1.2 K/mm3 (0.7-4.5); Lymphocytes % 19.4 % (10-50); Mean Corpuscular HGB Conc 31.6 g/dL (31.8-35.4); Mean Corpuscular Hemoglobin 34.7 pg (27.0-31.2); Mean Corpuscular Volume 109.9 fl (80-94); Mean Platelet Volume 9.7 fl (7.4-10.4); Monocytes # 0.7 K/mm3 (0.1-1.0); Monocytes % 12.2 % (1.7-9.3); Neutrophils # 3.9 K/mm3 (1.8-7.8); Neutrophils % 65.8 % (37.0-80.0); Platelet Count 274 K/mm3 (142-424); Red Blood Count 3.24 M/mm3 (4.60-6.20); Red Cell Distribution Width 19.2 % (11.5-17.5); White Blood Count 5.9 K/mm3 (4.8-10.8)
[2023-09-01 08:58] LABS: Alanine Aminotransferase 37 U/L (12-78); Albumin Level 3.7 g/dl (3.5-5.0); Albumin/Globulin Ratio 1.2 (1.1-1.8); Alkaline Phosphatase 107 U/L (38-126); Anion Gap 13.1 mEq/L (5-15); Aspartate Amino Transferase 27 U/L (17-59); Bilirubin,Total 0.7 mg/dl (0.2-1.3); Blood Urea Nitrogen 13 mg/dl (9-20); Calcium 8.9 mg/dl (8.4-10.2); Carbon Dioxide 29 mmol/L (22.0-30.0); Chloride 99 mmol/L (98-107); Creatinine Clearance Estimated 122 mL/min (50-200); Estimated Glomerular Filt Rate 77 ml/min (>60); GFR (African American) 93 ML/MIN (>60); Globulin 3.1 g/dL (1.3-3.2); Glucose 116 mg/dl (74-100); Potassium 4.1 mmoL/L (3.5-5.1); Sodium 137 mmol/L (136-145); Total Protein,Serum 6.8 g/dl (6.3-8.2)
[2023-09-01] MEDS: SODIUM CHLORIDE 0.9% IV (10:29)
[2023-09-01] MEDS: GEMCITABINE HCL IV (10:29)
[2023-09-01] MEDS: SODIUM CHLORIDE 0.9% 50ML BAG 50 ML IV (10:30)
[2023-09-01 10:35] VITALS: BP 152/71; PULSE 114; RESP 22; TEMP 37; O2SAT 98
[2023-09-01 10:50] VITALS: BP 146/68; PULSE 99
[2023-09-01 11:10] VITALS: BP 139/72; PULSE 101
== END 2023-09-01 11:15 | disposition home or self-care (01) ==
LOC: INF 08:27
PROVIDERS: PCP Nurse Practitioner Family; Visit Provider Internal Medicine Medical Oncology
DX: C34.90 Malignant neoplasm of unspecified part of unspecified bronchus or lung (principal); Z79.899 Other long term (current) drug therapy
CPT/HCPCS: 80053; 85025; 96413; J9201

== ENCOUNTER 2023-09-08 13:58 | Outpatient (CLI) | payer MEDICARE, SELFPAY ==
[2023-09-08 14:07] VITALS: BMI 32.5
[2023-09-08 14:19] LABS: Basophils % 0.6 % (0.1-2.0); Eosinophils % 0.8 % (0.1-12.0); Hematocrit 35.1 % (42.0-52.0); Hemoglobin 11.3 g/dL (14.1-18.0); Lymphocytes # 0.6 K/mm3 (0.7-4.5); Lymphocytes % 15.2 % (10-50); Mean Corpuscular HGB Conc 32.1 g/dL (31.8-35.4); Mean Corpuscular Hemoglobin 35.1 pg (27.0-31.2); Mean Corpuscular Volume 109.2 fl (80-94); Mean Platelet Volume 9.2 fl (7.4-10.4); Monocytes # 0.4 K/mm3 (0.1-1.0); Monocytes % 9.8 % (1.7-9.3); Neutrophils # 3.1 K/mm3 (1.8-7.8); Neutrophils % 73.7 % (37.0-80.0); Platelet Count 178 K/mm3 (142-424); Red Blood Count 3.22 M/mm3 (4.60-6.20); Red Cell Distribution Width 19.1 % (11.5-17.5); White Blood Count 4.2 K/mm3 (4.8-10.8)
[2023-09-08 14:59] LABS: Chloride 99 mmol/L (98-107); Potassium 3.9 mmoL/L (3.5-5.1); Sodium 136 mmol/L (136-145)
[2023-09-08 15:01] LABS: Alanine Aminotransferase 49 U/L (12-78); Aspartate Amino Transferase 39 U/L (17-59); Blood Urea Nitrogen 10 mg/dl (9-20); Creatinine Clearance Estimated 119 mL/min (50-200); Estimated Glomerular Filt Rate 77 ml/min (>60); GFR (African American) 93 ML/MIN (>60)
[2023-09-08 15:02] LABS: Albumin Level 3.7 g/dl (3.5-5.0); Albumin/Globulin Ratio 1.2 (1.1-1.8); Alkaline Phosphatase 109 U/L (38-126); Anion Gap 9.9 mEq/L (5-15); Bilirubin,Total 0.8 mg/dl (0.2-1.3); Calcium 8.9 mg/dl (8.4-10.2); Carbon Dioxide 31 mmol/L (22.0-30.0); Globulin 3.2 g/dL (1.3-3.2); Glucose 136 mg/dl (74-100); Total Protein,Serum 6.9 g/dl (6.3-8.2)
[2023-09-08] MEDS: 0.9 % SODIUM CHLORIDE 50 ML 100 ML IV (15:21)
[2023-09-08] MEDS: SODIUM CHLORIDE 0.9% IV (15:21)
[2023-09-08] MEDS: GEMCITABINE HCL IV (15:21)
[2023-09-08 15:30] VITALS: BP 130/84; PULSE 97; RESP 17; O2SAT 99
[2023-09-08 15:45] VITALS: BP 132/85; PULSE 93; RESP 16
[2023-09-08 16:05] VITALS: BP 132/77; PULSE 97; RESP 16
== END 2023-09-08 16:15 | disposition home or self-care (01) ==
LOC: INF 13:58
PROVIDERS: PCP Nurse Practitioner Family; Visit Provider Internal Medicine Medical Oncology
DX: C34.91 Malignant neoplasm of unspecified part of right bronchus or lung (principal); Z79.899 Other long term (current) drug therapy
CPT/HCPCS: 80053; 85025; 96413; J9201

== ENCOUNTER 2023-09-15 10:34 | Outpatient (CLI) | payer MEDICARE, SELFPAY ==
--- NOTE | 2023-09-15 10:36 | CA_ITS ---
APPROVED REPORT EXAM: Comprehensive 2D, Doppler, and color-flow Echocardiogram Life Skills Consultant: Nichelle Rivera RVT Ht: 5 ft 10 in Wt: 228lbs BSA: 2.21 BP: 131/71 mmHg Indications: EDEMA,HTN,PADRON,HLD,LUNG CA TDS R/T PT CONDITION 2D Dimensions LA Volume 34.10 mL LA Volume Index 15.43 mL/m2 (M/F) 16-34 M-Mode Dimensions RVDd 2.99 cm (0.9-2.6) LA Diam 3.52 cm (1.9-4.0) LVDd 5.13 cm (3.5-5.7) LVDs 3.62 cm (3.5-5.7) IVSd 0.63 cm (0.6-1.1) PWd 0.71 cm (0.6-1.1) EF (Teich) 56.00% FS 29.40% EDV (Teich) 125.50 mL ESV (Teich) 55.20 mL LV Diastology E Decel Time 150 (160-240 msec) E/A Ratio 0.9 Aortic Valve TAMARA Index 1.30 cm2/m2 AoV Peak Max. 104.0 (50-130 cm/s) AO Peak GR. 4.40 mmHg AO Mean GR. 2.30 (<5 mmHg) AO VTI 18.0 (18-25 cm) TAMARA (VTI) 2.94 (2.5-4.5 cm2) Mitral Valve MV E Max Max. 63.0 (40-130 cm/s) MV A Velocity 73.0 (40-130 cm/s) E/A Ratio 0.86 MV PHT 44.0 ms Pulmonary Valve PV Peak Velocity 95.0 (50-150 cm/s) Tricuspid Valve TR P. Velocity 178.00 cm/s RAP Estimate 10.00 mmHg RVSP 22.70 mmHg Left Ventricle The left ventricle is normal size. The left ventricular systolic function is low normal. There is increased LV wall thickness. The septum is asynchronous. LVEF is 50%. Transmitral Doppler flow pattern suggests impaired LV relaxation. Right Ventricle Right ventricle is mildly dilated. The right ventricular systolic function is normal. Atria The left atrium size is normal. The right atrium size is normal. The interatrial septum is not well-visualized. Aortic Valve The aortic valve is mildly thickened. There is no aortic valvular stenosis. Trace aortic regurgitation. Mitral Valve The mitral valve leaflets are mildly thickened. No evidence of mitral valve stenosis. Trace mitral regurgitation. Tricuspid Valve The tricuspid valve leaflets are thin and pliable. Trace tricuspid regurgitation. There is insufficient TR jet to estimate RVSP. Pulmonic Valve The pulmonary valve is normal in structure. Trace pulmonic regurgitation. Great Vessels The aortic root is normal in size. The ascending aorta is normal in size. IVC is normal in size and collapses >50% with inspiration. Pericardium There is no pericardial effusion. Other Information Study Quality: Technically Difficult Conclusion Technically difficult study due to poor acoustic windows. Low normal LV systolic function (LVEF 50%). Mildly dilated RV with normal RV function. No significant valvular stenosis or regurgitation. Electronically signed by : Mishel Cabrera MD 09/18/2023 12:16:50
[2023-09-15 11:14] VITALS: BMI 32.5
[2023-09-15 11:29] LABS: Basophils % 0.3 % (0.1-2.0); Eosinophils % 0.9 % (0.1-12.0); Hematocrit 30.6 % (42.0-52.0); Hemoglobin 9.7 g/dL (14.1-18.0); Lymphocytes # 0.5 K/mm3 (0.7-4.5); Lymphocytes % 10.4 % (10-50); Mean Corpuscular HGB Conc 31.9 g/dL (31.8-35.4); Mean Corpuscular Hemoglobin 35.3 pg (27.0-31.2); Mean Corpuscular Volume 110.8 fl (80-94); Mean Platelet Volume 9.8 fl (7.4-10.4); Monocytes # 0.5 K/mm3 (0.1-1.0); Monocytes % 11.7 % (1.7-9.3); Neutrophils # 3.3 K/mm3 (1.8-7.8); Neutrophils % 76.7 % (37.0-80.0); Platelet Count 58 K/mm3 (142-424); Red Blood Count 2.76 M/mm3 (4.60-6.20); Red Cell Distribution Width 19.6 % (11.5-17.5); White Blood Count 4.3 K/mm3 (4.8-10.8)
[2023-09-15 11:44] LABS: Chloride 100 mmol/L (98-107); Potassium 3.4 mmoL/L (3.5-5.1); Sodium 134 mmol/L (136-145)
[2023-09-15 11:47] LABS: Alanine Aminotransferase 60 U/L (12-78); Albumin Level 3.3 g/dl (3.5-5.0); Albumin/Globulin Ratio 1.1 (1.1-1.8); Alkaline Phosphatase 105 U/L (38-126); Anion Gap 7.4 mEq/L (5-15); Aspartate Amino Transferase 45 U/L (17-59); Bilirubin,Total 0.9 mg/dl (0.2-1.3); Blood Urea Nitrogen 9 mg/dl (9-20); Carbon Dioxide 30 mmol/L (22.0-30.0); Creatinine Clearance Estimated 132 mL/min (50-200); Estimated Glomerular Filt Rate 87 ml/min (>60); GFR (African American) 105 ML/MIN (>60); Globulin 2.9 g/dL (1.3-3.2); Total Protein,Serum 6.2 g/dl (6.3-8.2)
[2023-09-15 11:48] LABS: Calcium 8.3 mg/dl (8.4-10.2); Glucose 154 mg/dl (74-100)
== END 2023-09-15 12:25 | disposition home or self-care (01) ==
LOC: RT 10:36 → INF 10:38
PROVIDERS: Internal Medicine Medical Oncology; PCP Nurse Practitioner Family; Visit Provider Physician Assistant
DX: R60.0 Localized edema (principal); C34.91 Malignant neoplasm of unspecified part of right bronchus or lung; Z79.899 Other long term (current) drug therapy; Z87.891 Personal history of nicotine dependence
CPT/HCPCS: 36415; 80053; 85025; 93306

== ENCOUNTER 2023-09-28 08:54 | Outpatient (CLI) | payer MEDICARE, SELFPAY ==
[2023-09-28 08:58] VITALS: BMI 32.7
[2023-09-28 09:23] LABS: Basophils # 0.1 K/mm3 (0-0.2); Basophils % 0.7 % (0.1-2.0); Chloride 101 mmol/L (98-107); Eosinophils # 0.2 K/mm3 (0.0-0.4); Eosinophils % 2.7 % (0.1-12.0); Hematocrit 37.1 % (42.0-52.0); Hemoglobin 11.4 g/dL (14.1-18.0); Lymphocytes # 0.9 K/mm3 (0.7-4.5); Lymphocytes % 13.7 % (10-50); Mean Corpuscular HGB Conc 30.8 g/dL (31.8-35.4); Mean Corpuscular Hemoglobin 33.7 pg (27.0-31.2); Mean Corpuscular Volume 109.3 fl (80-94); Mean Platelet Volume 8.8 fl (7.4-10.4); Monocytes # 0.6 K/mm3 (0.1-1.0); Monocytes % 9.9 % (1.7-9.3); Neutrophils # 4.6 K/mm3 (1.8-7.8); Platelet Count 264 K/mm3 (142-424); Potassium 3.8 mmoL/L (3.5-5.1); Red Cell Distribution Width 18.5 % (11.5-17.5); Sodium 137 mmol/L (136-145); White Blood Count 6.3 K/mm3 (4.8-10.8)
[2023-09-28 09:25] LABS: Alanine Aminotransferase 28 U/L (12-78); Aspartate Amino Transferase 31 U/L (17-59); Blood Urea Nitrogen 14 mg/dl (9-20); Creatinine Clearance Estimated 132 mL/min (50-200); Estimated Glomerular Filt Rate 87 ml/min (>60); GFR (African American) 105 ML/MIN (>60)
[2023-09-28 09:26] LABS: Albumin Level 3.9 g/dl (3.5-5.0); Albumin/Globulin Ratio 1.2 (1.1-1.8); Alkaline Phosphatase 123 U/L (38-126); Anion Gap 9.8 mEq/L (5-15); Bilirubin,Total 0.9 mg/dl (0.2-1.3); Calcium 8.9 mg/dl (8.4-10.2); Carbon Dioxide 30 mmol/L (22.0-30.0); Globulin 3.3 g/dL (1.3-3.2); Glucose 115 mg/dl (74-100); Total Protein,Serum 7.2 g/dl (6.3-8.2)
[2023-09-28 10:20] VITALS: BP 117/69; PULSE 98; RESP 18; TEMP 36.6; O2SAT 97
[2023-09-28 10:28] LABS: Microscopic, Urine URINE MICROSCOPIC (MICROSCOPIC)
[2023-09-28 10:40] LABS: Appearance,Urine CLEAR (Clear); Blood, Urine Negative (Negative); Color,Urine YELLOW (Yellow); Glucose,Urine (UA) Negative (Negative); Ketones,Urine Negative (Negative); Leukocyte Esterase,Urine Negative (Negative); Nitrate,Urine Negative (Negative); Protein,Urine Negative (Negative); Specific Gravity, Urine 1.025 (1.005-1.030); Urobilinogen,Urine 0.2 EU/dl (0.2)
[2023-09-28 10:55] LABS: Bilirubin,Urine 1+ (Negative)
[2023-09-28 10:56] LABS: Bacteria,Urine Trace /lpf; Squamous Epithelial Cell,Urine Occasional #/hpf (0-5)
[2023-09-28] MEDS: SODIUM CHLORIDE 0.9% 10ML FLUSH SYRINGE 10 ML IV (11:20)
[2023-09-28] MEDS: SODIUM CHLORIDE 0.9% 50ML BAG 50 ML IV (11:20)
[2023-09-28 11:35] VITALS: BP 141/78; PULSE 98; RESP 20; O2SAT 98
[2023-09-28] MEDS: GEMCITABINE HCL IV (11:38)
[2023-09-28] MEDS: SODIUM CHLORIDE 0.9% IV (11:38)
[2023-09-28 12:20] VITALS: BP 136/72; PULSE 101; RESP 20; O2SAT 98
== END 2023-09-28 12:20 | disposition home or self-care (01) ==
LOC: INF 08:54
PROVIDERS: PCP Nurse Practitioner Family; Visit Provider Internal Medicine Medical Oncology
DX: C34.91 Malignant neoplasm of unspecified part of right bronchus or lung; Z51.11 Encounter for antineoplastic chemotherapy; Z79.899 Other long term (current) drug therapy; Z87.891 Personal history of nicotine dependence
CPT/HCPCS: 80053; 81001; 85025; 96413; J9201

== ENCOUNTER 2023-10-05 08:47 | Outpatient (CLI) | payer MEDICARE, SELFPAY ==
[2023-10-05 08:52] VITALS: BMI 31.5
[2023-10-05 09:04] LABS: Basophils % 0.1 % (0.1-2.0); Eosinophils % 0.9 % (0.1-12.0); Hematocrit 32.3 % (42.0-52.0); Hemoglobin 10.6 g/dL (14.1-18.0); Lymphocytes # 0.7 K/mm3 (0.7-4.5); Lymphocytes % 16.5 % (10-50); Mean Corpuscular HGB Conc 32.7 g/dL (31.8-35.4); Mean Corpuscular Hemoglobin 34.8 pg (27.0-31.2); Mean Corpuscular Volume 106.2 fl (80-94); Mean Platelet Volume 9.1 fl (7.4-10.4); Monocytes # 0.5 K/mm3 (0.1-1.0); Neutrophils # 3.1 K/mm3 (1.8-7.8); Neutrophils % 70.5 % (37.0-80.0); Platelet Count 143 K/mm3 (142-424); Red Blood Count 3.04 M/mm3 (4.60-6.20); Red Cell Distribution Width 18.6 % (11.5-17.5); White Blood Count 4.5 K/mm3 (4.8-10.8)
[2023-10-05 09:19] LABS: Alanine Aminotransferase 42 U/L (12-78); Albumin Level 3.4 g/dl (3.5-5.0); Albumin/Globulin Ratio 1.1 (1.1-1.8); Alkaline Phosphatase 116 U/L (38-126); Anion Gap 12.7 mEq/L (5-15); Aspartate Amino Transferase 38 U/L (17-59); Bilirubin,Total 1.1 mg/dl (0.2-1.3); Blood Urea Nitrogen 11 mg/dl (9-20); Calcium 8.7 mg/dl (8.4-10.2); Carbon Dioxide 29 mmol/L (22.0-30.0); Chloride 100 mmol/L (98-107); Creatinine Clearance Estimated 128 mL/min (50-200); Estimated Glomerular Filt Rate 87 ml/min (>60); GFR (African American) 105 ML/MIN (>60); Globulin 3.1 g/dL (1.3-3.2); Glucose 117 mg/dl (74-100); Potassium 3.7 mmoL/L (3.5-5.1); Sodium 138 mmol/L (136-145); Total Protein,Serum 6.5 g/dl (6.3-8.2)
[2023-10-05 10:00] VITALS: BP 117/75; PULSE 103; RESP 18; TEMP 36.6; O2SAT 97
[2023-10-05] MEDS: SODIUM CHLORIDE 0.9% 50ML BAG 50 ML IV (10:13)
[2023-10-05] MEDS: SODIUM CHLORIDE 0.9% 10ML FLUSH SYRINGE 10 ML IV (10:14)
[2023-10-05 10:24] VITALS: BP 107/81; PULSE 89; RESP 18; O2SAT 98
[2023-10-05] MEDS: GEMCITABINE HCL IV (10:24)
[2023-10-05] MEDS: SODIUM CHLORIDE 0.9% IV (10:24)
[2023-10-05 11:12] VITALS: BP 115/85; PULSE 90; RESP 18; O2SAT 98
== END 2023-10-05 11:12 | disposition home or self-care (01) ==
LOC: INF 08:48
PROVIDERS: PCP Nurse Practitioner Family; Visit Provider Internal Medicine Medical Oncology
DX: Z51.11 Encounter for antineoplastic chemotherapy (principal); C34.91 Malignant neoplasm of unspecified part of right bronchus or lung; Z79.899 Other long term (current) drug therapy; Z87.891 Personal history of nicotine dependence
CPT/HCPCS: 80053; 85025; 96413; J9201

== ENCOUNTER 2023-10-10 08:34 | Outpatient (CLI) | payer MEDICARE, SELFPAY ==
[2023-10-10 08:39] VITALS: BMI 31.5
--- NOTE | 2023-10-10 08:58 | NM_ITS ---
FINAL REPORT CLINICAL HISTORY: LUNG CANCER, LT HIP AND LOW BACK PAIN 9:00AM 25.6 MCI TC MDP PATIENT HAS HAD 25 ROUNDS OF RADIATION AND [place] HAS HAD CHEMO COMPARISON: 07/17/2023 FINDINGS: EXISTING RELEVANT IMAGING STUDIES: None TECHNIQUE: The patient was injected with 25.6 mCi of technetium 99-[id number]. 3 hour delayed images were obtained. FINDINGS: There is mild increased tracer activity in the shoulders and the knees, likely degenerative. There is decreased activity over the upper thoracic region, probably related to prior radiation therapy. No other abnormal tracer activity is identified to suggest occult fracture or metastatic disease. IMPRESSION: No findings to indicate metastatic bone disease. Reviewed, Interpreted and Dictated by Preet Dolan III, MD Transcribed by Malissa Ward Authenticated and [facility]
[2023-10-10 09:03] LABS: Basophils % 0.4 % (0.1-2.0); Eosinophils # 0.1 K/mm3 (0.0-0.4); Eosinophils % 1.6 % (0.1-12.0); Hemoglobin 9.8 g/dL (14.1-18.0); Lymphocytes # 0.6 K/mm3 (0.7-4.5); Lymphocytes % 11.8 % (10-50); Mean Corpuscular HGB Conc 32.8 g/dL (31.8-35.4); Mean Corpuscular Hemoglobin 34.4 pg (27.0-31.2); Mean Corpuscular Volume 104.8 fl (80-94); Mean Platelet Volume 10.3 fl (7.4-10.4); Monocytes # 0.3 K/mm3 (0.1-1.0); Monocytes % 5.2 % (1.7-9.3); Neutrophils % 80.9 % (37.0-80.0); Platelet Count 67 K/mm3 (142-424); Red Blood Count 2.86 M/mm3 (4.60-6.20); Red Cell Distribution Width 18.9 % (11.5-17.5)
[2023-10-10 09:05] LABS: Chloride 104 mmol/L (98-107); Potassium 3.4 mmoL/L (3.5-5.1); Sodium 139 mmol/L (136-145)
[2023-10-10 09:07] LABS: Alanine Aminotransferase 63 U/L (12-78); Alkaline Phosphatase 126 U/L (38-126); Anion Gap 8.4 mEq/L (5-15); Aspartate Amino Transferase 56 U/L (17-59); Bilirubin,Total 0.9 mg/dl (0.2-1.3); Blood Urea Nitrogen 12 mg/dl (9-20); Carbon Dioxide 30 mmol/L (22.0-30.0); Creatinine Clearance Estimated 128 mL/min (50-200); Estimated Glomerular Filt Rate 87 ml/min (>60); GFR (African American) 105 ML/MIN (>60)
[2023-10-10 09:08] LABS: Albumin Level 3.4 g/dl (3.5-5.0); Albumin/Globulin Ratio 1.1 (1.1-1.8); Calcium 8.6 mg/dl (8.4-10.2); Globulin 3.1 g/dL (1.3-3.2); Glucose 112 mg/dl (74-100); Total Protein,Serum 6.5 g/dl (6.3-8.2)
[2023-10-10] MEDS: SODIUM CHLORIDE 0.9% 10ML SYR (RAD ONLY) 10 ML IV (09:12)
[2023-10-10] MEDS: ISOTOPE MDP (BONE);1 DOSE VIAL IV (09:12)
[2023-10-11 15:22] LABS: Adrenocorticotropic Hormone 17.2 pg/mL (7.2-63.3)
== END 2023-10-10 09:00 | disposition home or self-care (01) ==
LOC: INF 08:36
PROVIDERS: Internal Medicine Endocrinology, Diabetes & Metabolism; PCP Nurse Practitioner Family; Visit Provider Internal Medicine Medical Oncology
DX: C34.91 Malignant neoplasm of unspecified part of right bronchus or lung (principal); Z79.899 Other long term (current) drug therapy; E27.49 Other adrenocortical insufficiency; Z87.891 Personal history of nicotine dependence
CPT/HCPCS: 36415; 78306; 80053; 82024; 82533; 85025; A9503

== ENCOUNTER 2023-10-11 07:51 | Outpatient (CLI) | payer MEDICARE, SELFPAY ==
--- NOTE | 2023-10-11 08:00 | CT_ITS ---
FINAL REPORT CLINICAL HISTORY: lung cancer, lt hip and low back pain COMPARISON: 07/17/2023 FINDINGS: CT OF THE ABDOMEN AND PELVIS WITH CONTRAST Axial CT images of the abdomen and pelvis were obtained after the administration of IV contrast. Coronal and sagittal reformatted images were also obtained and reviewed. This study was performed with techniques to keep radiation doses as low as reasonably achievable (ALARA). Individualized dose reduction techniques using automated exposure control or adjustment of mA and/or kV according to the patient's size were employed. Abdomen: A moderate right pleural effusion remains present. A superior vena cava stent is once again noted, with adjacent low-attenuation density that may represent a fluid collection, stable. Wall thickening of the distal esophagus is once again noted, possibly inflammatory, also stable. Scarring is present in the right lung field. The heart is normal in size. The liver has an unremarkable appearance, without evidence of mass or biliary ductal dilatation. Small gallstones or sludge are present in the gallbladder. The spleen is unremarkable. Bilateral adrenal masses are once again identified, consistent with metastases in this patient with a known history of lung cancer. The right adrenal on today's exam measures 5.9 x 4.8 cm, was previously 4.3 x 3.2 cm. The left adrenal gland measures 6.6 x 3.5 cm, was previously 5.2 x 2.3 cm. Both adrenal masses now contain presumed central necrosis. The pancreas has an unremarkable appearance. The kidneys are normal, without evidence of mass or hydronephrosis, other than the right renal cyst noted on prior examinations which remain stable. The aorta is normal in caliber. There is no free fluid or adenopathy. No mass or abnormal fluid collection is seen. Pelvis: The appendix is normal in appearance. The urinary bladder is unremarkable. No inflammatory process is seen. The mesenteric mass in the right lower abdomen noted on the previous exam, today measures 2.8 x 2.7 cm in size, was previously 2.2 x 1.5 cm in size. Somewhat more inferior in the left pelvis the other mesenteric mass identified measures 3.5 x 2.9 cm, was previously 2.8 x 2.3 cm. Both of these mesenteric masses are also more necrotic when compared with the prior exam of July. Bilateral iliac artery stents are present, the left stent is likely occluded. There is a small sclerotic focus once again identified in the medial right iliac bone, which is stable and may represent a metastasis. A left inguinal hernia is noted containing fat. There is no evidence of bowel obstruction. IMPRESSION: Bilateral adrenal masses, consistent with metastases, have enlarged since the prior exam as described, and now contain presumed central necrosis. The mesenteric masses noted on the previous exam have also enlarged, and are also more necrotic when compared to the prior films. Bilateral iliac artery stents are once again identified, with the left stent once again likely occluded. Reviewed, Interpreted and Dictated by Preet Dolan III, MD Transcribed by Malissa Ward Authenticated and . [facility]
[2023-10-11] MEDS: IOPAMIDOL-370 (76%);100ML BOTTLE 75 ML IV (08:20)
[2023-10-11] MEDS: SODIUM CHLORIDE 0.9% 10ML SYR (RAD ONLY) 10 ML IV (08:20)
== END 2023-10-11 23:59 | disposition home or self-care (01) ==
LOC: RAD 07:51
PROVIDERS: PCP Nurse Practitioner Family; Visit Provider Internal Medicine Medical Oncology
DX: C34.11 Malignant neoplasm of upper lobe, right bronchus or lung (principal); Z87.891 Personal history of nicotine dependence
CPT/HCPCS: 74177; Q9967

== ENCOUNTER 2023-10-17 11:04 | Outpatient (CLI) | payer MEDICARE, SELFPAY ==
--- NOTE | 2023-10-17 11:08 | PC.NURSE ---
1108-collected ua via clean catch; to call pt with results. pt d/c home
[2023-10-17 11:12] VITALS: BMI 31.2
[2023-10-17 11:21] LABS: Microscopic, Urine URINE MICROSCOPIC (MICROSCOPIC)
[2023-10-17 11:24] LABS: Appearance,Urine CLEAR (Clear); Bilirubin,Urine Negative (Negative); Blood, Urine Negative (Negative); Color,Urine YELLOW (Yellow); Glucose,Urine (UA) Negative (Negative); Ketones,Urine Negative (Negative); Leukocyte Esterase,Urine Negative (Negative); Nitrate,Urine Negative (Negative); Protein,Urine Negative (Negative); Urobilinogen,Urine 0.2 EU/dl (0.2)
[2023-10-17 11:32] LABS: Bacteria,Urine Trace /lpf; Squamous Epithelial Cell,Urine Occasional #/hpf (0-5)
== END 2023-10-17 11:10 | disposition home or self-care (01) ==
LOC: INF 11:05
PROVIDERS: PCP Internal Medicine Medical Oncology; Visit Provider Internal Medicine Medical Oncology
DX: R10.2 Pelvic and perineal pain (principal); C34.31 Malignant neoplasm of lower lobe, right bronchus or lung; Z79.899 Other long term (current) drug therapy; Z87.891 Personal history of nicotine dependence
CPT/HCPCS: 81001; G0463

== ENCOUNTER 2023-10-19 06:54 | Outpatient (CLI) | payer MEDICARE, SELFPAY ==
--- NOTE | 2023-10-19 07:38 | MR_ITS ---
FINAL REPORT CLINICAL HISTORY: R/O METS, LUNG CANCER. testicular pain COMPARISON: CT of the abdomen and pelvis dated 10/11/2023 FINDINGS: Multiplanar MR images of the pelvis were performed without contrast. There is motion artifact which somewhat limits overall image quality, as well as field and artifact involving the superior and inferior images within the [id number]. There is no fracture, bone bruising or marrow edema. No bony mass is identified. There is no evidence of avascular necrosis. No significant joint effusion is seen. There is increased T2 signal in the bilateral hip abductor musculature adjacent to the symphysis pubis, and also in the mid and lateral aspect of the left gluteus armani muscle. This may represent mild muscle injury or myositis. The tendons are intact. There is a 3.3 cm anterior mid left pelvis mass, consistent with the mass seen on CT examination of October 10, likely metastatic in this patient with a known history of lung carcinoma. IMPRESSION: Increased signal in the hip abductor musculature adjacent to the symphysis pubis bilaterally as well as in the mid and lateral aspect of the left gluteus armani muscle, most likely either secondary to mild muscle injury or myositis. 3.3 cm anterior mid left pelvis mass, that correlates with the mass seen on CT, likely metastatic. Reviewed, Interpreted and Dictated by Preet Dolan III, MD Transcribed by Malissa Ward Authenticated and [facility]
--- NOTE | 2023-10-19 08:32 | CT_ITS ---
FINAL REPORT CLINICAL HISTORY: METS LUNG CANCER-PAIN COMPARISON: 07/17/[address] abdomen and pelvis 10/11/2023 FINDINGS: Axial CT images of the chest were obtained with contrast. Coronal reformatted images were also obtained. This study was performed with techniques to keep radiation doses as low as reasonably achievable, (ALARA). Individualized dose reduction techniques using automated exposure control or adjustment of mA and/or KV according to the patient's size were employed. An SVC stent is again identified and appears patent. Soft tissue density in the right mediastinum measures 4 x 2 cm and is stable compared to the prior study. No axillary mass or adenopathy is identified. There is diffuse esophageal wall thickening which is stable and favored to be inflammatory. There is a small pericardial effusion. There is a moderate right pleural effusion measuring up to 3.5 cm in depth in the is approximately stable. Mild emphysema and mild scarring are noted. There is a calcified granuloma in the left upper lobe. On the lung window images, the right perihilar opacities appear stable. There is a 2.4 cm medial right upper lobe nodule which is also stable. Limited images of the upper abdomen reveal a stable right adrenal heterogeneous mass measuring 6 x 4.6 cm, previously measured 5.9 x 4.8 cm. There is a left adrenal nodule measuring 6.2 x 3.5 cm, also stable. Possible small gallstones are seen. IMPRESSION: Stable findings in the chest. Findings in the abdomen are stable compared to the most recent CT. Reviewed, Interpreted and Dictated by Preet Dolan III, MD Transcribed by Catalina Rosas Authenticated and . [facility]
[2023-10-19] MEDS: IOPAMIDOL-370 (76%);100ML BOTTLE 75 ML IV (08:46)
[2023-10-19] MEDS: SODIUM CHLORIDE 0.9% 10ML SYR (RAD ONLY) 10 ML IV (08:47)
== END 2023-10-19 23:59 | disposition home or self-care (01) ==
LOC: RAD 06:54
PROVIDERS: PCP Nurse Practitioner Family; Visit Provider Internal Medicine Medical Oncology
DX: C34.91 Malignant neoplasm of unspecified part of right bronchus or lung (principal); G89.29 Other chronic pain; Z87.891 Personal history of nicotine dependence
CPT/HCPCS: 71260; 72195; Q9967

== ENCOUNTER 2023-10-31 12:35 | Outpatient (CLI) | payer MEDICARE, SELFPAY ==
[2023-10-31 12:38] VITALS: BMI 29.9
[2023-10-31 12:52] LABS: Basophils % 0.5 % (0.1-2.0); Eosinophils # 0.1 K/mm3 (0.0-0.4); Eosinophils % 1.3 % (0.1-12.0); Lymphocytes # 0.7 K/mm3 (0.7-4.5); Lymphocytes % 9.4 % (10-50); Mean Corpuscular HGB Conc 30.7 g/dL (31.8-35.4); Mean Corpuscular Hemoglobin 31.6 pg (27.0-31.2); Mean Corpuscular Volume 102.9 fl (80-94); Mean Platelet Volume 8.6 fl (7.4-10.4); Monocytes # 0.5 K/mm3 (0.1-1.0); Monocytes % 6.6 % (1.7-9.3); Neutrophils # 6.4 K/mm3 (1.8-7.8); Neutrophils % 82.3 % (37.0-80.0); Platelet Count 229 K/mm3 (142-424); Red Blood Count 3.79 M/mm3 (4.60-6.20); Red Cell Distribution Width 18.4 % (11.5-17.5); White Blood Count 7.7 K/mm3 (4.8-10.8)
[2023-10-31 13:00] LABS: Chloride 105 mmol/L (98-107); Sodium 138 mmol/L (136-145)
[2023-10-31 13:01] LABS: Potassium 3.4 mmoL/L (3.5-5.1)
[2023-10-31 13:03] LABS: Alanine Aminotransferase 50 U/L (12-78); Albumin Level 3.5 g/dl (3.5-5.0); Alkaline Phosphatase 124 U/L (38-126); Aspartate Amino Transferase 42 U/L (17-59); Bilirubin,Total 0.8 mg/dl (0.2-1.3); Blood Urea Nitrogen 11 mg/dl (9-20); Creatinine Clearance Estimated 109 mL/min (50-200); Estimated Glomerular Filt Rate 77 ml/min (>60); GFR (African American) 93 ML/MIN (>60)
[2023-10-31 13:04] LABS: Albumin/Globulin Ratio 1.1 (1.1-1.8); Anion Gap 9.4 mEq/L (5-15); Calcium 8.4 mg/dl (8.4-10.2); Carbon Dioxide 27 mmol/L (22.0-30.0); Globulin 3.3 g/dL (1.3-3.2); Glucose 134 mg/dl (74-100); Total Protein,Serum 6.8 g/dl (6.3-8.2)
== END 2023-10-31 12:49 | disposition home or self-care (01) ==
LOC: INF 12:37
PROVIDERS: PCP Nurse Practitioner Family; Visit Provider Internal Medicine Medical Oncology
DX: C34.91 Malignant neoplasm of unspecified part of right bronchus or lung (principal); Z79.899 Other long term (current) drug therapy; Z87.891 Personal history of nicotine dependence
CPT/HCPCS: 36415; 80053; 85025

== ENCOUNTER 2023-11-14 11:30 | Outpatient (CLI) | payer MEDICARE, SELFPAY ==
--- NOTE | 2023-11-14 11:37 | US_ITS ---
FINAL REPORT TECHNIQUE: Ultrasound images of the testicles were obtained bilaterally. Color Doppler images were obtained. CLINICAL HISTORY: .rt test pain --- swelling-- hx of lung cancer FINDINGS: The testicles are normal in size bilaterally. Arterial flow is identified bilaterally. The right testicle measures to 4.1 cm. There is a cyst in the lower pole of the right testicle measuring 8 mm. There is a cystic mass in the right epididymal head measuring 6 mm. The left testicle measures to 3.8 cm. There is a cyst in the left testicle measuring 3 mm. There is a 7 mm mass in the left epididymal head, may represent complex epididymal cyst or other mass. IMPRESSION: Bilateral testicular masses. Cyst in the right epididymal head. Mass in the left epididymal head, may represent complex cyst or other cystic mass. Follow-up ultrasound may be helpful. Reviewed, Interpreted and Dictated by Preet Dolan III, MD Transcribed by April Guy Authenticated and . [facility]
[2023-11-14 12:29] VITALS: BMI 29.8
[2023-11-14 12:50] LABS: Basophils % 0.3 % (0.1-2.0); Eosinophils # 0.1 K/mm3 (0.0-0.4); Eosinophils % 1.8 % (0.1-12.0); Hematocrit 35.2 % (42.0-52.0); Hemoglobin 10.9 g/dL (14.1-18.0); Lymphocytes # 0.6 K/mm3 (0.7-4.5); Lymphocytes % 6.8 % (10-50); Mean Corpuscular HGB Conc 30.9 g/dL (31.8-35.4); Mean Corpuscular Volume 100.3 fl (80-94); Mean Platelet Volume 9.6 fl (7.4-10.4); Monocytes # 0.4 K/mm3 (0.1-1.0); Monocytes % 4.3 % (1.7-9.3); Neutrophils # 7.1 K/mm3 (1.8-7.8); Neutrophils % 86.8 % (37.0-80.0); Platelet Count 198 K/mm3 (142-424); Red Blood Count 3.51 M/mm3 (4.60-6.20); Red Cell Distribution Width 17.9 % (11.5-17.5); White Blood Count 8.1 K/mm3 (4.8-10.8)
[2023-11-14 12:52] LABS: Albumin Level 3.8 g/dl (3.5-5.0); Chloride 101 mmol/L (98-107); Potassium 3.4 mmoL/L (3.5-5.1); Sodium 139 mmol/L (136-145)
[2023-11-14 12:54] LABS: MANUAL DIFFERENTIAL MANUAL DIFFERENTIAL (MANUAL DIFF)
[2023-11-14 12:55] LABS: Alanine Aminotransferase 37 U/L (12-78); Albumin/Globulin Ratio 1.2 (1.1-1.8); Alkaline Phosphatase 104 U/L (38-126); Anion Gap 11.4 mEq/L (5-15); Aspartate Amino Transferase 36 U/L (17-59); Bilirubin,Total 0.9 mg/dl (0.2-1.3); Blood Urea Nitrogen 11 mg/dl (9-20); Calcium 8.4 mg/dl (8.4-10.2); Carbon Dioxide 30 mmol/L (22.0-30.0); Creatinine Clearance Estimated 109 mL/min (50-200); Estimated Glomerular Filt Rate 77 ml/min (>60); GFR (African American) 93 ML/MIN (>60); Globulin 3.2 g/dL (1.3-3.2); Glucose 150 mg/dl (74-100)
--- NOTE | 2023-11-14 13:39 | PC.NURSE ---
1235 CBC/CMP collected via venipuncture with butterfly needle to L AC x 1 stick. Patient tolerated well. Patient here for lab draw only.
[2023-11-14 13:51] LABS: Lymphocytes % 6 % (10-50); Macrocytosis 1+; Monocytes % 5 % (2-9); Neutrophils % 89 % (42-76); Platelet Estimate Normal; Total Cells Counted 100
== END 2023-11-14 12:32 | disposition home or self-care (01) ==
LOC: INF 11:32
PROVIDERS: PCP Nurse Practitioner Family; Visit Provider Internal Medicine Medical Oncology
DX: C34.90 Malignant neoplasm of unspecified part of unspecified bronchus or lung (principal)
CPT/HCPCS: 36415; 76870; 80053; 85007; 85025; 85027

== ENCOUNTER 2023-12-15 20:19 | Inpatient (IN) | payer MEDICARE, SELFPAY ==
[2023-12-15 20:21] VITALS: BP 122/79; PULSE 139; RESP 16; O2SAT 97; BMI 27.5
--- NOTE | 2023-12-15 20:27 | ED_ITS ---
Discharge Plan Disposition Chief Complaint: Nausea/Vomiting/Diarrhea Discharge ED Provider: Jamal Crowell General Adult HPI General Chief complaint: Nausea/Vomiting/Diarrhea Stated complaint: Diarrhea,poor appitite,stage 4 lung CA Time Seen by Provider: 12/15/23 20:27 History of Present Illness HPI narrative: The patient presents with a chief complaint of diarrhea for the past three days, with today being the worst, having experienced eight episodes. The stool is described as dark but not black, and there is no presence of blood reported. He also reports abdominal pain, feeling like a bruise in the left upper quadrant. He has a history of cancer, having undergone 15 rounds of radiation and multiple chemotherapy treatments. He recently completed a six-week course of antibiotics and started on a diuretic, with the onset of diarrhea occurring shortly after. There is no vomiting reported, but he has attempted to vomit without success. He has experienced significant weight loss and is scheduled for a second opinion at another facility on December 27. There is no pain with urination, chest pain, or shortness of breath reported. Additional details: - He has been in bed for two days due to the diarrhea. - He reports having a tumor and mentions cancer in the kidney and left abdomen. - He completed the course of antibiotics around the first part of the previous week. - The antibiotics were prescribed for problems related to his stoma. - He reports significant pain in the stoma area. - He mentions feeling winded. Please note that above description of symptoms, in this electronic medical record under categorization of recalled from ER triage doctor by RN are reflective of an initial nursing assessment, however, is not reflective of my full history and physical exam that was personally taken and clarified. Consequentially, this preceding description of symptoms, which may include the patient's categorized chief complaint in the EMR, do not reflect my personal clinical impression, and the ultimate description of history of present illness and patient stated complaints should be deferred to this section of the note. Unless stated otherwise or congruent with this section of the note, additional signs, symptoms, or incongruence should be interpreted as inaccurate with my clinical impression. Related Data Home Medications ?Medication ?Instructions ?Recorded ?Confirmed atorvastatin 80 mg tablet 80 mg PO HS Cholesterol 12/22/22 12/15/23 rivaroxaban 20 mg tablet (Xarelto) 20 mg PO QPMWITHMEAL Blood 01/10/23 12/15/23 Thinner/Afib hydrocortisone 10 mg tablet 10 mg PO DAILY 11/14/23 12/15/23 duloxetine 60 mg capsule,delayed 60 mg PO DAILY 12/15/23 12/15/23 release Previous Rx's ?Medication ?Instructions ?Recorded furosemide 20 mg tablet 20 mg PO DAILY PRN edema #90 tabs 09/13/23 gabapentin 800 mg tablet 800 mg PO TID Neuropathy #90 tabs 09/13/23 bisoprolol fumarate 10 mg tablet See Rx Instructions .Route 10/05/23 .COMPLEX #90 tabs oxycodone-acetaminophen 10 mg-325 1 tab PO TID PRN pain #90 tabs 10/19/23 mg tablet (Percocet) Allergies Allergy/AdvReac Type Severity Reaction Status Date / Time No Known Allergies Allergy Verified 11/20/23 12:57 [facility] Disclaimer: The information contained in this section may have been updated after the patient was seen, as this information can be updated by other users. Medical History Edema of both lower extremities DVT (deep venous thrombosis) Stenosis of artery of right lower extremity Stenosis of artery of left lower extremity PAD (peripheral artery disease) Pancytopenia SVC syndrome Edema Non-small cell lung cancer (NSCLC) Coughing up blood SOB (shortness of breath) on exertion Superior vena cava compression syndrome Pulmonary arterial hypertension Typical angina Encounter for screening for malignant neoplasm of lung in current smoker with 30 pack year history or greater Tobacco abuse disorder Tobacco abuse counseling COPD (chronic obstructive pulmonary disease) Abnormal computerized axial tomography of chest Smoking greater than 30 pack years Pulmonary emphysema Dyspnea on exertion History of seasonal allergies Diabetes Edema [place] (obstructive sleep apnea) Tobacco dependence HLD (hyperlipidemia) HTN (hypertension) CAD (coronary artery disease) Surgical History History of foot surgery History of colonoscopy History of cardiac cath History of umbilical hernia repair Family History Other Coronary artery disease Diabetes Hypertension Social History Smoking Status: Former smoker tobacco type: cigarettes packs per day: 1 second hand exposure: Yes alcohol intake: never substance use type: denies use current occupational status: other Travel in the last 8 weeks: None household members: spouse housing: house current occupational exposures/hazards: No caffeine: Yes ROS Obtained: Yes other As per HPI Physical Exam General General appearance: alert and in no apparent distress Comment: Chronically ill-appearing Head Head exam: atraumatic and normocephalic Eye Eye exam: Present normal appearance Neck Neck exam: Present normal inspection Chest Chest inspection: Present normal inspection and symmetric chest wall rise Respiratory Respiratory exam: Present normal lung sounds bilaterally; Absent respiratory distress Cardiovascular Cardiovascular exam: Present tachycardia Abdominal Exam Abdominal exam: Present soft and tenderness Abdominal tenderness: Present LUQ and LLQ Neurological Exam Neurological exam: Present alert and oriented X3 Psychiatric Psychiatric exam: Present normal affect and normal mood Skin Skin exam: Present warm and dry Medical Decision Making Medical Records Medical records reviewed: Yes I reviewed the patient's medical records. Min Inquiry Pt receiving controlled substance: No Vital Signs: 12/15/23 20:21 12/15/23 21:13 Pulse Rate 134 H Pulse Rate [Right] 139 H Respiratory Rate 16 Blood Pressure 131/81 Blood Pressure [Right Arm] 122/79 Blood Pressure Mean 96 Blood Pressure Mean [Right Arm] 93 Blood Pressure Source [Right Arm] Automatic Cuff Blood Pressure Position [Right Arm] Sitting 02 Sat by Pulse Oximetry 97 98 Oxygen Delivery Method Room Air Room Air Lab Data Lab Results 12/15/23 20:59: WBC 6.7, RBC 4.18 L, Hgb 11.6 L, Hct 38.9 L, MCV 93.1, MCH 27.8, MCHC 29.8 L, RDW 18.2 H, Plt Count 216, MPV 9.9, Neut % (Auto) 81.3 H, Lymph % (Auto) 7.3 L, Riley % (Auto) 9.4 H, Eos % (Auto) 1.9, Baso % (Auto) 0.2, Neut # (Auto) 5.4, Lymph # (Auto) 0.5 L, Riley # (Auto) 0.6, Eos # (Auto) 0.1, Baso # (Auto) 0.0, PT 16.5 H, INR 1.54 H, Fibrinogen 454 H, Sodium 134 L, Potassium 3.6, Chloride 99, Carbon Dioxide 27, Anion Gap 11.6, BUN 8 L, Creatinine 0.70, Estimated Creat Clear 143, Estimated GFR 116, Est GFR ( Amer) 141, G lucose 142 H, Calcium 8.1 L, Magnesium 1.8, Total Bilirubin 1.4 H, Direct Bilirubin 0.6 H, AST 57, ALT 40, Alkaline Phosphatase 130 H, Total Creatine Kinase 24 L, Troponin I < 0.01, Total Protein 7.0, Albumin 3.6, Globulin 3.4 H, Albumin/Globulin Ratio 1.1, Lipase 67 12/15/23 21:14: SARS-CoV-2 (PCR) Not detected, Influenza A Untype (PCR) Not detected, Influenza Type B (PCR) Not detected 12/15/23 22:05: Urine Color Yellow, Urine Appearance Clear, Urine pH 6.5, Ur Specific [place] 1.015, Urine Protein Negative, Urine Glucose (UA) Negative, Urine Ketones 1+, Urine Blood Negative, Urine Nitrate Negative, Urine Bilirubin Negative, Urine Urobilinogen 0.2, Ur Leukocyte Esterase Negative, Urine RBC Occasional, Urine WBC Occasional, Ur Squamous Epith Cells Occasional, Urine Bacteria Trace, Urine Mucus 4+ 12/15/23 20:59 12/15/23 20:59 Orders (Tests/Meds): ED MEDICATIONS Generic Name Dose Route Start Last Admin Trade Name Freq PRN Reason Stop Dose Admin Acetaminophen 650 mg 12/15/23 23:11 Acetaminophen 325mg Tab PO 01/14/24 23:10 Q4HP PRN Fever or Mild Pain (1-3) Lactated Ringer's 1,000 mls @ 999 mls/hr 12/15/23 22:34 12/15/23 23:05 Lactated Ringer's 1000 Ml Bag IV 12/15/23 23:34 999 mls/hr .Q1H1M ONE Administration Insulin Human Lispro 0 unit 12/16/23 06:00 Humalog 100 Units/Ml 10ml Vial (Ssi) SQ 01/15/24 05:59 ACHS MARY Protocol Morphine Sulfate 2 mg 12/15/23 23:11 Morphine 2mg/Ml Syringe IV 01/14/24 23:10 Q2HP PRN Severe Pain (7-10) Nicotine 21 mg 12/15/23 23:11 Nicotine 21mg/24hr Patch TD 01/14/24 23:10 DAILYP PRN Nicotine Cravings Ondansetron HCl 4 mg 12/15/23 23:11 Ondansetron 4mg/2ml Vial IV 01/14/24 23:10 Q8HP PRN Nausea Pantoprazole Sodium 40 mg 12/16/23 21:00 Pantoprazole 40mg Vial IV 01/15/24 20:59 HS MARY Sodium Chloride 10 ml 12/15/23 21:51 12/15/23 21:53 Sodium Chloride 0.9% 10ml Syr (Rad Only) IV 01/14/24 21:50 10 ml NEEDED PRN Administration Maintain IV Site Discontinued Medications Generic Name Dose Route Start Last Admin Trade Name Freq PRN Reason Stop Dose Admin Lactated Ringer's 1,000 mls @ 999 mls/hr 12/15/23 20:47 12/15/23 21:11 Lactated Ringer's 1000 Ml Bag IV 12/15/23 21:47 999 mls/hr .Q1H1M ONE Administration Iopamidol 70 ml 12/15/23 21:51 12/15/23 21:53 Iopamidol-370 (76%);100ml Bottle IV 12/15/23 21:52 70 ml ONCE ONE Administration Sodium Chloride 50 ml 12/15/23 21:51 12/15/23 21:53 0.9 % Sodium Chloride 50 Ml Vial IV 12/15/23 21:52 50 ml ONCE ONE Administration ORDERS Category Date Time Status CT abdomen pelvis w con Stat Cat Scan 12/15/23 20:47 Completed CTA Chest [CT angio chest PE protocol] Stat Cat Scan 12/15/23 20:47 Completed Bilirubin,Direct Stat Lab 12/15/23 20:59 Completed CBC w/Auto Diff [Complete Blood Count Auto Diff] Stat Lab 12/15/23 20:59 Completed CK [Creatine Kinase] Stat Lab 12/15/23 20:59 Completed CMP [Comprehensive Metabolic Panel] Stat Lab 12/15/23 20:59 Completed Complete Blood Count Auto Diff AMLAB Lab 12/16/23 06:00 Ordered Comprehensive Metabolic Panel AMLAB Lab 12/16/23 06:00 Ordered Diarrhea 23 Panel, PCR Stat Lab 12/15/23 20:49 Ordered Fibrinogen Stat Lab 12/15/23 20:59 Completed Lipase Stat Lab 12/15/23 20:59 Completed MAG [Magnesium] Stat Lab 12/15/23 20:59 Completed Magnesium AMLAB Lab 12/16/23 06:00 Ordered PT INR [Prothrombin Time INR] Stat Lab 12/15/23 20:59 Completed Rapid PCR Covid and Flu A/B Stat Lab 12/15/23 21:14 Completed Troponin I Q3H Lab 12/15/23 20:59 Completed Troponin I Q3H Lab 12/16/23 00:00 Ordered Urinalysis and Microscopic Stat Lab 12/15/23 22:05 Completed Blood Culture Stat Micro 12/15/23 21:05 Received Urine Culture Stat Micro 12/15/23 22:04 Received Medical Decision Narrative: Patient with history and exam per above presenting for evaluation of abdominal pain, diarrhea, nausea, in the absence of reported symptoms of melena, hemoptysis, hematochezia, in the setting of metastatic cancer. Diagnoses considered include bowel obstruction, perforation, ACS, pulmonary embolism, mass effect of tumor burden, among others ED workup and treatment included: ED MEDICATIONS Generic Name Dose Route Start Last Admin Trade Name Freq PRN Reason Stop Dose Admin Sodium Chloride 10 ml 12/15/23 21:51 12/15/23 21:53 Sodium Chloride 0.9% 10ml Syr (Rad Only) IV 01/14/24 21:50 10 ml NEEDED PRN Administration Maintain IV Site Discontinued Medications Generic Name Dose Route Start Last Admin Trade Name Freq PRN Reason Stop Dose Admin Lactated Ringer's 1,000 mls @ 999 mls/hr 12/15/23 20:47 12/15/23 21:11 Lactated Ringer's 1000 Ml Bag IV 12/15/23 21:47 999 mls/hr .Q1H1M ONE Administration Iopamidol 70 ml 12/15/23 21:51 12/15/23 21:53 Iopamidol-370 (76%);100ml Bottle IV 12/15/23 21:52 70 ml ONCE ONE Administration Sodium Chloride 50 ml 12/15/23 21:51 12/15/23 21:53 0.9 % Sodium Chloride 50 Ml Vial IV 12/15/23 21:52 50 ml ONCE ONE Administration ORDERS Category Date Time Status CT abdomen pelvis w con Stat Cat Scan 12/15/23 20:47 Taken CTA Chest [CT angio chest PE protocol] Stat Cat Scan 12/15/23 20:47 Taken Bilirubin,Direct Stat Lab 12/15/23 20:59 Completed CBC w/Auto Diff [Complete Blood Count Auto Diff] Stat Lab 12/15/23 20:59 Completed CK [Creatine Kinase] Stat Lab 12/15/23 20:59 Completed CMP [Comprehensive Metabolic Panel] Stat Lab 12/15/23 20:59 Completed Diarrhea 23 Panel, PCR Stat Lab 12/15/23 20:49 Ordered Fibrinogen Stat Lab 12/15/23 20:59 Completed Lipase Stat Lab 12/15/23 20:59 Completed MAG [Magnesium] Stat Lab 12/15/23 20:59 Completed PT INR [Prothrombin Time INR] Stat Lab 12/15/23 20:59 Completed Rapid PCR Covid and Flu A/B Stat Lab 12/15/23 21:14 Completed Troponin I Q3H Lab 12/15/23 20:59 Completed Troponin I Q3H Lab 12/16/23 00:00 Ordered Urinalysis and Microscopic Stat Lab 12/15/23 22:05 Completed Blood Culture Stat Micro 12/15/23 21:05 Received Urine Culture Stat Micro 12/15/23 22:04 Received Labs were independently interpreted by me, significant for creatinine within normal limits, no leukocytosis, GI pathogen panel at this time, CK within normal limits. Imaging was independently visualized and interpreted by me, significant for progression of metastatic disease patient will benefit from admission for further management Please refer to radiology report for full details. Given persistent tachycardia and multiple comorbidities, patient will benefit from admission for further management. She was accepted for admission by hospitalist. Critical Care Critical Care Time Critical Care Time: No
--- NOTE | 2023-12-15 20:47 | CT_ITS ---
PROCEDURE INFORMATION: Exam: CT Abdomen And Pelvis With Contrast Exam date and time: 12/15/2023 9:29 PM Age: 58 years old Clinical indication: Other: Diarrhea; Additional info: Diarrhea, HX metastatic CA, ruq/rlq pain TECHNIQUE: Imaging protocol: Computed tomography of the abdomen and pelvis with contrast. 3D rendering (Not supervised by radiologist): MIP and/or 3D reconstructed images were created by the technologist. Radiation optimization: All CT scans at this facility use at least one of these dose optimization techniques: automated exposure control; mA and/or kV adjustment per patient size (includes targeted exams where dose is matched to clinical indication); or iterative reconstruction. Contrast material: ISOVUE; Contrast volume: 70 ml; Contrast route: IV; COMPARISON: MR PELVIS WO CON 10/19/2023 7:47 AM FINDINGS: Liver: Right lower quadrant mass measuring 3.1 x 3.0 from 4.3 x 4.3 cm. Left lower quadrant mass measuring 4.4 x 4.5 from 3.0 x 3.3 cm. Fatty liver infiltration. Gallbladder and biliary ducts: Probable gallbladder fundal adenomyomatosis. No gallstones. Pancreas: Normal. No ductal dilation. Spleen: Normal. No splenomegaly. Adrenal glands: Poorly defined left adrenal mass measuring 7.1 x 2.9 x 6.2 from 6.0 x 4.6 x 7.1 left and 7.2 x 3.9 x 5.2 from 6.0 x 4.6 x 6.2 cm right adrenal mass extending into adjacent liver. Kidneys and ureters: Similar right exophytic renal cortical cyst. Otherwise unremarkable kidneys. Stomach and bowel: Unremarkable. No obstruction. No mucosal thickening. Appendix: No evidence of appendicitis. Intraperitoneal space: Right lower quadrant mass measuring 3.1 x 3.0 from 4.3 x 4.3 cm. Left lower quadrant mass measuring 4.4 x 4.5 from 3.0 x 3.3 cm. No free air. No significant fluid collection. Vasculature: Aorto bi-iliac stent. Atherosclerotic calcification. Possible occlusion of left common and external iliac stent. Lymph nodes: Retroperitoneal lymphadenopathy measuring up to 1.1 x 1.3 cm. Urinary bladder: Unremarkable as visualized. Reproductive: Unremarkable as visualized. Bones/joints: Unremarkable. No acute fracture. Soft tissues: Unremarkable. IMPRESSION: 1. Bilateral enlarging adrenal, mesenteric metastases and new focal metastasis in right liver lobe. 2. Retroperitoneal lymphadenopathy. 3. Stable aorto bi-iliac stent/bypass with possible age-indeterminate left common and external iliac arterial occlusion. COMMENTS: Consistent with the [employer]'s Incidental Findings Committee white paper (J Am Colleen Radiol 2018): Any incidental renal lesion less than 1 cm or classified as too small to characterize, or any incidental cystic renal lesion characterized as simple-appearing, is likely benign. No follow-up imaging is recommended for these lesions per consensus recommendations based on imaging criteria.
--- NOTE | 2023-12-15 20:47 | CT_ITS ---
PROCEDURE INFORMATION: Exam: CTA Chest With Contrast Exam date and time: 12/15/2023 9:29 PM Age: 58 years old Clinical indication: Shortness of breath; Additional info: HX lung cancer, tachycardia, SOA TECHNIQUE: Imaging protocol: Computed tomographic angiography of the chest with contrast. Exam focused on the arteries. 3D rendering (Not supervised by radiologist): MIP and/or 3D reconstructed images were created by the technologist. Radiation optimization: All CT scans at this facility use at least one of these dose optimization techniques: automated exposure control; mA and/or kV adjustment per patient size (includes targeted exams where dose is matched to clinical indication); or iterative reconstruction. Contrast material: ISOUVE 370; Contrast volume: 70 ml; Contrast route: INTRAVENOUS (IV); COMPARISON: CT ANGIO CHEST PE PROTOCOL 07/09/2023 4:43 PM FINDINGS: Pulmonary arteries: No central or segmental pulmonary arterial intraluminal filling defect identified. Aorta: Right mediastinal mass abutting ascending thoracic aorta and superior vena cava measuring 2.4 x 4.3 from 2.0 x 4.0 cm. cm partially encasing right main pulmonary artery and bronchi. Lungs: 1.2 x 1.7 from 1.6 x 2.5 cm right middle lobe mass. Pleural spaces: Moderate to moderately large right pleural effusion. Heart: Tiny pericardial effusion. Lymph nodes: Unremarkable. No enlarged lymph nodes. Adrenal glands: Poorly defined left adrenal mass measuring 7.1 x 3.9 from 6.0 x 4.6 4.3 x 3.6 cm left and 7.2 x 3.9 from 6.0 x 4.6 cm right adrenal mass. Bones/joints: Unremarkable. No acute fracture. Soft tissues: Unremarkable. IMPRESSION: 1. No central or segmental pulmonary arterial embolism identified. 2. Right pleural effusion. 3. Tiny pericardial effusion. 4. 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 5. Enlarging bilateral adrenal masses compatible with worsening metastases.
[2023-12-15 21:07] LABS: Basophils % 0.2 % (0.1-2.0); Eosinophils # 0.1 K/mm3 (0.0-0.4); Eosinophils % 1.9 % (0.1-12.0); Hematocrit 38.9 % (42.0-52.0); Hemoglobin 11.6 g/dL (14.1-18.0); Lymphocytes # 0.5 K/mm3 (0.7-4.5); Lymphocytes % 7.3 % (10-50); Mean Corpuscular HGB Conc 29.8 g/dL (31.8-35.4); Mean Corpuscular Hemoglobin 27.8 pg (27.0-31.2); Mean Corpuscular Volume 93.1 fl (80-94); Mean Platelet Volume 9.9 fl (7.4-10.4); Monocytes # 0.6 K/mm3 (0.1-1.0); Monocytes % 9.4 % (1.7-9.3); Neutrophils # 5.4 K/mm3 (1.8-7.8); Neutrophils % 81.3 % (37.0-80.0); Platelet Count 216 K/mm3 (142-424); Red Blood Count 4.18 M/mm3 (4.60-6.20); Red Cell Distribution Width 18.2 % (11.5-17.5); White Blood Count 6.7 K/mm3 (4.8-10.8)
[2023-12-15] MEDS: LACTATED RINGERS 1000ML 1,000 ML 999 ML IV ×2 (21:11→23:05)
[2023-12-15 21:13] VITALS: BP 131/81; PULSE 134; O2SAT 98
[2023-12-15 21:13] LABS: INR 1.54 (0.9-1.1); Prothrombin Time 16.5 seconds (10.1-12.5)
[2023-12-15 21:15] LABS: Coronavirus 19, PCR Not Detected (NotDetected); Influenza A, PCR Not Detected (NotDetected); Influenza B, PCR Not Detected (NotDetected)
[2023-12-15 21:18] LABS: Albumin Level 3.6 g/dl (3.5-5.0); Chloride 99 mmol/L (98-107); Potassium 3.6 mmoL/L (3.5-5.1); Sodium 134 mmol/L (136-145)
[2023-12-15 21:20] LABS: Fibrinogen 454 mg/dL (229.9-363.5)
[2023-12-15 21:21] LABS: Alanine Aminotransferase 40 U/L (12-78); Albumin/Globulin Ratio 1.1 (1.1-1.8); Alkaline Phosphatase 130 U/L (38-126); Anion Gap 11.6 mEq/L (5-15); Aspartate Amino Transferase 57 U/L (17-59); Bilirubin,Total 1.4 mg/dl (0.2-1.3); Blood Urea Nitrogen 8 mg/dl (9-20); Calcium 8.1 mg/dl (8.4-10.2); Carbon Dioxide 27 mmol/L (22.0-30.0); Creatine Kinase 24 U/L (55-170); Creatinine Clearance Estimated 143 mL/min (50-200); Estimated Glomerular Filt Rate 116 ml/min (>60); GFR (African American) 141 ML/MIN (>60); Globulin 3.4 g/dL (1.3-3.2); Glucose 142 mg/dl (74-100); Lipase 67 U/L (23-300)
[2023-12-15 21:22] LABS: Bilirubin,Direct 0.6 mg/dl (0.0-0.4); Magnesium 1.8 mg/dl (1.6-2.3)
[2023-12-15 21:33] LABS: Troponin I < 0.01 ng/ml (0.00-0.034)
[2023-12-15] MEDS: IOPAMIDOL-370 (76%);100ML BOTTLE 70 ML IV (21:53)
[2023-12-15] MEDS: SODIUM CHLORIDE 0.9% 10ML SYR (RAD ONLY) 10 ML IV (21:53)
[2023-12-15] MEDS: 0.9 % SODIUM CHLORIDE 50 ML VIAL IV (21:53)
--- NOTE | 2023-12-15 22:06 | PC.NURSE ---
While attempting to use urinal pt spilled urine on himself, removed clothes and placed gown, removed pts pull up, offered to place brief, declined stated he would wait on his to bring his. UA sent to lab
[2023-12-15 22:07] LABS: Microscopic, Urine URINE MICROSCOPIC (MICROSCOPIC)
[2023-12-15 22:08] LABS: Appearance,Urine CLEAR (Clear); Bilirubin,Urine Negative (Negative); Blood, Urine Negative (Negative); Color,Urine YELLOW (Yellow); Glucose,Urine (UA) Negative (Negative); Ketones,Urine 1+ (Negative); Leukocyte Esterase,Urine Negative (Negative); Nitrate,Urine Negative (Negative); PH,Urine 6.5 (5.0-8.5); Protein,Urine Negative (Negative); Specific Gravity, Urine 1.015 (1.005-1.030); Urobilinogen,Urine 0.2 EU/dl (0.2)
--- NOTE | 2023-12-15 22:10 | PC.NURSE ---
Pt tolerating ice chips, no vomiting or diarrhea has occured
[2023-12-15 22:19] LABS: Bacteria,Urine Trace /lpf; RBC,Urine Occasional #/hpf (0-3); Squamous Epithelial Cell,Urine Occasional #/hpf (0-5); WBC,Urine Occasional #/hpf (0-3)
[2023-12-15 22:20] LABS: Mucus,Urine 4+ /lpf
--- NOTE | 2023-12-15 23:14 | P.HP_ITS ---
History of Present Illness *Admission Date: 12/15/23 *Reason for visit:: diarrhea *History of present illness: Jaqueline is a 58 year old PMHx of pancytopenia, adenocarcinoma of lung, COPD, HLD, CAD, DM, HTN, and PAD. He was established with Dr. Morley here at [facility] [place] . He is having undergone 15 rounds of radiation and multiple chemotherapy treatments. He recently completed a six-week course of antibiotics and started on a diuretic, with the onset of diarrhea occurring shortly after. There is no vomiting reported, but he has attempted to vomit without success.He was restarted on xarelto after improvement in pancytopenia. The patient presents with a chief complaint of diarrhea for the past three days, with today being the worst, having experienced eight episodes. The stool is described as dark but not black, and there is no presence of blood reported. He also reports abdominal pain, feeling like a bruise in the left upper quadrant. [facility] Medical History Edema of both lower extremities DVT (deep venous thrombosis) Stenosis of artery of right lower extremity Stenosis of artery of left lower extremity PAD (peripheral artery disease) Pancytopenia SVC syndrome Edema Non-small cell lung cancer (NSCLC) Coughing up blood SOB (shortness of breath) on exertion Superior vena cava compression syndrome Pulmonary arterial hypertension Typical angina Encounter for screening for malignant neoplasm of lung in current smoker with 30 pack year history or greater Tobacco abuse disorder Tobacco abuse counseling COPD (chronic obstructive pulmonary disease) Abnormal computerized axial tomography of chest Smoking greater than 30 pack years Pulmonary emphysema Dyspnea on exertion History of seasonal allergies Diabetes Edema [place] (obstructive sleep apnea) Tobacco dependence HLD (hyperlipidemia) HTN (hypertension) CAD (coronary artery disease) Surgical History History of foot surgery History of colonoscopy History of cardiac cath History of umbilical hernia repair Family History Other Coronary artery disease Diabetes Hypertension Social History Smoking Status: Former smoker tobacco type: cigarettes packs per day: 1 second hand exposure: Yes alcohol intake: never substance use type: denies use current occupational status: other Travel in the last 8 weeks: None household members: spouse housing: house current occupational exposures/hazards: No caffeine: Yes Review of Systems Review of Systems Review of systems:: pertinent systems reviewed and negative unless documented below Meds Home Medications and Allergies Home Medications ?Medication ?Instructions ?Recorded ?Confirmed ?Type atorvastatin 80 mg tablet 80 mg PO HS 12/22/22 12/15/23 History rivaroxaban 20 mg tablet (Xarelto) 20 mg PO QPMWITHMEAL 01/10/23 12/15/23 History hydrocortisone 10 mg tablet 15 mg PO DAILY 11/14/23 12/16/23 History duloxetine 60 mg capsule,delayed 60 mg PO DAILY 12/15/23 12/15/23 History release bisoprolol fumarate 10 mg tablet 10 mg PO DAILY 12/16/23 12/16/23 History furosemide 20 mg tablet 20 mg PO DAILYP PRN edema 12/16/23 12/16/23 History gabapentin 800 mg tablet 800 mg PO TID 12/16/23 12/15/23 History lisinopril 10 mg tablet 10 mg PO DAILY 12/16/23 12/16/23 History metformin 500 mg tablet,extended 500 mg PO DAILY 12/16/23 12/16/23 History release 24 hr oxycodone-acetaminophen 10 mg-325 1 tab PO TIDP PRN Moderate Pain 12/16/23 12/16/23 History mg tablet (Percocet) (Scale Score 5-6) New Prescriptions to Start Prescriptions: Allergies Allergy/AdvReac Type Severity Reaction Status Date / Time No Known Allergies Allergy Verified 11/20/23 12:57 Exam Data for Last 24 hours Vital signs and Labs for Last 24 Hours: Pulse Resp BP Pulse Ox O2 Del Method 134 H 16 131/81 98 Room Air 12/15/23 21:13 12/15/23 20:21 12/15/23 21:13 12/15/23 21:13 12/15/23 21:13 Laboratory Results - last 24 hr 12/15/23 20:59: WBC 6.7, RBC 4.18 L, Hgb 11.6 L, Hct 38.9 L, MCV 93.1, MCH 27.8, MCHC 29.8 L, RDW 18.2 H, Plt Count 216, MPV 9.9, Neut % (Auto) 81.3 H, Lymph % (Auto) 7.3 L, Sebastian % (Auto) 9.4 H, Eos % (Auto) 1.9, Baso % (Auto) 0.2, Neut # (Auto) 5.4, Lymph # (Auto) 0.5 L, Sebastian # (Auto) 0.6, Eos # (Auto) 0.1, Baso # (Auto) 0.0, PT 16.5 H, INR 1.54 H, Fibrinogen 454 H, Sodium 134 L, Potassium 3.6, Chloride 99, Carbon Dioxide 27, Anion Gap 11.6, BUN 8 L, Creatinine 0.70, Estimated Creat Clear 143, Estimated GFR 116, Est GFR ( Amer) 141, Glucose 142 H, Calcium 8.1 L, Magnesium 1.8, Total Bilirubin 1.4 H, Direct Bilirubin 0.6 H, AST 57, ALT 40, Alkaline Phosphatase 130 H, Total Creatine Kinase 24 L, Troponin I < 0.01, Total Protein 7.0, Albumin 3.6, Globulin 3.4 H, Albumin/Globulin Ratio 1.1, Lipase 67 12/15/23 21:14: SARS-CoV-2 (PCR) Not detected, Influenza A Untype (PCR) Not detected, Influenza Type B (PCR) Not detected 12/15/23 22:05: Urine Color Yellow, Urine Appearance Clear, Urine pH 6.5, Ur Specific [place] 1.015, Urine Protein Negative, Urine Glucose (UA) Negative, Urine Ketones 1+, Urine Blood Negative, Urine Nitrate Negative, Urine Bilirubin Negative, Urine Urobilinogen 0.2, Ur Leukocyte Esterase Negative, Urine RBC Occasional, Urine WBC Occasional, Ur Squamous Epith Cells Occasional, Urine Bacteria Trace, Urine Mucus 4+ Temp Pulse Resp BP Pulse Ox O2 Del Method 98.1 F 106 H 18 102/48 L 97 Room Air 01/10/23 23:54 01/10/23 23:54 01/10/23 23:54 01/10/23 23:54 01/10/23 20:04 01/10/23 23:54 Laboratory Results - last 24 hr 01/10/23 19:50: WBC 4.8, RBC 3.30 L, Hgb 10.9 L, Hct 34.4 L, MCV 104.3 H, MCH 33.0 H, MCHC 31.6 L, RDW 23.0 H, Plt Count 92 L, MPV 8.6, Neut % (Auto) 81.6 H, Lymph % (Auto) 14.1, Sebastian % (Auto) 2.7, Eos % (Auto) 1.3, Baso % (Auto) 0.2, Neut # (Auto) 3.9, Lymph # (Auto) 0.7, Sebastian # (Auto) 0.1, Eos # (Auto) 0.1, Baso # (Auto) 0.0, PT 12.5, INR 1.17 H, Fibrinogen 232, Sodium 136, Potassium 3.8, Chloride 99, Carbon Dioxide 28, Anion Gap 12.8, BUN 31 H, Creatinine 1.10, Estimated Creat Clear 102, Estimated GFR 69, Est GFR ( Amer) 84, Glucose 180 H, Calcium 8.4, Total Bilirubin 0.7, AST 26, ALT 29, Alkaline Phosphatase 141 H, Total Protein 6.8, Albumin 3.9, Globulin 2.9, Albumin/Globulin Ratio 1.3 01/10/23 20:30: Blood Type O Positive, Antibody Screen Negative I & O for Last 24 hours: Intake & Output 12/12/23 12/13/23 12/14/23 12/15/23 23:59 23:59 23:59 23:59 Output Total 475 / 475 Balance -475 / -475 Weight 87.09 kg Intake & Output 01/08/23 01/09/23 01/10/23 01/11/23 23:59 23:59 23:59 23:59 Weight 96.615 kg Constitutional Constitutional: no acute distress *Routine HEENT Exam Head: Present normocephalic Eye: Present EOMI ENT: Present mucous membranes moist *Routine Neck Exam Neck: Present full ROM *Routine Respiratory Exam Respiratory: Present wheezes *Routine Cardiovascular Exam Cardiovascular: Present tachycardia *Routine Abdominal Exam Abdominal: Present soft and normoactive bowel sounds; Absent tenderness *Routine Rectal Exam Rectal:: deferred *Routine Genitalia Exam Genitalia:: deferred *Routine Extremities Exam Extremities: Present full ROM; Absent edema *Routine Skin Exam Skin: Present intact *Routine Neurological Exam Neurological: Present alert and oriented X3 H&P: Result Imaging and Cardiology EKG: Status: image reviewed by me, Preliminary report and final report CT scan - abdomen: Status: image reviewed by me, Preliminary report and final report CT scan - chest: Status: image reviewed by me, Preliminary report and final report Assessment and Plan *Assessment and plan (1) Diarrhea: Status: Acute Qualifiers: Diarrhea type: unspecified type Qualified Code(s): R19.7 - Diarrhea, unspecified Category: Medical Code(s): R19.7 - Diarrhea, unspecified (2) Adenocarcinoma of lung: Status: Acute Qualifiers: Laterality: unspecified laterality Qualified Code(s): C34.90 - Malignant neoplasm of unspecified part of unspecified bronchus or lung Category: Medical Code(s): C34.90 - Malignant neoplasm of unspecified part of unspecified bronchus or lung (3) COPD (chronic obstructive pulmonary disease): Status: Chronic Qualifiers: COPD type: emphysema Emphysema type: unspecified Qualified Code(s): J43.9 - Emphysema, unspecified Category: Medical Code(s): J44.9 - Chronic obstructive pulmonary disease, unspecified (4) Diabetes: Status: Acute Qualifiers: Diabetes mellitus complication detail: with other circulatory complications Diabetes mellitus complication status: with circulatory complication Diabetes mellitus half-way insulin use: without salvage determiner use Diabetes mellitus type: type 2 Qualified Code(s): E11.59 - Type 2 diabetes mellitus with other circulatory complications Category: Medical Code(s): E11.9 - Type 2 diabetes mellitus without complications (5) HTN (hypertension): Status: Chronic Qualifiers: Hypertension type: primary hypertension Qualified Code(s): I10 - Essential (primary) hypertension Category: Medical Code(s): I10 - Essential (primary) hypertension Plan 58 year old PMHx of pancytopenia, adenocarcinoma of lung, COPD, HLD, CAD, DM, HTN, and PAD. He was established with Dr. Morley here at [facility] [place] . He is having undergone 15 rounds of radiation and multiple chemotherapy treatments. after fluid resuscitation, patient remains tachycardic at ED, therfore ED requested admisson. agreed for inaptient monitoring after discussion. Plan: -Diarrhea to rule out infection: Patient has adenocarcinoma of the lung. Radiologically sign of worsening Metastasis to the liver Admit patient for inpatient monitoring Diarrhea panel pending Continue IV hydration. Encourage increased p.o. intake as tolerated Monitor electrolytes. Replace Repeat labs in the morning Patient has follow-up appointment with oncologist on December 27. -Other chronic conditions COPD diabetes and hypertension: Conditions and stable. Medications reviewed and reconciled Sliding scale insulin Accu-Chek before meals Patient on Xarelto low concern for DVT . Protonix for GI bleed protection and GERD full code Diabetic diet
[2023-12-15 23:26] VITALS: BP 134/77; PULSE 119; RESP 16; TEMP 36.6; O2SAT 97
[2023-12-16] VITALS: BP 134/77; PULSE 119; RESP 16; TEMP 36.8; O2SAT 97
[2023-12-16 01:06] LABS: Troponin I < 0.01 ng/ml (0.00-0.034)
[2023-12-16 03:22] VITALS: BMI 27.4
[2023-12-16 04:00] VITALS: BP 112/83; PULSE 119; RESP 18; TEMP 36.8; O2SAT 97
--- NOTE | 2023-12-16 04:04 | PC.NURSE ---
Pt arrived to the unit approx. [id number]. Pt complains of extreme weakness and admits to episodes of incontinence. Pt stated that he has had diarrhea for 3 days prior to coming in, however has not had a BM this shift thus far (unable to obtain stool specimen). Pt c/o mild pain in stomach intermittently. Pt also refuses glucose checks and states that his family doctor took him off all related medications due to lowered A1C. Pt has metastatic lung cancer and states in last treatment was in October of this year. Pt denies pain and needs at this time and has had no other acute changes this shift.
[2023-12-16 07:33] LABS: Eosinophils # 0.1 K/mm3 (0.0-0.4); Eosinophils % 1.6 % (0.1-12.0); Lymphocytes # 0.7 K/mm3 (0.7-4.5); Monocytes # 0.4 K/mm3 (0.1-1.0); Red Cell Distribution Width 18.3 % (11.5-17.5)
[2023-12-16 07:45] LABS: Basophils % 0.3 % (0.1-2.0); Hematocrit 32.8 % (42.0-52.0); Lymphocytes % 12.6 % (10-50); Mean Corpuscular HGB Conc 30.3 g/dL (31.8-35.4); Mean Corpuscular Hemoglobin 28.1 pg (27.0-31.2); Mean Corpuscular Volume 92.6 fl (80-94); Mean Platelet Volume 9.3 fl (7.4-10.4); Monocytes % 6.1 % (1.7-9.3); Neutrophils # 4.5 K/mm3 (1.8-7.8); Neutrophils % 79.5 % (37.0-80.0); Platelet Count 248 K/mm3 (142-424); Red Blood Count 3.54 M/mm3 (4.60-6.20); White Blood Count 5.7 K/mm3 (4.8-10.8)
[2023-12-16 07:53] LABS: Alanine Aminotransferase 34 U/L (12-78); Albumin Level 2.9 g/dl (3.5-5.0); Albumin/Globulin Ratio 0.9 (1.1-1.8); Alkaline Phosphatase 109 U/L (38-126); Anion Gap 7.9 mEq/L (5-15); Aspartate Amino Transferase 40 U/L (17-59); Bilirubin,Total 1.1 mg/dl (0.2-1.3); Blood Urea Nitrogen 6 mg/dl (9-20); Carbon Dioxide 30 mmol/L (22.0-30.0); Chloride 98 mmol/L (98-107); Creatinine Clearance Estimated 167 mL/min (50-200); Estimated Glomerular Filt Rate 139 ml/min (>60); GFR (African American) 168 ML/MIN (>60); Globulin 3.1 g/dL (1.3-3.2); Glucose 99 mg/dl (74-100); Magnesium 1.6 mg/dl (1.6-2.3); Sodium 133 mmol/L (136-145)
[2023-12-16 07:54] LABS: Potassium 2.9 mmoL/L (3.5-5.1)
[2023-12-16 08:00] VITALS: BP 122/75; PULSE 63; RESP 20; TEMP 36.9; O2SAT 99
[2023-12-16 08:28] LABS: Magnesium 1.6 mg/dl (1.6-2.3)
[2023-12-16 09:54] LABS: Adenovirus F 40/41, stool Not Detected (NotDetected); Astrovirus Not Detected (NotDetected); Campylobacter Not Detected (NotDetected); Cryptosporidium Not Detected (NotDetected); Cyclospora Cayetanesis Not Detected (NotDetected); Entamoeba histolytica Not Detected (NotDetected); Enteroaggregative E coli Not Detected (NotDetected); Enteropathogenic E coli Not Detected (NotDetected); Enterotoxigenic E coli Not Detected (NotDetected); Giardia lamblia Not Detected (NotDetected); Norovirus Not Detected (NotDetected); Plesimonas Shigalloides, PCR Not Detected (NotDetected); Rotavirus A Not Detected (NotDetected); Salmonella, PCR Not Detected (NotDetected); Sapovirus Not Detected (NotDetected); Shiga-like toxin E coli Not Detected (NotDetected); Shigella Enterovasive E coli Not Detected (NotDetected); Vibrio Cholerae Not Detected (NotDetected); Vibrio, PCR Not Detected (NotDetected); Yersinia Entercolitica, PCR Not Detected (NotDetected)
--- NOTE | 2023-12-16 09:59 | HMH.PHAINT1 ---
Pharmacy Intervention Comments: MEDICATION RECONCILIATION COMPLETED ON PATIENT USING EXTERNAL FILL HISTORY FROM PHARMACY AND LISTS FROM CARDIOLOGY/ONCOLOGY OFFICES. -BOGDAN MONETD
[2023-12-16] MEDS: POTASSIUM CHLORIDE 20MEQ TAB 40 MEQ PO (10:36)
--- NOTE | 2023-12-16 11:43 | EXP.PN ---
Subjective *Date: 12/16/23 *Time: 11:43 Interval history: The patient is seen and evaluated today. I am accompanied by his nurse Alphonso. The patient is accompanied by his and sister. He raises concerns with ongoing weakness over the last few months. He describes a follow-up visit with his oncologist on November 14, 2023. He uses no home oxygen. He is inquiring about his chest imaging. He describes poor appetite with decreased ambulation at home. His at bedside concurs. He voiced understanding concerning that his lung cancer cancer is progressing. He declines transition to SNF. He reports he would like to update his CODE STATUS to DNR/DNI (Alphonso CORDERO assisting). Exam Data for Last 24 hours Vital signs and Labs for Last 24 Hours: Temp Pulse Resp BP Pulse Ox O2 Del Method 98.4 F 63 20 122/75 99 Room Air 12/16/23 08:00 12/16/23 08:00 12/16/23 08:00 12/16/23 08:00 12/16/23 08:00 12/16/23 08:00 Laboratory Results - last 24 hr 12/15/23 20:59: WBC 6.7, RBC 4.18 L, Hgb 11.6 L, Hct 38.9 L, MCV 93.1, MCH 27.8, MCHC 29.8 L, RDW 18.2 H, Plt Count 216, MPV 9.9, Neut % (Auto) 81.3 H, Lymph % (Auto) 7.3 L, [place] % (Auto) 9.4 H, Eos % (Auto) 1.9, Baso % (Auto) 0.2, Neut # (Auto) 5.4, Lymph # (Auto) 0.5 L, [facility] [facility] # (Auto) 0.6, Eos # (Auto) 0.1, Baso # (Auto) 0.0, PT 16.5 H, INR 1.54 H, Fibrinogen 454 H, Sodium 134 L, Potassium 3.6, Chloride 99, Carbon Dioxide 27, Anion Gap 11.6, BUN 8 L, Creatinine 0.70, Estimated Creat Clear 143, Estimated GFR 116, Est GFR ( Amer) 141, Glucose 142 H, Calcium 8.1 L, Magnesium 1.8, Total Bilirubin 1.4 H, Direct Bilirubin 0.6 H, AST 57, ALT 40, Alkaline Phosphatase 130 H, Total Creatine Kinase 24 L, Troponin I < 0.01, Total Protein 7.0, Albumin 3.6, Globulin 3.4 H, Albumin/Globulin Ratio 1.1, Lipase 67 12/15/23 21:14: SARS-CoV-2 (PCR) Not detected, Influenza A Untype (PCR) Not detected, Influenza Type B (PCR) Not detected 12/15/23 22:05: Urine Color Yellow, Urine Appearance Clear, Urine pH 6.5, Ur Specific [place] 1.015, Urine Protein Negative, Urine Glucose (UA) Negative, Urine Ketones 1+, Urine Blood Negative, Urine Nitrate Negative, Urine Bilirubin Negative, Urine Urobilinogen 0.2, Ur Leukocyte Esterase Negative, Urine RBC Occasional, Urine WBC Occasional, Ur Squamous Epith Cells Occasional, Urine Bacteria Trace, Urine Mucus 4+ 12/16/23 00:15: Troponin I < 0.01 12/16/23 06:00: WBC 5.7, RBC 3.54 L, Hgb 10.0 L D, Hct 32.8 L, MCV 92.6, MCH 28.1, MCHC 30.3 L, RDW 18.3 H, Plt Count 248, MPV 9.3, Neut % (Auto) 79.5, Lymph % (Auto) 12.6, [place] % (Auto) 6.1, Eos % (Auto) 1.6, Baso % (Auto) 0.3, Neut # (Auto) 4.5, Lymph # (Auto) 0.7, [facility] # (Auto) 0.4, Eos # (Auto) 0.1, Baso # (Auto) 0.0, Sodium 133 L, Potassium 2.9 L*, Chloride 98, Carbon Dioxide 30, Anion Gap 7.9, BUN 6 L, Creatinine 0.60 L, Estimated Creat Clear 167, Estimated GFR 139, Est GFR ( Amer) 168, Glucose 99 D, Calcium 8.0 L, Magnesium 1.6 D, Total Bilirubin 1.1, AST 40 D, ALT 34, Alkaline Phosphatase 109, Total Protein 6.0 L, Albumin 2.9 L D, Globulin 3.1, Albumin/Globulin Ratio 0.9 L 12/16/23 06:15: Magnesium 1.6 I & O for Last 24 hours: Intake & Output 12/13/23 12/14/23 12/15/23/07/24 23:59 23:59 23:59 23:59 Intake Total 560 / 560 Output Total 475 / 475 450 / 450 Balance -475 / 85 110 / 110 Weight 87.09 kg 87.09 kg Constitutional Constitutional: no acute distress, obese and cooperative *Routine HEENT Exam Head: Present normocephalic Eye: Present EOMI and PERRL; Absent scleral injection ENT: Present mucous membranes moist *Routine Neck Exam Neck: Present supple, full ROM and trachea midline; Absent JVD or lymphadenopathy *Routine Respiratory Exam Respiratory: Present rhonchi, crackles, normal respiratory effort and symmetric chest movement *Routine Cardiovascular Exam Cardiovascular: Present RRR, Normal S1 and Normal S2 *Routine Abdominal Exam Abdominal: Present soft and normoactive bowel sounds; Absent tenderness *Routine Extremities Exam Extremities: Present full ROM, pulses intact and normal capillary refill; Absent edema *Routine Skin Exam Skin: Present dry and warm; Absent rash *Routine Neurological Exam Neurological: Present alert, oriented X3, moving all extremities, vision grossly intact, hearing grossly intact and normal speech; Absent sensory deficit or motor deficit Routine Psychiatric Exam Psychiatric: Present normal affect, normal thought process, cooperative, good insight and good judgment Assessment and Plan *Assessment and plan (1) Diarrhea: Status: Acute Qualifiers: Diarrhea type: unspecified type Qualified Code(s): R19.7 - Diarrhea, unspecified Category: Medical Code(s): R19.7 - Diarrhea, unspecified (2) Adenocarcinoma of lung: Status: Acute Qualifiers: Laterality: unspecified laterality Qualified Code(s): C34.90 - Malignant neoplasm of unspecified part of unspecified bronchus or lung Category: Medical Code(s): C34.90 - Malignant neoplasm of unspecified part of unspecified bronchus or lung (3) COPD (chronic obstructive pulmonary disease): Status: Chronic Qualifiers: COPD type: emphysema Emphysema type: unspecified Qualified Code(s): J43.9 - Emphysema, unspecified Category: Medical Code(s): J44.9 - Chronic obstructive pulmonary disease, unspecified (4) Diabetes: Status: Acute Qualifiers: Diabetes mellitus type: type 2 Diabetes mellitus group home insulin use: without computer graphic artist use Diabetes mellitus complication status: with circulatory complication Diabetes mellitus complication detail: with other circulatory complications Qualified Code(s): E11.59 - Type 2 diabetes mellitus with other circulatory complications Category: Medical Code(s): E11.9 - Type 2 diabetes mellitus without complications (5) HTN (hypertension): Status: Chronic Qualifiers: Hypertension type: primary hypertension Qualified Code(s): I10 - Essential (primary) hypertension Category: Medical Code(s): I10 - Essential (primary) hypertension Plan 58 year old PMHx of metastatic adenocarcinoma of lung (summer 2022), COPD, HLD, CAD, DM, HTN, and PAD. He was established with Dr. Morley here at [facility] . He is having undergone 15 rounds of radiation and multiple chemotherapy treatments. after fluid resuscitation, patient remains tachycardic at ED, therfore ED requested admisson. agreed for inaptient monitoring after discussion. Plan: Diarrhea Hypokalemia Metastatic adenocarcinoma of the lung (summer 2022) with radiologic evidence of progression Metastasis to the liver Gentle IV fluid resuscitation Trending electrolytes, magnesium and creatinine GI PCR panel Encouraging p.o. fluids Replacing electrolytes and minerals as needed Parenterally administered controlled substance as needed for comfort care Outpatient follow-up with oncology Other chronic conditions COPD diabetes and hypertension: Conditions and stable. Medications reviewed and reconciled Sliding scale insulin Accu-Chek before meals VTE prophylaxis: SCD's CODE STATUS: DNR/DNI
[2023-12-16 12:32] LABS: Clostridium Difficile A/B, PCR Detected (NotDetected)
[2023-12-16] MEDS: POTASSIUM CHLORIDE 20MEQ/15ML UDC 40 MEQ PO ×2 (15:02→20:49)
[2023-12-16 16:00] VITALS: BP 111/69; PULSE 129; RESP 19; TEMP 37.2; O2SAT 97
--- NOTE | 2023-12-16 17:00 | ECG_ITS ---
APPROVED REPORT Exam: Resting ECG HR:125 bpm ECG Measurements Heart Rate 125 AXES QRSd 79 QRS 218 QT 407 T 70 QTc 481 Conclusion SUPRAVENTRICULAR TACHYCARDIA PATTERN CONSISTENT WITH PULMONARY DISEASE POSSIBLE RIGHT VENTRICULAR HYPERTROPHY [SOME/ALL OF: PROMINENT R IN V1, LATE TRANSITION, RAD, JAMILAH, SSS] ABNORMAL ECG Electronically signed by : LILA RIVERA, 12/16/2023 23:38:28
--- NOTE | 2023-12-16 17:02 | ECG_ITS ---
APPROVED REPORT Exam: Resting ECG HR:118 bpm ECG Measurements Heart Rate 118 AXES RI 128 P 71 QRSd 91 QRS 199 QT 419 T 66 QTc 489 Conclusion SINUS TACHYCARDIA PATTERN CONSISTENT WITH PULMONARY DISEASE POSSIBLE RIGHT VENTRICULAR HYPERTROPHY [SOME/ALL OF: PROMINENT R IN V1, LATE TRANSITION, RAD, JAMILAH, SSS] ABNORMAL ECG Lead V5 nondiagnostic Electronically signed by : NATACHA LALA, 12/18/2023 23:14:31
--- NOTE | 2023-12-16 17:17 | PC.NURSE ---
Addendum entered by Alphonso Miranda RN 12/16/23 17:21: pt aox4, able to make needs known to staff, cdiff positive, multiple bm's this shift. no complaints thus far. Original Note: hr elevated when 1600 vital signs were checked. ekg obtained and results (sinus tachycardia) delivered to dr lundberg. pt denies chest pain/pressure. does not appear to be in any distress.
[2023-12-16 20:00] VITALS: BP 115/68; PULSE 126; RESP 18; TEMP 37.3; O2SAT 96
[2023-12-16] MEDS: ACETAMINOPHEN 325MG TAB 650 MG PO (20:50)
[2023-12-16] MEDS: PANTOPRAZOLE 40MG VIAL 40 MG IV (20:50)
[2023-12-17] MEDS: POTASSIUM CHLORIDE 20MEQ/15ML UDC 40 MEQ PO (02:33)
[2023-12-17 04:00] VITALS: BP 133/78; PULSE 116; RESP 18; TEMP 36.7; O2SAT 97; BMI 27.5
--- NOTE | 2023-12-17 05:31 | PC.NURSE ---
Pt is alert and oriented x4 and currently tolerating RA well. Pt has had multiple episodes of diarrhea. Pt denies pain and needs and has had no other acute changes this shift
--- NOTE | 2023-12-17 07:53 | P.PN_ITS ---
Subjective *Date: 12/17/23 *Time: 12:32 Interval history: The patient is seen and examined at bedside today. He reports improvement after fluid resuscitation with decreased bowel elimination episodes. His is at bedside and reports 4-6 bowel movements yesterday characterized as diarrhea. His GI PCR came back positive for C. difficile. He is tolerating his oral vancomycin. Nursing staff report that he remains afebrile with some tachycardia and improved blood pressures. He is saturating appropriately on room air. His morning labs identify and normalized potassium level with normal creatinine 0.6. His magnesium is low and is being replaced. His hope is to return home with family. His CODE STATUS has been updated as he requested. He has a cardiology appointment scheduled for tomorrow and is inquiring if the investigative analyst can see him while he is in the hospital. Exam Data for Last 24 hours Vital signs and Labs for Last 24 Hours: Temp Pulse Resp BP Pulse Ox O2 Del Method 98.0 F 116 H 18 133/78 97 Room Air 12/17/23 04:00 12/17/23 04:00 12/17/23 04:00 12/17/23 04:00 12/17/23 04:00 12/17/23 06:50 Laboratory Results - last 24 hr 12/15/23 09:45: Stl Aeromonas (PCR) Not detected, Stl C. cayetanensis PCR Not detected, Stool Rotavirus (PCR) Not detected, Stl Adenov F 40/41 PCR Not detected, Stool Astrovirus (PCR) Not detected, Stool Campylobacter PCR Not detected, Stl C.difficile Tox PCR Detected A, Stool Cryptosporidium PCR Not detected, Stl E.coli Shiga Tox PCR Not detected, Stool E coli O157 PCR Not detected, Stl Enterotoxigenic E PCR Not detected, Stool EPEC (PCR) Not detected, Stool EAEC (PCR) Not detected, Stl E. histolytica PCR Not detected, Stool Giardi a Lamblia PCR Not detected, Stool Salmonella PCR Not detected, Stool Sapovirus (PCR) Not detected, Stl P. shigelloides PCR Not detected, Stl Shigella/EIEC PCR Not detected, St Y.enterocolitica PCR Not detected, Stool Vibrio (PCR) Not detected, Stl Vibrio cholerae PCR Not detected, Stl Norovirus GI/GII PCR Not detected 12/16/23 06:00: Sodium 133 L, Potassium 2.9 L*, Chloride 98, Carbon Dioxide 30, Anion Gap 7.9, BUN 6 L, Creatinine 0.60 L, Estimated Creat Clear 167, Estimated GFR 139, Est GFR ( Amer) 168, Glucose 99 D, Calcium 8.0 L, Magnesium 1.6 D, Total Bilirubin 1.1, AST 40 D, ALT 34, Alkaline Phosphatase 109, Total Protein 6.0 L, Albumin 2.9 L D, Globulin 3.1, Albumin/Globulin Ratio 0.9 L 12/16/23 06:15: Magnesium 1.6 I & O for Last 24 hours: Intake & Output 12/14/23 12/15/23 12/16/23 12/17/23 23:59 23:59 23:59 23:59 Intake Total 560 / 680 120 / 120 Output Total 475 / 475 600 / 600 Balance -475 / 85 -40 / 80 120 / 120 Weight 87.09 kg 87.09 kg 87.317 kg Microbiology Reports for the Last 24 Hours: Microbiology 12/15/23 21:00 Blood Blood Culture - Preliminary NO GROWTH AFTER 24 HOURS 12/15/23 21:05 Blood Blood Culture - Preliminary NO GROWTH AFTER 24 HOURS Constitutional Constitutional: no acute distress, obese and cooperative *Routine HEENT Exam Head: Present normocephalic Eye: Present EOMI and PERRL; Absent scleral injection ENT: Present mucous membranes moist *Routine Neck Exam Neck: Present supple, full ROM and trachea midline; Absent JVD or lymphadenopathy *Routine Respiratory Exam Respiratory: Present rhonchi, crackles, normal respiratory effort and symmetric chest movement *Routine Cardiovascular Exam Cardiovascular: Present RRR, Normal S1 and Normal S2 *Routine Abdominal Exam Abdominal: Present soft and normoactive bowel sounds; Absent tenderness *Routine Extremities Exam Extremities: Present full ROM, pulses intact and normal capillary refill; Absent edema *Routine Skin Exam Skin: Present dry and warm; Absent rash *Routine Neurological Exam Neurological: Present alert, oriented X3, moving all extremities, vision grossly intact, hearing grossly intact and normal speech; Absent sensory deficit or motor deficit Routine Psychiatric Exam Psychiatric: Present normal affect, normal thought process, cooperative, good insight and good judgment Assessment and Plan *Assessment and plan (1) Diarrhea: Status: Acute Qualifiers: Diarrhea type: unspecified type Qualified Code(s): R19.7 - Diarrhea, unspecified Category: Medical Code(s): R19.7 - Diarrhea, unspecified (2) Adenocarcinoma of lung: Status: Acute Qualifiers: Laterality: unspecified laterality Qualified Code(s): C34.90 - Malignant neoplasm of unspecified part of unspecified bronchus or lung Category: Medical Code(s): C34.90 - Malignant neoplasm of unspecified part of unspecified bronchus or lung (3) COPD (chronic obstructive pulmonary disease): Status: Chronic Qualifiers: COPD type: emphysema Emphysema type: unspecified Qualified Code(s): J43.9 - Emphysema, unspecified Category: Medical Code(s): J44.9 - Chronic obstructive pulmonary disease, unspecified (4) Diabetes: Status: Acute Qualifiers: Diabetes mellitus complication detail: with other circulatory complications Diabetes mellitus complication status: with circulatory complication Diabetes mellitus intermodal customer service insulin use: without intermodal customer service use Diabetes mellitus type: type 2 Qualified Code(s): E11.59 - Type 2 diabetes mellitus with other circulatory complications Category: Medical Code(s): E11.9 - Type 2 diabetes mellitus without complications (5) HTN (hypertension): Status: Chronic Qualifiers: Hypertension type: primary hypertension Qualified Code(s): I10 - Essential (primary) hypertension Category: Medical Code(s): I10 - Essential (primary) hypertension Plan 58 year old PMHx of metastatic adenocarcinoma of lung (summer 2022), COPD, HLD, CAD, DM, HTN, and PAD. He is established with Dr. Chaim murillo at [facility] . He is having undergone 15 rounds of radiation and multiple chemotherapy treatments. Problems addressed as follows: C. difficile colitis IV fluid resuscitation GI PCR panel positive for C. difficile Oral vancomycin therapy Florastor therapy Contact precautions Trending electrolytes and inflammatory markers Metastatic adenocarcinoma of the lung (summer 2022) with radiologic evidence of progression Metastasis to the liver Immunocompromise state Gentle IV fluid resuscitation Encouraging p.o. fluids Antiemetic therapy Replacing electrolytes and minerals as needed Parenterally administered controlled substance as needed for comfort care PT/OT evaluation Outpatient follow-up with oncology Poor prognoses identified Goals of care conversation Hospice concept introduced Tachycardia Acute illness in the setting of poor prognoses Chronic pulmonary disease Telemetry monitoring ED ECG reviewed Beta-lalito therapy Cardiology consultation Other chronic conditions COPD diabetes and hypertension: Conditions and stable. Medications reviewed and reconciled Sliding scale insulin Accu-Chek before meals VTE prophylaxis: SCD's CODE STATUS: DNR/DNI POA: The patient is hospitalized day 2 with above diagnoses complicated by his metastatic lung cancer and immunocompromise state. We appreciate literacy consultant evaluation and recommendations. Case management is assisting with discharge planning. Barriers to discharge currently include assessing improvement in bowel function, ancillary evaluation and literacy consultant recommendations. Expected day of discharge over the next day or 2.
[2023-12-17 07:57] LABS: Anion Gap 9.2 mEq/L (5-15); Blood Urea Nitrogen 6 mg/dl (9-20); Calcium 8.2 mg/dl (8.4-10.2); Carbon Dioxide 26 mmol/L (22.0-30.0); Chloride 102 mmol/L (98-107); Creatinine Clearance Estimated 168 mL/min (50-200); Estimated Glomerular Filt Rate 139 ml/min (>60); GFR (African American) 168 ML/MIN (>60); Glucose 88 mg/dl (74-100); Potassium 4.2 mmoL/L (3.5-5.1); Sodium 133 mmol/L (136-145)
[2023-12-17 08:00] VITALS: BP 122/78; PULSE 122; RESP 19; TEMP 37; O2SAT 97
[2023-12-17] MEDS: LACTOBACILLUS PROBIOTIC COMB CAPSULE 1 CAP PO (08:40)
[2023-12-17] MEDS: VANCOMYCIN HCL 50MG/ML 150ML KIT 125 MG PO ×4 (08:40→21:08)
[2023-12-17] MEDS: BISOPROLOL 5MG TABLET 2.5 MG PO (13:23)
[2023-12-17] MEDS: MAGNESIUM SULFATE IN WATER 2 GM/50 ML PIGGYBACK IV (13:23)
[2023-12-17 16:00] VITALS: BP 122/72; PULSE 99; RESP 18; TEMP 36.8; O2SAT 97
[2023-12-17 19:24] VITALS: BMI 27.5
[2023-12-17 20:00] VITALS: BP 118/71; PULSE 101; RESP 18; TEMP 36.8; O2SAT 96
[2023-12-18 04:00] VITALS: BP 122/76; PULSE 116; RESP 16; TEMP 37.6; O2SAT 96; BMI 27.6
--- NOTE | 2023-12-18 05:06 | PC.NURSE ---
Pt is alert and oriented x4. Pt has slept well this shift and diarrhea has decreased this shift. Pt denies pain and needs and has had no other acute changes this shift.
--- NOTE | 2023-12-18 05:54 | ECG_ITS ---
APPROVED REPORT Exam: Resting ECG HR:115 bpm ECG Measurements Heart Rate 115 AXES TX 138 P 68 QRSd 81 QRS 181 QT 338 T 70 QTc 406 Conclusion SINUS TACHYCARDIA PATTERN CONSISTENT WITH PULMONARY DISEASE POSSIBLE RIGHT VENTRICULAR HYPERTROPHY [SOME/ALL OF: PROMINENT R IN V1, LATE TRANSITION, RAD, JAMILAH, SSS] MINIMAL ST DEPRESSION [0.025+ mV ST DEPRESSION] ABNORMAL ECG UNCONFIRMED REPORT Electronically signed by : Phoenix Sky MD 12/20/2023 08:26:44
[2023-12-18] MEDS: MORPHINE 2MG/ML SYRINGE 2 MG IV (06:51)
[2023-12-18 08:00] VITALS: BP 111/72; PULSE 119; RESP 18; TEMP 37.2; O2SAT 93
[2023-12-18 08:26] LABS: Basophils % 0.5 % (0.1-2.0); Eosinophils # 0.1 K/mm3 (0.0-0.4); Eosinophils % 1.9 % (0.1-12.0); Hematocrit 34.2 % (42.0-52.0); Hemoglobin 10.3 g/dL (14.1-18.0); Lymphocytes # 0.6 K/mm3 (0.7-4.5); Lymphocytes % 8.6 % (10-50); Mean Corpuscular Hemoglobin 27.7 pg (27.0-31.2); Mean Corpuscular Volume 92.4 fl (80-94); Mean Platelet Volume 8.7 fl (7.4-10.4); Monocytes # 0.3 K/mm3 (0.1-1.0); Monocytes % 4.1 % (1.7-9.3); Neutrophils # 6.3 K/mm3 (1.8-7.8); Neutrophils % 84.9 % (37.0-80.0); Platelet Count 228 K/mm3 (142-424); Red Cell Distribution Width 18.4 % (11.5-17.5); White Blood Count 7.4 K/mm3 (4.8-10.8)
[2023-12-18 08:34] LABS: Anion Gap 6.3 mEq/L (5-15); Blood Urea Nitrogen 5 mg/dl (9-20); Calcium 7.8 mg/dl (8.4-10.2); Carbon Dioxide 28 mmol/L (22.0-30.0); Chloride 98 mmol/L (98-107); Creatinine Clearance Estimated 144 mL/min (50-200); Estimated Glomerular Filt Rate 116 ml/min (>60); GFR (African American) 141 ML/MIN (>60); Glucose 123 mg/dl (74-100); Potassium 4.3 mmoL/L (3.5-5.1); Sodium 128 mmol/L (136-145)
[2023-12-18] MEDS: LACTOBACILLUS PROBIOTIC COMB CAPSULE 1 CAP PO (08:35)
[2023-12-18] MEDS: BISOPROLOL 5MG TABLET 2.5 MG PO (08:35)
[2023-12-18 09:03] LABS: Triiodothryronine (T3) Uptake 47 % (23.5-40.5)
[2023-12-18 09:04] LABS: Free Thyroxine Index 4.3 ug/dL (5.93-13.13); T4 (Thyroxine) 9.2 ug/dl (5.53-11.0)
[2023-12-18 09:18] LABS: Thyroid Stimulating Hormone 4.22 uIU/mL (0.465-4.68)
--- NOTE | 2023-12-18 09:59 | HMH.SLDYSPHA ---
Speech & Language Evaluation Speech/Language Dysphagia Evaluation Start: 12/18/23 09:37 Freq: ONCE Status: Active Protocol: Document 12/18/23 09:37 RADHA (Rec: 12/18/23 09:59 ECLARK Laptop) Co-signed By ST Jennifer Dysphagia Assess/Goals/Plan Assessment Date of Evaluation: 12/18/23 Evaluation Type Initial Certification Assessment/Problems difficulty swallowing per MD order Does Patient Qualify for Service No Qualify/Failure Comment Based on clinical observations made throughout the bedside clinical swallow evaluation and pt interview, further skilled speech therapy services are not warranted d/t no overt s/sx of aspiration. Recommendations PHYSICIAN CERTIFICATION: The specified therapy services are required, authorized, and reviewed every 30 days. Diet Recommendations Normal Liquid Type Recommendations Normal/Thin SL Swallow Guidelines Alt bite w/sip thru meal, Standard Aspiration Prec.,Eat at slow rate Dysphagia Swallow Precautions/Strategies Sitting Upright (90 deg),Small Bites and Sips,Alternate Liquids/Solids Plan Pt/Guardian verbally ack understanding Yes of dx/prognosis/goals G -code Required No Education Instructions provided TRAFFIC MAINTENANCE OFFICER discussed clinical observations made during evaluation, diet recommendations, and compensatory strategies/ aspiration precautions with pt /family, nursing, and CM, all of which expressed understanding. Pt/Caregiver able to recall information Able to recall/restate Reinforcement needed No Speech & Language HPI History Present Illness Description of Patient Problem TRAFFIC MAINTENANCE OFFICER pulled the following from pt's H&P and chest CT: This is a 58 year old PMHx of pancytopenia, adenocarcinoma of lung, COPD, HLD, CAD, DM, HTN, and PAD. He was established with Dr. Morley here at [facility] . He is having undergone 15 rounds of radiation and multiple chemotherapy treatments. He recently completed a six-week course of antibiotics and started on a diuretic, with the onset of diarrhea occurring shortly after. There is no vomiting reported, but he has attempted to vomit without success. He was restarted on xarelto after improvement in pancytopenia. The patient presents with a chief complaint of diarrhea for the past three days, with today being the worst, having experienced eight episodes. The stool is described as dark but not black, and there is no presence of blood reported. He also reports abdominal pain, feeling like a bruise in the left upper quadrant. 1. No central or segmental pulmonary arterial embolism identified. 2. Right pleural effusion. 3. Tiny pericardial effusion . 4. 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 5. Enlarging bilateral adrenal masses compatible with worsening metastases. Pt/Caregiver Concerns Pt complained of chronic xerostomia Rehab Services Assessed Speech therapy Is this evaluation r/t stroke? No Language Primary Language Swedish Therapy History Seen by other SL therapists No Other Specialists? No General Information General Current Food Consistancy Regular,Thin Liquids Dentition Good Dentition Patient Orientation Person,Place,Time,Situation Ability to Follow Directions Excellent Communication Ability No Impairment Dysphagia:Food Presentation Evaluation Food Type Pureed,Mechanical Soft,Regular ,Liquid,Pudding Dysphagia Evaluation Summary A bedside CSE was performed on this date with the pt sitting upright w/ good dentition. Bolus consistencies presented include thin liquid (water) via open cup and straw, pudding, puree (applesauce), mechanical soft (Nutrigrain bar), and regular foods ( jovanny cracker). All bolus presentations given x2 to assess for consistency and fatigue. Pt did not exhibit any overt s/sx of aspiration on any consistency given. Labial closure was WFL with no anterior loss. Mastication and manipulation of bolus was slightly prolonged d/t weakness. Vocal quality was clear after swallow. TRAFFIC MAINTENANCE OFFICER recommends thin liquid/regular foods diet w/ compensatory strategies including extra sauces/gravy, alternating bites and sips, small bites and sips, sitting upright for 30-60 minutes after eating, and puree wash for pills if pt feels it is needed. Stroke Dysphagia Assessment PHYSICIAN CERTIFICATION: I certify the specified therapy services for Alexa Pennington are required, authorized, and reviewed every 30 days.
[2023-12-18] MEDS: VANCOMYCIN HCL 50MG/ML 150ML KIT 125 MG PO ×3 (10:02→16:01)
--- NOTE | 2023-12-18 10:03 | SW/DCPLANNER ---
Addendum entered by Cesia Mcdonald 12/18/23 14:52: Patient information/order for a wheelchair will be faxed to [facility]. Addendum entered by Cesia Mcdonald 12/18/23 14:51: Yola w/ [facility] did speak w/ patient and his today at bedside. Yola stated that she will continue to follow up w/ patient. Patient will discharge home today and follow up w/ Dr Rucker tomorrow as an outpatient. Original Note: Per patient/family request information has been faxed to [facility]. I will follow up w/ [facility] once information is reviewed. Discharge date is unknown at this time.
--- NOTE | 2023-12-18 10:04 | HMH.OTEV ---
OT Inpatient Evaluation Rehab OT IP Evaluation Start: 12/17/23 12:35 Freq: ONCE Status: Active Protocol: Document 12/18/23 09:51 RACHELHERVE (Rec: 12/18/23 10:04 CLAY [id number]) Rehab OT IP Assessment Subjective History *History of present illness: Jaqueline is a 58 year old PMHx of pancytopenia, adenocarcinoma of lung, COPD, HLD, CAD, DM, HTN, and PAD. He was established with Dr. Morley here at [facility] . He is having undergone 15 rounds of radiation and multiple chemotherapy treatments. He recently completed a six-week course of antibiotics and started on a diuretic, with the onset of diarrhea occurring shortly after. There is no vomiting reported, but he has attempted to vomit without success.He was restarted on xarelto after improvement in pancytopenia. The patient presents with a chief complaint of diarrhea for the past three days, with today being the worst, having experienced eight episodes. The stool is described as dark but not black, and there is no presence of blood reported. He also reports abdominal pain, feeling like a bruise in the left upper quadrant. Patient lives with in 1 story home with no CONNOR. Patient ambulates independently. will assist with ADLs and fx'l transfers at needed. Subjective I can try to sit up. Instructed Patient on proper hand and foot placement to complete bed mobility from supine->sit @ EOB->stand-> ambulate 4-5 steps with Min A x2. Patient would benefit from RW to assist with fx'l mobility. Objective Patient Orientation Person,Name,Age,Birthday,Year Right Upper Extremity Gross ROM WFL Left Upper Extremity Gross ROM WFL Bed Mobility bed mobility - supine/sit Assist Level Minimal x 1 (25% assist) Transfer Training Sit/Stand/Pivot Transfer Assist Level Minimal x 2 (25% assist) Chair Transfer Ability Minimal x 2 (25% assist) Chair Transfer Technique Sit to/from Ambulatory Chair Transfer Assistive Devices Rolling Walker Rehab OT IP prob,goals,plan Problems Date of Evaluation: 12/18/23 OT IP Problems Bed Mobility,Transfers,Balance ,Self care,Safety Rehab Potential Rehab Potential Good Equipment Needs Assistive Devices Rolling / Wheeled Walker Plan OT intervention Plan Bed Mobility,Transfers,Balance ,Self care,Safety,Therapeutic Exercise OT Plan Frequency Daily Duration LOS Discharge Goals Bed Mobility Ability Assistance x1 Sit to Stand Chair Transfer Ability Minimal x 1 (25% assist) Chair Transfer Ability Minimal x 1 (25% assist) Chair Transfer Technique Sit to/from Ambulatory Chair Transfer Assistive Devices Rolling Walker Discharge Plan OT Discharge Plan Recommend patient to return home with and HH services . Patient to continue skilled OT IP services while here at [facility] in order to improve independence with ADLS and fx' l mobility. Eval Complexity Eval Charge Codes 94062 - Low Complexity PHYSICIAN CERTIFICATION: I certify the specified therapy services for Alexa Pennington are required, authorized, and reviewed every 30 days.
--- NOTE | 2023-12-18 10:46 | HMH.PTEV ---
Physical Therapy Evaluation Rehab PT IP Evaluation Start: 12/17/23 12:35 Freq: ONCE Status: Active Protocol: Document 12/18/23 10:28 RADHA (Rec: 12/18/23 10:46 RADHA [id number]) Subjective/History History History This is the initial inpatient eval for Alexa Pennington, a 58 yom that was admitted in the hospital for dehydration. This patient has a PMH of pancytopenia, adenocarcinoma of lung, COPD, HLD, CAD, DM, HTN, and PAD. Subjective Subjective Patient stated I will sit up at this time. Patients stated that they live at home with one another and she is available to help at all times . Patients stated that she has to help the patient with most if not all ADL's including dressing, getting out of bed, getting to the bathroom, etc. Patients stated that he uses a rollator at home at this time and they have no steps to get into the house. New diagnosis of cancer in past 12 Yes months? Rehab PT IP Eval Objective Appearance Patient Behavior Appropriate,Cooperative Patient Orientation Person,Place,Birthday Difficulty following instructions none Speech Pattern Clear,Appropriate Ambulation Patient Able to Ambulate Yes Ambulation Observation IP General Gait Pattern Observation Wide Based Gait Ambulation Distance (feet) 12 Ambulation Assistive Device Rolling Walker Ambulation Ability Minimal x 1 (25% assist) Balance Ability to Arise Able, uses arms to help Sitting Balance Steady, safe Standing Balance Steady, wide stance Dynamic Sitting Balance Ability Normal Dynamic Standing Balance Ability Normal Transfers Bed Transfer Ability Minimal x 1 (25% assist) Sit to Stand Bed Transfer Ability Minimal x 2 (25% assist) Rehab PT IP prob,goals,plan Problems Date of Evaluation: 12/18/23 PT IP Problems Bed Mobility,Transfers Rehab Potential Rehab Potential Good Equipment Needs Assistive Devices Rolling / Wheeled Walker Plan PT Intervention Plan Bed Mobility,Transfers,Gait, Balance PT Plan Frequency Daily Duration LOS Discharge Goals Bed Transfer Ability Minimal x 1 (25% assist) Sit to Stand Chair Transfer Ability Minimal x 1 (25% assist) Ambulation Assistive Device Rolling Walker Ambulation Distance (feet) 30 Discharge Plan PT Discharge Plan Patient is most appropriate to discharge to home with home health if he is able to have assistance from his . Skilled therapy required for gait training, bed mobility, and strengthening to return the patient to their PLOF. Eval Complexity Eval Charge Codes 57801 - High Complexity PHYSICIAN CERTIFICATION: I certify the specified therapy services for Alexa Pennington are required, authorized, and reviewed every 30 days.
--- NOTE | 2023-12-18 11:38 | EXP.DC.SUM ---
General Admission date:: 12/17/23 Discharge date: 12/18/23 HPI HPI HPI: Jaqueline is a 58 year old PMHx of pancytopenia, adenocarcinoma of lung, COPD, HLD, CAD, DM, HTN, and PAD. He was established with Dr. Morley here at [facility] . He is having undergone 15 rounds of radiation and multiple chemotherapy treatments. He recently completed a six-week course of antibiotics and started on a diuretic, with the onset of diarrhea occurring shortly after. There is no vomiting reported, but he has attempted to vomit without success.He was restarted on xarelto after improvement in pancytopenia. The patient presents with a chief complaint of diarrhea for the past three days, with today being the worst, having experienced eight episodes. The stool is described as dark but not black, and there is no presence of blood reported. He also reports abdominal pain, feeling like a bruise in the left upper quadrant. Hospital Course Hospital Course Hospital Course: The patient was admitted to the telemetry unit with cardiology consultation. Imaging, labs, cultures and inflammatory markers were assessed and trended. His remained at bedside throughout his stay. With his diarrhea a GI PCR panel was requested and it identified C. difficile. He was started on oral vancomycin with an improvement in his bowel function. He reported 1 soft stool on day of discharge. We discussed his chest imaging and previous oncology evaluations. The patient has an appointment to see his oncologist on December 19, 2023. We discussed his poor prognoses and we had a goals of care conversation. He was amendable to hospice evaluation prior to discharge. Nutritionally severe protein calorie malnutrition was assessed and we recommended nutritional supplements ongoing. Case management assisted with discharge needs including wheelchair DME. Cardiology recommended ongoing beta-lalito therapy for his acute on chronic illness tachycardia. With his identified improvement he requested to be discharged home to the care of his and follow-up appointment with his oncology healthcare team. We recommend a 10-day course of oral vancomycin. I spent 35 minutes in [id number] time with the patient, case management and nursing staff concerning the discharge process. We discussed the admitting diagnoses and hospital course. We discussed identified improvement and the patient's desire to be discharged. We reviewed inpatient studies and imaging. The patient voiced understanding on the importance of follow-up with his primary care provider and specialist(s). The patient plans to be compliant with the medication regimen prescribed and follow-up appointments. He understands that he can return to the emergency department with any sudden changes or concerns. Exam Data for Last 24 hours Vital signs and Labs for Last 24 Hours: Temp Pulse Resp BP Pulse Ox O2 Del Method 98.9 F 119 H 18 111/72 93 L Room Air 12/18/23 08:00 12/18/23 08:00 12/18/23 08:00 12/18/23 08:00 12/18/23 08:00 12/18/23 11:00 Laboratory Results - last 24 hr 12/18/23 08:18: WBC 7.4 D, RBC 3.70 L, Hgb 10.3 L, Hct 34.2 L, MCV 92.4, MCH 27.7, MCHC 30.0 L, RDW 18.4 H, Plt Count 228, MPV 8.7, Neut % (Auto) 84.9 H, Lymph % (Auto) 8.6 L, Terry % (Auto) 4.1, Eos % (Auto) 1.9, Baso % (Auto) 0.5, Neut # (Auto) 6.3, Lymph # (Auto) 0.6 L, Terry # (Auto) 0.3, Eos # (Auto) 0.1, Baso # (Auto) 0.0, Sodium 128 L, Potassium 4.3, Chloride 98, Carbon Dioxide 28, Anion Gap 6.3, BUN 5 L, Creatinine 0.70, Estimated Creat Clear 144, Estimated GFR 116, Est GFR ( Amer) 141, Glucose 123 H, Calcium 7.8 L, TSH 4.22, Free T4 Index 4.3 L, Thyroxine (T4) 9.2, T3 Uptake 47 H I & O for Last 24 hours: Intake & Output 12/15/23 12/16/23 12/17/23 12/18/23 23:59 23:59 23:59 23:59 Intake Total 560 / 680 1200 / 1200 200 / 200 Output Total 475 / 475 600 / 600 1150 / 1150 300 / 300 Balance -475 / 85 -40 / 80 50 / 50 -100 / -100 Weight 87.09 kg 87.09 kg 87.317 kg 87.498 kg Microbiology Reports for the Last 24 Hours: Microbiology 12/15/23 21:05 Blood Blood Culture - Preliminary NO GROWTH AFTER 48 HOURS 12/15/23 21:00 Blood Blood Culture - Preliminary NO GROWTH AFTER 48 HOURS 12/15/23 22:04 Urine,Clean Catch Urine Culture - Final Constitutional Constitutional: no acute distress and cooperative *Routine HEENT Exam Head: Present normocephalic Eye: Present EOMI and PERRL; Absent scleral injection ENT: Present mucous membranes moist *Routine Neck Exam Neck: Present supple, full ROM and trachea midline; Absent JVD or lymphadenopathy *Routine Respiratory Exam Respiratory: Present rhonchi, crackles, normal respiratory effort and symmetric chest movement *Routine Cardiovascular Exam Cardiovascular: Present RRR, Normal S1 and Normal S2 *Routine Abdominal Exam Abdominal: Present soft and normoactive bowel sounds; Absent tenderness *Routine Extremities Exam Extremities: Present full ROM, pulses intact and normal capillary refill; Absent edema *Routine Skin Exam Skin: Present dry and warm; Absent rash *Routine Neurological Exam Neurological: Present alert, oriented X3, moving all extremities, vision grossly intact, hearing grossly intact and normal speech; Absent sensory deficit or motor deficit Routine Psychiatric Exam Psychiatric: Present normal affect, normal thought process, cooperative, good insight and good judgment Results Data Completed and Pending Labs on day of discharge: Labs from last 24 hours 12/18/23 08:18 WBC 7.4 D RBC 3.70 L Hgb 10.3 L Hct 34.2 L MCV 92.4 MCH 27.7 MCHC 30.0 L RDW 18.4 H Plt Count 228 MPV 8.7 Neut % (Auto) 84.9 H Lymph % (Auto) 8.6 L Terry % (Auto) 4.1 Eos % (Auto) 1.9 Baso % (Auto) 0.5 Neut # (Auto) 6.3 Lymph # (Auto) 0.6 L Terry # (Auto) 0.3 Eos # (Auto) 0.1 Baso # (Auto) 0.0 Sodium 128 L Potassium 4.3 Chloride 98 Carbon Dioxide 28 Anion Gap 6.3 BUN 5 L Creatinine 0.70 Estimated Creat Clear 144 Estimated GFR 116 Est GFR ( Amer) 141 Glucose 123 H Calcium 7.8 L TSH 4.22 Free T4 Index 4.3 L Thyroxine (T4) 9.2 T3 Uptake 47 H Preliminary micro results at discharge 12/15/23 21:05 Blood Culture - Preliminary Blood NO GROWTH AFTER 48 HOURS 12/15/23 21:00 Blood Culture - Preliminary Blood NO GROWTH AFTER 48 HOURS DS: Diagnosis Discharge Diagnosis (1) Diarrhea: Status: Acute Code(s): R19.7 - Diarrhea, unspecified Qualifiers: Diarrhea type: unspecified type Qualified Code(s): R19.7 - Diarrhea, unspecified (2) Adenocarcinoma of lung: Status: Acute Code(s): C34.90 - Malignant neoplasm of unspecified part of unspecified bronchus or lung Qualifiers: Laterality: unspecified laterality Qualified Code(s): C34.90 - Malignant neoplasm of unspecified part of unspecified bronchus or lung (3) COPD (chronic obstructive pulmonary disease): Status: Chronic Code(s): J44.9 - Chronic obstructive pulmonary disease, unspecified Qualifiers: COPD type: emphysema Emphysema type: unspecified Qualified Code(s): J43.9 - Emphysema, unspecified (4) Diabetes: Status: Acute Code(s): E11.9 - Type 2 diabetes mellitus without complications Qualifiers: Diabetes mellitus complication detail: with other circulatory complications Diabetes mellitus complication status: with circulatory complication Diabetes mellitus traffic coordinator insulin use: without traffic coordinator use Diabetes mellitus type: type 2 Qualified Code(s): E11.59 - Type 2 diabetes mellitus with other circulatory complications (5) HTN (hypertension): Status: Chronic Code(s): I10 - Essential (primary) hypertension Qualifiers: Hypertension type: primary hypertension Qualified Code(s): I10 - Essential (primary) hypertension (6) Severe protein-calorie malnutrition: Status: Acute Code(s): E43 - Unspecified severe protein-calorie malnutrition Meds Home Medications and Allergies Home Medications ?Medication ?Instructions ?Recorded ?Confirmed ?Type atorvastatin 80 mg tablet 80 mg PO HS 12/22/22 12/15/23 History hydrocortisone 10 mg tablet 15 mg PO DAILY 11/14/23 12/16/23 History duloxetine 60 mg capsule,delayed 60 mg PO DAILY 12/15/23 12/15/23 History release gabapentin 800 mg tablet 800 mg PO TID 12/16/23 12/15/23 History lisinopril 10 mg tablet 10 mg PO DAILY 12/16/23 12/16/23 History metformin 500 mg tablet,extended 500 mg PO DAILY 12/16/23 12/16/23 History release 24 hr oxycodone-acetaminophen 10 mg-325 1 tab PO TIDP PRN Moderate Pain 12/16/23 12/16/23 History mg tablet (Percocet) (Scale Score 5-6) L.acidophilus-L.paracasei-B.bifidum-S.thermophl 1 cap PO DAILY #30 caps 12/18/23 Rx 8 billion cell capsule (RisaQuad) bisoprolol fumarate 10 mg tablet 5 mg (1/2 x 10 mg) PO DAILY #30 12/18/23 12/16/23 Rx tabs vancomycin 50 mg/mL oral solution 125 mg (2.5 mL) PO QID #150 mL 12/18/23 Rx (Firvanq) New Prescriptions to Start Prescriptions: L.acid,para-B.bifidum-S.therm [RisaQuad] Wilfredo Manuel vancomycin [Firvanq] Wilfredo Manuel Allergies Allergy/AdvReac Type Severity Reaction Status Date / Time No Known Allergies Allergy Verified 11/20/23 12:57 Discharge Plan Disposition Patient Disposition: Home, Self-Care Condition: Serious Discharge Order Discharge Orders: Discharge Order (Routine); Ordered 12/18/23 Ordered By: Wilfredo Manuel Follow up Plan Follow up with: Francisco Javier Watkins APRN [Primary Care Provider] - 12/25/23 9:00 am Jorge Hankins PA [Physician Baby Formula Mixer] - 12/28/23 10:00 am Alexandro Rucker MD [Staff Physician] - 12/19/23 10:30 am Prescriptions/Medication Reconciliation: New vancomycin [Firvanq] 50 mg/mL Recon Soln 125 mg PO QID Qty: 150 0RF RisaQuad 8 billion cell Capsule 1 cap PO DAILY Qty: 30 0RF Continued hydrocortisone 10 mg tablet 15 mg PO DAILY duloxetine 60 mg capsule,delayed release(DR/EC) 60 mg PO DAILY Patient Comments: TAKE ONE CAPSULE BY MOUTH EVERY DAY AFTER finishing 30 MG metformin 500 mg tablet extended release 24 hr 500 mg PO DAILY Patient Comments: TAKE 1 TABLET BY MOUTH ONCE DAILY oxycodone-acetaminophen [Percocet] 10-325 mg tablet 1 tab PO TIDP PRN (Reason: Moderate Pain (Scale Score 5-6)) gabapentin 800 mg tablet 800 mg PO TID atorvastatin 80 mg tablet 80 mg PO HS Patient Comments: TAKE 1 TABLET BY MOUTH ONCE DAILY FOR CHOLESTEROL Changed bisoprolol fumarate 10 mg tablet 5 mg PO DAILY Qty: 30 0RF Held lisinopril 10 mg tablet 10 mg PO DAILY Hold Instructions: Resume on 12/25/23. Hold until follow up with cardiology Patient Comments: TAKE 1 TABLET BY MOUTH ONCE DAILY Discontinued Xarelto 20 mg tablet 20 mg PO QPMWITHMEAL Patient Comments: TAKE 1 TABLET BY MOUTH WITH DINNER. START AFTER YOU COMPLETE 21 DAYS OF 15MG DOSING furosemide 20 mg tablet 20 mg PO DAILYP PRN (Reason: edema) Other Ambulatory Orders: Home Medical Equipment (Routine) Location: None Selected Ordered By: Wilfredo Manuel Problem Reconciliation Problems Reviewed?: Yes Patient Discharge Instructions ACTIVITY: Ambulate as tolerated DIET: advance to your usual diet Patient Instructions: Diarrhea, Clostridium difficile Infection Print Language: Ethiopian Providers Primary Care Provider: Francisco Javier Watkins Admit Provider: Leandro Mills Attending Provider: Leandro Mills
--- NOTE | 2023-12-18 11:48 | P.CONCA_ITS ---
History of Present Illness History of Present Illness Consult date: 12/18/23 Requesting physician: Wilfredo Manuel Chief complaint: mass encroaching on aorta, tachycardia Additional Medical History:: 1. CAD A. [facility], 09/30/2022, mild nonflow limiting CAD. Low flow down LAD consistent with endothelial dysfunction, unexplained cardiomyopathy, normal intracardiac pulmonary filling pressures. B. [facility], 2018, mild nonflow limiting CAD. 2. PAD A. Peripheral angiogram, 2019, BMS to left common iliac, left external iliac and proximal left common femoral, right external iliac, distal abdominal aortic bifurcation reconstruction. Chronic occluded left popliteal with excellent suprageniculate collaterals providing mostly two-vessel runoff to the distal portion of the left lower extremity with single-vessel runoff into the left foot. 3. Tobacco use, discontinued 10/17/2022 4. Metastatic lung cancer, 2022 5. DALTON/COPD 6. Hypertension 7. Hyperlipidemia 8. 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 Large stent placement at [facility] venous subclavian, 18 x 80 mm, right side, October 2022. B. 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 9. Diabetes mellitus type 2, diagnosed 01/2023 History of present illness: Jaqueline is a 58 year old PMHx of pancytopenia, adenocarcinoma of lung, COPD, HLD, CAD, DM, HTN, and PAD. He was established with Dr. Morley here at [facility] . He is having undergone 15 rounds of radiation and multiple chemotherapy treatments. He recently completed a six-week course of antibiotics and started on a diuretic, with the onset of diarrhea occurring shortly after. There is no vomiting reported, but he has attempted to vomit without success.He was restarted on xarelto after improvement in pancytopenia. The patient presents with a chief complaint of diarrhea for the past three days, with today being the worst, having experienced eight episodes. The stool is described as dark but not black, and there is no presence of blood reported. He also reports abdominal pain, feeling like a bruise in the left upper quadrant. The above per Dr. Manuel Events above confirmed with patient. Cardiology consulted due to tachycardia and mass encroaching upon aorta which is likely a metastatic mass from patient's known lung cancer. We are unable to offer any services for the mass at this facility and would recommend transfer to tertiary care center if further treatment options are warranted. However with the patient's aggressive metastatic disease hospice has been discussed and consulted. Would recommend discontinue Xarelto due to the mass encroaching upon the aorta. Discontinue lisinopril due to hypotension in favor of increasing his bisoprolol for rate control. [facility] Disclaimer: The information contained in this section may have been updated after the patient was seen, as this information can be updated by other users. Medical History Edema of both lower extremities DVT (deep venous thrombosis) Stenosis of artery of right lower extremity Stenosis of artery of left lower extremity PAD (peripheral artery disease) Pancytopenia SVC syndrome Edema Non-small cell lung cancer (NSCLC) Coughing up blood SOB (shortness of breath) on exertion Superior vena cava compression syndrome Pulmonary arterial hypertension Typical angina Encounter for screening for malignant neoplasm of lung in current smoker with 30 pack year history or greater Tobacco abuse disorder Tobacco abuse counseling COPD (chronic obstructive pulmonary disease) Abnormal computerized axial tomography of chest Smoking greater than 30 pack years Pulmonary emphysema Dyspnea on exertion History of seasonal allergies Diabetes Edema DALTON (obstructive sleep apnea) Tobacco dependence HLD (hyperlipidemia) HTN (hypertension) CAD (coronary artery disease) Surgical History History of foot surgery History of colonoscopy History of cardiac cath History of umbilical hernia repair Family History Other Coronary artery disease Diabetes Hypertension Social History Smoking Status: Former smoker tobacco type: cigarettes packs per day: 1 second hand exposure: Yes alcohol intake: never substance use type: denies use current occupational status: other Travel in the last 8 weeks: None household members: spouse housing: house current occupational exposures/hazards: No caffeine: Yes Review of Systems Review of Systems Review of systems:: pertinent systems reviewed and negative unless documented below *Cardiovascular Cardiovascular: Reports chest pain and Reports dyspnea *Respiratory Respiratory: Reports dyspnea *Gastrointestinal Gastrointestinal: Reports diarrhea and Denies vomiting Exam Data for Last 24 hours Vital signs and Labs for Last 24 Hours: Temp Pulse Resp BP Pulse Ox O2 Del Method 98.9 F 119 H 18 111/72 93 L Room Air 12/18/23 08:00 12/18/23 08:00 12/18/23 08:00 12/18/23 08:00 12/18/23 08:00 12/18/23 11:00 Laboratory Results - last 24 hr 12/18/23 08:18: WBC 7.4 D, RBC 3.70 L, Hgb 10.3 L, Hct 34.2 L, MCV 92.4, MCH 27.7, MCHC 30.0 L, RDW 18.4 H, Plt Count 228, MPV 8.7, Neut % (Auto) 84.9 H, Lymph % (Auto) 8.6 L, [place] % (Auto) 4.1, Eos % (Auto) 1.9, Baso % (Auto) 0.5, Neut # (Auto) 6.3, Lymph # (Auto) 0.6 L, [place] # (Auto) 0.3, Eos # (Auto) 0.1, Baso # (Auto) 0.0, Sodium 128 L, Potassium 4.3, Chloride 98, Carbon Dioxide 28, Anion Gap 6.3, BUN 5 L, Creatinine 0.70, Estimated Creat Clear 144, Estimated GFR 116, Est GFR ( Amer) 141, Glucose 123 H, Calcium 7.8 L, TSH 4.22, Free T4 Index 4.3 L, Thyroxine (T4) 9.2, T3 Uptake 47 H I & O for Last 24 hours: Intake & Output 12/15/23 12/16/23 12/17/23 12/18/23 11:59 11:59 11:59 11:59 Intake Total 560 / 560 600 / 600 800 / 800 Output Total 925 / 925 150 / 150 1450 / 1450 Balance -365 / -365 450 / 450 -650 / -650 Weight 192 lb 0.009 oz 192 lb 8 oz 192 lb 14.4 oz Microbiology Reports for the Last 24 Hours: Microbiology 12/15/23 21:05 Blood Blood Culture - Preliminary NO GROWTH AFTER 48 HOURS 12/15/23 21:00 Blood Blood Culture - Preliminary NO GROWTH AFTER 48 HOURS 12/15/23 22:04 Urine,Clean Catch Urine Culture - Final Constitutional Constitutional: no acute distress *Routine Respiratory Exam Respiratory: Present decreased breath sounds and diminished air movement; Absent wheezes *Routine Cardiovascular Exam Cardiovascular: Present RRR and tachycardia *Routine Extremities Exam Extremities: Absent edema *Routine Neurological Exam Neurological: Present alert and oriented X3 Meds Home Medications and Allergies Home Medications ?Medication ?Instructions ?Recorded ?Confirmed ?Type atorvastatin 80 mg tablet 80 mg PO HS 12/22/22 12/15/23 History hydrocortisone 10 mg tablet 15 mg PO DAILY 11/14/23 12/16/23 History duloxetine 60 mg capsule,delayed 60 mg PO DAILY 12/15/23 12/15/23 History release gabapentin 800 mg tablet 800 mg PO TID 12/16/23 12/15/23 History lisinopril 10 mg tablet 10 mg PO DAILY 12/16/23 12/16/23 History metformin 500 mg tablet,extended 500 mg PO DAILY 12/16/23 12/16/23 History release 24 hr oxycodone-acetaminophen 10 mg-325 1 tab PO TIDP PRN Moderate Pain 12/16/23 12/16/23 History mg tablet (Percocet) (Scale Score 5-6) L.acidophilus-L.paracasei-B.bifidum-S.thermophl 1 cap PO DAILY #30 caps 12/18/23 Rx 8 billion cell capsule (RisaQuad) bisoprolol fumarate 10 mg tablet 5 mg (1/2 x 10 mg) PO DAILY #30 12/18/23 12/16/23 Rx tabs vancomycin 50 mg/mL oral solution 125 mg (2.5 mL) PO QID #150 mL 12/18/23 Rx (Firvanq) New Prescriptions to Start Prescriptions: L.acid,para-B.bifidum-S.therm [RisaQuad] Wilfredo Manuel vancomycin [Firvanq] Wilfredo Manuel Allergies Allergy/AdvReac Type Severity Reaction Status Date / Time No Known Allergies Allergy Verified 11/20/23 12:57 Assessment and Plan *Assessment and plan (1) Diarrhea: Status: Acute Qualifiers: Diarrhea type: unspecified type Qualified Code(s): R19.7 - Diarrhea, unspecified Category: Medical Code(s): R19.7 - Diarrhea, unspecified (2) Orchalgia: Status: Acute Qualifiers: Laterality: bilateral Qualified Code(s): N50.811 - Right testicular pain; N50.812 - Left testicular pain Category: Medical Code(s): N50.819 - Testicular pain, unspecified (3) Cancer of right lung: Status: Acute Qualifiers: Lung location: unspecified part of lung Qualified Code(s): C34.91 - Malignant neoplasm of unspecified part of right bronchus or lung Category: Medical Code(s): C34.91 - Malignant neoplasm of unspecified part of right bronchus or lung (4) PAD (peripheral artery disease): Status: Chronic Category: Medical Code(s): I73.9 - Peripheral vascular disease, unspecified (5) COPD (chronic obstructive pulmonary disease): Status: Chronic Qualifiers: COPD type: emphysema Emphysema type: unspecified Qualified Code(s): J43.9 - Emphysema, unspecified Category: Medical Code(s): J44.9 - Chronic obstructive pulmonary disease, unspecified (6) CAD (coronary artery disease): Status: Chronic Qualifiers: Coronary Disease-Associated Artery/Lesion type: [place] artery [place] vs. transplanted heart: [place] heart Associated angina: without angina Qualified Code(s): I25.10 - Atherosclerotic heart disease of [place] coronary artery without angina pectoris Category: Medical Code(s): I25.10 - Atherosclerotic heart disease of [place] coronary artery without angina pectoris (7) Mass of aorta: Status: Acute Category: Medical Code(s): I77.89 - Other specified disorders of arteries and arterioles (8) Adenocarcinoma of lung: Status: Acute Qualifiers: Laterality: unspecified laterality Qualified Code(s): C34.90 - Malignant neoplasm of unspecified part of unspecified bronchus or lung Category: Medical Code(s): C34.90 - Malignant neoplasm of unspecified part of unspecified bronchus or lung Plan 1. Diarrhea after 6 wks of antibiotic therapy -lab results pertinent for C. difficile infection -On vancomycin 2. Metastatic adenocarcinoma of lung -now with mass encroaching on aorta, 12/2023 -Patient has an appointment with oncology tomorrow to discuss options -Hospice has been contacted 3. Tachycardia, secondary to above -Will discontinue lisinopril and increase bisoprolol for rate control at this time 4. History of subclavian vein stenting in 2022 and peripheral arterial disease prior to that -Discontinue Xarelto at this time due to high risk bleeding from mass encroaching upon the aorta and possibly eroding the aorta and causing exsanguination 5. History of diabetes but with weight loss he is now off diabetes medications 6. History of hyperlipidemia but due to aggressive metastatic cancer, would recommend stopping his statin therapy Stable from a cardiac standpoint for discharge home. Home medications recommendations: Stop lisinopril and atorvastatin Adjust bisoprolol to 5 mg twice daily for rate control and blood pressure Stop Xarelto Follow-up in the office in 2 weeks.
[2023-12-18] MEDS: ACETAMINOPHEN 325MG TAB 650 MG PO (14:16)
--- NOTE | 2023-12-18 15:28 | CARE MANAGER ---
Patient is in need of a wheelchair due to his progressing cancer diagnosis he is unable to use walker or cane safely. Wheelchair will be used daily for activities in the home. GIL Guadarrama
--- NOTE | 2023-12-19 10:32 | CARE MANAGER ---
Contacted patient's related to voicemail left. Discussed discharge from the hospital. states the vancomycin wasn't approved at the pharmacy. We discussed that since he took home the vancomycin he had been using here he did not need the vancomycin at the pharmacy. She verbalized understanding as well as understanding about other medications and follow up appointments. Denies any other questions or concerns. GIL Guadarrama
== END 2023-12-18 16:10 | disposition home or self-care (01) | DRG 371 ==
LOC: ER 20:30 → 2ND 23:19
PROVIDERS: Family Medicine; Nurse Practitioner Family; Physician Assistant; Admitting Provider Internal Medicine; Emergency Provider Emergency Medicine; PCP Nurse Practitioner Family; Visit Provider Internal Medicine
DX: A04.72 Enterocolitis due to Clostridium difficile, not specified as recurrent (principal); E43 Unspecified severe protein-calorie malnutrition; C78.7 Secondary malignant neoplasm of liver and intrahepatic bile duct; C34.91 Malignant neoplasm of unspecified part of right bronchus or lung; J43.9 Emphysema, unspecified; I10 Essential (primary) hypertension; E78.5 Hyperlipidemia, unspecified; I25.10 Atherosclerotic heart disease of native coronary artery without angina pectoris; Z87.891 Personal history of nicotine dependence; E87.6 Hypokalemia; G47.33 Obstructive sleep apnea (adult) (pediatric); E11.51 Type 2 diabetes mellitus with diabetic peripheral angiopathy without gangrene; Z79.84 Long term (current) use of oral hypoglycemic drugs
CPT/HCPCS: 71275; 74177; 80048; 80053; 81001; 82248; 82550; 83690; 83735; 84436; 84443; 84479; 84484; 85025; 85384; 85610; 87040; 87086; 87507; 87636; 92610; 93005; 97163; 97165; 99285; G0378; J2270; J3475; J7120; Q9967

== ENCOUNTER 2023-12-24 13:20 | Emergency (ER) | payer MEDICARE, SELFPAY ==
--- NOTE | 2023-12-24 13:30 | CT_ITS ---
PROCEDURE INFORMATION: Exam: CTA Abdomen and Pelvis With Contrast Exam date and time: 12/24/2023 2:38 PM Age: 58 years old Clinical indication: Shortness of breath; Additional info: Post-cardiac compressions, SOB, AMS TECHNIQUE: Imaging protocol: Computed tomographic angiography of the abdomen and pelvis with contrast. Exam focused on the arteries. 3D rendering (Not supervised by radiologist): MIP and/or 3D reconstructed images were created by the technologist. Radiation optimization: All CT scans at this facility use at least one of these dose optimization techniques: automated exposure control; mA and/or kV adjustment per patient size (includes targeted exams where dose is matched to clinical indication); or iterative reconstruction. Contrast material: ISO 370; Contrast volume: 80 ml; Contrast route: INTRAVENOUS (IV); COMPARISON: CT ABDOMEN PELVIS W CON 12/15/2023 9:29 PM FINDINGS: Aorta: Aortoiliac stent bypass. Celiac trunk and mesenteric arteries: Greater than 50% narrowing of the superior mesenteric artery origin. Renal arteries: No occlusion or significant stenosis. Right iliac arteries: No occlusion or significant stenosis. Left iliac arteries: Aortoiliac stent bypass, with chronic-appearing occlusion of the left common iliac artery and left external iliac artery stents. Liver: Approximately 6.8 x 6.1 x 9 cm poorly defined left adrenal mass extending into the liver. Gallbladder and biliary ducts: Unremarkable. No calcified stones. No ductal dilation. Pancreas: Unremarkable. No mass. No ductal dilation. Spleen: Unremarkable. No splenomegaly. Adrenal glands: Approximately 4.1 x 7 x 7.3 cm poorly defined left adrenal mass. Kidneys and ureters: Nonspecific stranding around the kidneys, which can be seen with medical renal disease. 2.5 cm simple appearing right kidney cyst. Stomach and bowel: No dilation. See Intraperitoneal space . Appendix: No evidence of appendicitis. Intraperitoneal space: Left paramidline abdominal mass 4.5 x 4.7 x 4.3 cm. Right lower quadrant mass 4.2 x 4.6 x 4.8 cm. Left lower quadrant mass 4.3 x 3.9 x 4.4 cm and abutting or extending into the sigmoid colon. No free air. No significant fluid collection. Lymph nodes: Relatively unchanged retroperitoneal adenopathy. Urinary bladder: Urinary bladder decompressed with a Edward catheter. Reproductive: Unremarkable as visualized. Bones/joints: Mild degenerative change of the spine. Soft tissues: Unremarkable. IMPRESSION: 1. Enlarging bilateral adrenal and mesenteric masses. 2. Relatively unchanged retroperitoneal adenopathy. 3. Aortoiliac stent bypass, with chronic-appearing occlusion of the left common iliac artery and left external iliac artery stents. 4. Greater than 50% narrowing of the superior mesenteric artery origin. 5. CTA chest reported separately.
--- NOTE | 2023-12-24 13:30 | CT_ITS ---
PROCEDURE INFORMATION: Exam: CTA Chest With Contrast Exam date and time: 12/24/2023 2:38 PM Age: 58 years old Clinical indication: Injury or trauma; Other: AMS; Additional info: High concern for pe TECHNIQUE: Imaging protocol: Computed tomographic angiography of the chest with contrast. Exam focused on the arteries. 3D rendering (Not supervised by radiologist): MIP and/or 3D reconstructed images were created by the technologist. Radiation optimization: All CT scans at this facility use at least one of these dose optimization techniques: automated exposure control; mA and/or kV adjustment per patient size (includes targeted exams where dose is matched to clinical indication); or iterative reconstruction. Contrast material: ISO 370; Contrast volume: 80 ml; Contrast route: INTRAVENOUS (IV); COMPARISON: CT ANGIO CHEST PE PROTOCOL 12/15/2023 9:29 PM FINDINGS: Pulmonary arteries: No pulmonary embolism. Aorta: Unremarkable. No aortic aneurysm. No aortic dissection. Veins: Superior vena cava stent. Lungs: Right middle lobe masslike consolidation, 3.1 x 1.5 x 1.4 cm. Right lower lobe consolidation. Pleural spaces: Moderate right pleural effusion. Heart: Unremarkable. No cardiomegaly. No pericardial effusion. Esophagus: Fluid throughout the esophagus. Mediastinal space: Right mediastinal mass abutting the ascending thoracic aorta and superior vena cava and partially encasing the right pulmonary artery 4.5 x 1.9 x 5 cm. Lymph nodes: See Soft tissues . Bones/joints: Mild anterior cortical buckle fracture of the superior sternal body. Degenerative changes of the spine. Soft tissues: Left axillary/subpectoral mass, 5 x 4.5 x 5.8 cm. IMPRESSION: 1. Mild anterior cortical buckle fracture of the superior sternal body appears new since prior CT. 2. No pulmonary embolism. 3. Enlarging left axillary/subpectoral mass, mediastinal mass and right middle lobe mass. 4. Fluid throughout the esophagus concerning for gastroesophageal reflux. 5. Right lower lobe consolidation may represent atelectasis and/or pneumonia. 6. Moderate right pleural effusion. 7. Additional chronic/nonemergent findings as detailed above. 8. CTA abdomen pelvis reported separately.
[2023-12-24 13:32] VITALS: BP 135/104; PULSE 130; RESP 34; TEMP 39.1; O2SAT 87; BMI 26.0
[2023-12-24 13:36] LABS: VBG Base Excess -15.7 mmol/L (-2.4-2.3); VBG HCO3 13.3 mmol/L (23-30); VBG Oxygen Saturation 52.9 % (50-70); VBG Total CO2 14.5 mmol/L (23-27)
[2023-12-24 13:37] LABS: Lactate Venous 11.4 mmol/L (0.4-2.0); VBG PH 7.14 mmol/L (7.31-7.41)
--- NOTE | 2023-12-24 13:37 | ECG_ITS ---
APPROVED REPORT Exam: Resting ECG HR:129 bpm ECG Measurements Heart Rate 129 AXES QRSd 89 QRS 170 QT 304 T 58 QTc 380 Conclusion ATRIAL FLUTTER/TACHYCARDIA WITH RAPID VENTRICULAR RESPONSE PATTERN CONSISTENT WITH PULMONARY DISEASE POSSIBLE RIGHT VENTRICULAR HYPERTROPHY [SOME/ALL OF: PROMINENT R IN V1, LATE TRANSITION, RAD, JAMILAH, SSS] ABNORMAL ECG UNCONFIRMED REPORT Electronically signed by : PHILIPPE RAINES, 12/25/2023 04:26:57
[2023-12-24 13:38] VITALS: BP 135/104; PULSE 73; RESP 31; TEMP 37.6; O2SAT 86
--- NOTE | 2023-12-24 13:39 | XR_ITS ---
PROCEDURE INFORMATION: Exam: XR Chest Exam date and time: 12/24/2023 1:24 PM Age: 58 years old Clinical indication: Dyspnea; Additional info: Not able to ambulate at this time. SOA, lung cancer TECHNIQUE: Imaging protocol: Radiologic exam of the chest. Views: 1 view. COMPARISON: CT ANGIO CHEST PE PROTOCOL 12/15/2023 9:29 PM FINDINGS: Tubes, catheters and devices: EKG leads. Defibrillator pad. Lungs: Right lung base consolidation. Pleural spaces: Unremarkable. No pleural effusion. No pneumothorax. Heart/Mediastinum: Right mediastinal fullness consistent with known mediastinal mass. Calcified mediastinal granulomata. Vasculature: Superior vena cava stent. Diaphragm: Mild right diaphragm elevation. Bones/joints: Unremarkable. IMPRESSION: 1. Right mediastinal fullness consistent with known mediastinal mass. 2. Right lung base consolidation is favored to represent atelectasis, with pneumonia not excluded.
[2023-12-24 13:41] LABS: Microscopic, Urine URINE MICROSCOPIC (MICROSCOPIC)
[2023-12-24 13:57] LABS: Appearance,Urine CLEAR (Clear); Blood, Urine TRACE-I (Negative); Color,Urine YELLOW (Yellow); Glucose,Urine (UA) Negative (Negative); Ketones,Urine TRACE (Negative); Leukocyte Esterase,Urine Negative (Negative); Nitrate,Urine Negative (Negative); Protein,Urine 2+ (Negative); Urobilinogen,Urine 0.2 EU/dl (0.2)
[2023-12-24 13:58] LABS: Albumin Level 3.3 g/dl (3.5-5.0); Chloride 94 mmol/L (98-107); Sodium 128 mmol/L (136-145)
[2023-12-24 13:59] LABS: Potassium 5.5 mmoL/L (3.5-5.1)
[2023-12-24 14:01] LABS: Alanine Aminotransferase 159 U/L (12-78); Anion Gap 23.5 mEq/L (5-15); Aspartate Amino Transferase 433 U/L (17-59); Blood Urea Nitrogen 16 mg/dl (9-20); Carbon Dioxide 16 mmol/L (22.0-30.0); Creatinine Clearance Estimated 72 mL/min (50-200); Estimated Glomerular Filt Rate 52 ml/min (>60); GFR (African American) 63 ML/MIN (>60)
[2023-12-24 14:02] LABS: Albumin/Globulin Ratio 0.9 (1.1-1.8); Alkaline Phosphatase 181 U/L (38-126); Bilirubin,Total 1.8 mg/dl (0.2-1.3); Calcium 8.2 mg/dl (8.4-10.2); Globulin 3.5 g/dL (1.3-3.2); Glucose 54 mg/dl (74-100); Total Protein,Serum 6.8 g/dl (6.3-8.2)
[2023-12-24 14:05] LABS: Basophils # 0.1 K/mm3 (0-0.2); Basophils % 0.5 % (0.1-2.0); Eosinophils # 0.1 K/mm3 (0.0-0.4); Eosinophils % 0.3 % (0.1-12.0); Hematocrit 33.3 % (42.0-52.0); Hemoglobin 9.6 g/dL (14.1-18.0); Lymphocytes # 1.7 K/mm3 (0.7-4.5); Mean Corpuscular HGB Conc 28.9 g/dL (31.8-35.4); Mean Corpuscular Hemoglobin 27.6 pg (27.0-31.2); Mean Corpuscular Volume 95.6 fl (80-94); Mean Platelet Volume 10.8 fl (7.4-10.4); Monocytes # 0.6 K/mm3 (0.1-1.0); Monocytes % 3.8 % (1.7-9.3); Neutrophils # 12.9 K/mm3 (1.8-7.8); Neutrophils % 84.3 % (37.0-80.0); Platelet Count 196 K/mm3 (142-424); Red Blood Count 3.48 M/mm3 (4.60-6.20); Red Cell Distribution Width 18.1 % (11.5-17.5); White Blood Count 15.3 K/mm3 (4.8-10.8)
[2023-12-24 14:16] LABS: Bilirubin,Urine 1+ (Negative)
[2023-12-24 14:20] LABS: Amorphous Sediment,Urine 2+ /lpf; Bacteria,Urine 3+ /lpf; WBC,Urine 20-50 #/hpf (0-3)
[2023-12-24 14:23] LABS: Troponin I < 0.01 ng/ml (0.00-0.034)
[2023-12-24 14:29] LABS: MANUAL DIFFERENTIAL MANUAL DIFFERENTIAL (MANUAL DIFF)
[2023-12-24] MEDS: 0.9 % SODIUM CHLORIDE 50 ML VIAL IV (14:38)
[2023-12-24] MEDS: IOPAMIDOL-370 (76%);100ML BOTTLE 80 ML IV (14:39)
[2023-12-24] MEDS: SODIUM CHLORIDE 0.9% 10ML SYR (RAD ONLY) 10 ML IV (14:39)
--- NOTE | 2023-12-24 14:43 | ED_ITS ---
Discharge Plan Disposition Patient Disposition: Chief Complaint: Shortness of Breath/Dyspnea Prescriptions Prescriptions: No Action hydrocortisone 10 mg tablet 15 mg PO DAILY duloxetine 60 mg capsule,delayed release(DR/EC) 60 mg PO DAILY Patient Comments: TAKE ONE CAPSULE BY MOUTH EVERY DAY AFTER finishing 30 MG metformin 500 mg tablet extended release 24 hr 500 mg PO DAILY Patient Comments: TAKE 1 TABLET BY MOUTH ONCE DAILY oxycodone-acetaminophen [Percocet] 10-325 mg tablet 1 tab PO TIDP PRN (Reason: Moderate Pain (Scale Score 5-6)) gabapentin 800 mg tablet 800 mg PO TID lisinopril 10 mg tablet 10 mg PO DAILY Patient Comments: TAKE 1 TABLET BY MOUTH ONCE DAILY vancomycin [Firvanq] 50 mg/mL Recon Soln 125 mg PO QID Qty: 150 0RF RisaQuad 8 billion cell Capsule 1 cap PO DAILY Qty: 30 0RF bisoprolol fumarate 10 mg tablet 5 mg PO DAILY Qty: 30 0RF atorvastatin 80 mg tablet 80 mg PO HS Patient Comments: TAKE 1 TABLET BY MOUTH ONCE DAILY FOR CHOLESTEROL Referrals Follow up/Referrals: Provider,Referral, MD [Primary Care Provider] - See instructions Clinical Impressions Clinical Impression: Acute hypoxemic respiratory failure Print Language Print Language: Telugu Discharge ED Provider: Lenin aDvis HPI General Chief Complaint: Shortness of Breath/Dyspnea Stated Complaint: resp failure Time Seen by Provider: 12/24/23 13:29 Mode of Arrival: EMS Source of Information: Spouse and EMS Limitations: No Limitations Description of Symptoms (Recalled from ER Triage Doc. by RN): EMS reports the pt was 76% on RA on their arrival and came up to 89% on 15L NR. They state he was his breathing was labored but he was awake and oriented. pt arrives at 1730, chest compressions in progress via EMS. Upon transfer to our stretcher pt was breathing spontaneously, had a positive carotid pulse, and had cardiac activity via US by MD. pts arrived and states he is a DNR/DNI. the reports she called EMS because the pt was having diarrhea, SOA and began gurgling. pts states he has stage 4 metastatic lung cancer, last chemo was on 10/11/23. pt has ceased all treatment. pt has bilateral clear breath sounds. pt is confused at this time, but he is spontaneously talking. History of Present Illness HPI narrative: 58-year-old male presents via EMS breath, hypoxia. Patient has significant past medical history of multiple cardiac stents, lung cancer stage IV currently at home on hospice. Patient was recently taken off of blood thinners. Per EMS report and patient's patient was at home acting normally then started having labored breathing. On arrival to scene EMS noted patient was 76% SpO2 on room air which increased to 89% on 15 L nonrebreather. Patient was alert and oriented at that time. Upon arrival patient reportedly lost pulse and was taken from ambulance into ED as chest compressions were started by EMS crew. Once in the room compressions were ceased and patient was noted to have cardiac activity on ultrasound [id number] as well as pulse and left carotid, patient was noted to be breathing spontaneously. It is unclear if patient did lose pulse briefly. Patient is tachypneic, tachycardic, requiring 15 L nonrebreather. Patient showed up immediately after arrival, patient is DNR/DNI. Shortly after arrival patient became more alert, responsive, answering questions. Denies chest pain or other pain at this time, complaining of shortness of breath. 8 on initial arrival, shortly after arrival improved to 12 with patient opening eyes spontaneously. Related Data Home Medications ?Medication ?Instructions ?Recorded ?Confirmed atorvastatin 80 mg tablet 80 mg PO HS 12/22/22 12/15/23 hydrocortisone 10 mg tablet 15 mg PO DAILY 11/14/23 12/16/23 duloxetine 60 mg capsule,delayed 60 mg PO DAILY 12/15/23 12/15/23 release gabapentin 800 mg tablet 800 mg PO TID 12/16/23 12/15/23 lisinopril 10 mg tablet 10 mg PO DAILY 12/16/23 12/16/23 metformin 500 mg tablet,extended 500 mg PO DAILY 12/16/23 12/16/23 release 24 hr oxycodone-acetaminophen 10 mg-325 1 tab PO TIDP PRN Moderate Pain 12/16/23 12/16/23 mg tablet (Percocet) (Scale Score 5-6) Previous Rx's ?Medication ?Instructions ?Recorded L.acidophilus-L.paracasei-B.bifidum-S.thermophl 1 cap PO DAILY #30 caps 12/18/23 8 billion cell capsule (RisaQuad) bisoprolol fumarate 10 mg tablet 5 mg (1/2 x 10 mg) PO DAILY #30 12/18/23 tabs vancomycin 50 mg/mL oral solution 125 mg (2.5 mL) PO QID #150 mL 12/18/23 (Firvanq) Allergies Allergy/AdvReac Type Severity Reaction Status Date / Time No Known Allergies Allergy Verified 11/20/23 12:57 [facility] Disclaimer: The information contained in this section may have been updated after the patient was seen, as this information can be updated by other users. Medical History (Updated 12/24/23 @ 17:00 by Lenin Davis DO) Severe protein-calorie malnutrition Edema of both lower extremities DVT (deep venous thrombosis) Stenosis of artery of right lower extremity Stenosis of artery of left lower extremity PAD (peripheral artery disease) Pancytopenia SVC syndrome Edema Non-small cell lung cancer (NSCLC) Coughing up blood SOB (shortness of breath) on exertion Superior vena cava compression syndrome Pulmonary arterial hypertension Typical angina Encounter for screening for malignant neoplasm of lung in current smoker with 30 pack year history or greater Tobacco abuse disorder Tobacco abuse counseling COPD (chronic obstructive pulmonary disease) Abnormal computerized axial tomography of chest Smoking greater than 30 pack years Pulmonary emphysema Dyspnea on exertion History of seasonal allergies Diabetes Edema DALTON (obstructive sleep apnea) Tobacco dependence HLD (hyperlipidemia) HTN (hypertension) CAD (coronary artery disease) Surgical History History of foot surgery History of colonoscopy History of cardiac cath History of umbilical hernia repair Family History Other Coronary artery disease Diabetes Hypertension Social History Smoking Status: Former smoker tobacco type: cigarettes packs per day: 1 second hand exposure: Yes alcohol intake: never substance use type: denies use current occupational status: other Travel in the last 8 weeks: None household members: spouse housing: house current occupational exposures/hazards: No caffeine: Yes ROS Obtained: Yes Systems reviewed as appropriate & no additional complaints except as documented Physical Exam General General appearance: in distress and cachectic Head Head exam: atraumatic and normocephalic Eye Eye exam: Present PERRL and EOMI ENT ENT exam: Present mucous membranes dry Neck Neck exam: Present normal inspection and trachea midline Chest Chest inspection: Present normal inspection and symmetric chest wall rise; Absent tenderness Respiratory Respiratory exam: Present normal lung sounds bilaterally, respiratory distress and other (Lung sounds equal bilaterally); Absent wheezes, stridor, accessory muscle use or prolonged expiratory phase Cardiovascular Cardiovascular exam: Present tachycardia and normal heart sounds Abdominal Exam Abdominal exam: Present soft; Absent distention Extremities Exam Extremities exam: Absent edema Neurological Exam Neurological exam: Present other (GCS 8 on arrival-quickly improved prior to intervention) Psychiatric Psychiatric exam: Present other (Unable to fully assess due to emergent condition) Skin Skin exam: Present warm and dry HEART Score HEART Score HEART Score assessment performed?: Yes History (anamnesis): Highly suspicious ECG: Non-specific disturbance Age: 45-65 years Risk factors: 3 or more risk factors Troponin: </= normal limit HEART Score: 6 Critical Care Critical Care Time Critical Care Time: Yes Attestation: On 12/24/23, the high probability of a clinically significant, sudden or life threatening deterioration of the following system(s) required my full and direct attention, intervention and personal management. The time I documented below is in addition to time spent performing reported procedures but includes the following listed in this critical care notation. Total Time Total Critical Care Time: 50 Medical Decision Making Medical Records Medical records reviewed: Yes I reviewed the patient's medical records. Min Inquiry Pt receiving controlled substance: Yes Min was queried for this patient: No Risks and benefits of using a controlled substance: were not discussed with pt by me Vital Signs Vital Signs: 12/24/23 13:32 12/24/23 13:38 12/24/23 14:46 Temperature 102.4 F H 99.7 F H 102.7 F H Temperature Source Core Pulse Rate 73 Pulse Rate [Left] 130 H Respiratory Rate 34 H 31 H 24 Blood Pressure 135/104 H 96/48 L Blood Pressure [Right Arm] 135/104 H Blood Pressure Mean [Right Arm] 114 Blood Pressure Source [Right Arm] Automatic Cuff 02 Sat by Pulse Oximetry 87 L 86 L Oxygen Delivery Method Non-Rebreather Non-Rebreather Non-Rebreather Oxygen Flow Rate (LPM) 15 Lab Data Labs: Lab Results 12/24/23 13:25: WBC 15.3 H, RBC 3.48 L, Hgb 9.6 L, Hct 33.3 L, MCV 95.6 H, MCH 27.6, MCHC 28.9 L, RDW 18.1 H, Plt Count 196, MPV 10.8 H, Neut % (Auto) 84.3 H, Lymph % (Auto) 11.0, [place] % (Auto) 3.8, Eos % (Auto) 0.3, Baso % (Auto) 0.5, N eut # (Auto) 12.9 H, Lymph # (Auto) 1.7, Milam # (Auto) 0.6, Eos # (Auto) 0.1, Baso # (Auto) 0.1, Total Counted 100, Neutrophils % (Manual) 93 H, Lymphocytes % (Manual) 4 L, Monocytes % (Manual) 3, Platelet Estimate Normal, RBC Morphology Normal, Sodium 128 L, Potassium 5.5 H, Chloride 94 L, Carbon Dioxide 16 L, Anion Gap 23.5 H, BUN 16, Creatinine 1.40 H, Estimated Creat Clear 72, Estimated GFR 52 L, Est GFR ( Amer) 63, Glucose 54 L, Calcium 8.2 L, Total Bilirubin 1.8 H, AST 433 H*, ALT 159 H, Alkaline Phosphatase 181 H, Troponin I < 0.01, Total Protein 6.8, Albumin 3.3 L, Globulin 3.5 H, Albumin/Globulin Ratio 0.9 L 12/24/23 13:30: VBG pH 7.14 L, VBG pCO2 40.0, VBG pO2 40.0, VBG HCO3 13.3 L, VBG Total CO2 14.5 L, VBG O2 Saturation 52.9, VBG Base Excess -15.7 L, VBG Lactic Acid 11.4 H 12/24/23 13:34: Urine Color Yellow, Urine Appearance Clear, Urine pH 6.0, Ur Specific [place] 1.020, Urine Protein 2+ A, Urine Glucose (UA) Negative, Urine Ketones Trace, Urine Blood Trace-i, Urine Nitrate Negative, Urine Bilirubin 1+ A , Urine Urobilinogen 0.2, Ur Leukocyte Esterase Negative, Urine RBC 5-10, Urine WBC 20-50, Ur Squamous Epith Cells 10-20, Amorphous Sediment 2+, Urine Bacteria 3+ 12/24/23 13:25 12/24/23 13:25 Response Orders (Tests/Meds): ED MEDICATIONS Generic Name Dose Route Start Last Admin Trade Name Freq PRN Reason Stop Dose Admin Vancomycin/PEG/NADA/Lysine/Water 1.75 gm in 350 mls @ 175 mls/hr 12/24/23 15:15 12/24/23 16:34 Vancomycin 1.75gm/350ml (Peg) Premix IV 12/24/23 17:14 Not Given ONCE ONE Sodium Chloride 10 ml 12/24/23 14:36 12/24/23 14:39 Sodium Chloride 0.9% 10ml Syr (Rad Only) IV 01/23/24 14:35 10 ml NEEDED PRN Administration Maintain IV Site Discontinued Medications Generic Name Dose Route Start Last Admin Trade Name Freq PRN Reason Stop Dose Admin Glycopyrrolate 0.2 mg 12/24/23 14:52 12/24/23 14:57 Glycopyrrolate 0.2 Mg/Ml 1ml Vial IV 12/24/23 14:53 0.2 mg ONCE ONE Administration Lactated Ringer's 1,000 mls @ 999 mls/hr 12/24/23 14:41 12/24/23 16:34 Lactated Ringer's 1000 Ml Bag IV 12/24/23 15:41 Not Given .Q1H1M ONE Piperacillin Sod/Tazobactam 100 mls @ 200 mls/hr 12/24/23 14:41 12/24/23 16:34 Sod 4.5 gm/ Sodium Chloride IV 12/24/23 15:10 Not Given ONCE ONE Iopamidol 80 ml 12/24/23 14:36 12/24/23 14:39 Iopamidol-370 (76%);100ml Bottle IV 12/24/23 14:37 80 ml ONCE ONE Administration Miscellaneous 1 each 12/24/23 14:45 12/24/23 16:34 Vancomycin Consult Request NOTAPPLIC 01/23/24 14:44 Not Given [facility] Sodium Chloride 50 ml 12/24/23 14:36 12/24/23 14:38 0.9 % Sodium Chloride 50 Ml Vial IV 12/24/23 14:37 50 ml ONCE ONE Administration ORDERS Category Date Time Status CT angio abdomen pelvis Stat Cat Scan 12/24/23 13:[address] angio chest PE protocol Stat Cat Scan 12/24/23 13:30 Completed Chest XR -- portable [XR chest portable] Stat Exams 12/24/23 13:39 Completed CBC w/Auto Diff [Complete Blood Count Auto Diff] Stat Lab 12/24/23 13:25 Completed CMP [Comprehensive Metabolic Panel] Stat Lab 12/24/23 13:25 Completed Trop I [Troponin I] Stat Lab 12/24/23 13:25 Completed Troponin I Q3H Lab 12/24/23 16:45 Ordered Troponin I Q3H Lab 12/24/23 19:45 Ordered Urinalysis and Microscopic Stat Lab 12/24/23 13:34 Completed Blood Culture Stat Micro 12/24/23 13:29 ORD Urine Culture Stat Micro 12/24/23 13:34 Received VBG [Venous Blood Gas] Stat RT 12/24/23 13:30 Completed ECG Data Tracing #1: Attestation: I reviewed this ECG and interpreted as documented below: ECG Narrative: Sinus tachycardia, artifact noted however normal axis, normal intervals, no noted ST elevation there is PVC noted MDM Narrative Medical Decision Narrative: Patient with history and exam per above presenting for evaluation of respiratory distress. Past medical history significant for multiple comorbidities including stage IV lung cancer, prior cardiac stents, CAD. COPD. On arrival EMS as they were getting him out of the ambulance initiated chest compressions as they thought he had lost pulse as they got him into the room and moved him to the stretcher it was noted that patient appeared to be responding and moving around, patient spontaneously breathing, [id number] ultrasound performed at bedside and showed cardiac activity. Compressions had been performed for approximately 20 to 30 seconds prior to him getting to the room and my evaluation showing that he did not need them. Patient was noted to have a pulse at left carotid by myself. Initial GCS was 8 very quickly improved to 11 while I was at bedside. Deferred intubation or invasive maneuvers as it was informed patient is DNR/DNI however EMS did not have paperwork. Patient's showed up in ED during initial evaluation and confirmed patient is DNR/DNI. Patient was recently taken off of blood thinners per his . Patient left on nonrebreather. Considered BiPAP however patient has waxing and waning consciousness and deferred pending emergent CTA. Patient tachycardic on arrival, EKG as above. Plan to obtain repeat EKG shortly Diagnoses considered include PE, CAD, electrolyte abnormality, aortic dissection, aortic aneurysm, electrolyte abnormality, hypoxia, respiratory failure, sepsis ED workup and treatment included: As above Labs were independently interpreted by me, significant for VBG with metabolic acidosis. Elevated liver enzymes, negative troponin, leukocytosis, stable anemia likely of chronic disease, hyponatremia stable from prior, elevated potassium at 5.5. Elevated anion gap, elevated creatinine?JANEY compared to prior. Elevated lactate. Mild hypoglycemia, will replete Imaging was independently visualized and interpreted by me, significant for chest x-ray with noted mediastinal mass, consolidation noted in right lung suspicious for pneumonia versus aspiration. CTA PE protocol without noted pulmonary embolism per my review, mediastinal mass noted, right lower lobe consolidation, right pleural effusion. CTA abdomen pelvis with adrenal and mesenteric masses noted occlusion noted of left common iliac and left external iliac arteries?suspect these to be chronic in nature, radiology report agrees with this assessment. Please refer to radiology report for full details. While in ED shortly after CT imaging was obtained patient presentation worsened. Discussion was had with family who have elected to pursue comfort measures at this time. This was ordered. Patient at 1532. My condolences to his family at this time My clinical impression at this time is most consistent with acute hypoxic respiratory failure
--- NOTE | 2023-12-24 14:45 | PC.NURSE ---
Myself and MD bedside to check on the pt as he is decompensation and no longer responding to stimulation. pt is maintaining his own airway however his saturation is diminishing. pts family notified and brought back from the waiting room.
[2023-12-24 14:46] VITALS: BP 96/48; RESP 24; TEMP 39.3
--- NOTE | 2023-12-24 14:55 | PC.NURSE ---
Called [facility] to come suction pt
--- NOTE | 2023-12-24 14:55 | PC.NURSE ---
Family at BS
[2023-12-24] MEDS: GLYCOPYRROLATE 0.2 MG/ML 1ML VIAL IV (14:57)
--- NOTE | 2023-12-24 15:00 | PC.NURSE ---
CALLED DIETARY FOR A COURTESY CART AND GIVE CHAIRS SO FAMILY MEMBERS COULD HAVE A SEAT IF NEEDED
--- NOTE | 2023-12-24 15:05 | PC.NURSE ---
I spoke with the pts and family. We discussed the options of care and they all agreed at this point there main concern is providing end of life care to make the pt as comfortable as possible. The does not want to do any more blood work or medications with the acception of comfort meds.
[2023-12-24 15:11] LABS: Lymphocytes % 4 % (10-50); Monocytes % 3 % (2-9); Neutrophils % 93 % (42-76); Platelet Estimate Normal; RBC Morphology Normal; Total Cells Counted 100
--- NOTE | 2023-12-24 15:58 | PC.NURSE ---
page made out for assistant manager pt
--- NOTE | 2023-12-24 15:59 | PC.NURSE ---
call from cesar landers, biomedical engineering technician, she states that she is on her way
--- NOTE | 2023-12-24 16:20 | PC.NURSE ---
1606-Spoke to Margie Ochoa at [facility]. . She will call back with determination.
--- NOTE | 2023-12-24 16:23 | PC.NURSE ---
electrophysiologist at bedside
--- NOTE | 2023-12-24 16:25 | PC.NURSE ---
[facility] notified of pt
--- NOTE | 2023-12-24 16:37 | PC.NURSE ---
pt is released from [employer] [facility], he organs are not viable for donation, per Margie Reddy.
--- NOTE | 2023-12-24 17:02 | P.DN_ITS ---
Pronouncement Note Date and Time of Date of : 12/24/23 Time of : 15:32 PCOD Preliminary cause of : Respiratory failure with hypoxia Summary Additional details: Please see primary ED note for full details Additional Data Confirmation of : no pulse, no respirations, no heart sounds and pupils fixed and dilated Family: at bedside Was code activated?: No Autopsy should be considered if:: Unknown or unanticipated medical complications Cause is not known with certainty on clinical grounds Would allay concerns of the public/family regarding Unexplained/unexpected apparently natural and not subject to a forensic medical jurisdiction DOA Within 24 hours of admission Sustained or apparently sustained injury while in the hospital Result of high risk, infectious and contagious disease Obstetric and pediatric arising from environmental or occupational hazard Unexplained/unexpected from dental, medical, or surgical diagnostic procedures and/or therapies Would disclose a known or suspected illness which also may have a bearing on survivors or recipients of transplanted organs Autopsy requested?: No Refused by family motor vehicle examiner notified?: Yes Organ bank notified?: Yes Advance directives: Yes
[2023-12-24 17:37] LABS: Reflex Lactic Add Lactic Reflex
[2023-12-24 18:05] VITALS: BP 0/0; PULSE 0; RESP 0; TEMP -17.7; TEMP 0
== END 2023-12-24 18:06 | disposition expired ==
PROVIDERS: Emergency Provider Student in an Organized Health Care Education/Training Program
DX: J96.01 Acute respiratory failure with hypoxia (principal); C34.90 Malignant neoplasm of unspecified part of unspecified bronchus or lung; Z66 Do not resuscitate; Z87.891 Personal history of nicotine dependence
CPT/HCPCS: 71045; 71275; 74174; 80053; 81001; 82803; 84484; 85007; 85025; 85027; 87040; 87086; 93005; 96374; 99291; Q9967